=== PATIENT | female | born 1970 | race Caucasian/White ===

== ENCOUNTER 2024-01-22 11:07 | Outpatient (AMB) | payer OTHER, SELFPAY ==
--- OUTSIDE RECORDS SUMMARY | 2024-01-22 11:09 | XMS_ITS | Continuity of Care Document ---
Author Organization [facility] Address [address] [place] [address]- Care Team Providers Care Entry Writer Name Role Phone Ronny PAPPAS, Ofelia Acosta Primary Care Physician [phone] Encounter [facility] Date(s): 11/22/22 - 11/22/[address] [address]- Encounter Diagnosis Foot pain(Final) - 11/22/22 Discharge Disposition: A-D/C Home Attending Physician: Alexander STUART, Levar Lyles Admitting Physician: Levar Munoz MD Referring Physician: Not on Staff, Referring MD Allergies, Adverse Reactions, Alerts Substance Reaction Severity Status codeine HIVES Active amoxicillin Active penicillin N&V - Nausea and vomiting Unknown Ac tive Immunizations Given and Recorded Vaccine Date Status Refusal Reason SARS-CoV-2 (COVID-19) mRNA BNT-162b2 vac 01/05/21 Recorded SARS-CoV-2 (COVID-19) mRNA BNT-162b2 vac 12/15/20 Recorded influenza virus vaccine, inactivated 06/22/20 Give n influenza virus vaccine, inactivated 05/26/17 Sawyer rded influenza virus vaccine, inactivated 05/29/16 Sawyer rded influenza virus vaccine, inactivated 06/23/13 Give n influenza virus vaccine, inactivated 1 09/01/11 Gi jackson influenza virus vaccine, inactivated 2 09/20/06 Gi jackson tetanus/diphtheria/pertussis, acel(Tdap) 02/09/14 Given pneumococcal 23-valent vaccine 3 09/01/11 Given 1Admin Note: VIS GIVEN: 03/18/2011 2Result Comment: lot [id number] 09/21/2006 3Admin Note: VIS 05/29/09 GIVEN Medications Acetaminophen Extra Strength Gelcaps = 1,000 mg, By Mouth, Every 8 hours, 0 Refills, Maintenance, 12/19/20 7:59:00 EDT, Partial fill upon patient request if the prescription is for a schedule II opioid drug. Start Date: 12/19/20 Status: Ordered Adderall XR 30 mg oral capsule, extended release 1 capsule = 30 mg, By Mouth, Daily in AM, # 30 capsule, 0 Refills, Maintenance, 10/17/22 8:56:00 EST, ER Capsule, [facility], please only fill on/after exact due date, 1 capsule By Mouth Daily in AM,x30 days, 168, cm, 10/07/22 10:08:00 EST, H... Start Date: 10/17/22 Stop Date: 11/16/22 Status: Ordered amLODIPine 2.5 mg oral tablet 1 tablet = 2.5 mg, By Mouth, Daily, # 90 tablet, 1 Refills, Maintenance, 11/14/22 13:47:00 EDT, Tablet, [facility], Partial fill upon patient request if the prescription is for a schedule IIopioid drug., 168, cm, 10/22/22 10:35:00 EST, Heigh... Start Date: 11/14/22 Status: Ordered amphetamine-dextroamphetamine 10 mg oral tablet 1 tablet = 10 mg, By Mouth, 2 times a day, # 60 tablet, 0 Refills, Maintenance, 11/21/22 10:00:00 EDT, [facility], ., 1 tablet By Mouth 2 times a day,x30 days, 168, cm, 10/22/22 10:35:00 EST, Height, 112, kg, 04/22/22 14:00:00 EDT, Dry Weight Start Date: 11/21/22 Stop Date: 12/21/22 Status: Ordered cholecalciferol 5000 intl units oral tablet 1 tablet = 125 mcg, By Mouth, Daily, # 30 tablet, 3 Refills, Maintenance, 10/22/22 10:51:00 EST, Tablet, [facility], Partial fill upon patient request if the prescription is for a schedule II opioid drug., 168, cm, 10/22/22 10:35:00 EST, Heig... Start Date: 10/22/22 Stop Date: 02/19/23 Status: Ordered clonazePAM 0.5 mg oral tablet 1 tablet = 0.5 mg, By Mouth, 3 times a day, NEEDED FOR ANXIETY, # 90 tablet, 3 Refills, Maintenance, 10/17/22 8:57:00 EST, Tablet, [facility], 168, cm, 10/07/22 10:08:00 EST, Height, 112,kg, 04/22/22 14:00:00 EDT, Dry Weight Start Date: 10/17/22 Stop Date: 02/14/23 Status: Ordered docusate sodium 100 mg oral capsule See Instructions, TAKE 1 CAPSULE ONE TO TWO TIMES A DAY FOR CONSTIPATION, # 20 capsule, 0 Refills, [facility], 168, cm, 08/01/21 17:36:00 EST, Height, 115, kg, 08/01/21 17:36:00 EST, Dry Weight Start Date: 10/31/21 Status: Ordered doxycycline hyclate 100 mg oral capsule 1 capsule = 100 mg, By Mouth, 2 times a day, for 10 days, # 20 capsule, 0 Refills, Acute 12/02/22 12:24:00 EDT, 11/22/22 12:24:00 EDT, Capsule, [facility], Partial fill upon patient request if the prescription is for a schedule II opioid drug... Start Date: 11/22/22 Stop Date: 12/02/22 Status: Ordered folic acid 1 mg oral tablet See Instructions, TAKE 1 TABLET BY MOUTH DAILY, # 30 tablet, Refills 5, Tot. Refills 5, Maintenance, 10/12/22 20:53:00 EST, Instructions Replace Required Details, Route to Pharmacy Electronically, [facility], 168, cm, 10/07/22 10:08:00 EST, H... Start Date: 10/12/22 Status: Ordered Freestyle Lite Monitor See Instructions, # 1 each, Refills 0, Tot. Refills 0, Maintenance, DX E11.9.For patients use to check her blood glucose levels 2 x a day., 09/19/20 13:48:00 EST, Supply, 168, cm, 08/08/20 14:39:00 EST, Height, 127.1, kg, 09/16/19 9:51:00 EST, Dry Weight Start Date: 09/19/20 Status: Ordered gabapentin 600 mg oral tablet 1 tablet = 600 mg, By Mouth, 3 times a day, # 90 tablet, 1 Refills, Maintenance, 10/22/22 10:50:00 EST, Tablet, [facility], Partial fill upon patient request if the prescription is for a schedule II opioid drug., 168, cm, 10/22/22 10:35:00 ES... Start Date: 10/22/22 Status: Ordered LaMICtal 200 mg oral tablet 2 tablet = 400 mg, By Mouth, Daily at bedtime, # 60 tablet, 3 Refills, Maintenance, 10/17/22 8:58:00 EST, Tablet, [facility], Ok for fill early - patient has never lost or needed early refills before, 168, cm, 10/07/22 10:08:00 EST, Height, 1... Start Date: 10/17/22 Stop Date: 02/14/23 Status: Ordered lamotrigine 100 mg oral tablet 100 mg, 1, tablet, By Mouth, Daily in AM, # 30 tablet, Refills 3, Tot. Refills 3, Maintenance, 10/17/22 8:58:00 EST, Route to Pharmacy Electronically, [facility], Ok for fill early - patienthas never lost or needed early refills before, 168,... Start Date: 10/17/22 Stop Date: 02/14/23 Status: Ordered NuLYTELY with Flavor Packs oral powder for reconstitution 240 mL, By Mouth, Every 10 minutes, split prep method, take 1st half of prep evening before procedure, 2nd half 6 hrs prior to procedure., # 1 each, 0 Refills, Maintenance, 11/10/22 10:55:00 EDT, Vicente, [facility], test date 01/14 .... Start Date: 11/10/22 Status: Ordered omeprazole 40 mg oral enteric coated capsule 1 capsule, By Mouth, 2 times a day, # 60 capsule, 2 Refills, Maintenance, 11/11/22 12:20:00 EDT, [facility], 168, cm, 10/22/22 10:35:00 EST, Height, 112, kg, 04/22/22 14:00:00 EDT, Dry Weight Start Date: 11/11/22 Status: Ordered Wellbutrin XL 150 mg/24 hours oral tablet, extended release 1 tablet = 150 mg, By Mouth, Every 24 hours, With the Wellbutrin 300 mg TDD 450 mg, # 30 tablet, 3 Refills, Maintenance, 10/17/22 8:57:00 EST, ER Tablet, [facility], Ok for fill early - patient has never lost or needed early refills before, 1... Start Date: 10/17/22 Stop Date: 02/14/23 Status: Ordered Wellbutrin XL 300 mg/24 hours oral tablet, extended release 1 tablet = 300 mg, By Mouth, Daily, With the Wellbutrin 150 mg TDD 450 mg, # 30 tablet, 3 Refills, Maintenance, 10/17/22 8:57:00 EST, ER Tablet, [facility], Ok for fill early - patient has never lost or needed early refills before, 168, cm, 0... Start Date: 10/17/22 Status: Ordered ziprasidone 40 mg oral capsule See Instructions, Take one capsule in the morning and 1 capsules at bedtime with an 80mg tab TDD 160mg, # 60 capsule, 3 Refills, Maintenance, 10/17/22 8:58:00 EST, [facility], Partial fill upon patient request if the prescription is for a keith... Start Date: 10/17/22 Status: Ordered ziprasidone 80 mg oral capsule 1 capsule = 80 mg, By Mouth, Daily at bedtime, TDD = 160mg/day, # 30 capsule, 3 Refills, Maintenance, 10/17/22 8:59:00 EST, [facility], Partial fill upon patient request if the prescription is for a schedule II opioid drug., 168, cm, 10/07/22... Start Date: 10/17/22 Stop Date: 02/14/23 Status: Ordered Problem List Condition Confirmation Course Effective Dates Status H ealth Status Informant ADD (attention deficit disorder) Confirmed Active Background diabetic retinopathy Confirmed Active Bipolar disorder Confirmed Active Bipolar II disorder Confirmed Active Chronic low back pain Confirmed Active Constipation Confirmed Active Diabetes Confirmed Active Postprandial epigastric pain Confirmed Active Foot pain Confirmed Active Gastrointestinal stromal tumor (GIST) Confirmed Active Generalized anxiety disorder Confirmed Active GERD (gastroesophageal reflux disease) Confirmed Active Hepatic steatosis Confirmed Active Gastric bypass status for obesity Confirmed Active Hypertension Confirmed Active Incomplete defecation Confirmed Active Mixed incontinence Confirmed Active Urinary frequency Confirmed Active Intertrigo Confirmed Active Mastitis NOS Confirmed 11/17/11 Active Morbid Obesity 1 Confirmed Active Myoclonic jerking Confirmed Active Open wound of abdominal wall Confirmed Active PTSD (post-traumatic stress disorder) Confirmed Active Imaging abnormality Confirmed Active Severe obesity Confirmed Active Vitamin 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 Results Radiology Reports * Exam Date Time Procedure Performing Provider Status 11/22/22 11:30 AM Foot Min 3 Views Left Jennifer Field; Manjula (Verified) Notes: (Foot Min 3 Views Left) Reason For Exam: with Pain;Trauma RESULT: Foot Min 3 Views Left Foot Min 3 Views Left, 3 views Hx of Present Illness: Pt states she first noticed a quarter sized wound on her L foot 1 week ago, and was told to come to the ED by her PCP. Pt states she started having yellow green drainage yesterday and she had a fever of 100.2; COMPARISON: 06/05/2021. FINDINGS: No fractures or focal osseous lesions are seen. 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 No radiopaque foreign bodies. No subcutaneous emphysema. Circumferential soft tissue prominence. IMPRESSION: No acute osseous process. WSN: [id number] Ordering Physician: Alvino Mills Dictated By: Chung Cheng MD Dictated Date/Time: 11/22/22 11:56 a Reviewed By: Chung Cheng MD Signed By: Chung Cheng MD Signed Date/Time: 11/22/22 11:56 am Transcribed By: SANDY Transcribed Date/Time: 11/22/22 11:55 am Vital Signs Most recent to oldest [Reference Range]: 1 2 Height 165 cm (11/22/22 10:40 AM) Weight 118.3 kg (11/22/22 10:40 AM) Oxygen Saturation [94-100 %] 96 % (11/22/22 10:40 AM) 97 % (11/22/22 10:39 AM) Pulse Rate [55-90 bpm] 84 bpm (11/22/22 10:40 AM) 97 bpm *H* (11/22/22 10:39 AM) Blood Pressure [90-138/55-84 mm Hg] 147/ 90mm Hg *H* (11/22/22 10:40 AM) Respiratory Rate [16-30 br/min] 18 br/mi n (11/22/22 10:40 AM) 16 br/min (11/22/22 10:39 AM) Temperature [96.8-100.4 DegF] 98.9 DegF (11/22/22 10:40 AM) Mode of Delivery (Oxygen) Room air (11/22/22 10:40 AM) Room air (11/22/22 10:39 AM) Blood pressure sites Arm, left (11/22/22 10:40 AM) Temperature Route Temporal (11/22/22 10:40 AM) Dry Weight 118.3 kg (11/22/22 10:40 AM) Weight Obtained Via Standing scale (11/22/22 10:40 AM) Dry Weight Obtained Via Standing scale (11/22/22 10:40 AM) Social History Social History Type Response Smoking Status Never (less than 100 in lifetime); Tobacco user in household: No entered on: 07/26/18 Sex Female Note * Alexander STUART, Levar Lyles: PERFORM Event Display: Patient Education Leaflets Authored Date: [id number] Abscess Drainage ?? [id number] Abscess Drainage An abscess is a pocket of pus that forms around an infection. Pus is a fluid made up of germs??(bacteria), white blood cells, and other matter. Draining pus from an infected area or organ inside the body may be needed. This helps heal the infection. The procedure is??usually??done by a specially trained doctor called an interventional radiologist. How do I get ready for abscess drainage? Follow any instructions you are given on how to prepare, including: ??? Don't eat or drink anythingfor 6??hours before the procedure. ??? Tell the technologist if you are, or could be, or if you are . ??? Tell your healthcare provider and the technologist if you are allergic to??X-ray dye (contrast medium) or other medicines. ??? Be sure your healthcare provider knows about??any health conditions you have and??all medicines you take. You may be told to stop taking some orall of them before the test. This includes: o All prescription medicines o Qkxs-[id number] medicines that don???t need a prescription o Any illegal drugs you may use?? o Herbs, vitamins, kelp, seaweed, cough syrups, and??any??other supplements ?? What happens during abscess drainage? You will change into a hospital gown and lie on an X-ray table. You may lie on your back, front, or side, depending on the site of the abscess. ??? An??IV (intravenous)??line is put into your vein to give you fluids and medicines. You may be given medicine through the IV to help you relax. ??? The skin over the abscess is cleaned. A local anesthetic is applied to numb the skin. ??? Using??a CT scan or ultrasound images as a guide, the radiologist puts aneedle through the skin and guides it to the abscess. The needle is then replaced with a thin, flexible tube (catheter). ??? Pus drains from the abscess through the catheter. A bag or suction bulb will be attached to the catheter to hold the pus as it drains. ??? The drainage catheter will be temporarily sutured or taped to your skin to help secure it and prevent it from moving. ??? The entire procedure may take 30 minutes or longer, depending on the location of the abscess. ?? What happens after abscess drainage? A slight fever is normal for the first 24 hours after the procedure. ??? The catheter and drainage bag will likely remain in place for several days. Follow any instructions you are given for caring for the catheter and drainage site. ??? See your healthcare provider for a follow-up appointment to check the infection and to have the catheter removed. ?? When to call your healthcare provider Call your healthcare provider if you have: ??? Bleeding ??? Fever of 100.4??F (38??C) or higher, oras directed by your healthcare provider ??? Chills ??? New or worsening pain ??? Fluid stops draining from the tube,??the drainage changes color, or the tube moves or comes out ?? Last Reviewed Date: 2022 ?? 6910-1010 [employer], [employer]. All rights reserved. This information is not intended as a substitute for professional medical care. Always follow your healthcare professional's instructions. ?? XR Foot - left GE 3 Views * [facility] , CIS S: TRANSCRIBE Chung Cheng MD: VERIFY Event Display: Result: Authored Date: Foot Min 3 Views Left, 3 views Hx of Present Illness: Pt states she first noticed a quarter sized wound on her L foot 1 week ago, and was told to come to the ED by her PCP. Pt states she started having yellow green drainage yesterday and she had a fever of 100.2; COMPARISON: 06/05/2021. FINDINGS: No fractures or focal osseous lesions are seen. 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 No radiopaque foreign bodies. No subcutaneous emphysema. Circumferential soft tissue prominence. IMPRESSION: No acute osseous process. WSN: [id number] Ordering Physician: Alvino Mills Dictated By: Chung Cheng MD Dictated Date/Time: 11/22/22 11:56 a Reviewed By: Chung Cheng MD Signed By: Chung Cheng MD Signed Date/Time: 11/22/22 11:56 am Transcribed By: SANDY Transcribed Date/Time: 11/22/22 11:55 am Patient Care team information Care Team Personnel Name: Anabel Vyas Position: [facility] RN Member Role: Primary Care Nurse Name: Isa Ward Position: [facility] RN Member Role: Primary Care Nurse Name: Ofelia Jefferson NP Position: [facility] PCO Associate Professional Member Role: PCP Address: Address: [address] [place] [address] [place] [address]- [place] Name: Tommy Kohli MD Position: [facility] Psychiatry MD Member Role: Lifetime Consulting Physician Address: Address: [address] [place] [id number]- [place] Name: Jimmie Collado Position: [facility] ED TA JAGDISH Member Role: Patient Care Provider Name: Alexander STUART, Levar Lyles Position: [facility] Resident Member Role: Admitting Physician Address: Address: [address] [place] [id number]- Name: Candelaria Cuba RN Position: [facility] ED RN W/OE and Tasks Member Role: Patient Care Provider Care Team Related Persons Name: WILLEM SIMON III Address: [place] [address] Name: WILLEM SIMON JR Address: home [address] [place] [address]
--- OUTSIDE RECORDS SUMMARY | 2024-01-22 11:09 | XMS_ITS | Continuity of Care Document ---
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 Date(s): 08/01/21 - 08/01/[address] [address]- Discharge Disposition: A-D/C Home Attending Physician: King Weber MD Admitting Physician: King Weber MD Referring Physician: Not on Staff, Referring MD Allergies, Adverse Reactions, Alerts Substance Reaction Severity Status OxyCODONE Hydrochloride hives full body itch Active Immunizations Given and Recorded Vaccine Date Status Refusal Reason SARS-CoV-2 (COVID-19) mRNA BNT-162b2 vac 01/05/21 Recorded SARS-CoV-2 (COVID-19) mRNA BNT-162b2 vac 12/15/20 Recorded influenza virus vaccine, inactivated 06/22/20 Give n influenza virus vaccine, inactivated 06/23/13 Give n influenza virus vaccine, inactivated 1 09/01/11 Gi jackson influenza virus vaccine, inactivated 2 09/20/06 Gi jackson tetanus/diphtheria/pertussis, acel(Tdap) 02/09/14 Given pneumococcal 23-valent vaccine 3 09/01/11 Given 1Admin Note: VIS GIVEN: 03/18/2011 2Result Comment: lot [id number] 09/21/2006 3Admin Note: VIS 05/29/09 GIVEN Medications Acetaminophen Extra Strength Gelcaps = 1,000 mg, By Mouth, Every 8 hours, 0 Refills, Maintenance, 12/19/20 7:59:00 EDT, Partial fill upon patient request if the prescription is for a schedule II opioid drug. Start Date: 12/19/20 Status: Ordered albuterol 90 mcg/inh inhalation powder 2 puffs, Inhalation, Every 4 hours, PRN as needed, # 1 each, 0 Refills, Maintenance, 08/01/21 20:08:00 EST, Powder, [facility], Partial fill upon patient request if the prescription is for aschedule II opioid drug., 2 puffs Inhalation Every... Start Date: 08/01/21 Status: Ordered aspirin 325 mg oral tablet 325 mg, 1, tablet, By Mouth, Daily, Refills 0, Maintenance, 12/19/20 7:58:00 EDT, Partial fill uponpatient request if the prescription is for a schedule II opioid drug. Start Date: 12/19/20 Status: Ordered Lyrica 150 mg oral capsule 1 capsule = 150 mg, By Mouth, 3 times a day, 0 Refills, Maintenance, 08/08/20 14:40:00 EST, Capsule, Partial fill upon patient request if the prescription is for a schedule II opioid drug. Start Date: 08/08/20 Status: Ordered ondansetron 4 mg oral tablet, disintegrating 1 tablet = 4 mg, By Mouth, Every 8 hours, PRN Nausea & Vomiting, for 7 days, # 20 tablet, 0 Refills, Acute 08/08/21 20:08:00 EST, 08/01/21 20:08:00 EST, Tablet, [facility], Partial fill upon patient request if the prescription is for a schedu... Start Date: 08/01/21 Stop Date: 08/08/21 Status: Ordered Problem List Condition Effective Dates Status Health Status Inform ant ADD (attention deficit disorder)(Confirmed) Active Background diabetic retinopathy(Confirmed) Active Bipolar disorder(Confirmed) Active Bipolar II disorder(Confirmed) Active Chronic low back pain(Confirmed) Active Constipation(Confirmed) Active Diabetes(Confirmed) Active Postprandial epigastric pain(Confirmed) Active Foot pain(Confirmed) Active Gastrointestinal stromal mari or (GIST)(Confirmed) Active Generalized anxiety disorder(Confirmed) Active GERD (gastroesophageal reflu x disease)(Confirmed) Active Hepatic steatosis(Confirmed) Active Gastric bypass status for obesity(Confirmed) Active Hypertension(Confirmed) Active Incomplete defecation(Confirmed) Active Mixed incontinence(Confirmed) Active Urinary frequency(Confirmed) Active Intertrigo(Confirmed) Active Mastitis NOS(Confirmed) 11/17/11 Active Morbid Obesity(Confirmed) 1 Active Myoclonic jerking(Confirmed) Active Open wound of abdominal wall(Confirmed) Active PTSD (post-traumatic stress disorder)(Confirmed) Active Imaging abnormality(Confirmed) Active Vitamin D deficiency(Confirmed) Active 1s/p gastric sleeve Vital Signs Most recent to oldest [Reference Range]: 1 2 Height 168 cm (08/01/21 5:36 PM) Weight 115 kg (08/01/21 5:36 PM) Oxygen Saturation [94-100 %] 99 % (08/01/21 8:37 PM) 98 % (08/01/21 5:36 PM) Pulse Rate [55-90 bpm] 93 bpm *H* (08/01/21 8:37 PM) 96 bpm *H* (08/01/21 5:36 PM) Blood Pressure [90-138/55-84 mm Hg] 135/ 78mm Hg (08/01/21 8:37 PM) 137/81mm Hg (08/01/21 5:36 PM) Respiratory Rate [16-30 br/min] 16 br/mi n (08/01/21 8:37 PM) 16 br/min (08/01/21 5:36 PM) Temperature [96.8-100.4 DegF] 100.0 DegF (08/01/21 8:37 PM) 99.7 DegF (08/01/21 5:36 PM) Mode of Delivery (Oxygen) Room air (08/01/21 8:37 PM) Room air (08/01/21 5:36 PM) Blood pressure sites Arm, left (08/01/21 8:37 PM) Arm, right (08/01/21 5:36 PM) Temperature Route Oral (08/01/21 8:37 PM) Oral (08/01/21 5:36 PM) Dry Weight 115 kg (08/01/21 5:36 PM) Social History Social History Type Response Smoking Status Never (less than 100 in lifetime); Tobacco user in household: No entered on: 07/26/18 Sex
--- OUTSIDE RECORDS SUMMARY | 2024-01-22 11:09 | XMS_ITS | Continuity of Care Document ---
Author Organization [facility] [place] Address [address] [place] [address]- Care Team Providers Care Item Processing Clerk Name Role Phone Ronny SKEIN MERCERIZING MACHINE OPERATOR, Ofelia Acosta Primary Care Physician [phone] Encounter [facility] Date(s): 12/26/21 - 04/25/22 [facility] [place] [address] [place] [address]- Attending Physician: German Cortez MD Allergies, Adverse Reactions, Alerts Substance Reaction [...] Note: VIS GIVEN: 03/18/2011 2Result Comment: lot [id number] 09/21/2006 3Admin Note: VIS 05/29/09 GIVEN Medications Acetaminophen Extra Strength Gelcaps = 1,000 mg, By Mouth, Every 8 hours, 0 Refills, Maintenance, 12/19/20 7:59:00 EDT, Partial fill upon patient request if the prescription is for a schedule II opioid drug. Start Date: 12/19/20 Status: Ordered Adderall 20 mg oral tablet 1 tablet = 20 mg, By Mouth, Daily, # 30 tablet, 0 Refills, Maintenance, 04/16/22 12:37:00 EDT, [facility], 1 tablet By Mouth Daily,x30 days, 168, cm, 04/06/22 15:19:00 EDT, Height, 113.3, kg, 04/09/22 9:17:00 EDT, Dry Weight Start Date: 04/16/22 Stop Date: 05/16/22 Status: Ordered Adderall XR 30 mg oral capsule, extended release 1 capsule = 30 mg, By Mouth, Daily in AM, # 30 capsule, 0 Refills, Maintenance, 04/16/22 12:37:00 EDT, ER Capsule, [facility], 1 capsule By Mouth Daily in AM, 168, cm, 04/06/22 15:19:00 EDT,Height, 113.3, kg, 04/09/22 9:17:00 EDT, Dry Weight Start Date: 04/16/22 Status: Ordered albuterol 90 mcg/inh inhalation powder 2 puffs, Inhalation, Every 4 hours, PRN as needed, # 1 each, 0 Refills, Maintenance, 08/01/21 20:08:00 EST, Powder, [facility], Partial fill upon patient request if the prescription is for aschedule II opioid drug., 2 puffs Inhalation Every... Start Date: 08/01/21 Status: Ordered Ambien 10 mg oral tablet 1 tablet = 10 mg, By Mouth, Daily at bedtime, PRN as needed for insomnia, for 30 days, # 30 tablet,3 Refills, Acute 07/12/22 9:27:00 EST, 03/14/22 9:27:00 EDT, Tablet, [facility], 168, cm, 02/20/22 13:36:00 EDT, Height, 116, kg, 02/20/22 13:... Start Date: 03/14/22 Stop Date: 07/12/22 Status: Ordered amLODIPine 2.5 mg oral tablet 1 tablet = 2.5 mg, By Mouth, Daily, # 90 tablet, 3 Refills, Maintenance, 06/11/21 15:16:00 EDT, Tablet, [facility], Partial fill upon patient request if the prescription is for a schedule IIopioid drug., 168, cm, 06/11/21 14:35:00 EDT, Heigh... Start Date: 06/11/21 Status: Ordered cholecalciferol 5000 intl units oral tablet 1 tablet = 125 mcg, By Mouth, Daily, # 30 tablet, 3 Refills, Maintenance, 02/07/22 11:35:00 EDT, Tablet, [facility], Partial fill upon patient request if the prescription is for a schedule II opioid drug., 168, cm, 02/07/22 11:03:00 EDT, [place]... Start Date: 02/07/22 Stop Date: 06/07/22 Status: Ordered clonazePAM 0.5 mg oral tablet 1 tablet = 0.5 mg, By Mouth, 3 times a day, NEEDED FOR ANXIETY, # 90 tablet, 3 Refills, Maintenance, 03/14/22 9:26:00 EDT, Tablet, [facility], 168, cm, 02/20/22 13:36:00 EDT, Height, 116,kg, 02/20/22 13:36:00 EDT, Dry Weight Start Date: 03/14/22 Stop Date: 07/12/22 Status: Ordered docusate sodium 100 mg oral capsule See Instructions, TAKE 1 CAPSULE ONE TO TWO TIMES A DAY FOR CONSTIPATION, # 20 capsule, 0 Refills, [facility], 168, cm, 08/01/21 17:36:00 EST, Height, 115, kg, 08/01/21 17:36:00 EST, Dry Weight Start Date: 10/31/21 Status: Ordered folic acid 1 mg oral tablet 1 mg, 1, tablet, By Mouth, Daily, # 30 tablet, Refills 3, Tot. Refills 3, Maintenance, 02/07/22 11:35:00 EDT, Route to Pharmacy Electronically, [facility], Partial fill upon patient request if the prescription is for a schedule II opioid drug... Start Date: 02/07/22 Stop Date: 06/07/22 Status: Ordered Freestyle Lite Monitor See Instructions, # 1 each, Refills 0, Tot. Refills 0, Maintenance, DX E11.9.For patients use to check her blood glucose levels 2 x a day., 09/19/20 13:48:00 EST, Supply, 168, cm, 08/08/20 14:39:00 EST, Height, 127.1, kg, 09/16/19 9:51:00 EST, Dry Weight Start Date: 09/19/20 Status: Ordered Geodon 60 mg oral capsule 1 capsule = 60 mg, By Mouth, 2 times a day, for 30 days, dose reduction, # 60 capsule, 3 Refills, Hard Stop 05/17/22 10:46:00 EDT, 01/17/22 10:46:00 EDT, Capsule, [facility], Partial fill upon patient request if the prescription is for a sche... Start Date: 01/17/22 Stop Date: 05/17/22 Status: Ordered Geodon 60 mg oral capsule 1 capsule = 60 mg, By Mouth, Daily, D/C all other Ziprasidone scripts., # 30 capsule, 0 Refills, Maintenance, 04/18/22 13:47:00 EDT, Capsule, [facility], Partial fill upon patient request ifthe prescription is for a schedule II opioid drug.,... Start Date: 04/18/22 Status: Ordered Geodon 80 mg oral capsule 1 capsule = 80 mg, By Mouth, Daily at bedtime, Take with 60mg capsule., # 30 capsule, 0 Refills, Maintenance, 04/18/22 13:47:00 EDT, Capsule, [facility], 168, cm, 04/06/22 15:19:00 EDT, Height, 113.3, kg, 04/09/22 9:17:00 EDT, Dry Weight Start Date: 04/18/22 Status: Ordered LaMICtal 200 mg oral tablet 2 tablet = 400 mg, By Mouth, Daily at bedtime, # 60 tablet, 3 Refills, Maintenance, 03/14/22 9:27:00 EDT, Tablet, [facility], 168, cm, 02/20/22 13:36:00 EDT, Height, 116, kg, 02/20/22 13:36:00 EDT, Dry Weight Start Date: 03/14/22 Stop Date: 07/12/22 Status: Ordered lamotrigine 100 mg oral tablet 100 mg, 1, tablet, By Mouth, Daily in AM, # 30 tablet, Refills 3, Tot. Refills 3, Maintenance, 03/14/22 9:27:00 EDT, Route to Pharmacy Electronically, [facility], 168, cm, 02/20/22 13:36:00 EDT, Height, 116, kg, 02/20/22 13:36:00 EDT, Dry Weight Start Date: 03/14/22 Stop Date: 07/12/22 Status: Ordered Lyrica 150 mg oral capsule 1 capsule = 150 mg, By Mouth, 3 times a day, 0 Refills, Maintenance, 08/08/20 14:40:00 EST, Capsule, Partial fill upon patient request if the prescription is for a schedule II opioid drug. Start Date: 08/08/20 Status: Ordered omeprazole 40 mg oral enteric coated capsule 1 capsule, By Mouth, 2 times a day, # 60 capsule, 2 Refills, Maintenance, 04/22/22 12:20:00 EDT, [facility], 168, cm, 04/21/22 8:42:00 EDT, Height, 113.3, kg, 04/09/22 9:17:00 EDT, Dry Weight Start Date: 04/22/22 Status: Ordered Wellbutrin XL 150 mg/24 hours oral tablet, extended release 1 tablet = 150 mg, By Mouth, Every 24 hours, With the Wellbutrin 300 mg TDD 450 mg, # 30 tablet, 3 Refills, Maintenance, 03/14/22 9:26:00 EDT, ER Tablet, [facility], 168, cm, 02/20/22 13:36:00 EDT, Height, 116, kg, 02/20/22 13:36:00 EDT, Dry... Start Date: 03/14/22 Stop Date: 07/12/22 Status: Ordered Wellbutrin XL 300 mg/24 hours oral tablet, extended release 1 tablet = 300 mg, By Mouth, Daily, With the Wellbutrin 150 mg TDD 450 mg, # 30 tablet, 3 Refills, Maintenance, 03/14/22 9:26:00 EDT, ER Tablet, [facility], 168, cm, 02/20/22 13:36:00 EDT, Height, 116, kg, 02/20/22 13:36:00 EDT, Dry Weight Start Date: 03/14/22 Status: Ordered ziprasidone 20 mg oral capsule 1 capsule = 20 mg, By Mouth, 3 times a day, # 90 capsule, 2 Refills, Maintenance, 03/14/22 9:23:00 EDT, Capsule, [facility], pt is slowly tapering off his medication, 168, cm, 02/20/22 13:36:00 EDT, Height, 116, kg, 02/20/22 13:36:00 EDT, Dry... Start Date: 03/14/22 Stop Date: 06/12/22 Status: Ordered Problem List Condition Effective Dates [...] Morbid Obesity(Confirmed) 1 Active Myoclonic jerking(Confirmed) Active Obese class II(Confirmed) Active Open wound of abdominal wall(Confirmed) Active PTSD (post-traumatic stress disorder)(Confirmed) Active Imaging abnormality(Confirmed) Active Vitamin D deficiency(Confirmed) Active 1s/p gastric sleeve Social History Social History Type Response Smoking Status Never (less than 100 in lifetime); Tobacco user in household: No entered on: 07/26/18 Sex Female Care Team Personnel Name: Ofelia Jefferson NP Address: [address] [place] [id number]
--- OUTSIDE RECORDS SUMMARY | 2024-01-22 11:09 | XMS_ITS | Continuity of Care Document ---
Author Organization [facility] [place] Address [address] [place] [address]- Care Team Providers Care Cylinder Dyer Name Role Phone Ronny ENGINEERING PROJECT MANAGER, Ofelia Acosta Primary Care Physician Encounter [facility] Date(s): 08/08/23 - 09/07/23 [facility] [place] [address] [place] [address]- Allergies, Adverse Reactions, Alerts Substance Reaction Severity [...] Note: VIS GIVEN: 03/18/2011 2Result Comment: lot [id number] 09/21/2006 3Admin Note: VIS 05/29/09 GIVEN Medications [...] AM, # 30 capsule, 0 Refills, Maintenance, 08/27/23 9:57:00 EST, ER Capsule, [facility], please only fill on/after exact due date, 1 capsule By Mouth Daily in AM,x30 days, 165, cm, 05/25/23 14:40:00 EDT, H... Start Date: 08/27/23 Stop Date: 09/26/23 Status: Ordered amLODIPine 2.5 mg oral tablet 1 tablet, By Mouth, Daily, # 90 tablet, 1 Refills, Maintenance, 07/24/23 15:00:00 EST, [facility], 165, cm, 05/25/23 14:40:00 EDT, Height, 118.3, kg, 12/16/22 20:23:00 EDT, Dry Weight Start Date: 07/24/23 Status: Ordered amphetamine-dextroamphetamine 10 mg oral tablet 1 tablet = 10 mg, By Mouth, 2 times a day, # 60 tablet, 0 Refills, Maintenance, 08/27/23 9:57:00 EST, [facility], fill on date due, 1 tablet By Mouth 2 times a day,x30 days, 165, cm, 05/25/23 14:40:00 EDT, Height, 118.3, kg, 12/16/22 20:23:00... Start Date: 08/27/23 Stop Date: 09/26/23 Status: Ordered clonazePAM 0.5 mg oral tablet 1 tablet = 0.5 mg, By Mouth, 3 times a day, NEEDED FOR ANXIETY, # 90 tablet, 3 Refills, Maintenance, 05/29/23 13:42:00 EDT, Tablet, [facility], 165, cm, 05/25/23 14:40:00 EDT, Height, 118.3, kg, 12/16/22 20:23:00 EDT, Dry Weight Start Date: 05/29/23 Stop Date: 09/26/23 Status: Ordered docusate sodium 100 mg oral capsule See Instructions, TAKE 1 CAPSULE ONE TO TWO TIMES A DAY FOR CONSTIPATION, # 20 capsule, 0 Refills, [facility], 168, cm, 08/01/21 17:36:00 EST, Height, 115, kg, 08/01/21 17:36:00 EST, Dry Weight Start Date: 10/31/21 Status: Ordered folic acid 1 mg oral tablet 1, tablet, By Mouth, Daily, # 30 tablet, Refills 5, Maintenance, 04/29/23 20:24:00 EDT, Route to Pharmacy Electronically, [facility], 165, cm, 01/21/23 11:55:00 EDT, Height, 118.3, kg, 12/16/22 20:23:00 EDT, Dry Weight Start Date: 04/29/23 Status: Ordered Freestyle Lite Monitor See Instructions, # 1 each, Refills 0, Tot. Refills 0, Maintenance, DX E11.9.For patients use to check her blood glucose levels 2 x a day., 09/19/20 13:48:00 EST, Supply, 168, cm, 08/08/20 14:39:00 EST, Height, 127.1, kg, 09/16/19 9:51:00 EST, Dry Weight Start Date: 09/19/20 Status: Ordered Freestyle Lite Precision Test Strips Freestyle Lite Precision Test Strips, See Instructions, # 100 each, Refills 0, Tot. Refills 0, Maintenance, use to test once daily DX: E11.9, 04/12/23 7:33:00 EDT, per ins this is what they will cover, Supply, 165, cm, 01/21/23 11:55:00 EDT, Height,... Start Date: 04/12/23 Status: Ordered FREESTYLE LITE TEST STRP FREESTYLE LITE TEST STRP, See Instructions, # 100 Unknown, 0 Refills, Maintenance, USE TO TEST ONCEDAILY, 07/09/23 8:06:00 EST, 165, cm, 05/25/23 14:40:00 EDT, Height, 118.3, kg, 12/16/22 20:23:00 EDT, Dry Weight Start Date: 07/09/23 Status: Ordered gabapentin 600 mg oral tablet 1 tablet, By Mouth, 3 times a day, # 90 tablet, 3 Refills, Maintenance, 05/29/23 13:41:00 EDT, [facility], 165, cm, 05/25/23 14:40:00 EDT, Height, 118.3, kg, 12/16/22 20:23:00 EDT, Dry Weight Start Date: 05/29/23 Stop Date: 09/26/23 Status: Ordered ibuprofen 800 mg oral tablet 1, tablet, By Mouth, 3 times a day, # 90 tablet, Refills 1, Maintenance, 05/25/23 8:49:00 EDT, Route to Pharmacy Electronically, [facility], 165, cm, 01/21/23 11:55:00 EDT, Height, 118.3, kg, 12/16/22 20:23:00 EDT, Dry Weight Start Date: 05/25/23 Status: Ordered LaMICtal 200 mg oral tablet 2 tablet = 400 mg, By Mouth, Daily at bedtime, for 30 days, # 60 tablet, 3 Refills, Hard Stop 09/26/23 13:41:00 EST, 05/29/23 13:41:00 EDT, Tablet, [facility], 165, cm, 05/25/23 14:40:00 EDT, Height, 118.3, kg, 12/16/22 20:23:00 EDT, Dry Weight Start Date: 05/29/23 Stop Date: 09/26/23 Status: Ordered LaMICtal 200 mg oral tablet 2 tablet = 400 mg, By Mouth, Daily at bedtime, # 60 tablet, 3 Refills, Maintenance, 09/26/23 13:41:00 EST, Tablet, [facility], 165, cm, 05/25/23 14:40:00 EDT, Height, 118.3, kg, 12/16/22 20:23:00 EDT, Dry Weight Start Date: 09/26/23 Stop Date: 01/24/24 Status: Ordered lamotrigine 100 mg oral tablet 100 mg, 1, tablet, By Mouth, Daily in AM, # 30 tablet, Refills 3, Tot. Refills 3, Maintenance, 05/29/23 13:41:00 EDT, Route to Pharmacy Electronically, [facility], 165, cm, 05/25/23 14:40:00EDT, Height, 118.3, kg, 12/16/22 20:23:00 EDT, Dry... Start Date: 05/29/23 Stop Date: 09/26/23 Status: Ordered NuLYTELY with Flavor Packs oral powder for reconstitution 240 mL, By Mouth, Every 10 minutes, split prep method, take 1st half of prep evening before procedure, 2nd half 6 hrs prior to procedure., # 1 each, 0 Refills, Maintenance, 11/10/22 10:55:00 EDT, RECPowder, [facility], test date 01/14 .... Start Date: 11/10/22 Status: Ordered omeprazole 40 mg oral enteric coated capsule 1 capsule, By Mouth, 2 times a day, # 180 capsule, 1 Refills, Maintenance, 08/15/23 8:46:00 EST, [facility], 165, cm, 05/25/23 14:40:00 EDT, Height, 118.3, kg, 12/16/22 20:23:00 EDT, Dry Weight Start Date: 08/15/23 Status: Ordered ondansetron 4 mg oral tablet 1 tablet = 4 mg, By Mouth, Every 8 hours, # 21 tablet, 0 Refills, Maintenance, 07/29/23 17:24:00 EST, Tablet, [facility], Partial fill upon patient request if the prescription is for a schedule II opioid drug., 165, cm, 05/25/23 14:40:00 EDT,... Start Date: 07/29/23 Status: Ordered ONE TOUCH DELICA PLUS 33G ONE TOUCH DELICA PLUS 33G, See Instructions, # 100 Unknown, 0 Refills, Maintenance, USE DAILY TO CHECK MORNING FASTING BLOOD SUGAR., 05/11/23 10:11:00 EDT, 165, cm, 01/21/23 11:55:00 EDT, Height, 118.3, kg, 12/16/22 20:23:00 EDT, Dry Weight Start Date: 05/11/23 Status: Ordered ONE TOUCH DELICA PLUS 33G ONE TOUCH DELICA PLUS 33G, See Instructions, # 100 Unknown, 11 Refills, Maintenance, USE DAILY TO CHECK MORNING FASTING BLOOD SUGAR., 08/08/23 21:02:00 EST, 165, cm, 05/25/23 14:40:00 EDT, Height, 118.3, kg, 12/16/22 20:23:00 EDT, Dry Weight Start Date: 08/08/23 Status: Ordered ONETOUCH VERIO STRP ONETOUCH VERIO STRP, See Instructions, # 50 Unknown, 0 Refills, Maintenance, USE DAILY TO CHECK MORNING FASTING BLOOD SUGAR., 04/06/23 7:38:00 EDT, 165, cm, 01/21/23 11:55:00 EDT, Height, 118.3, kg, 12/16/22 20:23:00 EDT, Dry Weight Start Date: 04/06/23 Status: Ordered OneTouch Verio Glucose Meter See Instructions, # 1 each, Maintenance, Use daily to check morning fasting blood sugar ICD 10: E11.9, 02/19/23 11:43:00 EDT, Supply, 165, cm, 01/21/23 11:55:00 EDT, Height, 118.3, kg, 12/16/22 20:23:00 EDT, Dry Weight Start Date: 02/19/23 Status: Ordered OneTouch Verio Lancets See Instructions, # 1 each, Maintenance, Use daily to check morning fasting blood sugar ICD 10: E11.9, 02/19/23 11:43:00 EDT, Supply, 165, cm, 01/21/23 11:55:00 EDT, Height, 118.3, kg, 12/16/22 20:23:00 EDT, Dry Weight Start Date: 02/19/23 Status: Ordered OneTouch Verio Test Strips See Instructions, # 1 each, Maintenance, Use daily to check morning fasting blood sugar ICD 10: E11.9, 02/19/23 11:43:00 EDT, Supply, 165, cm, 01/21/23 11:55:00 EDT, Height, 118.3, kg, 12/16/22 20:23:00 EDT, Dry Weight Start Date: 02/19/23 Status: Ordered Readi-Cat 2 Smoothie Creamy Vanilla 2% oral suspension See Instructions, 1 bottle 90 minutes prior to study, # 420 mL, 0 Refills, Maintenance, 05/25/23 15:17:00 EDT, [facility], Partial fill upon patient request if the prescription is for a schedule II opioid drug., 1 bottle 90 minutes prior to s... Start Date: 05/25/23 Status: Ordered Suprep Bowel Prep Kit oral liquid 177 mL, By Mouth, Once, split prep, # 354 mL, 0 Refills, Soft Stop, 12/01/22 14:37:00 EDT, [facility], Partial fill upon patient request if the prescription is for a schedule II opioid drug., 177 mL By Mouth Once,Instr:split prep, 165, cm, 04... Start Date: 12/01/22 Status: Ordered Trulicity Pen 1.5 mg/0.5 mL subcutaneous solution See Instructions, INJECT 0.5ML SUBCUTANEOUSLY ONCE WEEKLY ROTATE INJECTION SITES, # 2 mL, 5 Refills, Maintenance, 06/07/23 18:02:00 EDT, [facility], 165, cm, 05/25/23 14:40:00 EDT, Height, 118.3, kg, 12/16/22 20:23:00 EDT, Dry Weight Start Date: 06/07/23 Status: Ordered Vitamin D3 5000 intl units oral tablet 1 tablet, By Mouth, Daily, # 30 tablet, 5 Refills, Maintenance, 03/08/23 21:40:00 EDT, [facility], 165, cm, 01/21/23 11:55:00 EDT, Height, 118.3, kg, 12/16/22 20:23:00 EDT, Dry Weight Start Date: 03/08/23 Status: Ordered Wellbutrin XL 300 mg/24 hours oral tablet, extended release 1 tablet = 300 mg, By Mouth, Daily, # 30 tablet, 2 Refills, Maintenance, 08/11/23 7:22:00 EST, ER Tablet, [facility], dose reduction - 300mg/day, 165, cm, 05/25/23 14:40:00 EDT, Height, 118.3, kg, 12/16/22 20:23:00 EDT, Dry Weight Start Date: 08/11/23 Stop Date: 11/09/23 Status: Ordered ziprasidone 60 mg oral capsule 2 capsule = 120 mg, By Mouth, Daily at bedtime, # 60 capsule, 2 Refills, Maintenance, 07/28/23 14:51:00 EST, [facility], Partial fill upon patient request if the prescription is for a schedule II opioid drug., 165, cm, 05/25/23 14:40:00 EDT,... Start Date: 07/28/23 Stop Date: 10/26/23 Status: Ordered Problem List Condition Confirmation Course [...] 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 Social History Social History Type Response Smoking Status Never (less than 100 in lifetime); Tobacco user in household: No entered on: 07/26/18 Sex Female Patient Care team information Care Team Personnel Name: Anabel Roblero MA Position: [facility] RN Member Role: Primary Care Nurse Name: Isa Ward Position: [facility] RN Member Role: Primary Care Nurse Name: Ofelia Jefferson NP Position: [facility] PCO Associate Professional Member Role: PCP Address: Address: [address] [place] [address] [place] [address]- Name: Tommy Kohli MD Position: [facility] Physician - Behavioral Health Member Role: Lifetime Consulting Physician Address: Address: [address] [place] [address]- Care Team Related Persons Name: WILLEM SIMON III Address: [place] [address] Name: WILLEM SIMON JR Address: home [address] [place] [address]
--- OUTSIDE RECORDS SUMMARY | 2024-01-22 11:09 | XMS_ITS | Continuity of Care Document ---
Author Organization [facility] [place] [employer] [facility] Address [address], [address] [place] [address]- Care Team Providers Care Community Outreach Advocate Name Role Phone Stacie Rendon NP Primary Care Physician [facility] [id number] Date(s): 12/04/20 - 03/09/21 [facility] [employer] [address], [address] [place], [place] [address] Attending Physician: Not on Staff, Attending MD Referring Physician: Stacie Rendon NP Allergies, Adverse Reactions, Alerts Substance Reaction Severity Status OxyCODONE Hydrochloride hives full body itch Active Immunizations Given and Recorded Vaccine Date Status Refusal Reason influenza virus vaccine, inactivated 06/22/20 Give n influenza virus vaccine, inactivated 06/23/13 Give n influenza virus vaccine, inactivated 1 09/01/11 Gi jackson influenza virus vaccine, inactivated 2 09/20/06 Gi jackson tetanus/diphtheria/pertussis, acel(Tdap) 02/09/14 Given pneumococcal 23-valent vaccine 3 09/01/11 Given 1Admin Note: VIS GIVEN: 03/18/2011 2Result Comment: lot [id number] 09/21/2006 3Admin Note: VIS 05/29/09 GIVEN Medications Acetaminophen Extra Strength Gelcaps = 1,000 mg, By Mouth, Every 8 hours, 0 Refills, Maintenance, 12/19/20 7:59:00 EDT, Partial fill upon patient request if the prescription is for a schedule II opioid drug. Start Date: 12/19/20 Status: Ordered aspirin 325 mg oral tablet 325 mg, 1, tablet, By Mouth, Daily, Refills 0, Maintenance, 12/19/20 7:58:00 EDT, Partial fill uponpatient request if the prescription is for a schedule II opioid drug. Start Date: 12/19/20 Status: Ordered Dilaudid 2 mg oral tablet 1 tablet = 2 mg, By Mouth, Every 4 hours, PRN as needed for pain, 0 Refills, Maintenance, 12/19/20 10:44:00 EDT, Tablet, Partial fill upon patient request if the prescription is for a schedule II opioid drug. Start Date: 12/19/20 Status: Ordered Lyrica 150 mg oral capsule 1 capsule = 150 mg, By Mouth, 3 times a day, 0 Refills, Maintenance, 08/08/20 14:40:00 EST, Capsule, Partial fill upon patient request if the prescription is for a schedule II opioid drug. Start Date: 08/08/20 Status: Ordered Suboxone 2 mg-0.5 mg sublingual film 1 film, Sublingual, 2 times a day, dissolve under the tongue, 0 Refills, Maintenance, 12/19/20 11:25:00 EDT, Film, Partial fill upon patient request if the prescription is for a schedule II opioid drug. Start Date: 12/19/20 Status: Ordered Vitamin D3 5000 intl units oral tablet 1 tablet = 5,000 International_Units, By Mouth, Daily, # 100 tablet, 0 Refills, Maintenance, 12/19/20 8:01:00 EDT, Tablet, Partial fill upon patient request if the prescription is for a schedule II opioid drug. Start Date: 12/19/20 Status: Ordered Problem List Condition Effective Dates Status Health Status Inform ant Background diabetic retinopathy(Confirmed) Active Bipolar disorder(Confirmed) Active Chronic low back pain(Confirmed) Active Constipation(Confirmed) Active Diabetes(Confirmed) Active Postprandial epigastric pain(Confirmed) Active Foot pain(Confirmed) Active GERD (gastroesophageal reflu x disease)(Confirmed) Active Hepatic steatosis(Confirmed) Active Gastric bypass status for obesity(Confirmed) Active Incomplete defecation(Confirmed) Active Mixed incontinence(Confirmed) Active Urinary frequency(Confirmed) Active Intertrigo(Confirmed) Active Mastitis NOS(Confirmed) 11/17/11 Active Morbid Obesity(Confirmed) 1 Active Myoclonic jerking(Confirmed) Active Open wound of abdominal wall(Confirmed) Active Vitamin D deficiency(Confirmed) Active 1s/p gastric sleeve Social History Social History Type Response Smoking Status Never (less than 100 in lifetime); Tobacco user in household: No entered on: 07/26/18 Sex
--- OUTSIDE RECORDS SUMMARY | 2024-01-22 11:09 | XMS_ITS | Continuity of Care Document ---
Author Organization [facility] [place] Address [address] [place] [address]- Care Team Providers Care Sample Patternmaker Name Role Phone Ronny PAPPAS, Ofelia Acosta Primary Care Physician Encounter [facility] Date(s): 02/07/22 - 04/12/22 [facility] [place] [address] [place] [address]- Attending Physician: Chris Toribio MD Referring Physician: Yosvany PAPPAS, Julienne Platt Allergies, Adverse Reactions, Alerts Substance Reaction Severity [...] Note: VIS GIVEN: 03/18/2011 2Result Comment: lot [id number] 09/21/2006 3Admin Note: VIS 05/29/09 GIVEN Medications [...] opioid drug. Start Date: 08/08/20 Status: Ordered Problem List Condition Effective Dates [...] (post-traumatic stress disorder)(Confirmed) Active Imaging abnormality(Confirmed) Active Severe obesity(Confirmed) Active Vitamin D deficiency(Confirmed) Active 1s/p gastric sleeve Social History Social History Type Response Smoking Status Never (less than 100 in lifetime); Tobacco user in household: No entered on: 07/26/18 Sex Female
--- OUTSIDE RECORDS SUMMARY | 2024-01-22 11:09 | XMS_ITS | Continuity of Care Document ---
Author Organization [facility] [place] Address [address] [place] [address]- Care Team Providers Care Armature Connector Name Role Phone Danis PAPPAS, Elda Marie Primary Care Physician [phone] Encounter [facility] NBR [id number] Date(s): 09/18/20 - 10/18/20 [facility] [place] [address] [place] [address]- Allergies, Adverse Reactions, Alerts Substance Reaction Severity Status morphine Persistent Mild Active OxyCODONE Hydrochloride Acti ve Immunizations Given and Recorded Vaccine Date Status Refusal Reason influenza virus vaccine, inactivated 06/22/20 Give n influenza virus vaccine, inactivated 06/23/13 Give n influenza virus vaccine, inactivated 1 09/01/11 Gi jackson influenza virus vaccine, inactivated 2 09/20/06 Gi jackson tetanus/diphtheria/pertussis, acel(Tdap) 02/09/14 Given pneumococcal 23-valent vaccine 3 09/01/11 Given 1Admin Note: VIS GIVEN: 03/18/2011 2Result Comment: lot [id number] 09/21/2006 3Admin Note: VIS 05/29/09 GIVEN Medications Lyrica 150 mg oral capsule 1 capsule [...] Active Gastric bypass status for obesity(Confirmed) Active Intertrigo(Confirmed) Active Mastitis NOS(Confirmed) 11/17/11 Active Morbid Obesity(Confirmed) 1 Active Myoclonic jerking(Confirmed) Active Open wound of abdominal wall(Confirmed) Active Wound, open, abdominal wall, anterior(Confirmed) Active Vitamin D deficiency(Confirmed) Active 1s/p gastric sleeve Social History Social History Type Response Smoking Status Never (less than 100 in lifetime) entered on: 12/31/18 Sex
--- OUTSIDE RECORDS SUMMARY | 2024-01-22 11:09 | XMS_ITS | Continuity of Care Document ---
Author Organization [facility] [place] Address [address] [place] [address]- Care Team Providers Care Route Specialist Name Role Phone Adama STUART, Aly Salazar Primary Care Physician Encounter [facility] NBR [id number] Date(s): 05/08/21 - 06/07/21 [facility] [place] [address] [place] [address]- Allergies, Adverse Reactions, Alerts Substance Reaction Severity [...] Note: VIS GIVEN: 03/18/2011 2Result Comment: lot [id number] 09/21/2006 3Admin Note: VIS 05/29/09 GIVEN Medications [...] opioid drug. Start Date: 08/08/20 Status: Ordered Vitamin D3 5000 intl units [...] Postprandial epigastric pain(Confirmed) Active Foot pain(Confirmed) Active Generalized anxiety disorder(Confirmed) Active GERD (gastroesophageal [...]
--- OUTSIDE RECORDS SUMMARY | 2024-01-22 11:09 | XMS_ITS | Continuity of Care Document ---
Author Organization [facility] [place] Address [address] [place] [address]- Care Team Providers Care Vp Legal Affairs Name Role Phone Ronyn VISUAL MERCHANDISING MANAGER, Ofelia Acosta Primary Care Physician [phone] Encounter [facility] Date(s): 12/15/23 - 01/14/24 [facility] [place] [address] [place] [address]- Allergies, Adverse Reactions, Alerts Substance Reaction Severity [...] Note: VIS GIVEN: 03/18/2011 2Result Comment: lot [id number] 09/21/2006 3Admin Note: VIS 05/29/09 GIVEN Medications [...] AM, # 30 capsule, 0 Refills, Maintenance, 01/12/24 7:19:00 EDT, ER Capsule, [facility], fill when due, 1 capsule By Mouth Daily in AM,x30 days, 165, cm,12/17/23 12:31:00 EDT, Height, 110.1, kg, 10/28/23... Start Date: 01/12/24 Stop Date: 02/11/24 Status: Ordered amLODIPine 2.5 mg oral tablet 1 tablet, By Mouth, Daily, # 90 tablet, 1 Refills, Maintenance, 01/10/24 10:27:00 EDT, [facility], 165, cm, 12/17/23 12:31:00 EDT, Height, 110.1, kg, 10/28/23 1:29:00 EST, Dry Weight Start Date: 01/10/24 Status: Ordered amphetamine-dextroamphetamine 10 mg oral tablet 1 tablet = 10 mg, By Mouth, 2 times a day, # 60 tablet, 0 Refills, Maintenance, 01/12/24 7:19:00 EDT, [facility], fill on date due, 1 tablet By Mouth 2 times a day,x30 days, 165, cm, 12/17/23 12:31:00 EDT, Height, 110.1, kg, 10/28/23 1:29:00... Start Date: 01/12/24 Stop Date: 02/11/24 Status: Ordered CeleBREX 100 mg oral capsule 1 capsule = 100 mg, By Mouth, 2 times a day, PRN for pain, # 60 capsule, 3 Refills, Maintenance, 11/06/23 9:04:00 EDT, Capsule, [facility], Partial fill upon patient request if the prescription is for a schedule II opioid drug., 165, cm, 10/22... Start Date: 11/06/23 Stop Date: 03/05/24 Status: Ordered clonazePAM 0.5 mg oral tablet 1 tablet = 0.5 mg, By Mouth, 3 times a day, NEEDED FOR ANXIETY, # 90 tablet, 3 Refills, Maintenance, 12/01/23 15:45:00 EDT, Tablet, [facility], 165, cm, 11/06/23 8:10:00 EDT, Height, 110.1, kg, 10/28/23 1:29:00 EST, Dry Weight Start Date: 12/01/23 Stop Date: 03/30/24 Status: Ordered docusate sodium 100 mg oral capsule See Instructions, TAKE 1 CAPSULE ONE TO TWO TIMES A DAY FOR CONSTIPATION, # 20 capsule, 0 Refills, [facility], 168, cm, 08/01/21 17:36:00 EST, Height, 115, kg, 08/01/21 17:36:00 EST, Dry Weight Start Date: 10/31/21 Status: Ordered folic acid 1 mg oral tablet 1, tablet, By Mouth, Daily, # 30 tablet, Refills 5, Maintenance, 04/29/23 20:24:00 EDT, Route to Pharmacy Electronically, [facility], 165, cm, 01/21/23 11:55:00 EDT, Height, 118.3, kg, 12/16/22 20:23:00 EDT, Dry Weight Start Date: 04/29/23 Status: Ordered folic acid 1 mg oral tablet See Instructions, TAKE ONE TABLET BY MOUTH EVERY DAY, # 30 tablet, Refills 5, Maintenance, :13:00 EST, Instructions Replace Required Details, Route to Pharmacy Electronically, [facility], 165, cm, 05/25/23 14:40:00 EDT, Height, 118.... Start Date: 10/12/23 Status: Ordered Freestyle Lite Monitor See Instructions, [...] Dry Weight Start Date: 07/09/23 Status: Ordered FREESTYLE LITE TEST STRP FREESTYLE LITE TEST STRP, See Instructions, # 100 Unknown, 0 Refills, Maintenance, USE TO TEST ONCEDAILY., 10/09/23 8:06:00 EST, 165, cm, 05/25/23 14:40:00 EDT, Height, 118.3, kg, 12/16/22 20:23:00 EDT, Dry Weight Start Date: 10/09/23 Status: Ordered gabapentin 600 mg oral tablet 1 tablet, By Mouth, 3 times a day, # 90 tablet, 3 Refills, Maintenance, 12/01/23 15:46:00 EDT, [facility], 165, cm, 11/06/23 8:10:00 EDT, Height, 110.1, kg, 10/28/23 1:29:00 EST, Dry Weight Start Date: 12/01/23 Stop Date: 03/30/24 Status: Ordered LaMICtal 200 mg oral tablet 2 tablet = 400 mg, By Mouth, Daily at bedtime, # 60 tablet, 3 Refills, Maintenance, 12/01/23 15:46:00 EDT, Tablet, [facility], 165, cm, 11/06/23 8:10:00 EDT, Height, 110.1, kg, 10/28/23 1:29:00 EST, Dry Weight Start Date: 12/01/23 Stop Date: 03/30/24 Status: Ordered lamotrigine 100 mg oral tablet 100 mg, 1, tablet, By Mouth, Daily in AM, # 30 tablet, Refills 3, Tot. Refills 3, Maintenance, 12/01/23 15:46:00 EDT, Route to Pharmacy Electronically, [facility], 165, cm, 11/06/23 8:10:00 EDT, Height, 110.1, kg, 10/28/23 1:29:00 EST, Dry We... Start Date: 12/01/23 Stop Date: 03/30/24 Status: Ordered NuLYTELY with Flavor Packs oral powder for reconstitution 240 mL, By Mouth, Every 10 minutes, split prep method, take 1st half of prep evening before procedure, 2nd half 6 hrs prior to procedure., # 1 each, 0 Refills, Maintenance, 11/10/22 10:55:00 EDT, [facility], [facility], test date 01/14 .... Start Date: 11/10/22 Status: Ordered omeprazole 40 mg oral enteric coated capsule 1 capsule, By Mouth, 2 times a day, # 180 capsule, 1 Refills, Maintenance, 08/15/23 8:46:00 EST, [facility], 165, cm, 05/25/23 14:40:00 EDT, Height, 118.3, kg, 12/16/22 20:23:00 EDT, Dry Weight Start Date: 08/15/23 Status: Ordered ondansetron 4 mg oral tablet 1 tablet = 4 mg, By Mouth, Every 8 hours, # 21 tablet, 0 Refills, Maintenance, 07/29/23 17:24:00 EST, Tablet, [facility], Partial fill upon [...] mL, 0 Refills, Maintenance, 05/25/23 15:17:00 EDT, [facility], Partial fill upon patient request if the prescription is for a schedule II opioid drug., 1 bottle 90 minutes prior to s... Start Date: 05/25/23 Status: Ordered Trulicity Pen 1.5 mg/0.5 mL subcutaneous solution See Instructions, INJECT 0.5ML SUBCUTANEOUSLY ONCE WEEKLY ROTATE INJECTION SITES, # 2 mL, 5 Refills, Maintenance, 06/07/23 18:02:00 EDT, [facility], 165, cm, 05/25/23 14:40:00 EDT, Height, 118.3, kg, 12/16/22 20:23:00 EDT, Dry Weight Start Date: 06/07/23 Status: Ordered Vitamin D3 5000 intl units oral tablet 1 tablet, By Mouth, Daily, # 30 tablet, 0 Refills, Maintenance, 10/15/23 11:12:00 EST, [facility], 165, cm, 05/25/23 14:40:00 EDT, Height, 118.3, kg, 12/16/22 20:23:00 EDT, Dry Weight Start Date: 10/15/23 Status: Ordered Wellbutrin XL 300 mg/24 hours oral tablet, extended release 1 tablet = 300 mg, By Mouth, Daily, # 30 tablet, 3 Refills, Maintenance, 12/01/23 15:45:00 EDT, ER Tablet, [facility], 165, cm, 11/06/23 8:10:00 EDT, Height, 110.1, kg, 10/28/23 1:29:00 EST,Dry Weight Start Date: 12/01/23 Stop Date: 03/30/24 Status: Ordered ziprasidone 20 mg oral capsule 1 capsule = 20 mg, By Mouth, Daily at bedtime, # 30 capsule, 3 Refills, Maintenance, 12/01/23 15:56:00 EDT, [facility], dose reduction, 165, cm, 11/06/23 8:10:00 EDT, Height, 110.1, kg, 10/28/23 1:29:00 EST, Dry Weight Start Date: 12/01/23 Stop Date: 03/30/24 Status: Ordered Problem List Condition Confirmation Course [...] Team Personnel Name: Anabel Roblero [place] Position: [facility] Office Staff Member Role: Primary Care Nurse Name: Isa Paulson [place] Position: [facility] Staff Member Role: Primary Care Nurse Name: Ofelia Jefferson NP Position: [facility] Associate Professional Member Role: PCP Address: Address: [address] [place] [address]- Name: Tommy Kohli MD Position: [facility] Physician - Behavioral Health Member Role: Lifetime Consulting Physician Address: Address: [address] [place] [address]- Care Team Related Persons Name: WILLEM SIMON III Address: [place] [address] Name: WILLEM SIMON JR Address: home [address] [place] [id number]
--- OUTSIDE RECORDS SUMMARY | 2024-01-22 11:10 | XMS_ITS | Continuity of Care Document ---
Author Organization [facility] [place] Address [address] [place] [address]- Care Team Providers Care Continuous Drier Operator Name Role Phone Stacie Rendon NP Primary Care Physician Encounter [facility] NBR [id number] Date(s): 11/14/20 - 01/24/21 [facility] [place] [address] [place] [address]- Attending Physician: Stacie Rendon NP Allergies, Adverse Reactions, [...] Note: VIS GIVEN: 03/18/2011 2Result Comment: lot [id number] 09/21/2006 3Admin Note: VIS 05/29/09 GIVEN Medications [...]
--- OUTSIDE RECORDS SUMMARY | 2024-01-22 11:10 | XMS_ITS | Continuity of Care Document ---
Author Organization [facility] [place] Address [address] [place] [address]- Care Team Providers Care Metal Fabricating Shop Helper Name Role Phone Rnony FILM READER, Ofelia Acosta Primary Care Physician [phone] Encounter [facility] Date(s): 11/12/23 - 12/12/23 [facility] [place] [address] [place] [address]- Allergies, Adverse Reactions, Alerts Substance Reaction Severity [...] Note: VIS GIVEN: 03/18/2011 2Result Comment: lot [id number] 09/21/2006 3Admin Note: VIS 05/29/09 GIVEN Medications [...] AM, # 30 capsule, 0 Refills, Maintenance, 12/01/23 15:45:00 EDT, ER Capsule, [facility], fill when due, 1 capsule By Mouth Daily in AM,x30 days, 165, cm, 11/06/23 8:10:00 EDT, Height, 110.1, kg, 10/28/23... Start Date: 12/01/23 Stop Date: 12/31/23 Status: Ordered amLODIPine 2.5 mg oral tablet 1 tablet, By Mouth, Daily, # 90 tablet, 1 Refills, Maintenance, 07/24/23 15:00:00 EST, [facility], 165, cm, 05/25/23 14:40:00 EDT, Height, 118.3, kg, 12/16/22 20:23:00 EDT, Dry Weight Start Date: 07/24/23 Status: Ordered amphetamine-dextroamphetamine 10 mg oral tablet 1 tablet = 10 mg, By Mouth, 2 times a day, # 60 tablet, 0 Refills, Maintenance, 12/01/23 15:45:00 EDT, [facility], fill on date due, 1 tablet By Mouth 2 times a day,x30 days, 165, cm, 11/06/23 8:10:00 EDT, Height, 110.1, kg, 10/28/23 1:29:00... Start Date: 12/01/23 Stop Date: 12/31/23 Status: Ordered CeleBREX 100 mg oral capsule 1 capsule = 100 mg, By Mouth, 2 times a day, PRN for pain, # 60 capsule, 3 Refills, Maintenance, 11/06/23 9:04:00 EDT, Capsule, [facility], Partial fill upon patient request if the prescription is for a schedule II opioid drug., 165, cm, 10/22... Start Date: 11/06/23 Stop Date: 03/05/24 Status: Ordered clonazePAM 0.5 mg oral tablet 1 tablet = 0.5 mg, By Mouth, 3 times a day, NEEDED FOR ANXIETY, # 90 tablet, 3 Refills, Maintenance, 12/01/23 15:45:00 EDT, Tablet, [facility], 165, cm, 11/06/23 8:10:00 EDT, Height, 110.1, kg, 10/28/23 1:29:00 EST, Dry Weight Start Date: 12/01/23 Stop Date: 03/30/24 Status: Ordered docusate sodium 100 mg oral capsule See Instructions, TAKE 1 CAPSULE ONE TO TWO TIMES A DAY FOR CONSTIPATION, # 20 capsule, 0 Refills, [facility], 168, cm, 08/01/21 17:36:00 EST, Height, 115, kg, 08/01/21 17:36:00 EST, Dry Weight Start Date: 10/31/21 Status: Ordered folic acid 1 mg oral tablet 1, tablet, By Mouth, Daily, # 30 tablet, Refills 5, Maintenance, 04/29/23 20:24:00 EDT, Route to Pharmacy Electronically, [facility], 165, cm, 01/21/23 11:55:00 EDT, Height, 118.3, kg, 12/16/22 20:23:00 EDT, Dry Weight Start Date: 04/29/23 Status: Ordered folic acid 1 mg oral tablet See Instructions, TAKE ONE TABLET BY MOUTH EVERY DAY, # 30 tablet, Refills 5, Maintenance, :13:00 EST, Instructions Replace Required Details, Route to Pharmacy Electronically, [facility], 165, cm, 05/25/23 [...] tablet, 3 Refills, Maintenance, 12/01/23 15:46:00 EDT, [facility], 165, cm, 11/06/23 8:10:00 EDT, Height, 110.1, kg, 10/28/23 1:29:00 EST, Dry Weight Start Date: 12/01/23 Stop Date: 03/30/24 Status: Ordered LaMICtal 200 mg oral tablet 2 tablet = 400 mg, By Mouth, Daily at bedtime, # 60 tablet, 3 Refills, Maintenance, 12/01/23 15:46:00 EDT, Tablet, [facility], 165, cm, 11/06/23 8:10:00 EDT, Height, 110.1, kg, 10/28/23 1:29:00 EST, Dry Weight Start Date: 12/01/23 Stop Date: 03/30/24 Status: Ordered lamotrigine 100 mg oral tablet 100 mg, 1, tablet, By Mouth, Daily in AM, # 30 tablet, Refills 3, Tot. Refills 3, Maintenance, 12/01/23 15:46:00 EDT, Route to Pharmacy Electronically, [facility], 165, cm, 11/06/23 [...] 0 Refills, Maintenance, 11/10/22 10:55:00 EDT, [facility], [facility], test date 01/14 .... Start Date: 11/10/22 Status: Ordered omeprazole 40 mg oral enteric coated capsule 1 capsule, By Mouth, 2 times a day, # 180 capsule, 1 Refills, Maintenance, 08/15/23 8:46:00 EST, [facility], 165, cm, 05/25/23 14:40:00 EDT, Height, 118.3, kg, 12/16/22 20:23:00 EDT, Dry Weight Start Date: 08/15/23 Status: Ordered ondansetron 4 mg oral tablet 1 tablet = 4 mg, By Mouth, Every 8 hours, # 21 tablet, 0 Refills, Maintenance, 07/29/23 17:24:00 EST, Tablet, [facility], Partial fill upon [...] mL, 0 Refills, Maintenance, 05/25/23 15:17:00 EDT, [facility], Partial fill upon patient request if the prescription is for a schedule II opioid drug., 1 bottle 90 minutes prior to s... Start Date: 05/25/23 Status: Ordered Trulicity Pen 1.5 mg/0.5 mL subcutaneous solution See Instructions, INJECT 0.5ML SUBCUTANEOUSLY ONCE WEEKLY ROTATE INJECTION SITES, # 2 mL, 5 Refills, Maintenance, 06/07/23 18:02:00 EDT, [facility], 165, cm, 05/25/23 14:40:00 EDT, Height, 118.3, kg, 12/16/22 20:23:00 EDT, Dry Weight Start Date: 06/07/23 Status: Ordered Vitamin D3 5000 intl units oral tablet 1 tablet, By Mouth, Daily, # 30 tablet, 0 Refills, Maintenance, 10/15/23 11:12:00 EST, [facility], 165, cm, 05/25/23 14:40:00 EDT, Height, 118.3, kg, 12/16/22 20:23:00 EDT, Dry Weight Start Date: 10/15/23 Status: Ordered Wellbutrin XL 300 mg/24 hours oral tablet, extended release 1 tablet = 300 mg, By Mouth, Daily, # 30 tablet, 3 Refills, Maintenance, 12/01/23 15:45:00 EDT, ER Tablet, [facility], 165, cm, 11/06/23 8:10:00 EDT, Height, 110.1, kg, 10/28/23 1:29:00 EST,Dry Weight Start Date: 12/01/23 Stop Date: 03/30/24 Status: Ordered ziprasidone 20 mg oral capsule 1 capsule = 20 mg, By Mouth, Daily at bedtime, # 30 capsule, 3 Refills, Maintenance, 12/01/23 15:56:00 EDT, [facility], dose reduction, 165, [...] Team Personnel Name: Anabel Roblero [place] Position: [facility] RN Member Role: Primary Care Nurse Name: Isa Ward Position: [facility] RN Member Role: Primary Care Nurse Name: Ofelia Jefferson NP Position: [facility] Associate Professional Member Role: PCP Address: Address: [address] [place] [address] [place] [address]- Name: Tommy Kohli MD Position: [facility] Physician - Behavioral Health Member Role: Lifetime Consulting Physician Address: Address: [address] [place] [address]- Care Team Related Persons Name: WILLEM SIMON III Address: [place] [address] Name: WILLEM SIMON JR Address: home [address] [place] [id number]
--- OUTSIDE RECORDS SUMMARY | 2024-01-22 11:10 | XMS_ITS | Continuity of Care Document ---
Author Organization [facility] ry Address Unknown Care Team Providers Care Radio Repairman Name Role Phone Ronny PAPPAS, Ofelia Acosta Primary Care Physician [phone] Encounter [facility] Date(s): 01/06/22 - 02/05/22 [facility] Allergies, Adverse Reactions, Alerts Substance Reaction Severity Status penicillin N&V - Nausea and vomiting Unknown Ac tive OxyCODONE Hydrochloride hives full body itch Active [...] Note: VIS GIVEN: 03/18/2011 2Result Comment: lot [id number] 09/21/2006 3Admin Note: VIS 05/29/09 GIVEN Medications [...]
--- OUTSIDE RECORDS SUMMARY | 2024-01-22 11:10 | XMS_ITS | Continuity of Care Document ---
Author Organization [facility] [facility] Address [address], [address] [place] [address]- Care Team Providers Care Leaf Stripper Name Role Phone Yosvany PAPPAS, Julienne Platt Primary Care Physician [id number] Date[facility] - [facility] [address] [place], [place] [address] Attending Physician: Lupe Vidal MD Admitting Physician: Lupe Vidal MD Referring Physician: Lupe Vidal MD Allergies, Adverse Reactions, Alerts Substance Reaction [...] Note: VIS GIVEN: 03/18/2011 2Result Comment: lot [id number] 09/21/2006 3Admin Note: VIS 05/29/09 GIVEN Medications [...]
--- OUTSIDE RECORDS SUMMARY | 2024-01-22 11:10 | XMS_ITS | Continuity of Care Document ---
Author Organization [facility] [place] Address [address] [place] [address]- Care Team Providers Care Sales Training Manager Name Role Phone Danis PAPPAS, Elda Salazar Primary Care Physician Encounter [facility] NBR [id number] Date(s): 09/19/20 - 10/19/20 [facility] [place] [address] [place] [address]- Allergies, Adverse Reactions, Alerts Substance Reaction Severity [...] Note: VIS GIVEN: 03/18/2011 2Result Comment: lot [id number] 09/21/2006 3Admin Note: VIS 05/29/09 GIVEN Medications [...]
--- OUTSIDE RECORDS SUMMARY | 2024-01-22 11:10 | XMS_ITS | Continuity of Care Document ---
Author Organization [facility] Lynds[facility] terr[facility] Address [address] [place] [address] [address] [place] [address]- Care Team Providers Care Asphalt Heater Operator Name Role Phone Ronny PAPPAS, Ofelia Acosta Primary Care Physician [facility] Date(s): 02/20/22 - 02/27/22 [facility] [address] [place] [address]- Attending Physician: Magalis Chua MD Referring Physician: Ofelia Jefferson NP Allergies, Adverse Reactions, Alerts Substance Reaction [...] Note: VIS GIVEN: 03/18/2011 2Result Comment: lot [id number] 09/21/2006 3Admin Note: VIS 05/29/09 GIVEN Medications [...] opioid drug. Start Date: 12/19/20 Status: Ordered clindamycin 300 mg oral capsule 1 capsule = 300 mg, By Mouth, Every 8 hours, for 14 days, # 42 capsule, 0 Refills, Acute 03/06/22 13:57:00 EDT, 02/20/22 13:57:00 EDT, Capsule, [facility], Partial fill upon patient request if the prescription is for a schedule II opioid drug... Start Date: 02/20/22 Stop Date: 03/06/22 Status: Ordered Lyrica 150 mg oral capsule [...] Most recent to oldest [Reference Range]: 1 Height 168 cm (02/20/22 1:36 PM) Weight 116 kg (02/20/22 1:36 PM) Body Mass Index [18.5-24.99] 41.1 *>HHI* (02/20/22 1:36 PM) Dry Weight 116 kg (02/20/22 1:36 PM) Dry Weight Obtained Via Standing scale (02/20/22 1:36 PM) Social History Social History Type Response Smoking Status Never (less than 100 in lifetime); Tobacco user in household: No entered on: 07/26/18 Sex Female
--- OUTSIDE RECORDS SUMMARY | 2024-01-22 11:10 | XMS_ITS | Continuity of Care Document ---
Author Organization [facility] Primary [facility] [place] Address [address] [place] [address]- Care Team Providers Care Doper Operator Name Role Phone Elda Moscoso NP Primary Care Physician Encounter [facility] NBR [id number] Date(s): 12/01/19 - 12/08/19 [facility] [place] [address] [place] [address]- [facility] Encounter Diagnosis Viral URI(Discharge Diagnosis) - 12/01/19 Wound, open, abdominal wall, anterior(Discharge Diagnosis) - 12/01/19 Attending Physician: Elda Moscoso NP Allergies, Adverse Reactions, Alerts Substance Reaction Severity Status morphine Persistent Mild Active OxyCODONE Hydrochloride Acti ve Immunizations Given and Recorded Vaccine Date Status Refusal Reason tetanus/diphtheria/pertussis, acel(Tdap) 02/09/14 Given influenza virus vaccine, inactivated 06/23/13 Give n influenza virus vaccine, inactivated 1 09/01/11 Gi jackson influenza virus vaccine, inactivated 2 09/20/06 Gi jackson pneumococcal 23-valent vaccine 3 09/01/11 Given 1Admin Note: VIS GIVEN: 03/18/2011 2Result Comment: lot [id number] 09/21/2006 3Admin Note: VIS 05/29/09 GIVEN Problem List Condition Effective Dates Status Health Status Inform ant Background diabetic retinopathy(Confirmed) Active Bipolar disorder(Confirmed) Active Chronic low back pain(Confirmed) Active Postprandial epigastric pain(Confirmed) Active Foot pain(Confirmed) Active GERD (gastroesophageal reflu x disease)(Confirmed) Active Hepatic steatosis(Confirmed) Active Gastric bypass status for obesity(Confirmed) Active Mastitis NOS(Confirmed) 11/17/11 Active Morbid Obesity(Confirmed) 1 Active Open wound of abdominal wall(Confirmed) Active Wound, open, abdominal wall, anterior(Confirmed) Active Vitamin D deficiency(Confirmed) Active 1s/p gastric sleeve Diagnosis Diagnosis Type Effective Dates Health Status Cl inical Service Informant Viral URI Discharge Diagnosis 12/01/19 Wound, open, abdominal wall, anterior Discharge Diagnosis 12/01/19 Social History Social History Type Response Smoking Status Never (less than 100 in lifetime) entered on: 12/31/18 Sex
--- OUTSIDE RECORDS SUMMARY | 2024-01-22 11:10 | XMS_ITS | Continuity of Care Document ---
Author Organization [facility] Primary [facility] [place] Address [address] [place] [address]- Care Team Providers Care Deputy Sheriff Civil Division Name Role Phone Ronny PINKED EDGE SEWING MACHINE OPERATOR, Ofelia Acosta Primary Care Physician Encounter [facility] Date(s): 06/06/22 - 07/30/22 [facility] [place] [address] [place] [address]- Attending Physician: Petr Ambriz MD, [place] Allergies, Adverse Reactions, Alerts Substance Reaction Severity [...] Note: VIS GIVEN: 03/18/2011 2Result Comment: lot [id number] 09/21/2006 3Admin Note: VIS 05/29/09 GIVEN Medications [...] Daily, # 30 tablet, 0 Refills, Maintenance, 07/29/22 16:06:00 EST, [facility], 1 tablet By Mouth Daily,x30 days, 168, cm, 07/22/22 10:12:00 EST, Height, 112, kg, 04/22/22 14:00:00 EDT, Dry Weight Start Date: 07/29/22 Stop Date: 08/28/22 Status: Ordered Adderall XR 30 mg oral capsule, extended release 1 capsule = 30 mg, By Mouth, Daily in AM, # 30 capsule, 0 Refills, Maintenance, 07/29/22 16:07:00 EST, ER Capsule, [facility], last filled 07/04 -= please only fill on/after exact due date, 1 capsule By Mouth Daily in AM,x30 days, 168, cm, 11... Start Date: 07/29/22 Stop Date: 08/28/22 Status: Ordered albuterol 90 mcg/inh inhalation powder 2 puffs, Inhalation, Every 4 hours, PRN as needed, # 1 each, 0 Refills, Maintenance, 08/01/21 20:08:00 EST, Powder, [facility], Partial fill upon patient request if the prescription is for aschedule II opioid drug., 2 puffs Inhalation Every... Start Date: 08/01/21 Status: Ordered Ambien 10 mg oral tablet 1 tablet = 10 mg, By Mouth, Daily at bedtime, PRN as needed for insomnia, for 30 days, # 30 tablet,3 Refills, Acute 11/01/22 8:19:00 EST, 07/04/22 8:19:00 EST, Tablet, [facility], 168, cm, 05/15/22 14:37:00 EDT, Height, 112, kg, 04/22/22 14:... Start Date: 07/04/22 Stop Date: 11/01/22 Status: Ordered amLODIPine 2.5 mg oral tablet 1 tablet = 2.5 mg, By Mouth, Daily, # 90 tablet, 1 Refills, Maintenance, 05/26/22 17:40:00 EDT, Tablet, [facility], Partial fill upon patient request if the prescription is for a schedule IIopioid drug., 168, cm, 05/15/22 14:37:00 EDT, [facility]... Start Date: 05/26/22 Status: Ordered cholecalciferol 5000 intl units oral tablet 1 tablet = 125 mcg, By Mouth, Daily, # 30 tablet, 3 Refills, Maintenance, 02/07/22 11:35:00 EDT, Tablet, [facility], Partial fill upon patient request if the prescription is for a schedule II opioid drug., 168, cm, 02/07/22 11:03:00 EDT, [place]... Start Date: 02/07/22 Stop Date: 06/07/22 Status: Ordered clonazePAM 0.5 mg oral tablet 1 tablet = 0.5 mg, By Mouth, 3 times a day, NEEDED FOR ANXIETY, # 90 tablet, 3 Refills, Maintenance, 07/04/22 8:22:00 EST, Tablet, [facility], Ok for fill early - patient has never lost or needed early refills before, 168, cm, 05/15/22 14:... Start Date: 07/04/22 Stop Date: 11/01/22 Status: Ordered docusate sodium 100 mg oral capsule See Instructions, TAKE 1 CAPSULE ONE TO TWO TIMES A DAY FOR CONSTIPATION, # 20 capsule, 0 Refills, [facility], 168, cm, 08/01/21 17:36:00 EST, Height, 115, kg, 08/01/21 17:36:00 EST, Dry Weight Start Date: 10/31/21 Status: Ordered folic acid 1 mg oral tablet See Instructions, TAKE 1 TABLET BY MOUTH DAILY, # 30 tablet, Refills 3, Maintenance, 06/05/22 5:46:00 EDT, Instructions Replace Required Details, Route to Pharmacy Electronically, [facility], 168, cm, 05/15/22 14:37:00 EDT, Height, 112, kg, 0... Start Date: 06/05/22 Status: Ordered Freestyle Lite Monitor See Instructions, # 1 each, Refills 0, Tot. Refills 0, Maintenance, DX E11.9.For patients use to check her blood glucose levels 2 x a day., 09/19/20 13:48:00 EST, Supply, 168, cm, 08/08/20 14:39:00 EST, Height, 127.1, kg, 09/16/19 9:51:00 EST, Dry Weight Start Date: 09/19/20 Status: Ordered LaMICtal 200 mg oral tablet 2 tablet = 400 mg, By Mouth, Daily at bedtime, # 60 tablet, 3 Refills, Maintenance, 07/04/22 8:17:00 EST, Tablet, [facility], Ok for fill early - patient has never lost or needed early refills before, 168, cm, 05/15/22 14:37:00 EDT, Height, 1... Start Date: 07/04/22 Stop Date: 11/01/22 Status: Ordered lamotrigine 100 mg oral tablet 100 mg, 1, tablet, By Mouth, Daily in AM, # 30 tablet, Refills 3, Tot. Refills 3, Maintenance, 07/04/22 8:17:00 EST, Route to Pharmacy Electronically, [facility], Ok for fill early - patienthas never lost or needed early refills before, 168,... Start Date: 07/04/22 Stop Date: 11/01/22 Status: Ordered Lyrica 75 mg oral capsule 1 capsule = 75 mg, By Mouth, 2 times a day, # 60 capsule, 0 Refills, Maintenance, 07/22/22 10:44:00EST, Capsule, [facility], Partial fill upon patient request if the prescription is for a schedule II opioid drug., 168, cm, 07/22/22 10:12:00... Start Date: 07/22/22 Status: Ordered omeprazole 40 mg oral enteric coated capsule 1 capsule, By Mouth, 2 times a day, # 60 capsule, 2 Refills, Maintenance, 04/22/22 12:20:00 EDT, [facility], 168, cm, 04/21/22 8:42:00 EDT, Height, 113.3, kg, 04/09/22 9:17:00 EDT, Dry Weight Start Date: 04/22/22 Status: Ordered predniSONE 10 mg oral tablet See Instructions, Take with food by mouth daily: Day 1-2: 6 tabs Day 3-4: 5 tabs Day 5-6: 4 tabs Day 7-8: 3 tabs Day 9-10: 2 tabs Day 11-12: 1 tab, # 42 tablet, 0 Refills, Maintenance, 07/22/22 10:47:00 EST, [facility], Partial fill upo... Start Date: 07/22/22 Status: Ordered Wellbutrin XL 150 mg/24 hours oral tablet, extended release 1 tablet = 150 mg, By Mouth, Every 24 hours, With the Wellbutrin 300 mg TDD 450 mg, # 30 tablet, 3 Refills, Maintenance, 07/04/22 8:16:00 EST, ER Tablet, [facility], Ok for fill early - patient has never lost or needed early refills before, 1... Start Date: 07/04/22 Stop Date: 11/01/22 Status: Ordered Wellbutrin XL 300 mg/24 hours oral tablet, extended release 1 tablet = 300 mg, By Mouth, Daily, With the Wellbutrin 150 mg TDD 450 mg, # 30 tablet, 3 Refills, Maintenance, 07/04/22 8:17:00 EST, ER Tablet, [facility], Ok for fill early - patient has never lost or needed early refills before, 168, cm, 0... Start Date: 07/04/22 Status: Ordered ziprasidone 40 mg oral capsule See Instructions, Take one capsule in the morning and 2 capsules at bedtime dose reduction - TDD 120mg, # 90 capsule, 3 Refills, Maintenance, 07/04/22 8:19:00 EST, [facility], Partial fill upon patient request if the prescription is for a sc... Start Date: 07/04/22 Status: Ordered Problem List Condition Confirmation Course [...] 1 Confirmed Active Myoclonic jerking Confirmed Active Obese class II Confirmed Active Open wound of abdominal wall Confirmed Active PTSD (post-traumatic stress disorder) Confirmed Active Imaging abnormality Confirmed Active Vitamin 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 Social History Social History Type Response Smoking Status Never (less than 100 in lifetime); Tobacco user in household: No entered on: 07/26/18 Sex Female Patient Care team information Care Team Personnel Name: Anabel Vyas Position: [facility] RN Member Role: Primary Care Nurse Name: Isa Ward Position: [facility] RN Member Role: Primary Care Nurse Name: Ofelia Jefferson NP Position: [facility] PCO Associate Professional Member Role: PCP Address: Address: [address] [place] [address] [place] [address]- Name: Tommy Kohli MD Position: [facility] Psychiatry MD Member Role: Lifetime Consulting Physician Address: Address: [address] [place] [address]- Care Team Related Persons Name: WILLEM SIMON III Address: [place] [address] Name: WILLEM SIMON SR Address: home [address] [place] [address]
--- OUTSIDE RECORDS SUMMARY | 2024-01-22 11:10 | XMS_ITS | Continuity of Care Document ---
Author Organization [facility] Primary [facility] [place] Address [address] [place] [address]- Care Team Providers Care Broadcast Maintenance Technician Name Role Phone Ronny PAPPAS, Ofelia Acosta Primary Care Physician [phone] Encounter [facility] Date(s): 05/29/23 - 06/28/23 [facility] [place] [address] [place] [address]- Allergies, Adverse Reactions, Alerts Substance Reaction Severity [...] Note: VIS GIVEN: 03/18/2011 2Result Comment: lot [id number] 09/21/2006 3Admin Note: VIS 05/29/09 GIVEN Medications [...] AM, # 30 capsule, 0 Refills, Maintenance, 06/19/23 7:21:00 EDT, ER Capsule, [facility], please only fill on/after exact due date, 1 capsule By Mouth Daily in AM,x30 days, 165, cm, 05/25/23 14:40:00 EDT, H... Start Date: 06/19/23 Stop Date: 07/19/23 Status: Ordered amLODIPine 2.5 mg oral tablet 1 tablet, By Mouth, Daily, # 90 tablet, 0 Refills, Maintenance, 05/30/23 13:07:00 EDT, [facility], 165, cm, 05/25/23 14:40:00 EDT, Height, 118.3, kg, 12/16/22 20:23:00 EDT, Dry Weight Start Date: 05/30/23 Status: Ordered amphetamine-dextroamphetamine 10 mg oral tablet 1 tablet = 10 mg, By Mouth, 2 times a day, # 60 tablet, 0 Refills, Maintenance, 06/19/23 7:21:00 EDT, [facility], fill on date due, 1 tablet By Mouth 2 times a day,x30 days, 165, cm, 05/25/23 14:40:00 EDT, Height, 118.3, kg, 12/16/22 20:23:00... Start Date: 06/19/23 Stop Date: 07/19/23 Status: Ordered clonazePAM 0.5 mg oral tablet 1 tablet = 0.5 mg, By Mouth, 3 times a day, NEEDED FOR ANXIETY, # 90 tablet, 3 Refills, Maintenance, 05/29/23 13:42:00 EDT, Tablet, [facility], 165, cm, 05/25/23 14:40:00 EDT, Height, 118.3, kg, 12/16/22 20:23:00 EDT, Dry Weight Start Date: 05/29/23 Stop Date: 09/26/23 Status: Ordered docusate sodium 100 mg oral capsule See Instructions, TAKE 1 CAPSULE ONE TO TWO TIMES A DAY FOR CONSTIPATION, # 20 capsule, 0 Refills, [facility], 168, cm, 08/01/21 17:36:00 EST, Height, 115, kg, 08/01/21 17:36:00 EST, Dry Weight Start Date: 10/31/21 Status: Ordered folic acid 1 mg oral tablet 1, tablet, By Mouth, Daily, # 30 tablet, Refills 5, Maintenance, 04/29/23 20:24:00 EDT, Route to Pharmacy Electronically, [facility], 165, cm, 01/21/23 11:55:00 [...] EDT, Height,... Start Date: 04/12/23 Status: Ordered gabapentin 600 mg oral tablet 1 tablet, By Mouth, 3 times a day, # 90 tablet, 3 Refills, Maintenance, 05/29/23 13:41:00 EDT, [facility], 165, cm, 05/25/23 14:40:00 EDT, Height, 118.3, kg, 12/16/22 20:23:00 EDT, Dry Weight Start Date: 05/29/23 Stop Date: 09/26/23 Status: Ordered ibuprofen 800 mg oral tablet 1, tablet, By Mouth, 3 times a day, # 90 tablet, Refills 1, Maintenance, 05/25/23 8:49:00 EDT, Route to Pharmacy Electronically, [facility], 165, cm, 01/21/23 11:55:00 EDT, Height, 118.3, kg, 12/16/22 20:23:00 EDT, Dry Weight Start Date: 05/25/23 Status: Ordered LaMICtal 200 mg oral tablet 2 tablet = 400 mg, By Mouth, Daily at bedtime, # 60 tablet, 3 Refills, Maintenance, 05/29/23 13:41:00 EDT, Tablet, [facility], 165, cm, 05/25/23 14:40:00 EDT, Height, 118.3, kg, 12/16/22 20:23:00 EDT, Dry Weight Start Date: 05/29/23 Stop Date: 09/26/23 Status: Ordered lamotrigine 100 mg oral tablet 100 mg, 1, tablet, By Mouth, Daily in AM, # 30 tablet, Refills 3, Tot. Refills 3, Maintenance, 05/29/23 13:41:00 EDT, Route to Pharmacy Electronically, [facility], 165, cm, 05/25/23 [...] Maintenance, 11/10/22 10:55:00 EDT, RECPowder, [facility], test date 01/14 .... Start Date: 11/10/22 Status: Ordered omeprazole 40 mg oral enteric coated capsule 1 capsule, By Mouth, 2 times a day, # 60 capsule, 5 Refills, Maintenance, 02/04/23 7:33:00 EDT, [facility], 165, cm, 01/21/23 11:55:00 EDT, Height, 118.3, kg, 12/16/22 20:23:00 EDT, Dry Weight Start Date: 02/04/23 Status: Ordered ONE TOUCH DELICA PLUS 33G ONE TOUCH DELICA PLUS 33G, See Instructions, # 100 Unknown, 0 Refills, Maintenance, USE DAILY TO CHECK MORNING FASTING BLOOD SUGAR., 05/11/23 10:11:00 EDT, 165, cm, 01/21/23 11:55:00 EDT, Height, 118.3, kg, 12/16/22 20:23:00 EDT, Dry Weight Start Date: 05/11/23 Status: Ordered ONETOUCH VERIO STRP ONETOUCH VERIO [...] mL, 0 Refills, Maintenance, 05/25/23 15:17:00 EDT, [facility], Partial fill upon patient request if the prescription is for a schedule II opioid drug., 1 bottle 90 minutes prior to s... Start Date: 05/25/23 Status: Ordered Suprep Bowel Prep Kit oral liquid 177 mL, By Mouth, Once, split prep, # 354 mL, 0 Refills, Soft Stop, 12/01/22 14:37:00 EDT, [facility], Partial fill upon patient request if the prescription is for a schedule II opioid drug., 177 mL By Mouth Once,Instr:split prep, 165, cm, 04... Start Date: 12/01/22 Status: Ordered Trulicity Pen 1.5 mg/0.5 mL subcutaneous solution See Instructions, INJECT 0.5ML SUBCUTANEOUSLY ONCE WEEKLY ROTATE INJECTION SITES, # 2 mL, 5 Refills, Maintenance, 06/07/23 18:02:00 EDT, [facility], 165, cm, 05/25/23 14:40:00 EDT, Height, 118.3, kg, 12/16/22 20:23:00 EDT, Dry Weight Start Date: 06/07/23 Status: Ordered Vitamin D3 5000 intl units oral tablet 1 tablet, By Mouth, Daily, # 30 tablet, 5 Refills, Maintenance, 03/08/23 21:40:00 EDT, [facility], 165, cm, 01/21/23 11:55:00 EDT, Height, 118.3, kg, 12/16/22 20:23:00 EDT, Dry Weight Start Date: 03/08/23 Status: Ordered Wellbutrin XL 150 mg/24 hours oral tablet, extended release 1 tablet = 150 mg, By Mouth, Every 24 hours, With the Wellbutrin 300 mg TDD 450 mg, # 30 tablet, 3 Refills, Maintenance, 02/27/23 14:37:00 EDT, ER Tablet, [facility], 165, cm, 01/21/23 11:55:00 EDT, Height, 118.3, kg, 12/16/22 20:23:00 EDT, D... Start Date: 02/27/23 Stop Date: 06/27/23 Status: Ordered Wellbutrin XL 300 mg/24 hours oral tablet, extended release 1 tablet = 300 mg, By Mouth, Daily, # 30 tablet, 3 Refills, Maintenance, 05/29/23 13:42:00 EDT, ER Tablet, [facility], dose reduction - 300mg/day, 165, cm, 05/25/23 14:40:00 EDT, Height, 118.3, kg, 12/16/22 20:23:00 EDT, Dry Weight Start Date: 05/29/23 Stop Date: 09/26/23 Status: Ordered ziprasidone 60 mg oral capsule 1 capsule = 60 mg, By Mouth, Daily at bedtime, # 30 capsule, 3 Refills, Maintenance, 05/29/23 13:41:00 EDT, [facility], Partial fill upon patient request if the prescription is for a schedule II opioid drug., 165, cm, 05/25/23 14:40:00 EDT, H... Start Date: 05/29/23 Stop Date: 09/26/23 Status: Ordered ziprasidone 80 mg oral capsule 1 capsule = 80 mg, By Mouth, Daily at bedtime, TDD = 140mg/day, # 30 capsule, 3 Refills, Maintenance, 05/29/23 13:40:00 EDT, [facility], dose reduction, 165, cm, 05/25/23 14:40:00 EDT, Height, 118.3, kg, 12/16/22 20:23:00 EDT, Dry Weight Start Date: 05/29/23 Stop Date: 09/26/23 Status: Ordered Problem List Condition Confirmation Course [...] Team Personnel Name: Anabel Roblero [place] Position: [facility] RN Member Role: Primary Care Nurse Name: Isa Ward Position: [facility] RN Member Role: Primary Care Nurse Name: Ofelia Jefferson NP Position: [facility] PCO Associate Professional Member Role: PCP Address: Address: [address] [place] [address] [place] [address]- [place] Name: Tommy Kohli MD Position: [facility] Physician - Behavioral Health Member Role: Lifetime Consulting Physician Address: Address: [address] [place] [address]- Care Team Related Persons Name: WILLEM SIMON III Address: [place] [address] Name: WILLEM SIMON JR Address: home [address] [place] [address]
--- OUTSIDE RECORDS SUMMARY | 2024-01-22 11:10 | XMS_ITS | Continuity of Care Document ---
Author Organization [facility] Primary [place] Address [address] [place] [address]- Care Team Providers Care Microarray Specialist Name Role Phone Danis PAPPAS, Elda Salazar Primary Care Physician [phone] Encounter [facility] NBR [id number] Date(s): 03/26/20 - 04/25/20 [facility] [place] [address] [place] [address]- [facility] Allergies, Adverse Reactions, Alerts Substance Reaction Severity [...] Note: VIS GIVEN: 03/18/2011 2Result Comment: lot [id number] 09/21/2006 3Admin Note: VIS 05/29/09 GIVEN Problem [...]
--- OUTSIDE RECORDS SUMMARY | 2024-01-22 11:10 | XMS_ITS | Continuity of Care Document ---
Author Organization [facility] Primary [facility] [place] Address [address] [place] [address]- Care Team Providers Care Assistant Director Of Public Works Name Role Phone Yosvany PAPPAS, Julienne Platt Primary Care Physician Encounter [facility] NBR [id number] Date(s): 10/07/21 - 11/09/21 [facility] [place] [address] [place] [address]- Attending Physician: Amadou STUART ([facility]), William Quesada Allergies, Adverse Reactions, Alerts Substance Reaction Severity [...] Note: VIS GIVEN: 03/18/2011 2Result Comment: lot [id number] 09/21/2006 3Admin Note: VIS 05/29/09 GIVEN Medications [...] pain(Confirmed) Active Foot pain(Confirmed) Active Gastrointestinal stromal mrai or (GIST)(Confirmed) Active Generalized anxiety disorder(Confirmed) Active [...]
--- OUTSIDE RECORDS SUMMARY | 2024-01-22 11:10 | XMS_ITS | Continuity of Care Document ---
Author Organization [facility] Primary [facility] [place] Address [address] [place] [address]- Care Team Providers Care Hotel Security Officer Name Role Phone Stacie Rendon NP Primary Care Physician Encounter [facility] Date(s): 03/14/21 - 04/13/21 [facility] [place] [address] [place] [address]- Allergies, Adverse Reactions, Alerts Substance Reaction Severity [...] Note: VIS GIVEN: 03/18/2011 2Result Comment: lot [id number] 09/21/2006 3Admin Note: VIS 05/29/09 GIVEN Medications [...] wall(Confirmed) Active PTSD (post-traumatic stress disorder)(Confirmed) Active Vitamin D deficiency(Confirmed) Active 1s/p gastric sleeve Social History Social History Type Response Smoking Status Never (less than 100 in lifetime); Tobacco user in household: No entered on: 07/26/18 Sex
--- OUTSIDE RECORDS SUMMARY | 2024-01-22 11:10 | XMS_ITS | Continuity of Care Document ---
Author Organization [facility] Address [address], [address] [place] [address]- Care Team Providers Care Tassel Snipper Name Role Phone Amadou STUART ([facility] [place]), William Quesada Primary Care Ph ysician [place] [facility] Date(s[facility] 06/16/22 - 07/16/22 [facility] [address] [place], [place] [address] Attending Physician: Admtr, Ar8 Admitting Physician: Admtr, Ar8 Referring Physician: Admtr, Ar8 Allergies, Adverse Reactions, Alerts Substance Reaction Severity Status amoxicillin Active codeine HIVES Active penicillin N&V - Nausea and vomiting [...] Note: VIS GIVEN: 03/18/2011 2Result Comment: lot [id number] 09/21/2006 3Admin Note: VIS 05/29/09 GIVEN Medications [...] Daily, # 30 tablet, 0 Refills, Maintenance, 07/04/22 8:15:00 EST, [facility], Ok for fill early - patient has never lost or needed early refills before, 1 tablet By Mouth Daily,x30 days, 168, cm, 05/15/22 14:37:00... Start Date: 07/04/22 Stop Date: 08/03/22 Status: Ordered Adderall XR 30 mg oral capsule, extended release 1 capsule = 30 mg, By Mouth, Daily in AM, # 30 capsule, 0 Refills, Maintenance, 07/04/22 8:16:00 EST, ER Capsule, [facility], Ok for fill early - patient has never lost or needed early refills before, 1 capsule By Mouth Daily in AM,x30 days,... Start Date: 07/04/22 Stop Date: 08/03/22 Status: Ordered albuterol 90 mcg/inh inhalation powder 2 puffs, Inhalation, Every 4 hours, PRN as needed, # 1 each, 0 Refills, Maintenance, 08/01/21 20:08:00 EST, Powder, [facility] # [facility], Partial fill upon patient request if the prescription is for aschedule II opioid drug., 2 puffs Inhalation Every... Start Date: 08/01/21 Status: Ordered Ambien 10 mg oral tablet 1 tablet = 10 mg, By Mouth, Daily at bedtime, PRN as needed for insomnia, for 30 days, # 30 tablet,3 Refills, Acute 11/01/22 8:19:00 EST, 07/04/22 8:19:00 EST, Tablet, [facility], 168, cm, 05/15/22 14:37:00 EDT, Height, 112, kg, 04/22/22 14:... Start Date: 07/04/22 Stop Date: 11/01/22 Status: Ordered amLODIPine 2.5 mg oral tablet 1 tablet = 2.5 mg, By Mouth, Daily, # 90 tablet, 1 Refills, Maintenance, 05/26/22 17:40:00 EDT, Tablet, [facility], Partial fill upon patient request if the prescription is for a schedule IIopioid drug., 168, cm, 05/15/22 14:37:00 EDT, Heigh... Start Date: 05/26/22 Status: Ordered cholecalciferol 5000 intl units oral tablet 1 tablet = 125 mcg, By Mouth, Daily, # 30 tablet, 3 Refills, Maintenance, 02/07/22 11:35:00 EDT, Tablet, [facility], Partial fill upon patient request if the prescription is for a schedule II opioid drug., 168, cm, 02/07/22 11:03:00 EDT, Heig... Start Date: 02/07/22 Stop Date: 06/07/22 Status: Ordered clonazePAM 0.5 mg oral tablet 1 tablet = 0.5 mg, By Mouth, 3 times a day, NEEDED FOR ANXIETY, # 90 tablet, 3 Refills, Maintenance, 07/04/22 8:22:00 EST, Tablet, [facility], Ok for fill early - patient has never lost or needed early refills before, 168, cm, 05/15/22 14:... Start Date: 07/04/22 Stop Date: 11/01/22 Status: Ordered docusate sodium 100 mg oral capsule See Instructions, TAKE 1 CAPSULE ONE TO TWO TIMES A DAY FOR CONSTIPATION, # 20 capsule, 0 Refills, [facility], 168, cm, 08/01/21 17:36:00 EST, Height, 115, kg, 08/01/21 17:36:00 EST, Dry Weight Start Date: 10/31/21 Status: Ordered folic acid 1 mg oral tablet See Instructions, TAKE 1 TABLET BY MOUTH DAILY, # 30 tablet, Refills 3, Maintenance, 06/05/22 5:46:00 EDT, Instructions Replace Required Details, Route to Pharmacy Electronically, [facility], 168, cm, 05/15/22 [...] 3 Refills, Maintenance, 07/04/22 8:17:00 EST, Tablet, [facility], Ok for fill early - patient has never lost or needed early refills before, 168, cm, 05/15/22 14:37:00 EDT, Height, 1... Start Date: 07/04/22 Stop Date: 11/01/22 Status: Ordered lamotrigine 100 mg oral tablet 100 mg, 1, tablet, By Mouth, Daily in AM, # 30 tablet, Refills 3, Tot. Refills 3, Maintenance, 07/04/22 8:17:00 EST, Route to Pharmacy Electronically, [facility], Ok for fill early - patienthas never lost or needed early refills before, 168,... Start Date: 07/04/22 Stop Date: 11/01/22 Status: Ordered Lyrica 150 mg oral capsule [...] capsule, 2 Refills, Maintenance, 04/22/22 12:20:00 EDT, [facility], 168, cm, 04/21/22 8:42:00 EDT, Height, 113.3, kg, 04/09/22 9:17:00 EDT, Dry Weight Start Date: 04/22/22 Status: Ordered Wellbutrin XL 150 mg/24 hours oral tablet, extended release 1 tablet = 150 mg, By Mouth, Every 24 hours, With the Wellbutrin 300 mg TDD 450 mg, # 30 tablet, 3 Refills, Maintenance, 07/04/22 8:16:00 EST, ER Tablet, [facility] [...] Refills, Maintenance, 07/04/22 8:17:00 EST, ER Tablet, [facility], Ok for fill early - patient has never lost or needed early refills before, 168, cm, 0... Start Date: 07/04/22 Status: Ordered ziprasidone 40 mg oral capsule See Instructions, Take one capsule in the morning and 2 capsules at bedtime dose reduction - TDD 120mg, # 90 capsule, 3 Refills, Maintenance, 07/04/22 8:19:00 EST, [facility] # [facility], Partial fill upon patient [...] Care team information Care Team Personnel Name: Amadou STUART (William Kilpatrick Position: [facility] Primary Care Physician Member Role: PCP Address: Address: [address] [facility], [place] [address]- Name: Anabel Vyas Position: [facility] RN Member Role: Primary Care Nurse Name: Isa Ward Position: [facility] RN Member Role: Primary Care Nurse Name: Tommy Kohli MD Position: [facility] Psychiatry MD Member Role: Lifetime Consulting Physician Address: Address: [address] [place] [address]- Care Team Related Persons Name: WILLEM SIMON III Address: [place] [address] Name: WILLEM SIMON SR Address: home [address] [place] [address]
--- OUTSIDE RECORDS SUMMARY | 2024-01-22 11:10 | XMS_ITS | Continuity of Care Document ---
Author Organization [facility] Address [address] [place] [address]- Care Team Providers Care Occupational Medicine Officer Name Role Phone Ronny POULTRY HATCHERY SUPERVISOR, Ofelia Acosta Primary Care Physician [phone] Encounter [facility] Date(s): 02/05/22 - 03/07/22 [facility] [address] [place] [address]- Allergies, Adverse Reactions, Alerts Substance Reaction Severity [...] Note: VIS GIVEN: 03/18/2011 2Result Comment: lot [id number] 09/21/2006 3Admin Note: VIS 05/29/09 GIVEN Medications [...]
--- OUTSIDE RECORDS SUMMARY | 2024-01-22 11:10 | XMS_ITS | Continuity of Care Document ---
Author Organization [facility] Address [address] [place] [address]- Care Team Providers Care Processor Inspector Name Role Phone Elda Moscoso NP Primary Care Physician Encounter [facility] [id number] Date(s): 11/25/19 - 12/25/19 [facility] [place] [address] [place] [address]- [facility] Attending Physician: Elda Moscoso NP Allergies, Adverse [...] Note: VIS GIVEN: 03/18/2011 2Result Comment: lot [id number] 09/21/2006 3Admin Note: VIS 05/29/09 GIVEN Problem [...]
--- OUTSIDE RECORDS SUMMARY | 2024-01-22 11:10 | XMS_ITS | Continuity of Care Document ---
Author Organization [facility] Address [address] [place] [address] [address], [address] [place] [address]- Care Team Providers Care Risk Control Consultant Name Role Phone Ronny DULITE MACHINE BLUER, Ofelia Acosta Primary Care Physician Encounter [facility] Date(s): 02/17/23 - 03/19/23 [facility] [address] [place] [address] Drive, [address] [place] [address]- Allergies, Adverse Reactions, Alerts Substance Reaction Severity [...] Note: VIS GIVEN: 03/18/2011 2Result Comment: lot [id number] 09/21/2006 3Admin Note: VIS 05/29/09 GIVEN Medications [...] AM, # 30 capsule, 0 Refills, Maintenance, 02/23/23 14:44:00 EDT, ER Capsule, [facility], please only fill on/after exact due date, 1 capsule By Mouth Daily in AM,x30 days, 165, cm, 01/21/23 11:55:00 EDT,... Start Date: 02/23/23 Stop Date: 03/25/23 Status: Ordered amLODIPine 2.5 mg oral tablet 1 tablet = 2.5 mg, By Mouth, Daily, # 90 tablet, 1 Refills, Maintenance, 11/14/22 13:47:00 EDT, Tablet, [facility], Partial fill upon patient request if the prescription is for a schedule IIopioid drug., 168, cm, 10/22/22 10:35:00 ESTHair... Start Date: 11/14/22 Status: Ordered amphetamine-dextroamphetamine 10 mg oral tablet 1 tablet = 10 mg, By Mouth, 2 times a day, NO EARLY REFILLS, # 60 tablet, 0 Refills, Maintenance, 02/23/23 14:44:00 EDT, [facility], fill on date due, 1 tablet By Mouth 2 times a day,x30 days,Instr:NO EARLY REFILLS, 165, cm, 01/21/23 11:55:00... Start Date: 02/23/23 Stop Date: 03/25/23 Status: Ordered clonazePAM 0.5 mg oral tablet 1 tablet = 0.5 mg, By Mouth, 3 times a day, NEEDED FOR ANXIETY, # 90 tablet, 3 Refills, Maintenance, 02/27/23 14:38:00 EDT, Tablet, [facility], 165, cm, 01/21/23 11:55:00 EDT, Height, 118.3, kg, 12/16/22 20:23:00 EDT, Dry Weight Start Date: 02/27/23 Stop Date: 06/27/23 Status: Ordered docusate sodium 100 mg oral [...] Replace Required Details, Route to Pharmacy Electronically, [facility] # [facility], 168, cm, 10/07/22 [...] day, # 90 tablet, 3 Refills, Maintenance, 02/27/23 14:38:00 EDT, [facility] # 86, 165, cm, 01/21/23 11:55:00 EDT, Height, 118.3, kg, 12/16/22 20:23:00 EDT, Dry Weight Start Date: 02/27/23 Stop Date: 06/27/23 Status: Ordered LaMICtal 200 mg oral tablet 2 tablet = 400 mg, By Mouth, Daily at bedtime, # 60 tablet, 3 Refills, Maintenance, 02/27/23 14:38:00 EDT, Tablet, [facility] # 86, 165, cm, 01/21/23 11:55:00 EDT, Height, 118.3, kg, 12/16/22 20:23:00 EDT, Dry Weight Start Date: 02/27/23 Stop Date: 06/27/23 Status: Ordered lamotrigine 100 mg oral tablet 100 mg, 1, tablet, By Mouth, Daily in AM, # 30 tablet, Refills 3, Tot. Refills 3, Maintenance, 02/27/23 14:39:00 EDT, Route to Pharmacy Electronically, [facility] # [facility], 165, cm, 01/21/23 11:55:00EDT, Height, 118.3, kg, 12/16/22 20:23:00 EDT, Dry... Start Date: 02/27/23 Stop Date: 06/27/23 Status: Ordered NuLYTELY with Flavor Packs oral powder for reconstitution 240 mL, By Mouth, Every 10 minutes, split prep method, take 1st half of prep evening before procedure, 2nd half 6 hrs prior to procedure., # 1 each, 0 Refills, Maintenance, 11/10/22 10:55:00 EDT, RECPowder, [facility] # [facility], test date 01/14 .... Start Date: 11/10/22 Status: Ordered omeprazole 40 mg oral enteric coated capsule 1 capsule, By Mouth, 2 times a day, # 60 capsule, 5 Refills, Maintenance, 02/04/23 7:33:00 EDT, [facility] # 86, 165, cm, 01/21/23 11:55:00 EDT, Height, 118.3, kg, 12/16/22 20:23:00 EDT, Dry Weight Start Date: 02/04/23 Status: Ordered OneTouch Verio Glucose Meter See [...] Dry Weight Start Date: 02/19/23 Status: Ordered predniSONE 10 mg oral tablet See Instructions, Take with food by mouth daily: Day 1-2: 6 tabs Day 3-4: 5 tabs Day 5-6: 4 tabs Day 7-8: 3 tabs Day 9-10: 2 tabs Day 11-12: 1 tab, # 42 tablet, 0 Refills, Maintenance, 01/21/23 16:49:00 EDT, [facility], Partial fill upo... Start Date: 01/21/23 Status: Ordered Suprep Bowel Prep Kit oral liquid 177 mL, By Mouth, Once, split prep, # 354 mL, 0 Refills, Soft Stop, 12/01/22 14:37:00 EDT, [facility], Partial fill upon patient request if the prescription is for a schedule II opioid drug., 177 mL By Mouth Once,Instr:split prep, 165, cm, 04... Start Date: 12/01/22 Status: Ordered Trulicity Pen 0.75 mg/0.5 mL subcutaneous solution 0.5 mL = 0.75 mg, Subcutaneous Injection, Every week, rotate injection sites, # 2 mL, 0 Refills, Maintenance, 02/19/23 19:04:00 EDT, Solution, [facility], Partial fill upon patient request if the prescription is for a schedule II opioid drug.... Start Date: 02/19/23 Status: Ordered Vitamin D3 5000 intl units oral tablet 1 tablet, By Mouth, Daily, # 30 tablet, 5 Refills, Maintenance, 03/08/23 21:40:00 EDT, [facility], 165, cm, 01/21/23 11:55:00 EDT, Height, 118.3, kg, 12/16/22 20:23:00 EDT, Dry Weight Start Date: 03/08/23 Status: Ordered Wellbutrin XL 150 mg/24 hours oral tablet, extended release 1 tablet = 150 mg, By Mouth, Every 24 hours, With the Wellbutrin 300 mg TDD 450 mg, # 30 tablet, 3 Refills, Maintenance, 02/27/23 14:37:00 EDT, ER Tablet, [facility], 165, cm, 01/21/23 11:55:00 EDT, Height, 118.3, kg, 12/16/22 20:23:00 EDT, D... Start Date: 02/27/23 Stop Date: 06/27/23 Status: Ordered Wellbutrin XL 300 mg/24 hours oral tablet, extended release 1 tablet = 300 mg, By Mouth, Daily, With the Wellbutrin 150 mg TDD 450 mg, # 30 tablet, 3 Refills, Maintenance, 02/27/23 14:37:00 EDT, ER Tablet, [facility], Ok for fill early - patient has never lost or needed early refills before, 165, cm,... Start Date: 02/27/23 Status: Ordered ziprasidone 60 mg oral capsule 1 capsule = 60 mg, By Mouth, Daily at bedtime, # 7 capsule, 0 Refills, Maintenance, 01/28/23 14:16:00 EDT, [facility] # [facility], please fill this script early as pt in going on vacation and will not have enough pills to get through when she returns- ... Start Date: 01/28/23 Stop Date: 02/04/23 Status: Ordered ziprasidone 60 mg oral capsule 1 capsule = 60 mg, By Mouth, Daily at bedtime, # 30 capsule, 3 Refills, Maintenance, 02/27/23 14:39:00 EDT, [facility], Partial fill upon patient request if the prescription is for a schedule II opioid drug., 165, cm, 01/21/23 11:55:00 EDT, H... Start Date: 02/27/23 Stop Date: 06/27/23 Status: Ordered ziprasidone 80 mg oral capsule 1 capsule = 80 mg, By Mouth, Daily at bedtime, for 30 days, TDD = 140mg/day, # 30 capsule, 3 Refills, Hard Stop 04/11/23 8:55:00 EDT, 12/12/22 8:55:00 EDT, [facility], dose reduction, 165, cm, 12/01/22 14:13:00 EDT, Height, 118.3, kg, 2... Start Date: 12/12/22 Stop Date: 04/11/23 Status: Ordered ziprasidone 80 mg oral capsule 1 capsule = 80 mg, By Mouth, Daily at bedtime, TDD = 140mg/day Okay to fill early due to vacation.,# 7 capsule, 0 Refills, Maintenance, 02/27/23 14:39:00 EDT, [facility], dose reduction, 165, cm, 01/21/23 11:55:00 EDT, Height, 118.3, kg, 04... Start Date: 02/27/23 Status: Ordered Problem List Condition Confirmation Course [...] Team Personnel Name: Anabel Roblero [place] Position: [facility] RN Member Role: Primary Care Nurse Name: Isa Ward Position: [facility] RN Member Role: Primary Care Nurse Name: Ofelia Jefferson NP Position: [facility] PCO Associate Professional Member Role: PCP Address: Address: [address] [place] [id number]- Name: Tommy Kohli MD Position: [facility] Physician - Behavioral Health Member Role: Lifetime Consulting Physician Address: Address: [address] [place] [address]- Care Team Related Persons Name: WILLEM SIMON III Address: [place] [address] Name: WILLEM SIMON JR Address: home [address] [place] [address]
--- OUTSIDE RECORDS SUMMARY | 2024-01-22 11:10 | XMS_ITS | Continuity of Care Document ---
Author Organization [facility] Address [address] [place], [place] [address]maximo slater, [address] [place] [address]- Care Team Providers Care Coordinator Of Evaluation Name Role Phone Ronny TRANSIT BUS DRIVER, Ofelia Acosta Primary Care Physician [phone] Encounter [facility] Date(s): 01/06/23 - 02/05/23 [facility] [address] [place] [address] Drive, [address] [place], [place] [address] Attending Physician: Admtr, Ar8 Allergies, Adverse Reactions, Alerts [...] Note: VIS GIVEN: 03/18/2011 2Result Comment: lot [id number] 09/21/2006 3Admin Note: VIS 05/29/09 GIVEN Medications [...] AM, # 30 capsule, 0 Refills, Maintenance, 01/20/23 16:02:00 EDT, ER Capsule, [facility], please only fill on/after exact due date, 1 capsule By Mouth Daily in AM,x30 days, 165, brittney, 01/06/23 8:47:00 EDT, H... Start Date: 01/20/23 Stop Date: 02/19/23 Status: Ordered amLODIPine 2.5 mg oral tablet 1 tablet = 2.5 mg, By Mouth, Daily, # 90 tablet, 1 Refills, Maintenance, 11/14/22 13:47:00 EDT, Tablet, [facility] # 86, Partial fill upon patient request if the prescription is for a schedule IIopioid drug., 168, brittney, 10/22/22 10:35:00 EST, Heigh... Start Date: 11/14/22 Status: Ordered amphetamine-dextroamphetamine 10 mg oral tablet 1 tablet = 10 mg, By Mouth, 2 times a day, NO EARLY REFILLS, # 60 tablet, 0 Refills, Maintenance, 01/20/23 16:02:00 EDT, [facility], fill on date due, 1 tablet By Mouth 2 times a day,x30 days,Instr:NO EARLY REFILLS, 165, brittney, 01/06/23 8:47:00... Start Date: 01/20/23 Stop Date: 02/19/23 Status: Ordered cholecalciferol 5000 intl units oral tablet 1 tablet = 125 mcg, By Mouth, Daily, # 30 tablet, 3 Refills, Maintenance, 10/22/22 10:51:00 EST, Tablet, [facility], Partial fill upon patient request if the prescription is for a schedule II opioid drug., 168, brittney, 10/22/22 10:35:00 EST, Heig... Start Date: 10/22/22 Stop Date: 02/19/23 Status: Ordered clonazePAM 0.5 mg oral tablet 1 tablet = 0.5 mg, By Mouth, 3 times a day, NEEDED FOR ANXIETY, # 90 tablet, 3 Refills, Maintenance, 12/12/22 8:54:00 EDT, Tablet, [facility] # 86, 165, cm, 12/01/22 14:13:00 EDT, Height, 118.3, kg, 11/22/22 10:55:00 EDT, Dry Weight Start Date: 12/12/22 Stop Date: 04/11/23 Status: Ordered docusate sodium 100 mg oral capsule See Instructions, TAKE 1 CAPSULE ONE TO TWO TIMES A DAY FOR CONSTIPATION, # 20 capsule, 0 Refills, [facility] # 86, 168, cm, 08/01/21 [...] 3 times a day, # 90 tablet, 0 Refills, Maintenance, 01/21/23 16:48:00 EDT, [facility] # 86, massPAT checked on 01/21/23 for the gabapentin last fill was on 12/24/02 for a 30 day supply (#90), 01/23/23, 165, cm, 01/21/23 11:55:00... Start Date: 01/21/23 Status: Ordered LaMICtal 200 mg oral tablet 2 tablet = 400 mg, By Mouth, Daily at bedtime, # 60 tablet, 3 Refills, Maintenance, 12/12/22 8:54:00 EDT, Tablet, [facility] # 86, 165, cm, 12/01/22 14:13:00 EDT, Height, 118.3, kg, 11/22/22 10:55:00 EDT, Dry Weight Start Date: 12/12/22 Stop Date: 04/11/23 Status: Ordered lamotrigine 100 mg oral tablet 100 mg, 1, tablet, By Mouth, Daily in AM, # 30 tablet, Refills 3, Tot. Refills 3, Maintenance, 12/12/22 8:54:00 EDT, Route to Pharmacy Electronically, [facility], 165, cm, 12/01/22 14:13:00 EDT, Height, 118.3, kg, 11/22/22 10:55:00 EDT, Dry W... Start Date: 12/12/22 Stop Date: 04/11/23 Status: Ordered NuLYTELY with Flavor Packs oral powder for reconstitution 240 mL, By Mouth, Every 10 minutes, split prep method, take 1st half of prep evening before procedure, 2nd half 6 hrs prior to procedure., # 1 each, 0 Refills, Maintenance, 11/10/22 10:55:00 EDT, RECPowdraymond, [facility], test date 01/14 .... Start Date: 11/10/22 Status: Ordered omeprazole 40 mg oral enteric coated capsule 1 capsule, By Mouth, 2 times a day, # 60 capsule, 5 Refills, Maintenance, 02/04/23 7:33:00 EDT, [facility] # [facility], 165, cm, 01/21/23 11:55:00 EDT, Height, 118.3, kg, 12/16/22 20:23:00 EDT, Dry Weight Start Date: 02/04/23 Status: Ordered predniSONE 10 mg oral tablet See Instructions, Take with food by mouth daily: Day 1-2: 6 tabs Day 3-4: 5 tabs Day 5-6: 4 tabs Day 7-8: 3 tabs Day 9-10: 2 tabs Day 11-12: 1 tab, # 42 tablet, 0 Refills, Maintenance, 01/21/23 16:49:00 EDT, [facility], Partial fill upo... Start Date: 01/21/23 Status: Ordered Suprep Bowel Prep Kit oral liquid 177 mL, By Mouth, Once, split prep, # 354 mL, 0 Refills, Soft Stop, 12/01/22 14:37:00 EDT, [facility], Partial fill upon patient request if the prescription is for a schedule II opioid drug., 177 mL By Mouth Once,Instr:split prep, 165, cm, 04... Start Date: 12/01/22 Status: Ordered Wellbutrin XL 150 mg/24 hours oral tablet, extended release 1 tablet = 150 mg, By Mouth, Every 24 hours, With the Wellbutrin 300 mg TDD 450 mg, # 30 tablet, 3 Refills, Maintenance, 12/12/22 8:53:00 EDT, ER Tablet, [facility] # [facility], 165, cm, 12/01/22 14:13:00 EDT, Height, 118.3, kg, 11/22/22 10:55:00 EDT, .. Start Date: 12/12/22 Stop Date: 04/11/23 Status: Ordered Wellbutrin XL 300 mg/24 hours oral tablet, extended release 1 tablet = 300 mg, By Mouth, Daily, With the Wellbutrin 150 mg TDD 450 mg, # 30 tablet, 3 Refills, Maintenance, 12/12/22 8:53:00 EDT, ER Tablet, [facility] # 86, Ok for fill early - patient has never lost or needed early refills before, 165, cm, 0... Start Date: 12/12/22 Status: Ordered ziprasidone 60 mg oral capsule 1 capsule = 60 mg, By Mouth, Daily at bedtime, # 7 capsule, 0 Refills, Maintenance, 01/28/23 14:16:00 EDT, [facility], please fill this script early as pt in going on vacation and will not have enough pills to get through when she returns- ... Start Date: 01/28/23 Stop Date: 02/04/23 Status: Ordered ziprasidone 60 mg oral capsule 1 capsule = 60 mg, By Mouth, Daily at bedtime, # 30 capsule, 3 Refills, Maintenance, 12/12/22 8:55:00 EDT, [facility] # [facility], Partial fill upon patient request if the prescription is for a scheduleII opioid drug., 165, cm, 12/01/22 14:13:00 EDT, He... Start Date: 12/12/22 Stop Date: 04/11/23 Status: Ordered ziprasidone 80 mg oral capsule 1 capsule = 80 mg, By Mouth, Daily at bedtime, TDD = 140mg/day Okay to fill early due to vacation.,# 7 capsule, 0 Refills, Maintenance, 01/28/23 14:32:00 EDT, [facility] # [facility], dose reduction, 165, cm, 01/21/23 11:55:00 EDT, Height, 118.3, kg, 04... Start Date: 01/28/23 Status: Ordered ziprasidone 80 mg oral capsule 1 capsule = 80 mg, By Mouth, Daily at bedtime, for 30 days, TDD = 140mg/day, # 30 capsule, 3 Refills, Hard Stop 04/11/23 8:55:00 EDT, 12/12/22 8:55:00 EDT, [facility] # 86, dose reduction, 165, cm, 12/01/22 14:13:00 EDT, Height, 118.3, kg, ... Start Date: 12/12/22 Stop Date: 04/11/23 Status: Ordered Problem List Condition Confirmation Course [...] Team Personnel Name: Anabel Roblero [place] Position: [facility] RN Member Role: Primary Care Nurse Name: Isa Ward Position: [facility] RN Member Role: Primary Care Nurse Name: Ofelia Jefferson NP Position: [facility] PCO Associate Professional Member Role: PCP Address: Address: [address] [place] [address] [place] [address]- Name: Tommy Kohli MD Position: [facility] Physician - Behavioral Health Member Role: Lifetime Consulting Physician Address: Address: [address] [place] [address]- Care Team Related Persons Name: WILLEM SIMON III Address: [place] [address] Name: WILLEM SIMON JR Address: home [address] [place] [address]
--- OUTSIDE RECORDS SUMMARY | 2024-01-22 11:10 | XMS_ITS | Continuity of Care Document ---
Author Organization [facility] Address [address] [place] [address]- Care Team Providers Care Apparel Sales Associate Name Role Phone Ronny SURGICAL DEVICE SALES REPRESENTATIVE, Ofelia Acosta Primary Care Physician [phone] [place] [facility] 02/10/22 - 03/29/[address] [address]- Attending Physician: Magalis Chua MD Admitting Physician: Magalis Chua MD Referring Physician: Magalis Chua MD Allergies, Adverse Reactions, Alerts Substance Reaction [...] Note: VIS GIVEN: 03/18/2011 2Result Comment: lot [id number] 09/21/2006 3Admin Note: VIS 05/29/09 GIVEN Medications [...]
--- OUTSIDE RECORDS SUMMARY | 2024-01-22 11:10 | XMS_ITS | Continuity of Care Document ---
Author Organization [facility] [place] Address [address] [place] [address]- Care Team Providers Care Knitting Machine Operator Automatic Name Role Phone Ronny NECKTIE MAKER, Ofelia Acosta Primary Care Physician Encounter [facility] Date(s): 10/29/23 - 11/28/23 [facility] [address] [place] [address]- Allergies, Adverse Reactions, Alerts Substance Reaction Severity [...] Note: VIS GIVEN: 03/18/2011 2Result Comment: lot [id number] 09/21/2006 3Admin Note: VIS 05/29/09 GIVEN Medications [...] AM, # 30 capsule, 0 Refills, Maintenance, 11/13/23 7:20:00 EDT, ER Capsule, [facility], fill when due, 1 capsule By Mouth Daily in AM,x30 days, 165, cm,11/06/23 8:10:00 EDT, Height, 110.1, kg, 10/28/23 1... Start Date: 11/13/23 Stop Date: 12/13/23 Status: Ordered amLODIPine 2.5 mg oral tablet 1 tablet, By Mouth, Daily, # 90 tablet, 1 Refills, Maintenance, 07/24/23 15:00:00 EST, [facility], 165, cm, 05/25/23 14:40:00 EDT, Height, 118.3, kg, 12/16/22 20:23:00 EDT, Dry Weight Start Date: 07/24/23 Status: Ordered amphetamine-dextroamphetamine 10 mg oral tablet 1 tablet = 10 mg, By Mouth, 2 times a day, # 60 tablet, 0 Refills, Maintenance, 11/13/23 7:20:00 EDT, [facility], fill on date due, 1 tablet By Mouth 2 times a day,x30 days, 165, cm, 11/06/23 8:10:00 EDT, Height, 110.1, kg, 10/28/23 1:29:00 E... Start Date: 11/13/23 Stop Date: 12/13/23 Status: Ordered CeleBREX 100 mg oral capsule 1 capsule = 100 mg, By Mouth, 2 times a day, PRN for pain, # 60 capsule, 3 Refills, Maintenance, 11/06/23 9:04:00 EDT, Capsule, [facility], Partial fill upon patient request if the prescription is for a schedule II opioid drug., 165, cm, 10/22... Start Date: 11/06/23 Stop Date: 03/05/24 Status: Ordered clonazePAM 0.5 mg oral tablet 1 tablet = 0.5 mg, By Mouth, 3 times a day, NEEDED FOR ANXIETY, # 90 tablet, 3 Refills, Maintenance, 10/20/23 14:17:00 EST, Tablet, [facility], 165, cm, 05/25/23 14:40:00 EDT, Height, 118.3, kg, 12/16/22 20:23:00 EDT, Dry Weight Start Date: 10/20/23 Stop Date: 02/17/24 Status: Ordered docusate sodium 100 mg oral capsule See Instructions, TAKE 1 CAPSULE ONE TO TWO TIMES A DAY FOR CONSTIPATION, # 20 capsule, 0 Refills, [facility], 168, cm, 08/01/21 17:36:00 EST, Height, 115, kg, 08/01/21 17:36:00 EST, Dry Weight Start Date: 10/31/21 Status: Ordered folic acid 1 mg oral tablet 1, tablet, By Mouth, Daily, # 30 tablet, Refills 5, Maintenance, 04/29/23 20:24:00 EDT, Route to Pharmacy Electronically, [facility], 165, cm, 01/21/23 11:55:00 EDT, Height, 118.3, kg, 12/16/22 20:23:00 EDT, Dry Weight Start Date: 04/29/23 Status: Ordered folic acid 1 mg oral tablet See Instructions, TAKE ONE TABLET BY MOUTH EVERY DAY, # 30 tablet, Refills 5, Maintenance, :13:00 EST, Instructions Replace Required Details, Route to Pharmacy Electronically, [facility], 165, cm, 05/25/23 [...] day, # 90 tablet, 3 Refills, Maintenance, 10/20/23 14:21:00 EST, [facility], 165, cm, 05/25/23 14:40:00 EDT, Height, 118.3, kg, 12/16/22 20:23:00 EDT, Dry Weight Start Date: 10/20/23 Stop Date: 02/17/24 Status: Ordered LaMICtal 200 mg oral tablet 2 tablet = 400 mg, By Mouth, Daily at bedtime, # 60 tablet, 3 Refills, Maintenance, 10/20/23 14:22:00 EST, Tablet, [facility], 165, cm, 05/25/23 14:40:00 EDT, Height, 118.3, kg, 12/16/22 20:23:00 EDT, Dry Weight Start Date: 10/20/23 Stop Date: 02/17/24 Status: Ordered lamotrigine 100 mg oral tablet 100 mg, 1, tablet, By Mouth, Daily in AM, # 30 tablet, Refills 3, Tot. Refills 3, Maintenance, 10/20/23 14:22:00 EST, Route to Pharmacy Electronically, [facility], 165, cm, 05/25/23 14:40:00EDT, Height, 118.3, kg, 12/16/22 20:23:00 EDT, Dry... Start Date: 10/20/23 Stop Date: 02/17/24 Status: Ordered NuLYTELY with Flavor Packs oral powder for reconstitution 240 mL, By Mouth, Every 10 minutes, split prep method, take 1st half of prep evening before procedure, 2nd half 6 hrs prior to procedure., # 1 each, 0 Refills, Maintenance, 11/10/22 10:55:00 EDT, RECPowder, [facility], test date 01/14 .... Start Date: 11/10/22 Status: Ordered omeprazole 40 mg oral enteric coated capsule 1 capsule, By Mouth, 2 times a day, # 180 capsule, 1 Refills, Maintenance, 08/15/23 8:46:00 EST, [facility], 165, cm, 05/25/23 14:40:00 EDT, Height, 118.3, kg, 12/16/22 20:23:00 EDT, Dry Weight Start Date: 08/15/23 Status: Ordered ondansetron 4 mg oral tablet 1 tablet = 4 mg, By Mouth, Every 8 hours, # 21 tablet, 0 Refills, Maintenance, 07/29/23 17:24:00 EST, Tablet, [facility], Partial fill upon [...] Refills, Maintenance, 05/25/23 15:17:00 EDT, [facility], Partial fill upon patient request if the prescription is for a schedule II opioid drug., 1 bottle 90 minutes prior to s... Start Date: 05/25/23 Status: Ordered Suprep Bowel Prep Kit oral liquid 177 mL, By Mouth, Once, split prep, # 354 mL, 0 Refills, Soft Stop, 12/01/22 14:37:00 EDT, [facility], Partial fill upon patient request if the prescription is for a schedule II opioid drug., 177 mL By Mouth Once,Instr:split prep, 165, cm, 04... Start Date: 12/01/22 Status: Ordered Trulicity Pen 1.5 mg/0.5 mL subcutaneous solution See Instructions, INJECT 0.5ML SUBCUTANEOUSLY ONCE WEEKLY ROTATE INJECTION SITES, # 2 mL, 5 Refills, Maintenance, 06/07/23 18:02:00 EDT, [facility], 165, cm, 05/25/23 14:40:00 EDT, Height, 118.3, kg, 12/16/22 20:23:00 EDT, Dry Weight Start Date: 06/07/23 Status: Ordered Vitamin D3 5000 intl units oral tablet 1 tablet, By Mouth, Daily, # 30 tablet, 0 Refills, Maintenance, 10/15/23 11:12:00 EST, [facility], 165, cm, 05/25/23 14:40:00 EDT, Height, 118.3, kg, 12/16/22 20:23:00 EDT, Dry Weight Start Date: 10/15/23 Status: Ordered Wellbutrin XL 300 mg/24 hours oral tablet, extended release 1 tablet = 300 mg, By Mouth, Daily, # 30 tablet, 3 Refills, Maintenance, 10/20/23 14:17:00 EST, ER Tablet, [facility], 165, cm, 05/25/23 14:40:00 EDT, Height, 118.3, kg, 12/16/22 20:23:00 EDT, Dry Weight Start Date: 10/20/23 Stop Date: 02/17/24 Status: Ordered ziprasidone 60 mg oral capsule 2 capsule = 120 mg, By Mouth, Daily at bedtime, # 60 capsule, 3 Refills, Maintenance, 10/20/23 14:22:00 [facility], Partial fill upon patient request if the prescription is for a schedule II opioid drug., 165, cm, 05/25/23 14:40:00 EDT,... Start Date: 10/20/23 Stop Date: 02/17/24 Status: Ordered Problem List Condition Confirmation Course [...] Team Personnel Name: Anabel Roblero [place] Position: [facility] RN Member Role: Primary Care Nurse Name: Isa Ward Position: [facility] RN Member Role: Primary Care Nurse Name: Ofelia Jefferson NP Position: [facility] PCO Associate Professional Member Role: PCP Address: Address: [address] [place] [address] [place] [address]- [place] Name: Tommy Kohli MD Position: [facility] Physician - Behavioral Health Member Role: Lifetime Consulting Physician Address: Address: [address] [place] [address]- Care Team Related Persons Name: WILLEM SIMON III Address: [place] [address] Name: WILLEM SIMON JR Address: home [address] [place] [id number]
--- OUTSIDE RECORDS SUMMARY | 2024-01-22 11:10 | XMS_ITS | Continuity of Care Document ---
Author Organization [facility] [place] Address [address] [place] [address]- Care Team Providers Care Senior It Recruiter Name Role Phone Elda Moscoso NP Primary Care Physician Encounter [facility] N[facility] [id number] Date(s): 08/08/20 - 09/28/20 [facility] [address] [place] [address]- Attending Physician: Elda Moscoso NP Allergies, Adverse [...] Note: VIS GIVEN: 03/18/2011 2Result Comment: lot [id number] 09/21/2006 3Admin Note: VIS 05/29/09 GIVEN Medications [...] disorder(Confirmed) Active Chronic low back pain(Confirmed) Active Diabetes(Confirmed) Active Postprandial epigastric pain(Confirmed) Active [...]
--- OUTSIDE RECORDS SUMMARY | 2024-01-22 11:10 | XMS_ITS | Continuity of Care Document ---
Author Organization [facility] [place] Address [address] [place] [address]- Care Team Providers Care Livestock Trucker Name Role Phone Elda Moscoso NP Primary Care Physician Encounter [facility] NBR [id number] Date(s): 11/17/19 - 11/24/19 [facility] [address] [place] [address]- [facility] Attending Physician: Elda Moscoso NP Allergies, Adverse [...] Note: VIS GIVEN: 03/18/2011 2Result Comment: lot [id number] 09/21/2006 3Admin Note: VIS 05/29/09 GIVEN Problem List Condition Effective Dates Status Health Status Inform ant Background diabetic retinopathy(Confirmed) Active Bipolar disorder(Confirmed) Active Chronic low back pain(Confirmed) Active Postprandial epigastric pain(Confirmed) Active Foot pain(Confirmed) Active GERD (gastroesophageal reflu x disease)(Confirmed) Active Hepatic steatosis(Confirmed) Active Gastric bypass status for obesity(Confirmed) Active Mastitis NOS(Confirmed) 11/17/11 Active Morbid Obesity(Confirmed) 1 Active Vitamin D deficiency(Confirmed) Active 1s/p gastric sleeve Social History Social History Type Response Smoking Status Never (less than 100 in lifetime) entered on: 12/31/18 Sex
--- OUTSIDE RECORDS SUMMARY | 2024-01-22 11:10 | XMS_ITS | Continuity of Care Document ---
Author Organization [facility] [place] Address [address] [place] [address]- Care Team Providers Care Medical Claims Representative Name Role Phone Danis PAPPAS, Elda Salazar Primary Care Physician [phone] [facility] Date(s): 10/04/20 - 11/03/20 [facility] [place] [address] [place] [address]- Encounter Diagnosis Viral URI(Discharge Diagnosis) - 12/01/19 Open wound of abdominal wall(Discharge Diagnosis) - 12/01/19 Attending Physician: Adriano Becker Admitting Physician: Adriano Becker Referring Physician: Admtr, [id number] Allergies, Adverse Reactions, [...] Note: VIS GIVEN: 03/18/2011 2Result Comment: lot [id number] 09/21/2006 3Admin Note: VIS 05/29/09 GIVEN Medications folic acid 1 mg oral tablet 1 mg, 1, tablet, By Mouth, Daily, # 30 tablet, Refills 2, Tot. Refills 2, Maintenance, 10/26/20 15:22:00 EST, Route to Pharmacy Electronically, [facility], Partial fill upon patient request if the prescription is for a schedule II opioid drug... Start Date: 3/5/21 Status: Ordered Lyrica 150 mg oral capsule [...] Service Informant Viral URI Discharge Diagnosis 12/01/19 Open wound of abdominal wall Discharge Diagnosis 12/01/19 Social History Social History Type Response Smoking Status Never (less than 100 in lifetime) entered on: 12/31/18 Sex
--- OUTSIDE RECORDS SUMMARY | 2024-01-22 11:10 | XMS_ITS | Continuity of Care Document ---
Author Organization [facility] Address [address] [place] [address]- Care Team Providers Care Fondant Cooker Name Role Phone Danis PAPPAS, Elda Salazar Primary Care Physician [phone] Encounter [facility] Date(s): 01/17/20 - 02/22/20 [facility] [address] [place] [address]- [facility] Attending Physician: Jacky Johnson MD Admitting Physician: Jacky Johnson MD Referring Physician: Elda Moscoso NP Allergies, Adverse Reactions, [...] Note: VIS GIVEN: 03/18/2011 2Result Comment: lot [id number] 09/21/2006 3Admin Note: VIS 05/29/09 GIVEN Problem [...]
--- OUTSIDE RECORDS SUMMARY | 2024-01-22 11:10 | XMS_ITS | Continuity of Care Document ---
Author Organization [facility] [place] Address [address] [place] [address]- Care Team Providers Care Deep Fryer Assembler Name Role Phone Ronny PAPPAS, Ofelia Acosta Primary Care Physician Encounter [facility] Date(s): 07/29/23 - 08/28/23 [facility] [place] [address] [place] [address]- Allergies, Adverse Reactions, Alerts Substance Reaction Severity [...] Note: VIS GIVEN: 03/18/2011 2Result Comment: lot [id number] 09/21/2006 3Admin Note: VIS 05/29/09 GIVEN Medications [...] Refills, Maintenance, 08/27/23 9:57:00 EST, ER Capsule, [facility], please only fill on/after exact due date, 1 capsule By Mouth Daily in AM,x30 days, 165, cm, 05/25/23 14:40:00 EDT, H... Start Date: 08/27/23 Stop Date: 09/26/23 Status: Ordered amLODIPine 2.5 mg oral tablet 1 tablet, By Mouth, Daily, # 90 tablet, 1 Refills, Maintenance, 07/24/23 15:00:00 EST, [facility], 165, cm, 05/25/23 14:40:00 EDT, Height, 118.3, kg, 12/16/22 20:23:00 EDT, Dry Weight Start Date: 07/24/23 Status: Ordered amphetamine-dextroamphetamine 10 mg oral tablet 1 tablet = 10 mg, By Mouth, 2 times a day, # 60 tablet, 0 Refills, Maintenance, 08/27/23 9:57:00 EST, [facility], fill on date due, 1 tablet By Mouth 2 times a day,x30 days, 165, cm, 05/25/23 14:40:00 EDT, Height, 118.3, kg, 12/16/22 20:23:00... Start Date: 08/27/23 Stop Date: 09/26/23 Status: Ordered clonazePAM 0.5 mg oral tablet 1 tablet = 0.5 mg, By Mouth, 3 times a day, NEEDED FOR ANXIETY, # 90 tablet, 3 Refills, Maintenance, 05/29/23 13:42:00 EDT, Tablet, [facility], 165, cm, 05/25/23 14:40:00 EDT, Height, 118.3, kg, 12/16/22 20:23:00 EDT, Dry Weight Start Date: 05/29/23 Stop Date: 09/26/23 Status: Ordered docusate sodium 100 mg oral capsule See Instructions, TAKE 1 CAPSULE ONE TO TWO TIMES A DAY FOR CONSTIPATION, # 20 capsule, 0 Refills, [facility], 168, cm, 08/01/21 17:36:00 EST, Height, 115, kg, 08/01/21 17:36:00 EST, Dry Weight Start Date: 10/31/21 Status: Ordered folic acid 1 mg oral tablet 1, tablet, By Mouth, Daily, # 30 tablet, Refills 5, Maintenance, 04/29/23 20:24:00 EDT, Route to Pharmacy Electronically, [facility], 165, cm, 01/21/23 11:55:00 [...] Refills, Maintenance, 05/29/23 13:41:00 EDT, [facility] [...] 09/26/23 13:41:00 EST, 05/29/23 13:41:00 EDT, Tablet, [facility], 165, cm, 05/25/23 14:40:00 EDT, Height, 118.3, kg, 12/16/22 20:23:00 EDT, Dry Weight Start Date: 05/29/23 Stop Date: 09/26/23 Status: Ordered LaMICtal 200 mg oral tablet 2 tablet = 400 mg, By Mouth, Daily at bedtime, # 60 tablet, 3 Refills, Maintenance, 09/26/23 13:41:00 EST, Tablet, [facility] [...] 0 Refills, Maintenance, 11/10/22 10:55:00 EDT, RECPowder, [facility], test date 01/14 .... Start Date: 11/10/22 Status: Ordered omeprazole 40 mg oral enteric coated capsule 1 capsule, By Mouth, 2 times a day, # 180 capsule, 1 Refills, Maintenance, 08/15/23 8:46:00 EST, [facility], 165, cm, 05/25/23 14:40:00 EDT, Height, 118.3, kg, 12/16/22 20:23:00 EDT, Dry Weight Start Date: 08/15/23 Status: Ordered ondansetron 4 mg oral tablet 1 tablet = 4 mg, By Mouth, Every 8 hours, # 21 tablet, 0 Refills, Maintenance, 07/29/23 17:24:00 EST, Tablet, [facility], Partial fill upon patient [...] 14:37:00 EDT, [facility] [...] Refills, Maintenance, 03/08/23 21:40:00 EDT, [facility], 165, cm, 01/21/23 11:55:00 EDT, Height, 118.3, kg, 12/16/22 20:23:00 EDT, Dry Weight Start Date: 03/08/23 Status: Ordered Wellbutrin XL 300 mg/24 hours oral tablet, extended release 1 tablet = 300 mg, By Mouth, Daily, # 30 tablet, 2 Refills, Maintenance, 08/11/23 7:22:00 EST, ER Tablet, [facility], dose reduction - 300mg/day, 165, cm, 05/25/23 14:40:00 EDT, Height, 118.3, kg, 12/16/22 20:23:00 EDT, Dry Weight Start Date: 08/11/23 Stop Date: 11/09/23 Status: Ordered ziprasidone 60 mg oral capsule 2 capsule = 120 mg, By Mouth, Daily at bedtime, # 60 capsule, 2 Refills, Maintenance, 07/28/23 14:51:00 EST, [facility] [...] Team Personnel Name: Anabel Roblero [place] Position: [facility] RN Member Role: Primary Care Nurse Name: Isa Ward Position: [facility] RN Member Role: Primary Care Nurse Name: Ofelia Jefferson NP Position: [facility] PCO Associate Professional Member Role: PCP Address: Address: [address] [place] [address] [place] [address]- Name: Tommy Kohli MD Position: [facility] Physician - Behavioral Health Member Role: Lifetime Consulting Physician Address: Address: [address] [place] [address]- Care Team Related Persons Name: WILLEM SIMON III Address: [place] [address] Name: WILLEM SIMON JR Address: home [address] [place] [address]
--- OUTSIDE RECORDS SUMMARY | 2024-01-22 11:11 | XMS_ITS | Continuity of Care Document ---
Author Organization [facility] [place] Address [address] [place] [address]- Care Team Providers Care Sketcher Name Role Phone Danis PAPPAS, Elda Salazar Primary Care Physician Encounter [facility] Date(s): 12/01/19 - 12/11/19 [facility] [address] [place] [address]- [facility] Encounter Diagnosis Viral URI(Discharge Diagnosis) - 12/01/19 Open wound of abdominal wall(Discharge Diagnosis) - 12/01/19 Attending Physician: Adriano Becker Admitting Physician: Adriano Becker Referring Physician: Adriano Becker Allergies, Adverse Reactions, Alerts Substance Reaction Severity [...] Note: VIS GIVEN: 03/18/2011 2Result Comment: lot [id number] 09/21/2006 3Admin Note: VIS 05/29/09 GIVEN Problem [...]
--- OUTSIDE RECORDS SUMMARY | 2024-01-22 11:11 | XMS_ITS | Continuity of Care Document ---
Author Organization [facility] Address [address] [place] [id number]- Care Team Providers Care Cath Lab Name Role Phone Ronny PAPPAS, Ofelia Acosta Primary Care Physician [phone] Encounter [facility] Date(s): 01/15/22 - 02/28/[address] [address]- Attending Physician: Julienne Bar NP Admitting Physician: Julienne Bar NP Referring Physician: Julienne Bar NP Allergies, Adverse Reactions, Alerts Substance Reaction [...] Note: VIS GIVEN: 03/18/2011 2Result Comment: lot [id number] 09/21/2006 3Admin Note: VIS 05/29/09 GIVEN Medications [...]
--- OUTSIDE RECORDS SUMMARY | 2024-01-22 11:11 | XMS_ITS | Continuity of Care Document ---
Author Organization [facility] [place] [facility] [place] Address [address] [place] [address]- Care Team Providers Care Stitch Bonding Machine Tender Helper Name Role Phone Ronny PAPPAS, Ofelia Acosta Primary Care Physician [phone] Encounter [facility] Date(s): 06/07/23 - 07/07/23 [facility] [place] [address] [place] [address]- Allergies, Adverse Reactions, Alerts Substance Reaction Severity [...] Note: VIS GIVEN: 03/18/2011 2Result Comment: lot [id number] 09/21/2006 3Admin Note: VIS 05/29/09 GIVEN Medications [...] Refills, Maintenance, 06/19/23 7:21:00 EDT, ER Capsule, [facility], please only fill on/after exact due date, 1 capsule By Mouth Daily in AM,x30 days, 165, cm, 05/25/23 14:40:00 EDT, H... Start Date: 06/19/23 Stop Date: 07/19/23 Status: Ordered amLODIPine 2.5 mg oral tablet 1 tablet, By Mouth, Daily, # 90 tablet, 0 Refills, Maintenance, 05/30/23 13:07:00 EDT, [facility], 165, cm, 05/25/23 14:40:00 EDT, Height, 118.3, kg, 12/16/22 20:23:00 EDT, Dry Weight Start Date: 05/30/23 Status: Ordered amphetamine-dextroamphetamine 10 mg oral tablet 1 tablet = 10 mg, By Mouth, 2 times a day, # 60 tablet, 0 Refills, Maintenance, 06/19/23 7:21:00 EDT, [facility], fill on date [...] 3 Refills, Maintenance, 05/29/23 13:42:00 EDT, Tablet, [facility], 165, cm, 05/25/23 14:40:00 EDT, Height, 118.3, kg, 12/16/22 20:23:00 EDT, Dry Weight Start Date: 05/29/23 Stop Date: 09/26/23 Status: Ordered docusate sodium 100 mg oral capsule See Instructions, TAKE 1 CAPSULE ONE TO TWO TIMES A DAY FOR CONSTIPATION, # 20 capsule, 0 Refills, [facility], 168, cm, 08/01/21 17:36:00 EST, Height, 115, kg, 08/01/21 17:36:00 EST, Dry Weight Start Date: 10/31/21 Status: Ordered folic acid 1 mg oral tablet 1, tablet, By Mouth, Daily, # 30 tablet, Refills 5, Maintenance, 04/29/23 20:24:00 EDT, Route to Pharmacy Electronically, [facility], 165, cm, 01/21/23 11:55:00 [...] tablet, 3 Refills, Maintenance, 05/29/23 13:41:00 EDT, [facility], 165, cm, 05/25/23 14:40:00 EDT, Height, 118.3, kg, 12/16/22 20:23:00 EDT, Dry Weight Start Date: 05/29/23 Stop Date: 09/26/23 Status: Ordered ibuprofen 800 mg oral tablet 1, tablet, By Mouth, 3 times a day, # 90 tablet, Refills 1, Maintenance, 05/25/23 8:49:00 EDT, Route to Pharmacy Electronically, [facility], 165, cm, 01/21/23 11:55:00 EDT, Height, 118.3, kg, 12/16/22 20:23:00 EDT, Dry Weight Start Date: 05/25/23 Status: Ordered LaMICtal 200 mg oral tablet 2 tablet = 400 mg, By Mouth, Daily at bedtime, # 60 tablet, 3 Refills, Maintenance, 05/29/23 13:41:00 EDT, Tablet, [facility], 165, cm, 05/25/23 14:40:00 EDT, Height, 118.3, kg, 12/16/22 20:23:00 EDT, Dry Weight Start Date: 05/29/23 Stop Date: 09/26/23 Status: Ordered lamotrigine 100 mg oral tablet 100 mg, 1, tablet, By Mouth, Daily in AM, # 30 tablet, Refills 3, Tot. Refills 3, Maintenance, 05/29/23 13:41:00 EDT, Route to Pharmacy Electronically, [facility], 165, cm, 05/25/23 14:40:00EDT, [...] 0 Refills, Maintenance, 11/10/22 10:55:00 EDT, [facility]Powder, [facility], test date 01/14 .... Start Date: 11/10/22 Status: Ordered omeprazole 40 mg oral enteric coated capsule 1 capsule, By Mouth, 2 times a day, # 60 capsule, 5 Refills, Maintenance, 02/04/23 7:33:00 EDT, [facility], 165, cm, 01/21/23 [...] mL, 0 Refills, Maintenance, 05/25/23 15:17:00 EDT, [facility], Partial fill upon patient request if the prescription is for a schedule II opioid drug., 1 bottle 90 minutes prior to s... Start Date: 05/25/23 Status: Ordered Suprep Bowel Prep Kit oral liquid 177 mL, By Mouth, Once, split prep, # 354 mL, 0 Refills, Soft Stop, 12/01/22 14:37:00 EDT, [facility], Partial fill upon patient request if the prescription is for a schedule II opioid drug., 177 mL By Mouth Once,Instr:split prep, 165, cm, 04... Start Date: 12/01/22 Status: Ordered Trulicity Pen 1.5 mg/0.5 mL subcutaneous solution See Instructions, INJECT 0.5ML SUBCUTANEOUSLY ONCE WEEKLY ROTATE INJECTION SITES, # 2 mL, 5 Refills, Maintenance, 06/07/23 18:02:00 EDT, [facility], 165, cm, 05/25/23 14:40:00 EDT, Height, 118.3, kg, 12/16/22 20:23:00 EDT, Dry Weight Start Date: 06/07/23 Status: Ordered Vitamin D3 5000 intl units oral tablet 1 tablet, By Mouth, Daily, # 30 tablet, 5 Refills, Maintenance, 03/08/23 21:40:00 EDT, [facility], 165, cm, 01/21/23 11:55:00 EDT, Height, 118.3, kg, 12/16/22 20:23:00 EDT, Dry Weight Start Date: 03/08/23 Status: Ordered Wellbutrin XL 150 mg/24 hours oral tablet, extended release 1 tablet = 150 mg, By Mouth, Every 24 hours, With the Wellbutrin 300 mg TDD 450 mg, # 30 tablet, 3 Refills, Maintenance, 02/27/23 14:37:00 EDT, ER Tablet, [facility], 165, cm, 01/21/23 11:55:00 EDT, Height, 118.3, kg, 12/16/22 20:23:00 EDT, D... Start Date: 02/27/23 Stop Date: 06/27/23 Status: Ordered Wellbutrin XL 300 mg/24 hours oral tablet, extended release 1 tablet = 300 mg, By Mouth, Daily, # 30 tablet, 3 Refills, Maintenance, 05/29/23 13:42:00 EDT, ER Tablet, [facility], dose reduction - 300mg/day, 165, cm, 05/25/23 14:40:00 EDT, Height, 118.3, kg, 12/16/22 20:23:00 EDT, Dry Weight Start Date: 05/29/23 Stop Date: 09/26/23 Status: Ordered ziprasidone 60 mg oral capsule 1 capsule = 60 mg, By Mouth, Daily at bedtime, # 30 capsule, 3 Refills, Maintenance, 05/29/23 13:41:00 EDT, [facility], Partial fill upon patient request if the prescription is for a schedule II opioid drug., 165, cm, 05/25/23 14:40:00 EDT, H... Start Date: 05/29/23 Stop Date: 09/26/23 Status: Ordered ziprasidone 80 mg oral capsule 1 capsule = 80 mg, By Mouth, Daily at bedtime, TDD = 140mg/day, # 30 capsule, 3 Refills, Maintenance, 05/29/23 13:40:00 EDT, [facility], dose reduction, 165, cm, [...] Team Personnel Name: Anabel Roblero [place] Position: [facility] RN Member Role: Primary Care Nurse Name: Isa Ward Position: [facility] RN Member Role: Primary Care Nurse Name: Ofelia Jefferson NP Position: [facility] PCO Associate Professional Member Role: PCP Address: Address: [address] [place] [address] [place] [address]- [place] Name: Tommy Kohli MD Position: [facility] Physician - Behavioral Health Member Role: Lifetime Consulting Physician Address: Address: [address] [place] [address]- Care Team Related Persons Name: WILLEM SIMON III Address: [place] [address] Name: WILLEM SIMON JR Address: home [address] [place] [address]
--- OUTSIDE RECORDS SUMMARY | 2024-01-22 11:11 | XMS_ITS | Continuity of Care Document ---
Author Organization [facility] Address [address] [place] [address]- Care Team Providers Care Nurse General Duty Name Role Phone Ronny KEELER POLYGRAPH OPERATOR, Ofelia L Primary Care Physician Encounter [facility] Date(s): 10/10/22 - 02/13/[address] [address]- Attending Physician: Dane Brothers MD Admitting Physician: Dane Brothers MD Allergies, Adverse Reactions, Alerts Substance Reaction [...] Note: VIS GIVEN: 03/18/2011 2Result Comment: lot [id number] 09/21/2006 3Admin Note: VIS 05/29/09 GIVEN Medications [...] Refills, Maintenance, 01/20/23 16:02:00 EDT, ER Capsule, [facility], please only fill on/after exact due date, 1 capsule By Mouth Daily in AM,x30 days, 165, cm, 01/06/23 8:47:00 EDT, H... Start Date: 01/20/23 Stop Date: 02/19/23 Status: Ordered amLODIPine 2.5 mg oral tablet 1 tablet = 2.5 mg, By Mouth, Daily, # 90 tablet, 1 Refills, Maintenance, 11/14/22 13:47:00 EDT, Tablet, [facility] # [facility], Partial fill upon patient request if the prescription is for a schedule IIopioid drug., 168, brittney, 10/22/22 10:35:00 EST, Heigh... Start Date: 11/14/22 Status: Ordered amphetamine-dextroamphetamine 10 mg oral tablet 1 tablet = 10 mg, By Mouth, 2 times a day, NO EARLY REFILLS, # 60 tablet, 0 Refills, Maintenance, 01/20/23 16:02:00 EDT, [facility] # [facility], fill on date due, 1 tablet By Mouth 2 times a day,x30 days,Instr:NO EARLY REFILLS, 165, cm, 01/06/23 8:47:00... Start Date: 01/20/23 Stop Date: 02/19/23 Status: Ordered cholecalciferol 5000 intl units oral tablet 1 tablet = 125 mcg, By Mouth, Daily, # 30 tablet, 3 Refills, Maintenance, 10/22/22 10:51:00 EST, Tablet, [facility], Partial fill upon patient request if the prescription is for a schedule II opioid drug., 168, brittney, 10/22/22 10:35:00 EST, Heig... Start Date: 10/22/22 Stop Date: 02/19/23 Status: Ordered clonazePAM 0.5 mg oral tablet 1 tablet = 0.5 mg, By Mouth, 3 times a day, NEEDED FOR ANXIETY, # 90 tablet, 3 Refills, Maintenance, 12/12/22 8:54:00 EDT, Tablet, [facility], 165, cm, 12/01/22 14:13:00 EDT, Height, 118.3, kg, 11/22/22 10:55:00 EDT, Dry Weight Start Date: 12/12/22 Stop Date: 04/11/23 Status: Ordered docusate sodium 100 mg oral capsule See Instructions, TAKE 1 CAPSULE ONE TO TWO TIMES A DAY FOR CONSTIPATION, # 20 capsule, 0 Refills, [facility], 168, cm, 08/01/21 17:36:00 EST, Height, 115, kg, 08/01/21 17:36:00 EST, Dry Weight Start Date: 10/31/21 Status: Ordered folic acid 1 mg oral tablet See Instructions, TAKE 1 TABLET BY MOUTH DAILY, # 30 tablet, Refills 5, Tot. Refills 5, Maintenance, 10/12/22 20:53:00 EST, Instructions Replace Required Details, Route to Pharmacy Electronically, [facility], 168, cm, 10/07/22 [...] tablet, 0 Refills, Maintenance, 01/21/23 16:48:00 EDT, [facility], massPAT checked on 01/21/23 for the gabapentin last fill was on 12/24/02 for a 30 day supply (#90), 01/23/23, 165, cm, 01/21/23 11:55:00... Start Date: 01/21/23 Status: Ordered LaMICtal 200 mg oral tablet 2 tablet = 400 mg, By Mouth, Daily at bedtime, # 60 tablet, 3 Refills, Maintenance, 12/12/22 8:54:00 EDT, Tablet, [facility], 165, cm, 12/01/22 14:13:00 EDT, Height, 118.3, kg, 11/22/22 10:55:00 EDT, Dry Weight Start Date: 12/12/22 Stop Date: 04/11/23 Status: Ordered lamotrigine 100 mg oral tablet 100 mg, 1, tablet, By Mouth, Daily in AM, # 30 tablet, Refills 3, Tot. Refills 3, Maintenance, 12/12/22 8:54:00 EDT, Route to Pharmacy Electronically, [facility], 165, cm, 12/01/22 [...] 0 Refills, Maintenance, 11/10/22 10:55:00 EDT, Vicente, [facility], test date 01/14 .... Start Date: 11/10/22 Status: Ordered omeprazole 40 mg oral enteric coated capsule 1 capsule, By Mouth, 2 times a day, # 60 capsule, 5 Refills, Maintenance, 02/04/23 7:33:00 EDT, [facility] # [facility], 165, cm, [...] tablet, 0 Refills, Maintenance, 01/21/23 16:49:00 EDT, [facility], Partial fill upo... Start Date: 01/21/23 Status: Ordered Suprep Bowel Prep Kit oral liquid 177 mL, By Mouth, Once, split prep, # 354 mL, 0 Refills, Soft Stop, 12/01/22 14:37:00 EDT, [facility], Partial fill [...] Refills, Maintenance, 12/12/22 8:53:00 EDT, ER Tablet, [facility], 165, cm, 12/01/22 14:13:00 EDT, Height, 118.3, kg, 11/22/22 10:55:00 EDT, .. Start Date: 12/12/22 Stop Date: 04/11/23 Status: Ordered Wellbutrin XL 300 mg/24 hours oral tablet, extended release 1 tablet = 300 mg, By Mouth, Daily, With the Wellbutrin 150 mg TDD 450 mg, # 30 tablet, 3 Refills, Maintenance, 12/12/22 8:53:00 EDT, ER Tablet, [facility], Ok for fill early - patient has never lost or needed early refills before, 165, cm, 0... Start Date: 12/12/22 Status: Ordered ziprasidone 60 mg oral capsule 1 capsule = 60 mg, By Mouth, Daily at bedtime, # 7 capsule, 0 Refills, Maintenance, 01/28/23 14:16:00 EDT, [facility], please fill this script early as pt in going on vacation and will not have enough pills to get through when she returns- ... Start Date: 01/28/23 Stop Date: 02/04/23 Status: Ordered ziprasidone 60 mg oral capsule 1 capsule = 60 mg, By Mouth, Daily at bedtime, # 30 capsule, 3 Refills, Maintenance, 12/12/22 8:55:00 EDT, [facility] # [facility], Partial fill upon patient [...] capsule, 0 Refills, Maintenance, 01/28/23 14:32:00 EDT, [facility], dose reduction, 165, cm, 01/21/23 11:55:00 EDT, Height, 118.3, kg, 04... Start Date: 01/28/23 Status: Ordered ziprasidone 80 mg oral capsule 1 capsule = 80 mg, By Mouth, Daily at bedtime, for 30 days, TDD = 140mg/day, # 30 capsule, 3 Refills, Hard Stop 04/11/23 8:55:00 EDT, 12/12/22 8:55:00 EDT, [facility], dose reduction, 165, cm, [...] Team Personnel Name: Anabel Roblero [place] Position: [facility] RN Member Role: Primary Care Nurse Name: Isa Ward Position: [facility] RN Member Role: Primary Care Nurse Name: Ofelia Jefferson NP Position: [facility] PCO Associate Professional Member Role: PCP Address: Address: [address] [place] [address] [place] [address]- Name: Tommy Kohli MD Position: [facility] Physician - Behavioral Health Member Role: Lifetime Consulting Physician Address: Address: [address] [place] [address]- Care Team Related Persons Name: WILLEM SIMON III Address: [place] [address] Name: WILLEM SIMON JR Address: home [address] [place] [address]
--- OUTSIDE RECORDS SUMMARY | 2024-01-22 11:11 | XMS_ITS | Continuity of Care Document ---
Author Organization [facility] [place] [facility] [place] Address [address] [place] [address]- Care Team Providers Care Automatic Screwmaker Name Role Phone Yosvany PAPPAS, Julienne Platt Primary Care Physician Encounter [facility] Date(s): 06/11/21 - 07/11/21 [facility] [place] [address] [place] [address]- Encounter Diagnosis Viral URI(Discharge Diagnosis) - 12/01/19 Open wound of abdominal wall(Discharge Diagnosis) - 12/01/19 Attending Physician: AdmAdriano feliz Admitting Physician: AdmtrAdriano Referring Physician: Admtr, Ar8 Allergies, Adverse Reactions, [...] Note: VIS GIVEN: 03/18/2011 2Result Comment: lot [id number] 09/21/2006 3Admin Note: VIS 05/29/09 GIVEN Medications [...]
--- OUTSIDE RECORDS SUMMARY | 2024-01-22 11:11 | XMS_ITS | Continuity of Care Document ---
Author Organization [facility] [place] [facility] [place] Address [address] [place] [address]- Care Team Providers Care Periodontal Assistant Name Role Phone Ronny MEMBER SERVICES COORDINATOR, Ofelia Acosta Primary Care Physician Encounter [facility] Date(s): 01/23/22 - 02/22/22 [facility] [place] [address] [place] [address]- Allergies, Adverse Reactions, Alerts Substance Reaction Severity [...] Note: VIS GIVEN: 03/18/2011 2Result Comment: lot [id number] 09/21/2006 3Admin Note: VIS 05/29/09 GIVEN Medications [...]
--- OUTSIDE RECORDS SUMMARY | 2024-01-22 11:11 | XMS_ITS | Continuity of Care Document ---
Author Organization [facility] [employer] [facility] Address [address], [address] [place] [address]- Care Team Providers Care Reliability Specialist Name Role Phone Justice PAPPAS, Stacie Ulloa Primary Care Physician Encounter [facility] Date(s): 11/29/20 - 12/29/20 [facility] [employer] [facility] [address], [address] [place] [address]- Allergies, Adverse Reactions, Alerts Substance Reaction Severity [...] Note: VIS GIVEN: 03/18/2011 2Result Comment: lot [id number] 09/21/2006 3Admin Note: VIS 05/29/09 GIVEN Medications [...]
--- OUTSIDE RECORDS SUMMARY | 2024-01-22 11:11 | XMS_ITS | Continuity of Care Document ---
Author Organization [facility] [place] Address [address] [place] [address]- Care Team Providers Care Supervisor Cell Maintenance Name Role Phone Danis PAPPAS, Elda Marie Primary Care Physician [phone] Encounter [facility] [id number] Date(s): 09/18/20 - 10/18/20 [facility] [place] [address] [place] [address]- Allergies, Adverse Reactions, Alerts Substance Reaction Severity [...] Note: VIS GIVEN: 03/18/2011 2Result Comment: lot [id number] 09/21/2006 3Admin Note: VIS 05/29/09 GIVEN Medications [...]
--- OUTSIDE RECORDS SUMMARY | 2024-01-22 11:11 | XMS_ITS | Continuity of Care Document ---
Author Organization [facility] Address [address] [place] [address] [address], [address] [place] [address]- Care Team Providers Care Teaching Specialists Name Role Phone Danis PAPPAS, Elda Salazar Primary Care Physician [phone] [place] [facility] Date(s): 10/26/19 - 12/17/19 [facility] [address] [place] [address] Drive, [address] [place] [address]- [facility] Attending Physician: Jonathan STUART, Jack Kuhn Referring Physician: Pritesh Simeon MD Allergies, Adverse Reactions, Alerts Substance Reaction [...] Note: VIS GIVEN: 03/18/2011 2Result Comment: lot [id number] 09/21/2006 3Admin Note: VIS 05/29/09 GIVEN Problem [...]
--- OUTSIDE RECORDS SUMMARY | 2024-01-22 11:11 | XMS_ITS | Continuity of Care Document ---
Author Organization [facility] [employer] Address [address] [facility], [address] [place] [address]- Care Team Providers Care Tenter Name Role Phone Yosvany REINFORCING STEEL MACHINE OPERATOR, Julienne Platt Primary Care Physician [facility] [id number] Date(s): 03/12/21 - 07/10/21 [facility] [employer] [address], [address]th [place] [address]- Attending Physician: Lupe Vidal MD Admitting Physician: Lupe Vidal MD Referring Physician: Stacie Rendon NP Allergies, [...] Note: VIS GIVEN: 03/18/2011 2Result Comment: lot [id number] 09/21/2006 3Admin Note: VIS 05/29/09 GIVEN Medications [...]
--- OUTSIDE RECORDS SUMMARY | 2024-01-22 11:11 | XMS_ITS | Continuity of Care Document ---
Author Organization [facility] [place] [facility] [place] Address [address] [place] [address]- Care Team Providers Care Fire Safety Director Name Role Phone Ronny PAPPAS, Ofelia Acosta Primary Care Physician [phone] Encounter [facility] Date(s): 10/12/23 - 11/11/23 [facility] [place] [address] [place] [address]- Allergies, Adverse Reactions, Alerts Substance Reaction Severity [...] Note: VIS GIVEN: 03/18/2011 2Result Comment: lot [id number] 09/21/2006 3Admin Note: VIS 05/29/09 GIVEN Medications [...] AM, # 30 capsule, 0 Refills, Maintenance, 10/16/23 7:18:00 EST, ER Capsule, [facility], 1 capsule By Mouth Daily in AM,x30 days, 165, cm, 05/25/23 14:40:00 EDT, Height, 118.3, kg, 12/16/22 20:23:00 EDT, D... Start Date: 10/16/23 Stop Date: 11/15/23 Status: Ordered amLODIPine 2.5 mg oral tablet 1 tablet, By Mouth, Daily, # 90 tablet, 1 Refills, Maintenance, 07/24/23 15:00:00 EST, [facility] # [facility], 165, cm, 05/25/23 14:40:00 EDT, Height, 118.3, kg, 12/16/22 20:23:00 EDT, Dry Weight Start Date: 07/24/23 Status: Ordered amphetamine-dextroamphetamine 10 mg oral tablet 1 tablet = 10 mg, By Mouth, 2 times a day, # 60 tablet, 0 Refills, Maintenance, 10/07/23 15:45:00 EST, [facility] # [facility], fill on date due, 1 tablet By Mouth 2 times a day,x30 days, 165, cm, 05/25/23 14:40:00 EDT, Height, 118.3, kg, 12/16/22 20:23:0... Start Date: 10/07/23 Stop Date: 11/06/23 Status: Ordered CeleBREX 100 mg oral capsule 1 capsule = 100 mg, By Mouth, 2 times a day, PRN for pain, # 60 capsule, 3 Refills, Maintenance, 11/06/23 9:04:00 EDT, Capsule, [facility] # [facility], Partial fill upon patient [...] tablet, 3 Refills, Maintenance, 10/20/23 14:21:00 EST, [facility] # [facility], 165, cm, 05/25/23 14:40:00 EDT, Height, 118.3, kg, 12/16/22 20:23:00 EDT, Dry Weight Start Date: 10/20/23 Stop Date: 02/17/24 Status: Ordered LaMICtal 200 mg oral tablet 2 tablet = 400 mg, By Mouth, Daily at bedtime, # 60 tablet, 3 Refills, Maintenance, 10/20/23 14:22:00 EST, Tablet, [facility] # [facility], 165, cm, 05/25/23 14:40:00 EDT, Height, 118.3, kg, 12/16/22 20:23:00 EDT, Dry Weight Start Date: 10/20/23 Stop Date: 02/17/24 Status: Ordered lamotrigine 100 mg oral tablet 100 mg, 1, tablet, By Mouth, Daily in AM, # 30 tablet, Refills 3, Tot. Refills 3, Maintenance, 10/20/23 14:22:00 EST, Route to Pharmacy Electronically, [facility], 165, cm, 05/25/23 14:40:00EDT, [...] Team Personnel Name: Anabel Roblero [place] Position: [facility] RN Member Role: Primary Care Nurse Name: Isa Ward Position: [facility] RN Member Role: Primary Care Nurse Name: Ofelia Jefferson NP Position: [facility] PCO Associate Professional Member Role: PCP Address: Address: [address] [place] [address] [place] [address]- [place] Name: Tommy Kohli MD Position: [facility] Physician - Behavioral Health Member Role: Lifetime Consulting Physician Address: Address: [address] [place] [address]- Care Team Related Persons Name: WILLEM SIMON III Address: [place] [address] Name: WILLEM SIMON JR Address: home [address] [place] [id number]
--- OUTSIDE RECORDS SUMMARY | 2024-01-22 11:11 | XMS_ITS | Continuity of Care Document ---
Author Organization [facility] [place] Address [address] [place] [address]- Care Team Providers Care Calciminer Name Role Phone Stacie Rendon NP Primary Care Physician [id number] Date(s): 12/04/20 - 01/05/21 [facility] [place] [address] [place] [address]- Attending Physician: Kem PAPPAS, Cherri Humphrey Referring Physician: Stacie Rendon NP Allergies, Adverse [...] Note: VIS GIVEN: 03/18/2011 2Result Comment: lot [id number] 09/21/2006 3Admin Note: VIS 05/29/09 GIVEN Medications [...]
--- OUTSIDE RECORDS SUMMARY | 2024-01-22 11:11 | XMS_ITS | Continuity of Care Document ---
Author Organization [facility] Primary [facility] [place] Address [address] [place] [address]- Care Team Providers Care Annealer Name Role Phone Danis PAPPAS, Elda Salazar Primary Care Physician Encounter [facility] Date(s): 03/30/20 - 04/29/20 [facility] [place] [address] [place] [address]- [facility] Encounter Diagnosis Viral URI(Discharge Diagnosis) - 12/01/19 Open wound of abdominal wall(Discharge Diagnosis) - 12/01/19 Attending Physician: Adriano Becker Admitting Physician: Adriano Becker Referring Physician: Admtr, ArMohan Allergies, Adverse Reactions, Alerts Substance Reaction Severity [...] Note: VIS GIVEN: 03/18/2011 2Result Comment: lot [id number] 09/21/2006 3Admin Note: VIS 05/29/09 GIVEN Problem [...]
--- OUTSIDE RECORDS SUMMARY | 2024-01-22 11:11 | XMS_ITS | Continuity of Care Document ---
Author Organization [facility] Address [address] [place] [address] [address], [address] [place] [address]- Care Team Providers Care Automobile Spring Repairer Name Role Phone Elda Moscoso NP Primary Care Physician [place] [facility] [place]): [place] 12[place]17/19 [facility] [address] [place] [address] Drive, [address] [place] [address]- [facility] Attending Physician: Jack Castillo MD Referring Physician: Elda Moscoso NP Allergies, [...] Note: VIS GIVEN: 03/18/2011 2Result Comment: lot [id number] 09/21/2006 3Admin Note: VIS 05/29/09 GIVEN Problem [...]
--- OUTSIDE RECORDS SUMMARY | 2024-01-22 11:11 | XMS_ITS | Continuity of Care Document ---
Author Organization [facility] Address [address] [place] [address] [address] slater, [address] [place] [address]- Care Team Providers Care Cna Per Diem Name Role Phone Amadou STUART ([facility] - [facility]), William Quesada Primary Care Ph ysician Encounter [facility] [place] Date(s): 05/15/22 - 06/14/22 [facility] [address] [place] [address], [address] [place], [place] [address] Attending Physician: Admtr, Ar8 Allergies, Adverse Reactions, [...] Note: VIS GIVEN: 03/18/2011 2Result Comment: lot [id number] 09/21/2006 3Admin Note: VIS 05/29/09 GIVEN Medications Acetaminophen Extra Strength Gelcaps = 1,000 mg, By Mouth, Every 8 hours, 0 Refills, Maintenance, 12/19/20 7:59:00 EDT, Partial fill upon patient request if the prescription is for a schedule II opioid drug. Start Date: 12/19/20 Status: Ordered Adderall 20 mg oral tablet 1 tablet = 20 mg, By Mouth, Daily, last filled 05/16/22, # 30 tablet, 0 Refills, Maintenance, 06/03/22 7:20:00 EDT, [email or web address], 1 tablet By Mouth Daily,x30 days,Instr:last filled 05/16/22, 168, cm, 05/15/22 14:37:00 EDT, Height, 112, kg, ... Start Date: 06/03/22 Stop Date: 07/03/22 Status: Ordered Adderall XR 30 mg oral capsule, extended release 1 capsule = 30 mg, By Mouth, Daily in AM, last filled 05/16/22, # 30 capsule, 0 Refills, Maintenance, 06/03/22 7:20:00 EDT, ER Capsule, [email or web address], 1 capsule By Mouth Daily in AM,Instr:last filled 05/16/22, 168, cm, 05/15/22 14:37:00 EDT, Heigh... Start Date: 06/03/22 Status: Ordered albuterol 90 mcg/inh inhalation powder 2 puffs, Inhalation, Every 4 hours, PRN as needed, # 1 each, 0 Refills, Maintenance, 08/01/21 20:08:00 EST, Powder, [email or web address], Partial fill upon [...] 1 Refills, Maintenance, 05/26/22 17:40:00 EDT, Tablet, [facility], Partial fill upon patient request if the prescription is for a schedule IIopioid drug., 168, cm, 05/15/22 14:37:00 EDT, Heigh... Start Date: 05/26/22 Status: Ordered cholecalciferol 5000 intl units oral tablet 1 tablet = 125 mcg, By Mouth, Daily, # 30 tablet, 3 Refills, Maintenance, 02/07/22 11:35:00 EDT, Tablet, [facility] # [facility], Partial fill upon patient request if the prescription is for a schedule II opioid drug., 168, cm, 02/07/22 11:03:00 EDT, Heig... Start Date: 02/07/22 Stop Date: 06/07/22 Status: Ordered clonazePAM 0.5 mg oral tablet 1 tablet = 0.5 mg, By Mouth, 3 times a day, NEEDED FOR ANXIETY, # 90 tablet, 3 Refills, Maintenance, 03/14/22 9:26:00 EDT, Tablet, [facility], 168, cm, 02/20/22 13:36:00 EDT, Height, 116,kg, 02/20/22 13:36:00 EDT, Dry Weight Start Date: 03/14/22 Stop Date: 07/12/22 Status: Ordered docusate sodium 100 mg oral capsule See Instructions, TAKE 1 CAPSULE ONE TO TWO TIMES A DAY FOR CONSTIPATION, # 20 capsule, 0 Refills, [facility], 168, cm, 08/01/21 17:36:00 EST, Height, 115, kg, 08/01/21 17:36:00 EST, Dry Weight Start Date: 10/31/21 Status: Ordered folic acid 1 mg oral tablet See Instructions, TAKE 1 TABLET BY MOUTH DAILY, # 30 tablet, Refills 3, Maintenance, 06/05/22 5:46:00 EDT, Instructions Replace Required Details, Route to Pharmacy Electronically, [facility], 168, cm, 05/15/22 14:37:00 [...] capsule = 60 mg, By Mouth, Daily, # 30 capsule, 0 Refills, Maintenance, 06/03/22 7:20:00 EDT, Capsule, [facility] # [facility], Partial fill upon patient request if the prescription is for a schedule II opioid drug., 168, cm, 05/15/22 14:37:00 EDT, Heig... Start Date: 06/03/22 Status: Ordered Geodon 80 mg oral capsule 1 capsule = 80 mg, By Mouth, Daily at bedtime, Take with 60mg capsule., # 30 capsule, 0 Refills, Maintenance, 06/03/22 7:20:00 EDT, Capsule, [facility], 168, cm, 05/15/22 14:37:00 EDT, Height, 112, kg, 04/22/22 14:00:00 EDT, Dry Weight Start Date: 06/03/22 Status: Ordered LaMICtal 200 mg oral tablet 2 tablet = 400 mg, By Mouth, Daily at bedtime, # 60 tablet, 3 Refills, Maintenance, 03/14/22 9:27:00 EDT, Tablet, [facility], 168, cm, 02/20/22 13:36:00 EDT, Height, 116, kg, 02/20/22 13:36:00 EDT, Dry Weight Start Date: 03/14/22 Stop Date: 07/12/22 Status: Ordered lamotrigine 100 mg oral tablet 100 mg, 1, tablet, By Mouth, Daily in AM, # 30 tablet, Refills 3, Tot. Refills 3, Maintenance, 03/14/22 9:27:00 EDT, Route to Pharmacy Electronically, [facility], 168, cm, 02/20/22 13:36:00 [...] capsule, 2 Refills, Maintenance, 04/22/22 12:20:00 EDT, [email or web address], 168, cm, 04/21/22 8:42:00 EDT, Height, 113.3, kg, 04/09/22 9:17:00 EDT, Dry Weight Start Date: 04/22/22 Status: Ordered Wellbutrin XL 150 mg/24 hours oral tablet, extended release 1 tablet = 150 mg, By Mouth, Every 24 hours, With the Wellbutrin 300 mg TDD 450 mg, # 30 tablet, 3 Refills, Maintenance, 03/14/22 9:26:00 EDT, ER Tablet, [email or web address], 168, cm, 02/20/22 13:36:00 EDT, Height, 116, kg, 02/20/22 13:36:00 EDT, Dry... Start Date: 03/14/22 Stop Date: 07/12/22 Status: Ordered Wellbutrin XL 300 mg/24 hours oral tablet, extended release 1 tablet = 300 mg, By Mouth, Daily, With the Wellbutrin 150 mg TDD 450 mg, # 30 tablet, 3 Refills, Maintenance, 03/14/22 9:26:00 EDT, ER Tablet, [email or web address], 168, cm, 02/20/22 13:36:00 [...] Date: 06/12/22 Status: Ordered Problem List Condition Confirmation Course [...] 07/26/18 Sex Female Patient Care team information Personnel Name: Amadou STUART ([facility]), William Quesada Address: Address: [address] [place] [address]
--- OUTSIDE RECORDS SUMMARY | 2024-01-22 11:11 | XMS_ITS | Continuity of Care Document ---
Author Organization [facility] [place] Address [address] [place] [address]- Care Team Providers Care Portable Feed Mill Operator Name Role Phone Ronny EGG SETTER, Ofelia Acosta Primary Care Physician [phone] Encounter [facility] Date(s): 12/08/23 - 01/07/24 [facility] [place] [address] [place] [address]- Encounter Diagnosis Viral URI(Discharge Diagnosis) - 12/01/19 Open wound of abdominal wall(Discharge Diagnosis) - 12/01/19 Attending Physician: Admtrini, Adriano Admitting Physician: Admtr, Adriano Referring Physician: Admtr, Ar8 Allergies, Adverse Reactions, [...] Note: VIS GIVEN: 03/18/2011 2Result Comment: lot [id number] 09/21/2006 3Admin Note: VIS 05/29/09 GIVEN Medications [...] Refills, Maintenance, 12/01/23 15:45:00 EDT, ER Capsule, [facility], fill when due, 1 capsule By Mouth Daily in AM,x30 days, 165, cm, 11/06/23 8:10:00 EDT, Height, 110.1, kg, 10/28/23... Start Date: 12/01/23 Stop Date: 12/31/23 Status: Ordered amLODIPine 2.5 mg oral tablet 1 tablet, By Mouth, Daily, # 90 tablet, 1 Refills, Maintenance, 07/24/23 15:00:00 EST, [facility], 165, cm, 05/25/23 14:40:00 EDT, Height, 118.3, kg, 12/16/22 20:23:00 EDT, Dry Weight Start Date: 07/24/23 Status: Ordered amphetamine-dextroamphetamine 10 mg oral tablet 1 tablet = 10 mg, By Mouth, 2 times a day, # 60 tablet, 0 Refills, Maintenance, 12/01/23 15:45:00 EDT, [facility], fill on date due, 1 tablet By Mouth 2 times a day,x30 days, 165, cm, 11/06/23 8:10:00 EDT, Height, 110.1, kg, 10/28/23 1:29:00... Start Date: 12/01/23 Stop Date: 12/31/23 Status: Ordered CeleBREX 100 mg oral capsule 1 capsule = 100 mg, By Mouth, 2 times a day, PRN for pain, # 60 capsule, 3 Refills, Maintenance, 11/06/23 9:04:00 EDT, Capsule, [facility], Partial fill upon patient request if the prescription is for a schedule II opioid drug., 165, cm, 10/22... Start Date: 11/06/23 Stop Date: 03/05/24 Status: Ordered clonazePAM 0.5 mg oral tablet 1 tablet = 0.5 mg, By Mouth, 3 times a day, NEEDED FOR ANXIETY, # 90 tablet, 3 Refills, Maintenance, 12/01/23 15:45:00 EDT, Tablet, [facility], 165, cm, 11/06/23 8:10:00 EDT, Height, 110.1, kg, 10/28/23 1:29:00 EST, Dry Weight Start Date: 12/01/23 Stop Date: 03/30/24 Status: Ordered docusate sodium 100 mg oral capsule See Instructions, TAKE 1 CAPSULE ONE TO TWO TIMES A DAY FOR CONSTIPATION, # 20 capsule, 0 Refills, [facility], 168, cm, 08/01/21 17:36:00 EST, Height, 115, kg, 08/01/21 17:36:00 EST, Dry Weight Start Date: 10/31/21 Status: Ordered folic acid 1 mg oral tablet 1, tablet, By Mouth, Daily, # 30 tablet, Refills 5, Maintenance, 04/29/23 20:24:00 EDT, Route to Pharmacy Electronically, [facility], 165, cm, 01/21/23 11:55:00 EDT, Height, 118.3, kg, 12/16/22 20:23:00 EDT, Dry Weight Start Date: 04/29/23 Status: Ordered folic acid 1 mg oral tablet See Instructions, TAKE ONE TABLET BY MOUTH EVERY DAY, # 30 tablet, Refills 5, Maintenance, :13:00 EST, Instructions Replace Required Details, Route to Pharmacy Electronically, [facility], 165, cm, 05/25/23 [...] tablet, 3 Refills, Maintenance, 12/01/23 15:46:00 EDT, [facility], 165, cm, 11/06/23 8:10:00 EDT, Height, 110.1, kg, 10/28/23 1:29:00 EST, Dry Weight Start Date: 12/01/23 Stop Date: 03/30/24 Status: Ordered LaMICtal 200 mg oral tablet 2 tablet = 400 mg, By Mouth, Daily at bedtime, # 60 tablet, 3 Refills, Maintenance, 12/01/23 15:46:00 EDT, Tablet, [facility], 165, cm, 11/06/23 8:10:00 EDT, Height, 110.1, kg, 10/28/23 1:29:00 EST, Dry Weight Start Date: 12/01/23 Stop Date: 03/30/24 Status: Ordered lamotrigine 100 mg oral tablet 100 mg, 1, tablet, By Mouth, Daily in AM, # 30 tablet, Refills 3, Tot. Refills 3, Maintenance, 12/01/23 15:46:00 EDT, Route to Pharmacy Electronically, [facility], 165, cm, 11/06/23 8:10:00 [...] 0 Refills, Maintenance, 11/10/22 10:55:00 EDT, RECPowdraymond, [facility], test date 01/14 .... Start Date: 11/10/22 Status: Ordered omeprazole 40 mg oral enteric coated capsule 1 capsule, By Mouth, 2 times a day, # 180 capsule, 1 Refills, Maintenance, 08/15/23 8:46:00 EST, [facility], 165, cm, 05/25/23 14:40:00 EDT, Height, 118.3, kg, 12/16/22 20:23:00 EDT, Dry Weight Start Date: 08/15/23 Status: Ordered ondansetron 4 mg oral tablet 1 tablet = 4 mg, By Mouth, Every 8 hours, # 21 tablet, 0 Refills, Maintenance, 07/29/23 17:24:00 EST, Tablet, [facility] # [facility], Partial fill upon patient [...] mL, 0 Refills, Maintenance, 05/25/23 15:17:00 EDT, [facility], Partial fill upon patient request if the prescription is for a schedule II opioid drug., 1 bottle 90 minutes prior to s... Start Date: 05/25/23 Status: Ordered Trulicity Pen 1.5 mg/0.5 mL subcutaneous solution See Instructions, INJECT 0.5ML SUBCUTANEOUSLY ONCE WEEKLY ROTATE INJECTION SITES, # 2 mL, 5 Refills, Maintenance, 06/07/23 18:02:00 EDT, [facility], 165, cm, 05/25/23 14:40:00 EDT, Height, 118.3, kg, 12/16/22 20:23:00 EDT, Dry Weight Start Date: 06/07/23 Status: Ordered Vitamin D3 5000 intl units oral tablet 1 tablet, By Mouth, Daily, # 30 tablet, 0 Refills, Maintenance, 10/15/23 11:12:00 EST, [facility], 165, cm, 05/25/23 14:40:00 EDT, Height, 118.3, kg, 12/16/22 20:23:00 EDT, Dry Weight Start Date: 10/15/23 Status: Ordered Wellbutrin XL 300 mg/24 hours oral tablet, extended release 1 tablet = 300 mg, By Mouth, Daily, # 30 tablet, 3 Refills, Maintenance, 12/01/23 15:45:00 EDT, ER Tablet, [facility], 165, cm, 11/06/23 8:10:00 EDT, Height, 110.1, kg, 10/28/23 1:29:00 EST,Dry Weight Start Date: 12/01/23 Stop Date: 03/30/24 Status: Ordered ziprasidone 20 mg oral capsule 1 capsule = 20 mg, By Mouth, Daily at bedtime, # 30 capsule, 3 Refills, Maintenance, 12/01/23 15:56:00 EDT, [facility], dose [...] 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 Diagnosis Diagnosis Type [...] Team Personnel Name: Anabel Roblero MA Position: [facility] MA Member Role: Primary Care Nurse Name: Isa Paulson MA Position: [facility] Office Staff Member Role: Primary Care Nurse Name: Ofelia Jefferson NP Position: [facility] PCO Associate Professional Member Role: PCP Address: Address: [address] [place] [address] [place] [address]- [place] Name: Tommy Kohli MD Position: [facility] Physician - Behavioral Health Member Role: Lifetime Consulting Physician Address: Address: [address] [place] [address]- Care Team Related Persons Name: WILLEM SIMON III Address: [place] [address] Name: WILLEM SIMON JR Address: home [address] [place] [address]
--- OUTSIDE RECORDS SUMMARY | 2024-01-22 11:11 | XMS_ITS | Continuity of Care Document ---
Author Organization [facility] [place] Address [address] [place] [address]- Care Team Providers Care Product Marketer Name Role Phone Ronny PAPPAS, Ofelia Acosta Primary Care Physician [phone] [facility] Date(s): 11/24/22 - 12/28/22 [facility] [place] [address] [place] [address]- Attending Physician: Yanci Carrizales NP Allergies, Adverse Reactions, Alerts Substance Reaction [...] Note: VIS GIVEN: 03/18/2011 2Result Comment: lot [id number] 09/21/2006 3Admin Note: VIS 05/29/09 GIVEN Medications [...] AM, # 30 capsule, 0 Refills, Maintenance, 12/12/22 8:53:00 EDT, ER Capsule, [facility], please only fill on/after exact due date, 1 capsule By Mouth Daily in AM,x30 days, 165, cm, 12/01/22 14:13:00 EDT, H... Start Date: 12/12/22 Stop Date: 01/11/23 Status: Ordered amLODIPine 2.5 mg oral tablet 1 tablet = 2.5 mg, By Mouth, Daily, # 90 tablet, 1 Refills, Maintenance, 11/14/22 13:47:00 EDT, Tablet, [facility], Partial fill upon patient request if the prescription is for a schedule IIopioid drug., 168, cm, 10/22/22 10:35:00 EST, Heigh... Start Date: 11/14/22 Status: Ordered amphetamine-dextroamphetamine 10 mg oral tablet 1 tablet = 10 mg, By Mouth, 2 times a day, # 60 tablet, 0 Refills, Maintenance, 12/12/22 8:53:00 EDT, [facility], fill on date due, 1 tablet By Mouth 2 times a day,x30 days, 165, cm, 12/01/22 14:13:00 EDT, Height, 118.3, kg, 11/22/22 10:55:00... Start Date: 12/12/22 Stop Date: 01/11/23 Status: Ordered cholecalciferol 5000 intl units oral tablet 1 tablet = 125 mcg, By Mouth, Daily, # 30 tablet, 3 Refills, Maintenance, 10/22/22 10:51:00 EST, Tablet, [facility], Partial fill upon patient request if the prescription is for a schedule II opioid drug., 168, cm, 10/22/22 10:35:00 EST, Heig... Start Date: 10/22/22 Stop Date: 02/19/23 Status: Ordered clonazePAM 0.5 mg oral tablet 1 tablet = 0.5 mg, By Mouth, 3 times a day, NEEDED FOR ANXIETY, # 90 tablet, 3 Refills, Maintenance, 12/12/22 8:54:00 EDT, Tablet, [facility], 165, cm, 12/01/22 14:13:00 EDT, Height, 118.3, kg, 11/22/22 10:55:00 EDT, Dry Weight Start Date: 12/12/22 Stop Date: 04/11/23 Status: Ordered docusate sodium 100 mg oral capsule See Instructions, TAKE 1 CAPSULE ONE TO TWO TIMES A DAY FOR CONSTIPATION, # 20 capsule, 0 Refills, [facility], 168, cm, 08/01/21 17:36:00 EST, Height, 115, kg, 08/01/21 17:36:00 EST, Dry Weight Start Date: 10/31/21 Status: Ordered folic acid 1 mg oral tablet See Instructions, TAKE 1 TABLET BY MOUTH DAILY, # 30 tablet, Refills 5, Tot. Refills 5, Maintenance, 10/12/22 20:53:00 EST, Instructions Replace Required Details, Route to Pharmacy Electronically, [facility], 168, cm, 10/07/22 10:08:00 [...] day, # 90 tablet, 0 Refills, Maintenance, 12/16/22 11:32:00 EDT, [facility], massPAT checked 12-16-22-not appropriate-not due until 12-23-22; last fill was on 11-23-22 for a 30 day supply (#90), 12/22/22, 165, cm, 04/... Start Date: 12/16/22 Status: Ordered LaMICtal 200 mg oral tablet 2 tablet = 400 mg, By Mouth, Daily at bedtime, # 60 tablet, 3 Refills, Maintenance, 12/12/22 8:54:00 EDT, Tablet, [facility], 165, cm, 12/01/22 14:13:00 EDT, Height, 118.3, kg, 11/22/22 10:55:00 EDT, Dry Weight Start Date: 12/12/22 Stop Date: 04/11/23 Status: Ordered lamotrigine 100 mg oral tablet 100 mg, 1, tablet, By Mouth, Daily in AM, # 30 tablet, Refills 3, Tot. Refills 3, Maintenance, 12/12/22 8:54:00 EDT, Route to Pharmacy Electronically, [facility], 165, cm, 12/01/22 14:13:00 [...] each, 0 Refills, Maintenance, 11/10/22 10:55:00 EDT, Anhwder, [facility], test date 01/14 .... Start Date: 11/10/22 Status: Ordered omeprazole 40 mg oral enteric coated capsule 1 capsule, By Mouth, 2 times a day, # 60 capsule, 2 Refills, Maintenance, 11/11/22 12:20:00 EDT, [facility], 168, cm, 10/22/22 10:35:00 EST, Height, 112, kg, 04/22/22 14:00:00 EDT, Dry Weight Start Date: 11/11/22 Status: Ordered Suprep Bowel Prep Kit oral liquid 177 mL, By Mouth, Once, split prep, # 354 mL, 0 Refills, Soft Stop, 12/01/22 14:37:00 EDT, [facility], Partial fill upon patient [...] Refills, Maintenance, 12/12/22 8:53:00 EDT, ER Tablet, [facility], 165, cm, 12/01/22 14:13:00 EDT, Height, 118.3, kg, 11/22/22 10:55:00 EDT, DrNaima.. Start Date: 12/12/22 Stop Date: 04/11/23 Status: Ordered Wellbutrin XL 300 mg/24 hours oral tablet, extended release 1 tablet = 300 mg, By Mouth, Daily, With the Wellbutrin 150 mg TDD 450 mg, # 30 tablet, 3 Refills, Maintenance, 12/12/22 8:53:00 EDT, ER Tablet, [facility], Ok for fill early - patient has never lost or needed early refills before, 165, cm, 0... Start Date: 12/12/22 Status: Ordered ziprasidone 60 mg oral capsule 1 capsule = 60 mg, By Mouth, Daily at bedtime, # 30 capsule, 3 Refills, Maintenance, 12/12/22 8:55:00 EDT, [facility], Partial fill upon patient request if the prescription is for a scheduleII opioid drug., 165, cm, 12/01/22 14:13:00 EDT, .. Start Date: 12/12/22 Stop Date: 04/11/23 Status: Ordered ziprasidone 80 mg oral capsule 1 capsule = 80 mg, By Mouth, Daily at bedtime, TDD = 140mg/day, # 30 capsule, 3 Refills, Maintenance, 12/12/22 8:55:00 EDT, [facility], dose reduction, 165, [...] Care Team Personnel Name: Anabel Vyas Position: [facility] RN Member Role: Primary Care Nurse Name: Isa Ward Position: [facility] RN Member Role: Primary Care Nurse Name: Ofelia Jefferson NP Position: [facility] PCO Associate Professional Member Role: PCP Address: Address: [address] [place] [address] [place] [address]- Name: Tommy Kohli MD Position: [facility] Psychiatry MD Member Role: Lifetime Consulting Physician Address: Address: [address] [place] [address]- Care Team Related Persons Name: WILLEM SIMON III Address: [place] [address] Name: WILLEM SIMON JR Address: home [address] [place] [id number]
--- OUTSIDE RECORDS SUMMARY | 2024-01-22 11:11 | XMS_ITS | Continuity of Care Document ---
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 Name Role Phone Ronny PAPPAS, Ofelia Acosta Primary Care Physician [phone] Encounter [facility] Date(s): 11/10/22 - 12/10/22 [facility] [address] [place] [id number]- [place] Allergies, Adverse Reactions, Alerts Substance Reaction Severity [...] Note: VIS GIVEN: 03/18/2011 2Result Comment: lot [id number] 09/21/2006 3Admin Note: VIS 05/29/09 GIVEN Medications [...] AM, # 30 capsule, 0 Refills, Maintenance, 11/26/22 13:26:00 EDT, ER Capsule, [facility], please only fill on/after exact due date, 1 capsule By Mouth Daily in AM,x30 days, 165, cm, 11/22/22 10:40:00 EDT,... Start Date: 11/26/22 Stop Date: 12/26/22 Status: Ordered amLODIPine 2.5 mg oral tablet 1 tablet = 2.5 mg, By Mouth, Daily, # 90 tablet, 1 Refills, Maintenance, 11/14/22 13:47:00 EDT, Tablet, [facility], Partial fill upon patient request if the prescription is for a schedule IIopioid drug., 168, cm, 10/22/22 10:35:00 EST, Heigh... Start Date: 11/14/22 Status: Ordered amphetamine-dextroamphetamine 10 mg oral tablet 1 tablet = 10 mg, By Mouth, 2 times a day, # 60 tablet, 0 Refills, Maintenance, 11/21/22 10:00:00 EDT, [facility], ., 1 tablet By Mouth 2 times a day,x30 days, 168, cm, 10/22/22 10:35:00 EST, Height, 112, kg, 04/22/22 14:00:00 EDT, Dry Weight Start Date: 11/21/22 Stop Date: 12/21/22 Status: Ordered cholecalciferol 5000 intl units oral tablet 1 tablet = 125 mcg, By Mouth, Daily, # 30 tablet, 3 Refills, Maintenance, 10/22/22 10:51:00 EST, Tablet, [facility], Partial fill upon patient request if the prescription is for a schedule II opioid drug., 168, cm, 10/22/22 10:35:00 EST, Heig... Start Date: 10/22/22 Stop Date: 02/19/23 Status: Ordered clonazePAM 0.5 mg oral tablet 1 tablet = 0.5 mg, By Mouth, 3 times a day, NEEDED FOR ANXIETY, # 90 tablet, 3 Refills, Maintenance, 10/17/22 8:57:00 EST, Tablet, [facility], 168, cm, 10/07/22 10:08:00 EST, Height, 112,kg, 04/22/22 14:00:00 EDT, Dry Weight Start Date: 10/17/22 Stop Date: 02/14/23 Status: Ordered docusate sodium 100 mg oral capsule See Instructions, TAKE 1 CAPSULE ONE TO TWO TIMES A DAY FOR CONSTIPATION, # 20 capsule, 0 Refills, [facility], 168, cm, 08/01/21 17:36:00 EST, Height, 115, kg, 08/01/21 17:36:00 EST, Dry Weight Start Date: 10/31/21 Status: Ordered folic acid 1 mg oral tablet See Instructions, TAKE 1 TABLET BY MOUTH DAILY, # 30 tablet, Refills 5, Tot. Refills 5, Maintenance, 10/12/22 20:53:00 EST, Instructions Replace Required Details, Route to Pharmacy Electronically, [facility], 168, cm, [...] 1 Refills, Maintenance, 10/22/22 10:50:00 EST, Tablet, [facility], Partial fill upon patient request if the prescription is for a schedule II opioid drug., 168, cm, 10/22/22 10:35:00 ES... Start Date: 10/22/22 Status: Ordered LaMICtal 200 mg oral tablet 2 tablet = 400 mg, By Mouth, Daily at bedtime, # 60 tablet, 3 Refills, Maintenance, 10/17/22 8:58:00 EST, Tablet, [facility] [...] 10/17/22 8:58:00 EST, Route to Pharmacy Electronically, [facility] 0 Refills, Maintenance, 11/10/22 10:55:00 EDT, [facility], [facility], test date 01/14 .... Start Date: 11/10/22 Status: Ordered omeprazole 40 mg oral enteric coated capsule 1 capsule, By Mouth, 2 times a day, # 60 capsule, 2 Refills, Maintenance, 11/11/22 12:20:00 EDT, [facility], 168, cm, 10/22/22 10:35:00 EST, Height, 112, kg, 04/22/22 14:00:00 EDT, Dry Weight Start Date: 11/11/22 Status: Ordered Suprep Bowel Prep Kit oral liquid 177 mL, By Mouth, Once, split prep, # 354 mL, 0 Refills, Soft Stop, 12/01/22 14:37:00 EDT, [facility], Partial fill upon [...] Refills, Maintenance, 10/17/22 8:57:00 EST, ER Tablet, [facility] [...] Refills, Maintenance, 10/17/22 8:57:00 EST, ER Tablet, [facility], Ok for fill early - patient has never lost or needed early refills before, 168, cm, 0... Start Date: 10/17/22 Status: Ordered ziprasidone 40 mg oral capsule See Instructions, Take one capsule in the morning and 1 capsules at bedtime with an 80mg tab TDD 160mg, # 60 capsule, 3 Refills, Maintenance, 10/17/22 8:58:00 EST, [facility], Partial fill upon patient request if the prescription is for a keith... Start Date: 10/17/22 Status: Ordered ziprasidone 80 mg oral capsule 1 capsule = 80 mg, By Mouth, Daily at bedtime, TDD = 160mg/day, # 30 capsule, 3 Refills, Maintenance, 10/17/22 8:59:00 EST, [facility] # [...] Team Personnel Name: Anabel Vyas Position: [facility] RN Member Role: Primary Care Nurse Name: Isa Ward Position: [facility] RN Member Role: Primary Care Nurse Name: Ofelia Jefferson NP Position: [facility] PCO Associate Professional Member Role: PCP Address: Address: [address] [place] [address] [place] [address]- Name: Tommy Kohli MD Position: [facility] Psychiatry MD Member Role: Lifetime Consulting Physician Address: Address: [address] [place] [address]- Care Team Related Persons Name: WILLEM SIMON III Address: [place] [address] Name: WILLEM SIMON JR Address: home [address] [place] [address]
--- OUTSIDE RECORDS SUMMARY | 2024-01-22 11:11 | XMS_ITS | Continuity of Care Document ---
Author Organization [facility] [place] Address [address] [place] [address]- Care Team Providers Care Phlebotomy Lab Assistant Name Role Phone Danis PAPPAS, Elda Salazar Primary Care Physician [phone] Encounter [facility] NBR [id number] Date(s): 08/31/19 - 09/10/19 [facility] [place] [address] [place] [address]- [facility] Attending Physician: Adriano Becker Admitting Physician: Adriano [...] Note: VIS GIVEN: 03/18/2011 2Result Comment: lot [id number] 09/21/2006 3Admin Note: VIS 05/29/09 GIVEN Medications oxybutynin 10 mg/24 hr oral tablet, extended release 1 tablet = 10 mg, By Mouth, Daily, 0 Refills, Maintenance, 07/26/18 8:42:42 EST Start Date: 07/26/18 Status: Ordered Vitamin D3 1000 intl units oral capsule 1 capsule = 1,000 International_Units, By Mouth, Daily, start after done with megadose Vit D., # 75capsule, 0 Refills, Maintenance, 09/15/18 16:43:37 EST, Capsule Start Date: 09/15/18 Status: Ordered Problem List Condition Effective Dates Status Health Status Inform ant Background diabetic retinopathy(Confirmed) Active Bipolar disorder(Confirmed) Active Chronic low back pain(Confirmed) Active Postprandial epigastric pain(Confirmed) Active Foot pain(Confirmed) Active GERD (gastroesophageal reflu x disease)(Confirmed) Active Hepatic steatosis(Confirmed) Active Mastitis NOS(Confirmed) 11/17/11 Active Morbid Obesity(Confirmed) 1 Active 1s/p gastric sleeve Social History Social History Type Response Smoking Status Never (less than 100 in lifetime) entered on: 12/31/18 Sex
--- OUTSIDE RECORDS SUMMARY | 2024-01-22 11:11 | XMS_ITS | Continuity of Care Document ---
Author Organization [facility] [place] Address [address] [place] [address]- Care Team Providers Care Grades 1 Through 5 Teacher Name Role Phone Ronny MACHINE FEEDER FLOORPERSON, Ofelia Acosta Primary Care Physician [phone] Encounter [facility] Date(s): 02/07/22 - 04/09/22 [facility] [place] [address] [place] [address]- Attending Physician: German Cortez MD Allergies, Adverse [...] Note: VIS GIVEN: 03/18/2011 2Result Comment: lot [id number] 09/21/2006 3Admin Note: VIS 05/29/09 GIVEN Medications [...]
--- OUTSIDE RECORDS SUMMARY | 2024-01-22 11:11 | XMS_ITS | Continuity of Care Document ---
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 Applicator Name Role Phone Ronny PAPPAS, Ofelia Acosta Primary Care Physician [place] [facility] [place] Date(s): 06/30/23 - 07/30/23 [facility] [address] [place] [address]- [place] Allergies, Adverse Reactions, Alerts Substance Reaction [...] Note: VIS GIVEN: 03/18/2011 2Result Comment: lot [id number] 09/21/2006 3Admin Note: VIS 05/29/09 GIVEN Medications [...] AM, # 30 capsule, 0 Refills, Maintenance, 07/27/23 16:59:00 EST, ER Capsule, [facility], please only fill on/after exact due date, 1 capsule By Mouth Daily in AM,x30 days, 165, cm, 05/25/23 14:40:00 EDT,... Start Date: 07/27/23 Stop Date: 08/26/23 Status: Ordered amLODIPine 2.5 mg oral tablet 1 tablet, By Mouth, Daily, # 90 tablet, 1 Refills, Maintenance, 07/24/23 15:00:00 EST, [facility], 165, cm, 05/25/23 14:40:00 EDT, Height, 118.3, kg, 12/16/22 20:23:00 EDT, Dry Weight Start Date: 07/24/23 Status: Ordered amphetamine-dextroamphetamine 10 mg oral tablet 1 tablet = 10 mg, By Mouth, 2 times a day, # 60 tablet, 0 Refills, Maintenance, 07/27/23 16:59:00 EST, [facility], fill on date due, 1 tablet By Mouth 2 times a day,x30 days, 165, cm, 05/25/23 14:40:00 EDT, Height, 118.3, kg, 12/16/22 20:23:0... Start Date: 07/27/23 Stop Date: 08/26/23 Status: Ordered clonazePAM 0.5 mg oral tablet 1 tablet = 0.5 mg, By Mouth, 3 times a day, NEEDED FOR ANXIETY, # 90 tablet, 3 Refills, Maintenance, 05/29/23 13:42:00 EDT, Tablet, [facility], 165, cm, 05/25/23 14:40:00 EDT, Height, 118.3, kg, 12/16/22 20:23:00 EDT, Dry Weight Start Date: 05/29/23 Stop Date: 09/26/23 Status: Ordered docusate sodium 100 mg oral capsule See Instructions, TAKE 1 CAPSULE ONE TO TWO TIMES A DAY FOR CONSTIPATION, # 20 capsule, 0 Refills, [facility], 168, cm, 08/01/21 [...] 0 Refills, Maintenance, 11/10/22 10:55:00 EDT, [facility], [facility], test date 01/14 .... Start Date: 11/10/22 Status: Ordered omeprazole 40 mg oral enteric coated capsule 1 capsule, By Mouth, 2 times a day, # 60 capsule, 5 Refills, Maintenance, 02/04/23 7:33:00 EDT, [facility], 165, cm, 01/21/23 11:55:00 EDT, Height, 118.3, kg, 12/16/22 20:23:00 EDT, Dry Weight Start Date: 02/04/23 Status: Ordered ondansetron 4 mg oral tablet 1 tablet = 4 mg, By Mouth, Every 8 hours, # 21 tablet, 0 Refills, Maintenance, 07/29/23 17:24:00 EST, Tablet, [facility], Partial fill upon patient [...] mL, 0 Refills, Maintenance, 05/25/23 15:17:00 EDT, [facility], Partial fill upon patient request if the prescription is for a schedule II opioid drug., 1 bottle 90 minutes prior to s... Start Date: 05/25/23 Status: Ordered Suprep Bowel Prep Kit oral liquid 177 mL, By Mouth, Once, split prep, # 354 mL, 0 Refills, Soft Stop, 12/01/22 14:37:00 EDT, [facility], Partial fill upon patient request if the prescription is for a schedule II opioid drug., 177 mL By Mouth Once,Instr:split prep, 165, cm, 04... Start Date: 12/01/22 Status: Ordered Trulicity Pen 1.5 mg/0.5 mL subcutaneous solution See Instructions, INJECT 0.5ML SUBCUTANEOUSLY ONCE WEEKLY ROTATE INJECTION SITES, # 2 mL, 5 Refills, Maintenance, 06/07/23 18:02:00 EDT, [facility], 165, [...] Refills, Maintenance, 05/29/23 13:42:00 EDT, ER Tablet, [facility], dose reduction - [...] Team Personnel Name: Anabel Roblero [place] Position: [facility] RN Member Role: Primary Care Nurse Name: Isa Ward Position: [facility] RN Member Role: Primary Care Nurse Name: Ofelia Jefferson NP Position: [facility] PCO Associate Professional Member Role: PCP Address: Address: [address] [place] [address] [place] [address]- Name: Tommy Kohli MD Position: [facility] Physician - Behavioral Health Member Role: Lifetime Consulting Physician Address: Address: [address] [place] [address]- Care Team Related Persons Name: WILLEM SIMON III Address: [place] [address] Name: WILLEM SIMON JR Address: home [address] [place] [address]
--- OUTSIDE RECORDS SUMMARY | 2024-01-22 11:11 | XMS_ITS | Continuity of Care Document ---
Author Organization [facility] [place] Address [address] [place] [address]- Care Team Providers Care Engraver Flatware Name Role Phone Ronny CHARTER COACH DRIVER, Ofelia Acosta Primary Care Physician Encounter [facility] Date(s): 10/15/23 - 11/14/23 [facility] [place] [address] [place] [address]- Allergies, Adverse Reactions, Alerts Substance Reaction Severity [...] Note: VIS GIVEN: 03/18/2011 2Result Comment: lot [id number] 09/21/2006 3Admin Note: VIS 05/29/09 GIVEN Medications [...] Refills, Maintenance, 11/13/23 7:20:00 EDT, ER Capsule, [facility], fill when due, 1 capsule By Mouth Daily in AM,x30 days, 165, cm,11/06/23 8:10:00 EDT, Height, 110.1, kg, 10/28/23 1... Start Date: 11/13/23 Stop Date: 12/13/23 Status: Ordered amLODIPine 2.5 mg oral tablet 1 tablet, By Mouth, Daily, # 90 tablet, 1 Refills, Maintenance, 07/24/23 15:00:00 EST, [facility], 165, cm, 05/25/23 14:40:00 EDT, Height, 118.3, kg, 12/16/22 20:23:00 EDT, Dry Weight Start Date: 07/24/23 Status: Ordered amphetamine-dextroamphetamine 10 mg oral tablet 1 tablet = 10 mg, By Mouth, 2 times a day, # 60 tablet, 0 Refills, Maintenance, 11/13/23 7:20:00 EDT, [facility], fill on date [...] 3 Refills, Maintenance, 11/06/23 9:04:00 EDT, Capsule, [facility], Partial fill upon patient request if the prescription is for a schedule II opioid drug., 165, cm, 10/22... Start Date: 11/06/23 Stop Date: 03/05/24 Status: Ordered clonazePAM 0.5 mg oral tablet 1 tablet = 0.5 mg, By Mouth, 3 times a day, NEEDED FOR ANXIETY, # 90 tablet, 3 Refills, Maintenance, 10/20/23 14:17:00 EST, Tablet, [facility], 165, cm, 05/25/23 14:40:00 EDT, Height, 118.3, kg, 12/16/22 20:23:00 EDT, Dry Weight Start Date: 10/20/23 Stop Date: 02/17/24 Status: Ordered docusate sodium 100 mg oral capsule See Instructions, TAKE 1 CAPSULE ONE TO TWO TIMES A DAY FOR CONSTIPATION, # 20 capsule, 0 Refills, [facility], 168, cm, 08/01/21 17:36:00 EST, Height, 115, kg, 08/01/21 17:36:00 EST, Dry Weight Start Date: 10/31/21 Status: Ordered folic acid 1 mg oral tablet 1, tablet, By Mouth, Daily, # 30 tablet, Refills 5, Maintenance, 04/29/23 20:24:00 EDT, Route to Pharmacy Electronically, [facility], 165, cm, 01/21/23 11:55:00 EDT, Height, 118.3, kg, 12/16/22 20:23:00 EDT, Dry Weight Start Date: 04/29/23 Status: Ordered folic acid 1 mg oral tablet See Instructions, TAKE ONE TABLET BY MOUTH EVERY DAY, # 30 tablet, Refills 5, Maintenance, :13:00 EST, Instructions Replace Required Details, Route to Pharmacy Electronically, [facility], 165, cm, 05/25/23 [...] tablet, 3 Refills, Maintenance, 10/20/23 14:21:00 EST, [facility], 165, cm, 05/25/23 14:40:00 EDT, Height, 118.3, kg, 12/16/22 20:23:00 EDT, Dry Weight Start Date: 10/20/23 Stop Date: 02/17/24 Status: Ordered LaMICtal 200 mg oral tablet 2 tablet = 400 mg, By Mouth, Daily at bedtime, # 60 tablet, 3 Refills, Maintenance, 10/20/23 14:22:00 EST, Tablet, [facility], 165, cm, 05/25/23 14:40:00 EDT, Height, 118.3, kg, 12/16/22 20:23:00 EDT, Dry Weight Start Date: 10/20/23 Stop Date: 02/17/24 Status: Ordered lamotrigine 100 mg oral tablet 100 mg, 1, tablet, By Mouth, Daily in AM, # 30 tablet, Refills 3, Tot. Refills 3, Maintenance, 10/20/23 14:22:00 EST, Route to Pharmacy Electronically, [facility], 165, cm, 05/25/23 [...] 0 Refills, Maintenance, 11/10/22 10:55:00 EDT, [facility], [facility], test date 01/14 .... Start Date: 11/10/22 Status: Ordered omeprazole 40 mg oral enteric coated capsule 1 capsule, By Mouth, 2 times a day, # 180 capsule, 1 Refills, Maintenance, 08/15/23 8:46:00 EST, [facility], 165, cm, 05/25/23 14:40:00 EDT, Height, 118.3, kg, 12/16/22 20:23:00 EDT, Dry Weight Start Date: 08/15/23 Status: Ordered ondansetron 4 mg oral tablet 1 tablet = 4 mg, By Mouth, Every 8 hours, # 21 tablet, 0 Refills, Maintenance, 07/29/23 17:24:00 EST, Tablet, [facility], Partial fill upon [...] mL, 0 Refills, Maintenance, 05/25/23 15:17:00 EDT, [facility], Partial fill upon patient request if the prescription is for a schedule II opioid drug., 1 bottle 90 minutes prior to s... Start Date: 05/25/23 Status: Ordered Suprep Bowel Prep Kit oral liquid 177 mL, By Mouth, Once, split prep, # 354 mL, 0 Refills, Soft Stop, 12/01/22 14:37:00 EDT, [facility], Partial fill upon patient request if the prescription is for a schedule II opioid drug., 177 mL By Mouth Once,Instr:split prep, 165, cm, 04... Start Date: 12/01/22 Status: Ordered Trulicity Pen 1.5 mg/0.5 mL subcutaneous solution See Instructions, INJECT 0.5ML SUBCUTANEOUSLY ONCE WEEKLY ROTATE INJECTION SITES, # 2 mL, 5 Refills, Maintenance, 06/07/23 18:02:00 EDT, [facility], 165, cm, 05/25/23 14:40:00 EDT, Height, 118.3, kg, 12/16/22 20:23:00 EDT, Dry Weight Start Date: 06/07/23 Status: Ordered Vitamin D3 5000 intl units oral tablet 1 tablet, By Mouth, Daily, # 30 tablet, 0 Refills, Maintenance, 10/15/23 11:12:00 EST, [facility], 165, cm, 05/25/23 14:40:00 EDT, Height, 118.3, kg, 12/16/22 20:23:00 EDT, Dry Weight Start Date: 10/15/23 Status: Ordered Wellbutrin XL 300 mg/24 hours oral tablet, extended release 1 tablet = 300 mg, By Mouth, Daily, # 30 tablet, 3 Refills, Maintenance, 10/20/23 14:17:00 EST, ER Tablet, [facility], 165, cm, 05/25/23 [...] Care team information Care Team Personnel Name: Anable Roblero [place] Position: [facility] RN Member Role: Primary Care Nurse Name: Isa Ward Position: [facility] RN Member Role: Primary Care Nurse Name: Ofelia Jefferson NP Position: [facility] PCO Associate Professional Member Role: PCP Address: Address: [address] [place] [address] [place] [address]- [place] Name: Tommy Kohli MD Position: [facility] Physician - Behavioral Health Member Role: Lifetime Consulting Physician Address: Address: [address] [place] [id number]- Care Team Related Persons Name: WILLEM SIMON III Address: [place] [address] Name: WILLEM SIMON JR Address: home [address] [place] [address]
--- OUTSIDE RECORDS SUMMARY | 2024-01-22 11:11 | XMS_ITS | Continuity of Care Document ---
Author Organization [facility] Address [address] [address]- Care Team Providers Care Shake Cutter Name Role Phone Danis PAPPAS, Elda Salazar Primary Care Physician Encounter [facility] NBR [id number] Date(s): 01/05/20 - 05/04/20 [facility] [address] [address]- [facility] Attending Physician: Erica Alexandra CNM Admitting Physician: Erica Alexandra CNM Referring Physician: Not on Staff, Referring MD [...] Note: VIS GIVEN: 03/18/2011 2Result Comment: lot [id number] 09/21/2006 3Admin Note: VIS 05/29/09 GIVEN Problem [...]
--- OUTSIDE RECORDS SUMMARY | 2024-01-22 11:11 | XMS_ITS | Continuity of Care Document ---
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 Start Date: 12/12/22 Stop Date: 01/11/23 Status: Ordered amLODIPine 2.5 mg oral tablet 1 tablet = 2.5 mg, By Mouth, Daily, # 90 tablet, 1 Refills, Maintenance, 11/14/22 13:47:00 EDT, Tablet, [facility] # [facility], Partial fill upon patient request if the prescription is for a schedule IIopioid drug., 168, cm, 10/22/22 10:35:00 EST, Heigh... Start Date: 11/14/22 Status: Ordered amphetamine-dextroamphetamine 10 mg oral tablet 1 tablet = 10 mg, By Mouth, 2 times a day, # 60 tablet, 0 Refills, Maintenance, 12/12/22 8:53:00 EDT, [facility], fill on date due, 1 tablet By Mouth 2 times a day,x30 days, 165, cm, 12/01/22 14:13:00 EDT, Height, 118.3, kg, 11/22/22 10:55:00... Start Date: 12/12/22 Stop Date: 01/11/23 Status: Ordered cholecalciferol 5000 intl units oral tablet 1 tablet = 125 mcg, By Mouth, Daily, # 30 tablet, 3 Refills, Maintenance, 10/22/22 10:51:00 EST, Tablet, [facility], Partial fill upon patient request if the prescription is for a schedule II opioid drug., 168, cm, 10/22/22 10:35:00 EST, Heig... Start Date: 10/22/22 Stop Date: 02/19/23 Status: Ordered clonazePAM 0.5 mg oral tablet 1 tablet = 0.5 mg, By Mouth, 3 times a day, NEEDED FOR ANXIETY, # 90 tablet, 3 Refills, Maintenance, 12/12/22 8:54:00 EDT, Tablet, [facility] # [facility], 165, cm, 12/01/22 14:13:00 [...] Electronically, [facility], 168, cm, 10/07/22 10:08:00 [...] day, # 90 tablet, 0 Refills, Maintenance, 01/02/23 8:01:00 EDT, [facility], massPAT checked for the gabapentin-appropriate; last fill was on 11-23-22 for a 30 daysupply (#90), 165, cm, 12/18/22 13:42:00 EDT, Heigh... Start Date: 01/02/23 Status: Ordered LaMICtal 200 mg oral tablet 2 tablet = 400 mg, By Mouth, Daily at bedtime, # 60 tablet, 3 Refills, Maintenance, 12/12/22 8:54:00 EDT, Tablet, [facility] # [facility], 165, cm, 12/01/22 14:13:00 EDT, Height, 118.3, kg, 11/22/22 10:55:00 EDT, Dry Weight Start Date: 12/12/22 Stop Date: 04/11/23 Status: Ordered lamotrigine 100 mg oral tablet 100 mg, 1, tablet, By Mouth, Daily in AM, # 30 tablet, Refills 3, Tot. Refills 3, Maintenance, 12/12/22 8:54:00 EDT, Route to Pharmacy Electronically, [facility], 165, cm, 12/01/22 14:13:00 [...] 0 Refills, Maintenance, 11/10/22 10:55:00 EDT, [facility]Powder, [facility] # [facility], test date 01/14 .... Start Date: 11/10/22 Status: Ordered omeprazole 40 mg oral enteric coated capsule 1 capsule, By Mouth, 2 times a day, # 60 capsule, 2 Refills, Maintenance, 11/11/22 12:20:00 EDT, [facility] # [facility], 168, cm, 10/22/22 10:35:00 EST, Height, 112, kg, 04/22/22 14:00:00 EDT, Dry Weight Start Date: 11/11/22 Status: Ordered Suprep Bowel Prep Kit oral liquid 177 mL, By Mouth, Once, split prep, # 354 mL, 0 Refills, Soft Stop, 12/01/22 14:37:00 EDT, [facility] # [facility], Partial fill upon [...] Refills, Maintenance, 12/12/22 8:53:00 EDT, ER Tablet, [facility] # [facility], 165, cm, 12/01/22 14:13:00 EDT, Height, 118.3, kg, 11/22/22 10:55:00 EDT, . Start Date: 12/12/22 Stop Date: 04/11/23 Status: Ordered Wellbutrin XL 300 mg/24 hours oral tablet, extended release 1 tablet = 300 mg, By Mouth, Daily, With the Wellbutrin 150 mg TDD 450 mg, # 30 tablet, 3 Refills, Maintenance, 12/12/22 8:53:00 EDT, ER Tablet, [facility] # [facility], Ok for fill early - patient has never lost or needed early refills before, 165, cm, 0... Start Date: 12/12/22 Status: Ordered ziprasidone 60 mg oral capsule 1 capsule = 60 mg, By Mouth, Daily at bedtime, # 30 capsule, 3 Refills, Maintenance, 12/12/22 8:55:00 EDT, [facility] # [facility], Partial fill upon patient request if the prescription is for a scheduleII opioid drug., 165, cm, 12/01/22 14:13:00 EDT, John. Start Date: 12/12/22 Stop Date: 04/11/23 Status: Ordered ziprasidone 80 mg oral capsule 1 capsule = 80 mg, By Mouth, Daily at bedtime, TDD = 140mg/day, # 30 capsule, 3 Refills, Maintenance, 12/12/22 8:55:00 EDT, [facility] # [facility], dose reduction, 165, cm, [...] Care Team Personnel Name: Anabel Vyas Position: [facility] RN Member Role: Primary Care Nurse Name: Isa Ward Position: [facility] RN Member Role: Primary Care Nurse Name: Ofelia Jefferson NP Position: [facility] PCO Associate Professional Member Role: PCP Address: Address: [address] [place] [address] [place] [address]- [place] Name: Tommy Kohli MD Position: [facility] Psychiatry MD Member Role: Lifetime Consulting Physician Address: Address: [address] [place] [address]- Care Team Related Persons Name: WILLEM SIMON III Address: [place] [address] Name: WILLEM SIMON JR Address: home [address] [place] [address]
--- OUTSIDE RECORDS SUMMARY | 2024-01-22 11:11 | XMS_ITS | Continuity of Care Document ---
Author Organization [facility] Lyndsay terrance Address [address] [place] [address] [address] [place] [address]- Care Team Providers Care Mid Level Provider Name Role Phone Ronny MEDICAL RESEARCH ASSISTANT, Ofelia Acosta Primary Care Physician [place] [facility] [place]s): 01/15/22 - 02/14/22 [facility] [address] [place] [address]- Allergies, Adverse Reactions, Alerts Substance Reaction Severity [...] Note: VIS GIVEN: 03/18/2011 2Result Comment: lot [id number] 09/21/2006 3Admin Note: VIS 05/29/09 GIVEN Medications [...]
--- OUTSIDE RECORDS SUMMARY | 2024-01-22 11:11 | XMS_ITS | Continuity of Care Document ---
Author Organization [facility] Address [address] [place], [place] [address]maximo slater, [address] [place] [address]- Care Team Providers Care Central Office Equipment Installer Name Role Phone Amadou STUART ([facility]), William Quesada Primary Care Ph ysician Encounter [facility] Date(s): 05/08/22 - 06/07/[address], [address] [place], [place] [address] Allergies, Adverse Reactions, Alerts Substance Reaction Severity [...] Note: VIS GIVEN: 03/18/2011 2Result Comment: lot [id number] 09/21/2006 3Admin Note: VIS 05/29/09 GIVEN Medications [...] tablet, 0 Refills, Maintenance, 06/03/22 7:20:00 EDT, [facility], 1 tablet By Mouth Daily,x30 days,Instr:last filled 05/16/22, 168, cm, 05/15/22 14:37:00 EDT, Height, 112, kg, ... Start Date: 06/03/22 Stop Date: 07/03/22 Status: Ordered Adderall 20 mg oral tablet 1 tablet = 20 mg, By Mouth, Daily, for 30 days, last filled 04/18/22, # 30 tablet, 0 Refills, Hard Stop 06/12/22 8:50:00 EDT, 05/13/22 8:50:00 EDT, [facility], 168, cm, 04/22/22 14:00:00 EDT,Height, 112, kg, 04/22/22 14:00:00 EDT, Dry Weight Start Date: 05/13/22 Stop Date: 06/12/22 Status: Ordered Adderall XR 30 mg oral capsule, extended release 1 capsule = 30 mg, By Mouth, Daily in AM, last filled 05/16/22, # 30 capsule, 0 Refills, Maintenance, 06/03/22 7:20:00 EDT, ER Capsule, [facility] # [facility], 1 capsule By Mouth Daily in AM,Instr:last filled 05/16/22, 168, cm, 05/15/22 14:37:00 EDT, Heigh... Start Date: 06/03/22 Status: Ordered albuterol 90 mcg/inh inhalation powder 2 puffs, Inhalation, Every 4 hours, PRN as needed, # 1 each, 0 Refills, Maintenance, 08/01/21 20:08:00 EST, Powder, [facility] # 86, Partial fill [...] 1 Refills, Maintenance, 05/26/22 17:40:00 EDT, Tablet, [facility], Partial fill upon patient request if the prescription is for a schedule IIopioid drug., 168, cm, 05/15/22 14:37:00 EDT, Heigh... Start Date: 05/26/22 Status: Ordered cholecalciferol 5000 intl units oral tablet 1 tablet = 125 mcg, By Mouth, Daily, # 30 tablet, 3 Refills, Maintenance, 02/07/22 11:35:00 EDT, Tablet, [facility], Partial fill upon patient request if the prescription is for a schedule II opioid drug., 168, cm, 02/07/22 11:03:00 EDT, Heig... Start Date: 02/07/22 Stop Date: 06/07/22 Status: Ordered clonazePAM 0.5 mg oral tablet 1 tablet = 0.5 mg, By Mouth, 3 times a day, NEEDED FOR ANXIETY, # 90 tablet, 3 Refills, Maintenance, 03/14/22 9:26:00 EDT, Tablet, [facility], 168, cm, 02/20/22 13:36:00 EDT, Height, 116,kg, 02/20/22 13:36:00 EDT, Dry Weight Start Date: 03/14/22 Stop Date: 07/12/22 Status: Ordered docusate sodium 100 mg oral capsule See Instructions, TAKE 1 CAPSULE ONE TO TWO TIMES A DAY FOR CONSTIPATION, # 20 capsule, 0 Refills, [facility], 168, cm, 08/01/21 17:36:00 EST, Height, 115, kg, 08/01/21 17:36:00 EST, Dry Weight Start Date: 10/31/21 Status: Ordered folic acid 1 mg oral tablet See Instructions, TAKE 1 TABLET BY MOUTH DAILY, # 30 tablet, Refills 3, Maintenance, 06/05/22 5:46:00 EDT, Instructions Replace Required Details, Route to Pharmacy Electronically, [facility], 168, cm, 05/15/22 14:37:00 [...] 0 Refills, Maintenance, 06/03/22 7:20:00 EDT, Capsule, [facility] # 86, Partial fill upon patient request if the prescription is for a schedule II opioid drug., 168, cm, 05/15/22 14:37:00 EDT, Heig... Start Date: 06/03/22 Status: Ordered Geodon 80 mg oral capsule 1 capsule = 80 mg, By Mouth, Daily at bedtime, Take with 60mg capsule., # 30 capsule, 0 Refills, Maintenance, 06/03/22 7:20:00 EDT, Capsule, [facility], 168, cm, 05/15/22 14:37:00 EDT, Height, 112, kg, 04/22/22 14:00:00 EDT, Dry Weight Start Date: 06/03/22 Status: Ordered LaMICtal 200 mg oral tablet 2 tablet = 400 mg, By Mouth, Daily at bedtime, # 60 tablet, 3 Refills, Maintenance, 03/14/22 9:27:00 EDT, Tablet, [facility], 168, cm, 02/20/22 13:36:00 EDT, Height, 116, kg, 02/20/22 13:36:00 EDT, Dry Weight Start Date: 03/14/22 Stop Date: 07/12/22 Status: Ordered lamotrigine 100 mg oral tablet 100 mg, 1, tablet, By Mouth, Daily in AM, # 30 tablet, Refills 3, Tot. Refills 3, Maintenance, 03/14/22 9:27:00 EDT, Route to Pharmacy Electronically, [facility], 168, cm, [...] capsule, 2 Refills, Maintenance, 04/22/22 12:20:00 EDT, [facility], 168, cm, 04/21/22 8:42:00 EDT, Height, 113.3, kg, 04/09/22 9:17:00 EDT, Dry Weight Start Date: 04/22/22 Status: Ordered Wellbutrin XL 150 mg/24 hours oral tablet, extended release 1 tablet = 150 mg, By Mouth, Every 24 hours, With the Wellbutrin 300 mg TDD 450 mg, # 30 tablet, 3 Refills, Maintenance, 03/14/22 9:26:00 EDT, ER Tablet, [facility], 168, cm, 02/20/22 13:36:00 EDT, Height, 116, kg, 02/20/22 13:36:00 EDT, Dry... Start Date: 03/14/22 Stop Date: 07/12/22 Status: Ordered Wellbutrin XL 300 mg/24 hours oral tablet, extended release 1 tablet = 300 mg, By Mouth, Daily, With the Wellbutrin 150 mg TDD 450 mg, # 30 tablet, 3 Refills, Maintenance, 03/14/22 9:26:00 EDT, ER Tablet, [facility], 168, [...] Care team information Personnel Name: Amadou STUART ([facility]), William Quesada Address: Address: [address] [place] [address], [place], [place] [address]
--- OUTSIDE RECORDS SUMMARY | 2024-01-22 11:12 | XMS_ITS | Continuity of Care Document ---
Author Organization [facility] ry Address Unknown Care Team Providers Care Director Of Services Name Role Phone Ronny PAPPAS, Ofelia Acosta Primary Care Physician Encounter [facility] Date(s): 03/03/22 - 04/02/22 [facility] Allergies, Adverse Reactions, Alerts Substance Reaction [...] Note: VIS GIVEN: 03/18/2011 2Result Comment: lot [id number] 09/21/2006 3Admin Note: VIS 05/29/09 GIVEN Medications [...]
--- OUTSIDE RECORDS SUMMARY | 2024-01-22 11:12 | XMS_ITS | Continuity of Care Document ---
Author Organization [facility] [place] Address [address] [place] [address]- Care Team Providers Care Cable Ferry Operator Name Role Phone Stacie Rendon NP Primary Care Physician Encounter [facility] Date(s): 04/03/21 - 05/03/21 [facility] [place] [address] [place] [address]- Encounter Diagnosis Viral URI(Discharge Diagnosis) - 12/01/19 Open wound of abdominal wall(Discharge Diagnosis) - 12/01/19 Attending Physician: Adriano Becker Admitting Physician: AdmAdriano feliz Referring Physician: Admtr, Ar8 Allergies, Adverse Reactions, [...] Note: VIS GIVEN: 03/18/2011 2Result Comment: lot [id number] 09/21/2006 3Admin Note: VIS 05/29/09 GIVEN Medications [...]
--- OUTSIDE RECORDS SUMMARY | 2024-01-22 11:12 | XMS_ITS | Continuity of Care Document ---
Author Organization [facility] [place] Address [address] [place] [address]- Care Team Providers Care Sales Systems Engineer Name Role Phone Ronny PAPPAS, Ofelia Acosta Primary Care Physician Encounter [facility] Date(s): 05/25/23 - 06/24/23 [facility] [place] [address] [place] [address]- Allergies, Adverse Reactions, Alerts Substance Reaction Severity [...] Note: VIS GIVEN: 03/18/2011 2Result Comment: lot [id number] 09/21/2006 3Admin Note: VIS 05/29/09 GIVEN Medications [...] Refills, Maintenance, 06/19/23 7:21:00 EDT, ER Capsule, [facility], please only fill on/after exact due date, 1 capsule By Mouth Daily in AM,x30 days, 165, cm, 05/25/23 14:40:00 EDT, H... Start Date: 06/19/23 Stop Date: 07/19/23 Status: Ordered amLODIPine 2.5 mg oral tablet 1 tablet, By Mouth, Daily, # 90 tablet, 0 Refills, Maintenance, 05/30/23 13:07:00 EDT, [facility], 165, cm, 05/25/23 14:40:00 EDT, Height, 118.3, kg, 12/16/22 20:23:00 EDT, Dry Weight Start Date: 05/30/23 Status: Ordered amphetamine-dextroamphetamine 10 mg oral tablet 1 tablet = 10 mg, By Mouth, 2 times a day, # 60 tablet, 0 Refills, Maintenance, 06/19/23 7:21:00 EDT, [facility], fill on date [...] 3 Refills, Maintenance, 05/29/23 13:42:00 EDT, Tablet, [facility], 165, cm, 05/25/23 14:40:00 EDT, Height, 118.3, kg, 12/16/22 20:23:00 EDT, Dry Weight Start Date: 05/29/23 Stop Date: 09/26/23 Status: Ordered docusate sodium 100 mg oral capsule See Instructions, TAKE 1 CAPSULE ONE TO TWO TIMES A DAY FOR CONSTIPATION, # 20 capsule, 0 Refills, [facility], 168, cm, 08/01/21 17:36:00 EST, Height, 115, kg, 08/01/21 17:36:00 EST, Dry Weight Start Date: 10/31/21 Status: Ordered folic acid 1 mg oral tablet 1, tablet, By Mouth, Daily, # 30 tablet, Refills 5, Maintenance, 04/29/23 20:24:00 EDT, Route to Pharmacy Electronically, [facility], 165, cm, 01/21/23 [...] tablet, 3 Refills, Maintenance, 05/29/23 13:41:00 EDT, [facility], 165, cm, 05/25/23 14:40:00 EDT, Height, 118.3, kg, 12/16/22 20:23:00 EDT, Dry Weight Start Date: 05/29/23 Stop Date: 09/26/23 Status: Ordered ibuprofen 800 mg oral tablet 1, tablet, By Mouth, 3 times a day, # 90 tablet, Refills 1, Maintenance, 05/25/23 8:49:00 EDT, Route to Pharmacy Electronically, [facility], 165, cm, 01/21/23 11:55:00 EDT, Height, 118.3, kg, 12/16/22 20:23:00 EDT, Dry Weight Start Date: 05/25/23 Status: Ordered LaMICtal 200 mg oral tablet 2 tablet = 400 mg, By Mouth, Daily at bedtime, # 60 tablet, 3 Refills, Maintenance, 05/29/23 13:41:00 EDT, Tablet, [facility], 165, cm, 05/25/23 14:40:00 EDT, Height, 118.3, kg, 12/16/22 20:23:00 EDT, Dry Weight Start Date: 05/29/23 Stop Date: 09/26/23 Status: Ordered lamotrigine 100 mg oral tablet 100 mg, 1, tablet, By Mouth, Daily in AM, # 30 tablet, Refills 3, Tot. Refills 3, Maintenance, 05/29/23 13:41:00 EDT, Route to Pharmacy Electronically, [facility], 165, cm, 05/25/23 [...] 0 Refills, Maintenance, 11/10/22 10:55:00 EDT, [facility]Powder, [facility], test date 01/14 .... Start Date: 11/10/22 Status: Ordered omeprazole 40 mg oral enteric coated capsule 1 capsule, By Mouth, 2 times a day, # 60 capsule, 5 Refills, Maintenance, 02/04/23 7:33:00 EDT, [facility], 165, [...] mL, 0 Refills, Maintenance, 05/25/23 15:17:00 EDT, [facility], Partial fill upon patient request if the prescription is for a schedule II opioid drug., 1 bottle 90 minutes prior to s... Start Date: 05/25/23 Status: Ordered Suprep Bowel Prep Kit oral liquid 177 mL, By Mouth, Once, split prep, # 354 mL, 0 Refills, Soft Stop, 12/01/22 14:37:00 EDT, [facility], Partial fill upon patient request if the prescription is for a schedule II opioid drug., 177 mL By Mouth Once,Instr:split prep, 165, cm, 04... Start Date: 12/01/22 Status: Ordered Trulicity Pen 1.5 mg/0.5 mL subcutaneous solution See Instructions, INJECT 0.5ML SUBCUTANEOUSLY ONCE WEEKLY ROTATE INJECTION SITES, # 2 mL, 5 Refills, Maintenance, 06/07/23 18:02:00 EDT, [facility], 165, cm, 05/25/23 14:40:00 EDT, Height, 118.3, kg, 12/16/22 20:23:00 EDT, Dry Weight Start Date: 06/07/23 Status: Ordered Vitamin D3 5000 intl units oral tablet 1 tablet, By Mouth, Daily, # 30 tablet, 5 Refills, Maintenance, 03/08/23 21:40:00 EDT, [facility], 165, cm, 01/21/23 11:55:00 EDT, Height, 118.3, kg, 12/16/22 20:23:00 EDT, Dry Weight Start Date: 03/08/23 Status: Ordered Wellbutrin XL 150 mg/24 hours oral tablet, extended release 1 tablet = 150 mg, By Mouth, Every 24 hours, With the Wellbutrin 300 mg TDD 450 mg, # 30 tablet, 3 Refills, Maintenance, 02/27/23 14:37:00 EDT, ER Tablet, [facility], 165, cm, 01/21/23 11:55:00 EDT, Height, 118.3, kg, 12/16/22 20:23:00 EDT, D... Start Date: 02/27/23 Stop Date: 06/27/23 Status: Ordered Wellbutrin XL 300 mg/24 hours oral tablet, extended release 1 tablet = 300 mg, By Mouth, Daily, # 30 tablet, 3 Refills, Maintenance, 05/29/23 13:42:00 EDT, ER Tablet, [facility], dose reduction - 300mg/day, 165, cm, 05/25/23 14:40:00 EDT, Height, 118.3, kg, 12/16/22 20:23:00 EDT, Dry Weight Start Date: 05/29/23 Stop Date: 09/26/23 Status: Ordered ziprasidone 60 mg oral capsule 1 capsule = 60 mg, By Mouth, Daily at bedtime, # 30 capsule, 3 Refills, Maintenance, 05/29/23 13:41:00 EDT, [facility], Partial fill upon patient request if the prescription is for a schedule II opioid drug., 165, cm, 05/25/23 14:40:00 EDT, H... Start Date: 05/29/23 Stop Date: 09/26/23 Status: Ordered ziprasidone 80 mg oral capsule 1 capsule = 80 mg, By Mouth, Daily at bedtime, TDD = 140mg/day, # 30 capsule, 3 Refills, Maintenance, 05/29/23 13:40:00 EDT, [facility], dose reduction, 165, [...] Team Personnel Name: Anabel Roblero [place] Position: [facility] RN Member Role: Primary Care Nurse Name: Isa Ward Position: [facility] RN Member Role: Primary Care Nurse Name: Ofelia Jefferson NP Position: [facility] PCO Associate Professional Member Role: PCP Address: Address: [address] [place] [address] [place] [address]- [place] Name: Tommy Kohli MD Position: [facility] Physician - Behavioral Health Member Role: Lifetime Consulting Physician Address: Address: [address] [place] [address]- Care Team Related Persons Name: WILLEM SIMON III Address: [place] [address] Name: WILLEM SIMON JR Address: [address] [place] [address]
--- OUTSIDE RECORDS SUMMARY | 2024-01-22 11:12 | XMS_ITS | Continuity of Care Document ---
Author Organization [facility] Address [address] [place] [address]- Care Team Providers Care Mining Manager Name Role Phone Ronny PAPPAS, Ofelia Acosta Primary Care Physician Encounter [facility] AC[facility] R [id number] Date(s): 12/01/22 - 12/31/22 [facility] [address] [place] [address]- Attending Physician: Adriano Becker Admitting Physician: AdmtrAdriano Referring Physician: Admtr, Ar8 [...] Note: VIS GIVEN: 03/18/2011 2Result Comment: lot [id number] 09/21/2006 3Admin Note: VIS 05/29/09 GIVEN Medications [...] Refills, Maintenance, 12/12/22 8:53:00 EDT, ER Capsule, [facility], please only fill on/after exact due date, 1 capsule By Mouth Daily in AM,x30 days, 165, cm, 12/01/22 14:13:00 EDT, H... Start Date: 12/12/22 Stop Date: 01/11/23 Status: Ordered amLODIPine 2.5 mg oral tablet 1 tablet = 2.5 mg, By Mouth, Daily, # 90 tablet, 1 Refills, Maintenance, 11/14/22 13:47:00 EDT, Tablet, [facility] # [facility], Partial fill upon patient request if the prescription is for a schedule IIopioid drug., 168, cm, 10/22/22 10:35:00 EST, Heigh... Start Date: 11/14/22 Status: Ordered amphetamine-dextroamphetamine 10 mg oral tablet 1 tablet = 10 mg, By Mouth, 2 times a day, # 60 tablet, 0 Refills, Maintenance, 12/12/22 8:53:00 EDT, [facility], fill on date due, 1 tablet By Mouth 2 times a day,x30 days, 165, cm, 12/01/22 14:13:00 EDT, Height, 118.3, kg, 11/22/22 10:55:00... Start Date: 12/12/22 Stop Date: 01/11/23 Status: Ordered cholecalciferol 5000 intl units oral tablet 1 tablet = 125 mcg, By Mouth, Daily, # 30 tablet, 3 Refills, Maintenance, 10/22/22 10:51:00 EST, Tablet, [facility], Partial fill upon patient request if the prescription is for a schedule II opioid drug., 168, cm, 10/22/22 10:35:00 EST, Heig... Start Date: 10/22/22 Stop Date: 02/19/23 Status: Ordered clonazePAM 0.5 mg oral tablet 1 tablet = 0.5 mg, By Mouth, 3 times a day, NEEDED FOR ANXIETY, # 90 tablet, 3 Refills, Maintenance, 12/12/22 8:54:00 EDT, Tablet, [facility], 165, cm, 12/01/22 14:13:00 EDT, Height, 118.3, kg, 11/22/22 10:55:00 EDT, Dry Weight Start Date: 12/12/22 Stop Date: 04/11/23 Status: Ordered docusate sodium 100 mg oral capsule See Instructions, TAKE 1 CAPSULE ONE TO TWO TIMES A DAY FOR CONSTIPATION, # 20 capsule, 0 Refills, [facility], 168, cm, 08/01/21 17:36:00 EST, Height, 115, kg, 08/01/21 17:36:00 EST, Dry Weight Start Date: 10/31/21 Status: Ordered folic acid 1 mg oral tablet See Instructions, TAKE 1 TABLET BY MOUTH DAILY, # 30 tablet, Refills 5, Tot. Refills 5, Maintenance, 10/12/22 20:53:00 EST, Instructions Replace Required Details, Route to Pharmacy Electronically, [facility], 168, cm, 10/07/22 10:08:00 [...] tablet, 0 Refills, Maintenance, 12/16/22 11:32:00 EDT, [facility], massPAT checked 12-16-22-not appropriate-not due until 12-23-22; last fill was on 11-23-22 for a 30 day supply (#90), 12/22/22, 165, cm, 04/... Start Date: 12/16/22 Status: Ordered LaMICtal 200 mg oral tablet 2 tablet = 400 mg, By Mouth, Daily at bedtime, # 60 tablet, 3 Refills, Maintenance, 12/12/22 8:54:00 EDT, Tablet, [facility], 165, cm, 12/01/22 14:13:00 EDT, Height, 118.3, kg, 11/22/22 10:55:00 EDT, Dry Weight Start Date: 12/12/22 Stop Date: 04/11/23 Status: Ordered lamotrigine 100 mg oral tablet 100 mg, 1, tablet, By Mouth, Daily in AM, # 30 tablet, Refills 3, Tot. Refills 3, Maintenance, 12/12/22 8:54:00 EDT, Route to Pharmacy Electronically, [facility], 165, cm, 12/01/22 14:13:00 [...] each, 0 Refills, Maintenance, 11/10/22 10:55:00 EDT, Anhwdraymond, [facility], test date 01/14 .... Start Date: 11/10/22 Status: Ordered omeprazole 40 mg oral enteric coated capsule 1 capsule, By Mouth, 2 times a day, # 60 capsule, 2 Refills, Maintenance, 11/11/22 12:20:00 EDT, [facility], 168, cm, 10/22/22 10:35:00 EST, Height, 112, kg, 04/22/22 14:00:00 EDT, Dry Weight Start Date: 11/11/22 Status: Ordered Suprep Bowel Prep Kit oral liquid 177 mL, By Mouth, Once, split prep, # 354 mL, 0 Refills, Soft Stop, 12/01/22 14:37:00 EDT, [facility], Partial fill [...] Refills, Maintenance, 12/12/22 8:53:00 EDT, ER Tablet, [facility], 165, cm, 12/01/22 14:13:00 EDT, Height, 118.3, kg, 11/22/22 10:55:00 EDT, DrNaima.. Start Date: 12/12/22 Stop Date: 04/11/23 Status: Ordered Wellbutrin XL 300 mg/24 hours oral tablet, extended release 1 tablet = 300 mg, By Mouth, Daily, With the Wellbutrin 150 mg TDD 450 mg, # 30 tablet, 3 Refills, Maintenance, 12/12/22 8:53:00 EDT, ER Tablet, [facility] # [facility], Ok for fill early - patient has never lost or needed early refills before, 165, cm, 0... Start Date: 12/12/22 Status: Ordered ziprasidone 60 mg oral capsule 1 capsule = 60 mg, By Mouth, Daily at bedtime, # 30 capsule, 3 Refills, Maintenance, 12/12/22 8:55:00 EDT, [facility] # [facility], Partial fill upon patient request if the prescription is for a scheduleII opioid drug., 165, cm, 12/01/22 14:13:00 EDT, .. Start Date: 12/12/22 Stop Date: 04/11/23 Status: Ordered ziprasidone 80 mg oral capsule 1 capsule = 80 mg, By Mouth, Daily at bedtime, TDD = 140mg/day, # 30 capsule, 3 Refills, Maintenance, 12/12/22 8:55:00 EDT, [facility], dose reduction, 165, cm, [...] Care Team Personnel Name: Anabel Vyas Position: [facility] RN Member Role: Primary Care Nurse Name: Isa Ward Position: [facility] RN Member Role: Primary Care Nurse Name: Ofelia Jefferson NP Position: [facility] PCO Associate Professional Member Role: PCP Address: Address: [address] [place] [address] [place] [address]- Name: Tommy Kohli MD Position: [facility] Psychiatry MD Member Role: Lifetime Consulting Physician Address: Address: [address] [place] [address]- Care Team Related Persons Name: WILLEM SIMON III Address: [place] [address] Name: WILLEM SIMON JR Address: home [address] [place] [id number]
--- OUTSIDE RECORDS SUMMARY | 2024-01-22 11:12 | XMS_ITS | Continuity of Care Document ---
Author Organization [facility] Address [address] [place] [address]- Care Team Providers Care Motor Boss Name Role Phone Danis CISCO NETWORK ARCHITECT, Elda Salazar Primary Care Physician Encounter [facility] [id number] Date(s): 10/24/20 - 11/23/20 [facility] [address] [place] [address]- Allergies, Adverse Reactions, Alerts Substance Reaction Severity Status OxyCODONE Hydrochloride Acti ve Immunizations Given and Recorded Vaccine Date Status Refusal Reason influenza virus vaccine, inactivated 06/22/20 Give n influenza virus vaccine, inactivated 06/23/13 Give n influenza virus vaccine, inactivated 1 09/01/11 Gi jackson influenza virus vaccine, inactivated 2 09/20/06 Gi jackson tetanus/diphtheria/pertussis, acel(Tdap) 02/09/14 Given pneumococcal 23-valent vaccine 3 09/01/11 Given 1Admin Note: VIS GIVEN: 03/18/2011 2Result Comment: lot [id number] 09/21/2006 3Admin Note: VIS 05/29/09 GIVEN Medications folic acid 1 mg oral tablet 1 mg, 1, tablet, By Mouth, Daily, # 30 tablet, Refills 2, Tot. Refills 2, Maintenance, 10/26/20 15:22:00 EST, Route to Pharmacy Electronically, [facility] # [facility], Partial fill upon patient request if the prescription is for a schedule II opioid drug... Start Date: 10/26/20 Status: Ordered Lyrica 150 mg oral capsule [...]
--- OUTSIDE RECORDS SUMMARY | 2024-01-22 11:12 | XMS_ITS | Continuity of Care Document ---
Author Organization [facility] Address [address] [place] [address]- Care Team Providers Care Construction Trades Contractor Name Role Phone Danis PAPPAS, Elda Salazar Primary Care Physician [id number] Date(s): 11/08/20 - 11/08/[address] [address]- Discharge Disposition: Transferred [facility]term [facility] hospit Attending Physician: Porter Murphy MD Admitting Physician: Porter Murphy MD Referring Physician: Not on Staff, Referring [...] Note: VIS GIVEN: 03/18/2011 2Result Comment: lot [id number] 09/21/2006 3Admin Note: VIS 05/29/09 GIVEN Medications folic acid 1 mg oral tablet 1 mg, 1, tablet, By Mouth, Daily, # 30 tablet, Refills 2, Tot. Refills 2, Maintenance, 10/26/20 15:22:00 EST, Route to Pharmacy Electronically, [facility] # 86, Partial fill upon patient [...] oldest [Reference Range]: 1 Height 168 cm (11/08/20 12:55 PM) Weight 116.3 kg (11/08/20 12:55 PM) Oxygen Saturation [94-100 %] 98 % (11/08/20 12:55 PM) Pulse Rate [55-90 bpm] 76 bpm (11/08/20 12:55 PM) Blood Pressure [90-138/55-84 mm Hg] 153/ 91mm Hg *H* (11/08/20 12:55 PM) Respiratory Rate [16-30 br/min] 18 br/mi n (11/08/20 12:55 PM) Temperature [96.8-100.4 DegF] 98 DegF (11/08/20 12:55 PM) Mode of Delivery (Oxygen) Room air (11/08/20 12:55 PM) Dry Weight 116.3 kg (11/08/20 12:55 PM) Social History Social History Type Response Smoking Status Never (less than 100 in lifetime); Tobacco user in household: No entered on: 07/26/18 Sex
--- OUTSIDE RECORDS SUMMARY | 2024-01-22 11:12 | XMS_ITS | Continuity of Care Document ---
Author Organization [facility] Address [address] [place] [address]- Care Team Providers Care Package Crimper Name Role Phone Ronny DYE BOARDING MACHINE OPERATOR, Ofelia Acosta Primary Care Physician [phone] Encounter [facility] Date(s): 03/02/23 - 04/01/23 [facility] [address] [place] [address]- Encounter Diagnosis Viral URI(Discharge Diagnosis) - 12/01/19 Open wound of abdominal wall(Discharge Diagnosis) - 12/01/19 Attending Physician: Admtrini, Adriano Admitting Physician: Admtr, ArMohan Referring Physician: Admtr, Ar8 Allergies, Adverse Reactions, [...] Note: VIS GIVEN: 03/18/2011 2Result Comment: lot [id number] 09/21/2006 3Admin Note: VIS 05/29/09 GIVEN Medications [...] AM, # 30 capsule, 0 Refills, Maintenance, 03/25/23 16:27:00 EDT, ER Capsule, [facility], please only fill on/after exact due date, 1 capsule By Mouth Daily in AM,x30 days, 165, cm, 01/21/23 11:55:00 EDT,... Start Date: 03/25/23 Stop Date: 04/24/23 Status: Ordered amLODIPine 2.5 mg oral tablet 1 tablet = 2.5 mg, By Mouth, Daily, # 90 tablet, 1 Refills, Maintenance, 11/14/22 13:47:00 EDT, Tablet, [facility], Partial fill upon patient request if the prescription is for a schedule IIopioid drug., 168, cm, 10/22/22 10:35:00 ESTHair... Start Date: 11/14/22 Status: Ordered amphetamine-dextroamphetamine 10 mg oral tablet 1 tablet = 10 mg, By Mouth, 2 times a day, # 60 tablet, 0 Refills, Maintenance, 03/25/23 16:26:00 EDT, [facility], fill on date due, 1 tablet By Mouth 2 times a day,x30 days, 165, cm, 01/21/23 11:55:00 EDT, Height, 118.3, kg, 12/16/22 20:23:0... Start Date: 03/25/23 Stop Date: 04/24/23 Status: Ordered clonazePAM 0.5 mg oral tablet 1 tablet = 0.5 mg, By Mouth, 3 times a day, NEEDED FOR ANXIETY, # 90 tablet, 3 Refills, Maintenance, 02/27/23 14:38:00 EDT, Tablet, [facility], 165, cm, 01/21/23 [...] Pharmacy Electronically, [facility], 168, cm, 10/07/22 [...] tablet, 3 Refills, Maintenance, 02/27/23 14:38:00 EDT, [facility], 165, cm, 01/21/23 11:55:00 EDT, Height, 118.3, kg, 12/16/22 20:23:00 EDT, Dry Weight Start Date: 02/27/23 Stop Date: 06/27/23 Status: Ordered ibuprofen 800 mg oral tablet 800 mg, 1, tablet, By Mouth, 3 times a day, for 30 days, # 90 tablet, Refills 1, Tot. Refills 1, Acute 05/26/23 13:40:00 EDT, 03/27/23 13:40:00 EDT, Route to Pharmacy Electronically, [facility], Partial fill upon patient request if the prescr... Start Date: 03/27/23 Stop Date: 05/26/23 Status: Ordered LaMICtal 200 mg oral tablet 2 tablet = 400 mg, By Mouth, Daily at bedtime, # 60 tablet, 3 Refills, Maintenance, 02/27/23 14:38:00 EDT, Tablet, [facility], 165, cm, 01/21/23 11:55:00 EDT, Height, 118.3, kg, 12/16/22 20:23:00 EDT, Dry Weight Start Date: 02/27/23 Stop Date: 06/27/23 Status: Ordered lamotrigine 100 mg oral tablet 100 mg, 1, tablet, By Mouth, Daily in AM, # 30 tablet, Refills 3, Tot. Refills 3, Maintenance, 02/27/23 14:39:00 EDT, Route to Pharmacy Electronically, [facility], 165, cm, 01/21/23 11:55:00EDT, [...] 0 Refills, Maintenance, 11/10/22 10:55:00 EDT, RECPowder, [facility], test date 01/14 .... Start Date: 11/10/22 Status: Ordered omeprazole 40 mg oral enteric coated capsule 1 capsule, By Mouth, 2 times a day, # 60 capsule, 5 Refills, Maintenance, 02/04/23 7:33:00 EDT, [facility], 165, cm, 01/21/23 11:55:00 [...] tablet, 0 Refills, Maintenance, 01/21/23 16:49:00 EDT, [facility] # [facility], Partial fill upo... Start Date: 01/21/23 Status: Ordered Suprep Bowel Prep Kit oral liquid 177 mL, By Mouth, Once, split prep, # 354 mL, 0 Refills, Soft Stop, 12/01/22 14:37:00 EDT, [facility], Partial fill upon patient request if the prescription is for a schedule II opioid drug., 177 mL By Mouth Once,Instr:split prep, 165, cm, 04... Start Date: 12/01/22 Status: Ordered Trulicity Pen 1.5 mg/0.5 mL subcutaneous solution 0.5 mL = 1.5 mg, Subcutaneous Injection, Every week, rotate injection sites, # 2 mL, 0 Refills, Maintenance, 03/25/23 18:32:00 EDT, Solution, [facility], Partial fill upon patient request ifthe prescription is for a schedule II opioid drug.,... Start Date: 03/25/23 Status: Ordered Vitamin D3 5000 intl units oral tablet 1 tablet, By Mouth, Daily, # 30 tablet, 5 Refills, Maintenance, 03/08/23 21:40:00 EDT, [facility], 165, cm, 01/21/23 11:55:00 EDT, Height, 118.3, kg, 12/16/22 20:23:00 EDT, Dry Weight Start Date: 03/08/23 Status: Ordered Wellbutrin XL 150 mg/24 hours oral tablet, extended release 1 tablet = 150 mg, By Mouth, Every 24 hours, With the Wellbutrin 300 mg TDD 450 mg, # 30 tablet, 3 Refills, Maintenance, 02/27/23 14:37:00 EDT, ER Tablet, [facility] # [...] Refills, Maintenance, 02/27/23 14:37:00 EDT, ER Tablet, [facility], Ok for fill early - patient has never lost or needed early refills before, 165, cm,... Start Date: 02/27/23 Status: Ordered ziprasidone 60 mg oral capsule 1 capsule = 60 mg, By Mouth, Daily at bedtime, # 7 capsule, 0 Refills, Maintenance, 01/28/23 14:16:00 EDT, [facility], please fill this script early as pt in going on vacation and will not have enough pills to get through when she returns- th... Start Date: 01/28/23 Stop Date: 02/04/23 Status: Ordered ziprasidone 60 mg oral capsule 1 capsule = 60 mg, By Mouth, Daily at bedtime, # 30 capsule, 3 Refills, Maintenance, 02/27/23 14:39:00 EDT, [facility] # [facility], Partial fill upon patient [...] Stop 04/11/23 8:55:00 EDT, 12/12/22 8:55:00 EDT, [facility], dose reduction, 165, cm, 12/01/22 14:13:00 EDT, Height, 118.3, kg, ... Start Date: 12/12/22 Stop Date: 04/11/23 Status: Ordered ziprasidone 80 mg oral capsule 1 capsule = 80 mg, By Mouth, Daily at bedtime, TDD = 140mg/day Okay to fill early due to vacation.,# 7 capsule, 0 Refills, Maintenance, 02/27/23 14:39:00 EDT, [facility], dose reduction, 165, cm, [...] Team Personnel Name: Anabel Roblero [place] Position: [facility] RN Member Role: Primary Care Nurse Name: Isa Ward Position: [facility] RN Member Role: Primary Care Nurse Name: Ofelia Jefferson NP Position: [facility] Associate Professional Member Role: PCP Address: Address: [address] [place] [address] [place] [address]- Name: Tommy Kohli MD Position: [facility] Physician - Behavioral Health Member Role: Lifetime Consulting Physician Address: Address: [address] [place] [address]- Care Team Related Persons Name: WILLEM SIMON III Address: [place] [address] Name: WILLEM SIMON JR Address: home [address] [place] [address]
--- OUTSIDE RECORDS SUMMARY | 2024-01-22 11:12 | XMS_ITS | Continuity of Care Document ---
Author Organization [facility] Address [address] [place] [address]- Care Team Providers Care Manager Track Name Role Phone Stacie Rendon NP Primary Care Physician Encounter [facility] Date(s): 01/04/21 - 02/03/21 [facility] [address] [place] [address]- Attending Physician: Adriano Becker Admitting Physician: Adriano Becker Referring Physician: AdmtrAdriano Allergies, Adverse Reactions, Alerts Substance Reaction Severity [...] Note: VIS GIVEN: 03/18/2011 2Result Comment: lot [id number] 09/21/2006 3Admin Note: VIS 05/29/09 GIVEN Medications [...]
--- OUTSIDE RECORDS SUMMARY | 2024-01-22 11:12 | XMS_ITS | Continuity of Care Document ---
Author Organization [facility] Address [address] [place] [address]- Care Team Providers Care Head Cd Reactor Operator Name Role Phone Ronny VARNISH SUPERVISOR, Ofelia Acosta Primary Care Physician Encounter [facility] Date(s): 10/29/22 - 11/28/22 [facility] [address] [place] [address]- Allergies, Adverse Reactions, Alerts Substance Reaction Severity [...] Note: VIS GIVEN: 03/18/2011 2Result Comment: lot [id number] 09/21/2006 3Admin Note: VIS 05/29/09 GIVEN Medications [...] Refills, Maintenance, 11/26/22 13:26:00 EDT, ER Capsule, [facility], please only fill on/after exact due date, 1 capsule By Mouth Daily in AM,x30 days, 165, cm, 11/22/22 10:40:00 EDT,... Start Date: 11/26/22 Stop Date: 12/26/22 Status: Ordered amLODIPine 2.5 mg oral tablet 1 tablet = 2.5 mg, By Mouth, Daily, # 90 tablet, 1 Refills, Maintenance, 11/14/22 13:47:00 EDT, Tablet, [facility], Partial fill upon patient request if the prescription is for a schedule IIopioid drug., 168, cm, 10/22/22 10:35:00 EST, Heigh... Start Date: 11/14/22 Status: Ordered amphetamine-dextroamphetamine 10 mg oral tablet 1 tablet = 10 mg, By Mouth, 2 times a day, # 60 tablet, 0 Refills, Maintenance, 11/21/22 10:00:00 EDT, [facility], ., 1 tablet By Mouth 2 times a day,x30 days, 168, cm, 10/22/22 10:35:00 EST, Height, 112, kg, 04/22/22 14:00:00 EDT, Dry Weight Start Date: 11/21/22 Stop Date: 12/21/22 Status: Ordered cholecalciferol 5000 intl units oral tablet 1 tablet = 125 mcg, By Mouth, Daily, # 30 tablet, 3 Refills, Maintenance, 10/22/22 10:51:00 EST, Tablet, [facility], Partial fill upon patient request if the prescription is for a schedule II opioid drug., 168, cm, 10/22/22 10:35:00 EST, Heig... Start Date: 10/22/22 Stop Date: 02/19/23 Status: Ordered clonazePAM 0.5 mg oral tablet 1 tablet = 0.5 mg, By Mouth, 3 times a day, NEEDED FOR ANXIETY, # 90 tablet, 3 Refills, Maintenance, 10/17/22 8:57:00 EST, Tablet, [facility], 168, cm, 10/07/22 10:08:00 EST, Height, 112,kg, 04/22/22 14:00:00 EDT, Dry Weight Start Date: 10/17/22 Stop Date: 02/14/23 Status: Ordered docusate sodium 100 mg oral capsule See Instructions, TAKE 1 CAPSULE ONE TO TWO TIMES A DAY FOR CONSTIPATION, # 20 capsule, 0 Refills, [facility], 168, cm, 08/01/21 17:36:00 EST, Height, 115, kg, 08/01/21 17:36:00 EST, Dry Weight Start Date: 10/31/21 Status: Ordered doxycycline hyclate 100 mg oral capsule 1 capsule = 100 mg, By Mouth, 2 times a day, for 10 days, # 20 capsule, 0 Refills, Acute 12/02/22 12:24:00 EDT, 11/22/22 12:24:00 EDT, Capsule, [facility], Partial fill upon patient request if the prescription is for a schedule II opioid drug... Start Date: 11/22/22 Stop Date: 12/02/22 Status: Ordered folic acid 1 mg oral tablet See Instructions, TAKE 1 TABLET BY MOUTH DAILY, # 30 tablet, Refills 5, Tot. Refills 5, Maintenance, 10/12/22 20:53:00 EST, Instructions Replace Required Details, Route to Pharmacy Electronically, [facility], 168, cm, 10/07/22 [...] 1 Refills, Maintenance, 10/22/22 10:50:00 EST, Tablet, [facility], Partial fill upon patient request if the prescription is for a schedule II opioid drug., 168, cm, 10/22/22 10:35:00 ES... Start Date: 10/22/22 Status: Ordered LaMICtal 200 mg oral tablet 2 tablet = 400 mg, By Mouth, Daily at bedtime, # 60 tablet, 3 Refills, Maintenance, 10/17/22 8:58:00 EST, Tablet, [facility], Ok for fill early - patient has never lost or needed early refills before, 168, cm, 10/07/22 10:08:00 EST, Height, 1... Start Date: 10/17/22 Stop Date: 02/14/23 Status: Ordered lamotrigine 100 mg oral tablet 100 mg, 1, tablet, By Mouth, Daily in AM, # 30 tablet, Refills 3, Tot. Refills 3, Maintenance, 10/17/22 8:58:00 EST, Route to Pharmacy Electronically, [facility], Ok for fill [...] 0 Refills, Maintenance, 11/10/22 10:55:00 EDT, Vicente, [facility], test date 01/14 .... Start Date: 11/10/22 Status: Ordered omeprazole 40 mg oral enteric coated capsule 1 capsule, By Mouth, 2 times a day, # 60 capsule, 2 Refills, Maintenance, 11/11/22 12:20:00 EDT, [facility], 168, cm, 10/22/22 [...] capsule, 3 Refills, Maintenance, 10/17/22 8:58:00 EST, [facility], Partial fill upon patient request if the prescription is for a keith... Start Date: 10/17/22 Status: Ordered ziprasidone 80 mg oral capsule 1 capsule = 80 mg, By Mouth, Daily at bedtime, TDD = 160mg/day, # 30 capsule, 3 Refills, Maintenance, 10/17/22 8:59:00 EST, [facility], Partial fill upon [...] Care Team Personnel Name: Anabel Vyas Position: [facility] RN Member Role: Primary Care Nurse Name: Isa Ward Position: [facility] RN Member Role: Primary Care Nurse Name: Ofelia Jefferson NP Position: [facility] Associate Professional Member Role: PCP Address: Address: [address] [place] [address] [place] [address]- Name: Tommy Kohli MD Position: [facility] Psychiatry MD Member Role: Lifetime Consulting Physician Address: Address: [address] [place] [address]- Care Team Related Persons Name: WILLEM SIMON III Address: [place] [address] Name: WILLEM SIMON JR Address: home [address] [place] [address]
--- OUTSIDE RECORDS SUMMARY | 2024-01-22 11:12 | XMS_ITS | Continuity of Care Document ---
Author Organization [facility] [place] Address [address] [place] [address]- Care Team Providers Care Endoscopy Registered Nurse Name Role Phone Ronny PAPPAS, Ofelia Acosta Primary Care Physician Encounter [facility] Date(s): 02/18/23 - 03/20/23 [facility] [address] [place] [address]- Allergies, Adverse Reactions, Alerts Substance Reaction Severity [...] Note: VIS GIVEN: 03/18/2011 2Result Comment: lot [id number] 09/21/2006 3Admin Note: VIS 05/29/09 GIVEN Medications [...] Refills, Maintenance, 02/23/23 14:44:00 EDT, ER Capsule, [facility], please only fill [...] IIopioid drug., 168, cm, 10/22/22 10:35:00 EST, Hair... Start Date: 11/14/22 Status: Ordered amphetamine-dextroamphetamine 10 mg oral tablet 1 tablet = 10 mg, By Mouth, 2 times a day, NO EARLY REFILLS, # 60 tablet, 0 Refills, Maintenance, 02/23/23 14:44:00 EDT, [facility], fill on date [...] Replace Required Details, Route to Pharmacy Electronically, [facility], 168, cm, 10/07/22 [...] tablet, 3 Refills, Maintenance, 02/27/23 14:38:00 EDT, [facility], 165, cm, 01/21/23 11:55:00 EDT, Height, 118.3, kg, 12/16/22 20:23:00 EDT, Dry Weight Start Date: 02/27/23 Stop Date: 06/27/23 Status: Ordered LaMICtal 200 mg oral tablet 2 tablet = 400 mg, By Mouth, Daily at bedtime, # 60 tablet, 3 Refills, Maintenance, 02/27/23 14:38:00 EDT, Tablet, [facility], 165, cm, 01/21/23 11:55:00 EDT, Height, 118.3, kg, 12/16/22 20:23:00 EDT, Dry Weight Start Date: 02/27/23 Stop Date: 06/27/23 Status: Ordered lamotrigine 100 mg oral tablet 100 mg, 1, tablet, By Mouth, Daily in AM, # 30 tablet, Refills 3, Tot. Refills 3, Maintenance, 02/27/23 14:39:00 EDT, Route to Pharmacy Electronically, [facility], 165, cm, 01/21/23 11:55:00EDT, [...] 0 Refills, Maintenance, 11/10/22 10:55:00 EDT, [facility], [facility], test date 01/14 .... Start Date: 11/10/22 Status: Ordered omeprazole 40 mg oral enteric coated capsule 1 capsule, By Mouth, 2 times a day, # 60 capsule, 5 Refills, Maintenance, 02/04/23 7:33:00 EDT, [facility], 165, cm, [...] tablet, 0 Refills, Maintenance, 01/21/23 16:49:00 EDT, [facility], Partial fill upo... Start Date: 01/21/23 Status: Ordered Suprep Bowel Prep Kit oral liquid 177 mL, By Mouth, Once, split prep, # 354 mL, 0 Refills, Soft Stop, 12/01/22 14:37:00 EDT, [facility], Partial fill upon patient request if the prescription is for a schedule II opioid drug., 177 mL By Mouth Once,Instr:split prep, 165, cm, 04... Start Date: 12/01/22 Status: Ordered Trulicity Pen 0.75 mg/0.5 mL subcutaneous solution 0.5 mL = 0.75 mg, Subcutaneous Injection, Every week, rotate injection sites, # 2 mL, 0 Refills, Maintenance, 02/19/23 19:04:00 EDT, Solution, [facility], Partial fill upon patient request if the prescription is for a schedule II opioid drug.... Start Date: 02/19/23 Status: Ordered Vitamin D3 5000 intl units oral tablet 1 tablet, By Mouth, Daily, # 30 tablet, 5 Refills, Maintenance, 03/08/23 21:40:00 EDT, [facility], 165, cm, 01/21/23 11:55:00 EDT, Height, 118.3, kg, 12/16/22 20:23:00 EDT, Dry Weight Start Date: 03/08/23 Status: Ordered Wellbutrin XL 150 mg/24 hours oral tablet, extended release 1 tablet = 150 mg, By Mouth, Every 24 hours, With the Wellbutrin 300 mg TDD 450 mg, # 30 tablet, 3 Refills, Maintenance, 02/27/23 14:37:00 EDT, ER Tablet, [facility], 165, cm, 01/21/23 11:55:00 EDT, Height, 118.3, kg, 12/16/22 20:23:00 EDT, D... Start Date: 02/27/23 Stop Date: 06/27/23 Status: Ordered Wellbutrin XL 300 mg/24 hours oral tablet, extended release 1 tablet = 300 mg, By Mouth, Daily, With the Wellbutrin 150 mg TDD 450 mg, # 30 tablet, 3 Refills, Maintenance, 02/27/23 14:37:00 EDT, ER Tablet, [facility], Ok for fill early - patient has never lost or needed early refills before, 165, cm,... Start Date: 02/27/23 Status: Ordered ziprasidone 60 mg oral capsule 1 capsule = 60 mg, By Mouth, Daily at bedtime, # 7 capsule, 0 Refills, Maintenance, 01/28/23 14:16:00 EDT, [facility], please fill this script early as pt in going on vacation and will not have enough pills to get through when she returns- th... Start Date: 01/28/23 Stop Date: 02/04/23 Status: Ordered ziprasidone 60 mg oral capsule 1 capsule = 60 mg, By Mouth, Daily at bedtime, # 30 capsule, 3 Refills, Maintenance, 02/27/23 14:39:00 EDT, [facility], Partial fill [...] Stop 04/11/23 8:55:00 EDT, 12/12/22 8:55:00 EDT, [facility], dose reduction, 165, cm, 12/01/22 14:13:00 EDT, Height, 118.3, kg, 11/22/2... Start Date: 12/12/22 Stop Date: 04/11/23 Status: [...] Team Personnel Name: Anabel Roblero [place] Position: [facility] RN Member Role: Primary Care Nurse Name: Isa Ward Position: [facility] RN Member Role: Primary Care Nurse Name: Ofelia Jefferson NP Position: [facility] PCO Associate Professional Member Role: PCP Address: Address: [address] [place] [address]- Name: Tommy Kohli MD Position: [facility] Physician - Behavioral Health Member Role: Lifetime Consulting Physician Address: Address: [address] [place] [address]- Care Team Related Persons Name: WILLEM SIMON III Address: [place] [address] Name: WILLEM SIMON JR Address: home [address] [place] [address]
--- OUTSIDE RECORDS SUMMARY | 2024-01-22 11:12 | XMS_ITS | Continuity of Care Document ---
Author Organization [facility] [place] Address [address] [place] [address]- Care Team Providers Care Dairy Feed Worker Name Role Phone Ronny PAPPAS, Ofelia Acosta Primary Care Physician [phone] Encounter [facility] Date(s): 03/25/23 - 04/24/23 [facility] [address] [place] [address]- Allergies, Adverse Reactions, Alerts Substance Reaction Severity [...] Note: VIS GIVEN: 03/18/2011 2Result Comment: lot [id number] 09/21/2006 3Admin Note: VIS 05/29/09 GIVEN Medications [...] AM, # 30 capsule, 0 Refills, Maintenance, 04/23/23 16:13:00 EDT, ER Capsule, [facility], please only fill on/after exact due date, 1 capsule By Mouth Daily in AM,x30 days, 165, cm, 01/21/23 11:55:00 EDT,... Start Date: 04/23/23 Stop Date: 05/23/23 Status: Ordered amLODIPine 2.5 mg oral tablet 1 tablet = 2.5 mg, By Mouth, Daily, # 90 tablet, 1 Refills, Maintenance, 11/14/22 13:47:00 EDT, Tablet, [facility], Partial fill upon patient request if the prescription is for a schedule IIopioid drug., 168, cm, 10/22/22 10:35:00 EST, Hair... Start Date: 11/14/22 Status: Ordered amphetamine-dextroamphetamine 10 mg oral tablet 1 tablet = 10 mg, By Mouth, 2 times a day, # 60 tablet, 0 Refills, Maintenance, 04/23/23 16:13:00 EDT, [facility], fill on date due, 1 tablet By Mouth 2 times a day,x30 days, 165, cm, 01/21/23 11:55:00 EDT, Height, 118.3, kg, 12/16/22 20:23:0... Start Date: 04/23/23 Stop Date: 05/23/23 Status: Ordered clonazePAM 0.5 mg oral tablet 1 tablet = 0.5 mg, By Mouth, 3 times a day, NEEDED FOR ANXIETY, # 90 tablet, 3 Refills, Maintenance, 02/27/23 14:38:00 EDT, Tablet, [facility], 165, cm, 01/21/23 [...] Replace Required Details, Route to Pharmacy Electronically, [facility], 168, cm, 10/07/22 [...] tablet, 3 Refills, Maintenance, 02/27/23 14:38:00 EDT, [facility], 165, cm, 01/21/23 11:55:00 EDT, Height, 118.3, kg, 12/16/22 20:23:00 EDT, Dry Weight Start Date: 02/27/23 Stop Date: 06/27/23 Status: Ordered ibuprofen 800 mg oral tablet 800 mg, 1, tablet, By Mouth, 3 times a day, for 30 days, # 90 tablet, Refills 1, Tot. Refills 1, Acute 05/26/23 13:40:00 EDT, 03/27/23 13:40:00 EDT, Route to Pharmacy Electronically, [facility], Partial fill upon patient request if the prescr... Start Date: 03/27/23 Stop Date: 05/26/23 Status: Ordered LaMICtal 200 mg oral tablet 2 tablet = 400 mg, By Mouth, Daily at bedtime, # 60 tablet, 3 Refills, Maintenance, 02/27/23 14:38:00 EDT, Tablet, [facility], 165, cm, 01/21/23 11:55:00 EDT, Height, 118.3, kg, 12/16/22 20:23:00 EDT, Dry Weight Start Date: 02/27/23 Stop Date: 06/27/23 Status: Ordered lamotrigine 100 mg oral tablet 100 mg, 1, tablet, By Mouth, Daily in AM, # 30 tablet, Refills 3, Tot. Refills 3, Maintenance, 02/27/23 14:39:00 EDT, Route to Pharmacy Electronically, [facility], 165, cm, 01/21/23 11:55:00EDT, [...] 0 Refills, Maintenance, 11/10/22 10:55:00 EDT, [facility], [facility] # [facility], test date 01/14 .... Start Date: 11/10/22 Status: Ordered omeprazole 40 mg oral enteric coated capsule 1 capsule, By Mouth, 2 times a day, # 60 capsule, 5 Refills, Maintenance, 02/04/23 7:33:00 EDT, [facility], 165, cm, 01/21/23 11:55:00 EDT, Height, 118.3, kg, 12/16/22 20:23:00 EDT, Dry Weight Start Date: 02/04/23 Status: Ordered ONETOUCH VERIO STRP ONETOUCH VERIO [...] tablet, 0 Refills, Maintenance, 01/21/23 16:49:00 EDT, [facility], Partial fill upo... Start Date: 01/21/23 Status: Ordered Suprep Bowel Prep Kit oral liquid 177 mL, By Mouth, Once, split prep, # 354 mL, 0 Refills, Soft Stop, 12/01/22 14:37:00 EDT, [facility], Partial fill upon patient request if the prescription is for a schedule II opioid drug., 177 mL By Mouth Once,Instr:split prep, 165, cm, 04... Start Date: 12/01/22 Status: Ordered Trulicity Pen 1.5 mg/0.5 mL subcutaneous solution See Instructions, INJECT 0.5ML SUBCUTANEOUSLY ONCE WEEKLY ROTATE INJECTION SITES, # 2 mL, 1 Refills, Maintenance, 04/15/23 7:57:00 EDT, [facility], 165, cm, 01/21/23 11:55:00 EDT, Height, 118.3, kg, 12/16/22 20:23:00 EDT, Dry Weight Start Date: 04/15/23 Status: Ordered Vitamin D3 5000 intl units oral tablet 1 tablet, By Mouth, Daily, # 30 tablet, 5 Refills, Maintenance, 03/08/23 21:40:00 EDT, [facility], 165, cm, 01/21/23 11:55:00 EDT, Height, 118.3, kg, 12/16/22 20:23:00 EDT, Dry Weight Start Date: 03/08/23 Status: Ordered Wellbutrin XL 150 mg/24 hours oral tablet, extended release 1 tablet = 150 mg, By Mouth, Every 24 hours, With the Wellbutrin 300 mg TDD 450 mg, # 30 tablet, 3 Refills, Maintenance, 02/27/23 14:37:00 EDT, ER Tablet, [facility], 165, cm, 01/21/23 11:55:00 EDT, Height, 118.3, kg, 12/16/22 20:23:00 EDT, D... Start Date: 02/27/23 Stop Date: 06/27/23 Status: Ordered Wellbutrin XL 300 mg/24 hours oral tablet, extended release 1 tablet = 300 mg, By Mouth, Daily, With the Wellbutrin 150 mg TDD 450 mg, # 30 tablet, 3 Refills, Maintenance, 02/27/23 14:37:00 EDT, ER Tablet, [facility], Ok for fill early - patient has never lost or needed early refills before, 165, cm,... Start Date: 02/27/23 Status: Ordered ziprasidone 60 mg oral capsule 1 capsule = 60 mg, By Mouth, Daily at bedtime, # 7 capsule, 0 Refills, Maintenance, 01/28/23 14:16:00 EDT, [facility], please fill this script early as pt in going on vacation and will not have enough pills to get through when she returns- ... Start Date: 01/28/23 Stop Date: 02/04/23 Status: Ordered ziprasidone 60 mg oral capsule 1 capsule = 60 mg, By Mouth, Daily at bedtime, # 30 capsule, 3 Refills, Maintenance, 02/27/23 14:39:00 EDT, [facility], Partial fill upon patient request if the prescription is for a schedule II opioid drug., 165, cm, 01/21/23 11:55:00 EDT, H... Start Date: 02/27/23 Stop Date: 06/27/23 Status: Ordered ziprasidone 80 mg oral capsule 1 capsule = 80 mg, By Mouth, Daily at bedtime, TDD = 140mg/day, # 30 capsule, 1 Refills, Maintenance, 04/21/23 11:52:00 EDT, [facility], dose reduction, 165, cm, 01/21/23 11:55:00 EDT, Height, 118.3, kg, 12/16/22 20:23:00 EDT, Dry Weight Start Date: 04/21/23 Status: Ordered Problem List Condition Confirmation Course [...] Team Personnel Name: Anabel Roblero [place] Position: [facility] RN Member Role: Primary Care Nurse Name: Isa Ward Position: [facility] RN Member Role: Primary Care Nurse Name: Ofelia Jefferson NP Position: [facility] PCO Associate Professional Member Role: PCP Address: Address: [address] [place] [address] [place] [address]- [place] Name: Tommy Kohli MD Position: [facility] Physician - Behavioral Health Member Role: Lifetime Consulting Physician Address: Address: [address] [place] [address]- Care Team Related Persons Name: WILLEM SIMON III Address: [place] [address] Name: WILLEM SIMON JR Address: home [address] [place] [address]
--- NOTE | 2024-01-22 11:13 | HO.SPINEOV ---
Intake Visit Reasons: neck pain Intake Note: Ms. Samuel is here today c/o neck pain and leg pain. Consulting Sales Manager Required: No Allergies oxycodone Allergy (Unknown, Verified 03/26/17 00:00) itching No Known Allergies [No Known Allergies*] Allergy (Unverified 05/10/20 16:21) Assessment & Plan Assessment & Plan (1) Cervical radiculopathy: Code(s): M54.12 - Radiculopathy, cervical region Category: Medical Plan Dear Dr Petr Ambriz Thank you for referring Mrs Samuel to our office today. This is a 53-year-old female presents to the office today for evaluation a right sided neck, subscapular and arm pain that has been going on for about a year. It started mostly in her subscapular area, but then steadily progressed to the right side of her neck and now down her arm into her hand with feelings of weakness as well as loss of sensation on her 4th and 5th digits. Over the course of the years she trialed physical therapy but that only made things more aggravated. She also tried Motrin and Tylenol without any relief. She has been smoking marijuana daily to try to help with the pain. She ultimately underwent an MRI just earlier this month and that showed a disc herniation in the right C8 foramen and she found Dr. Han name online and ask for a referral to come see us. 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 Also, the loss of hand strength has been giving her issues as well. PMH: She had a history of lumbar fusion surgery done about 20 years ago and the what sounds like a follow-up surgery done in 2012. She did okay from those surgeries. History of anxiety, depression, hypertension. She is a diabetic but after starting Trulicity, A1c is come down less than 5. She also has a history of hypertension. Denies any history of heart attacks, strokes, lung problems, liver disorder, kidney disorder, bleeding disorder, blood clots, previous neck surgery. She recently fractured her left foot after fall out of bed. She has been walking on crutches. Social hx: She does not smoke cigarettes or use any alcohol but she does use marijuana daily Medications: Lamictal, Zyprexa, amlodipine, Motrin, folic acid, vitamin-D, Prilosec and Trulicity Allergies: Codeine gives her rash, but she does okay with Percocet and Vicodin. Any of the antibiotics such as penicillin or amoxicillin family will give her severe nausea vomiting and whole-body rash. Physical exam: She is awake alert oriented no acute distress, she has hand weakness in the right hand which I would rate as 4-5. She has sensory loss to light touch of her left pinky finger. Reflexes in the triceps and biceps are normal. No Rojas's sign. Imaging review: Cervical MRI done at [facility] shows multilevel degenerative disc disease of the cervical spine, but the most relevant finding here is that she has a disc herniation in the right C8 foramen compressing the right C8 nerve root Impression: 53-year-old female presents with a C8 radiculopathy with MRI findings corresponding to C8 foraminal compression secondary to foraminal disc herniation. The symptoms have been going on over year and have failed conservative treatment. She is developing hand weakness and also has an objective loss of sensation on the C8 dermatome. Dr. Han and I reviewed her films, and offered her C7-T1 anterior cervical diskectomy and fusion. She understands she will need to stop her Motrin Trulicity 1 week before surgery. We have tentatively scheduled her for late March. Pt was given risk and benefits of surgery including but not limited to infection, hematoma , nerve injury,durotomy, weakness,bowel/bladder injury, persistent pain, vocal hoarseness as well as the option to continue with conservative treatment and patient wishes to proceed with surgery. Pt is aware they should stop their motrin, aspirin 7, and Trulicity days prior to surgery. All questions were answered to the best of our ability. If there is anything about this patients medical history that we have overlooked or concerns you have about us proceeding with surgery we would appreciate any input you can offer. Thank you for allowing us to care for your patient. The total time spent with this visit with this patient was 45 minutes reviewing history, physical exam, cervical spine imaging review, and implementation of treatment plan or further diagnostic testing Pritesh Han MD,PhD [facility] Coding Level of Care Code New Pt Level 4 (12442) Diagnoses Cervical radiculopathy M54.12
--- OUTSIDE RECORDS SUMMARY | 2024-01-22 11:13 | XMS_ITS | Continuity of Care Document ---
Author Organization [facility] Address [address] [place] [address]- Care Team Providers Care Pan Pusher Name Role Phone Danis PAPPAS, Elda Salazar Primary Care Physician [phone] Encounter [facility] Date(s): 01/23/20 - 02/22/20 [facility] [address] [place] [address]- [facility] Attending Physician: Adriano Becker Admitting Physician: Adriano [...] Note: VIS GIVEN: 03/18/2011 2Result Comment: lot [id number] 09/21/2006 3Admin Note: VIS 05/29/09 GIVEN Problem [...]
--- OUTSIDE RECORDS SUMMARY | 2024-01-22 11:13 | XMS_ITS | Continuity of Care Document ---
Author Organization [facility] Address [address] [place] [address]- Care Team Providers Care Still Operator Brandy Name Role Phone Danis PAPPAS, Elda Salazar Primary Care Physician [phone] Encounter [facility] Date(s): 11/08/20 - 11/09/[address] [address]- Discharge Disposition: A-D/C Home Attending Physician: Josiah Hughes MD Admitting Physician: Josiah Hughes MD Referring Physician: Not on Staff, Referring [...] Note: VIS GIVEN: 03/18/2011 2Result Comment: lot [id number] 09/21/2006 3Admin Note: VIS 05/29/09 GIVEN Medications folic acid 1 mg oral tablet 1 mg, 1, tablet, By Mouth, Daily, # 30 tablet, Refills 2, Tot. Refills 2, Maintenance, 10/26/20 15:22:00 EST, Route to Pharmacy Electronically, [facility], Partial fill upon patient [...] opioid drug. Start Date: 08/08/20 Status: Ordered MorPHINE Inj 4 mg, Injection, IV Push Slowly, Every 5 minutes for 3 doses/times, PRN for Pain , Moderate, and SBP greater than 100, Routine, 11/08/20 19:12:00 EDT, Stop date Limited # of times Start Date: 11/08/20 Stop Date: 11/09/20 Status: Discontinued Problem List Condition Effective Dates Status Health [...] Vitamin D deficiency(Confirmed) Active 1s/p gastric sleeve Results Radiology Reports * Exam Date Time Procedure Performing Provider Status 11/08/20 10:27 PM Lumbar Spine 2 or 3 Views Debbie Redd; Auth (Verified) Notes: (Lumbar Spine 2 or 3 Views) Reason For Exam: with Pain;Trauma RESULT: Lumbar Spine 2 or 3 Views Lumbar Spine 2 or 3 Views CLINICAL INDICATION: Reason: Trauma; with Pain; Clinical Question(s): Fracture Dislocation COMPARISONS: 04/05/2009 TECHNIQUE: AP, lateral, and coned down LS junction views were obtained. FINDINGS: There are 5 nonrib-bearing lumbar type vertebra. Status post posterior and interbody fusion from L4 to S1 similar in appearance to the prior exam from more than 10 years ago. Lumbar vertebral body heights are maintained. There is no shin-or retrolisthesis. There is mild loss of disc space height at L2-3 and L1-2. This has progressed compared to 2008. IMPRESSION: No lumbar spine fracture. Stable appearance of lumbosacral fusion. Mild disc space narrowing in the upper lumbar spine which has progressed. WSN: [id number] Ordering Physician: Lucy Simmons Dictated By: Sacha Goel MD Dictated Date/Time: 11/08/20 10:32 p Reviewed By: Sacha Goel MD Signed By: Sacha Goel MD Signed Date/Time: 11/08/20 10:32 pm Transcribed By: CSLaila Transcribed Date/Time: 11/08/20 10:28 pm Vital Signs Most recent to oldest [Reference Range]: 1 2 3 Oxygen Saturation [94-100 %] 99 % (11/08/20 9:46 PM) Pulse Rate [55-90 bpm] 62 bpm (11/08/20 9:46 PM) Blood Pressure [90-138/55-84 mm Hg] 134/80mm Hg (11/08/20 9:46 PM) Respiratory Rate [16-30 br/min] 18 br/min (11/08/20 9:46 PM) 18 br/min (11/08/20 9:45 PM) 18 br/min (11/08/20 9:15 PM) Temperature [96.8-100.4 DegF] 98.0 DegF (11/08/20 9:46 PM) Mode of Delivery (Oxygen) Room air (11/08/20 9:46 PM) Blood pressure sites Arm, right (11/08/20 9:46 PM) Temperature Route Oral (11/08/20 9:46 PM) Social History Social History Type Response Smoking Status Never (less than 100 in lifetime); Tobacco user in household: No entered on: 07/26/18 Sex
--- OUTSIDE RECORDS SUMMARY | 2024-01-22 11:13 | XMS_ITS | Continuity of Care Document ---
Author Organization [facility] [place] Address [address] [place] [address]- Care Team Providers Care Ibm Bpm Developer Name Role Phone Ronny METAL FURNITURE PANEL COVERER, Ofelia Acosta Primary Care Physician Encounter [facility] Date(s): 11/18/23 - 12/18/23 [facility] [address] [place] [address]- Allergies, Adverse Reactions, Alerts Substance Reaction Severity [...] Note: VIS GIVEN: 03/18/2011 2Result Comment: lot [id number] 09/21/2006 3Admin Note: VIS 05/29/09 GIVEN Medications [...] Refills, Maintenance, 12/01/23 15:45:00 EDT, ER Capsule, [facility], fill when due, 1 capsule By Mouth Daily in AM,x30 days, 165, cm, 11/06/23 8:10:00 EDT, Height, 110.1, kg, 10/28/23... Start Date: 12/01/23 Stop Date: 12/31/23 Status: Ordered amLODIPine 2.5 mg oral tablet 1 tablet, By Mouth, Daily, # 90 tablet, 1 Refills, Maintenance, 07/24/23 15:00:00 EST, [facility], 165, cm, 05/25/23 14:40:00 EDT, Height, 118.3, kg, 12/16/22 20:23:00 EDT, Dry Weight Start Date: 07/24/23 Status: Ordered amphetamine-dextroamphetamine 10 mg oral tablet 1 tablet = 10 mg, By Mouth, 2 times a day, # 60 tablet, 0 Refills, Maintenance, 12/01/23 15:45:00 EDT, [facility], fill on date [...] 3 Refills, Maintenance, 11/06/23 9:04:00 EDT, Capsule, [facility], Partial fill upon patient request if the prescription is for a schedule II opioid drug., 165, cm, 10/22... Start Date: 11/06/23 Stop Date: 03/05/24 Status: Ordered clonazePAM 0.5 mg oral tablet 1 tablet = 0.5 mg, By Mouth, 3 times a day, NEEDED FOR ANXIETY, # 90 tablet, 3 Refills, Maintenance, 12/01/23 15:45:00 EDT, Tablet, [facility], 165, cm, 11/06/23 [...] 04/29/23 20:24:00 EDT, [facility] to Pharm[facility] Electronically, [facility], 165, cm, 05/25/23 [...] tablet, 3 Refills, Maintenance, 12/01/23 15:46:00 EDT, [facility], 165, cm, 11/06/23 8:10:00 EDT, Height, 110.1, kg, 10/28/23 1:29:00 EST, Dry Weight Start Date: 12/01/23 Stop Date: 03/30/24 Status: Ordered LaMICtal 200 mg oral tablet 2 tablet = 400 mg, By Mouth, Daily at bedtime, # 60 tablet, 3 Refills, Maintenance, 12/01/23 15:46:00 EDT, Tablet, [facility], 165, cm, 11/06/23 8:10:00 EDT, Height, 110.1, kg, 10/28/23 1:29:00 EST, Dry Weight Start Date: 12/01/23 Stop Date: 03/30/24 Status: Ordered lamotrigine 100 mg oral tablet 100 mg, 1, tablet, By Mouth, Daily in AM, # 30 tablet, Refills 3, Tot. Refills 3, Maintenance, 12/01/23 15:46:00 EDT, Route to Pharmacy Electronically, [facility], 165, cm, 11/06/23 [...] 0 Refills, Maintenance, 11/10/22 10:55:00 EDT, [facility], [facility], test date 01/14 .... Start Date: 11/10/22 Status: Ordered omeprazole 40 mg oral enteric coated capsule 1 capsule, By Mouth, 2 times a day, # 180 capsule, 1 Refills, Maintenance, 08/15/23 8:46:00 EST, [facility], 165, cm, 05/25/23 14:40:00 EDT, Height, 118.3, kg, 12/16/22 20:23:00 EDT, Dry Weight Start Date: 08/15/23 Status: Ordered ondansetron 4 mg oral tablet 1 tablet = 4 mg, By Mouth, Every 8 hours, # 21 tablet, 0 Refills, Maintenance, 07/29/23 17:24:00 EST, Tablet, [facility], [...] mL, 0 Refills, Maintenance, 05/25/23 15:17:00 EDT, [facility] # [facility], Partial fill upon patient request if the prescription is for a schedule II opioid drug., 1 bottle 90 minutes prior to s... Start Date: 05/25/23 Status: Ordered Trulicity Pen 1.5 mg/0.5 mL subcutaneous solution See Instructions, INJECT 0.5ML SUBCUTANEOUSLY ONCE WEEKLY ROTATE INJECTION SITES, # 2 mL, 5 Refills, Maintenance, 06/07/23 18:02:00 EDT, [facility], 165, cm, 05/25/23 14:40:00 EDT, Height, 118.3, kg, 12/16/22 20:23:00 EDT, Dry Weight Start Date: 06/07/23 Status: Ordered Vitamin D3 5000 intl units oral tablet 1 tablet, By Mouth, Daily, # 30 tablet, 0 Refills, Maintenance, 10/15/23 11:12:00 EST, [facility], 165, cm, 05/25/23 14:40:00 EDT, Height, 118.3, kg, 12/16/22 20:23:00 EDT, Dry Weight Start Date: 10/15/23 Status: Ordered Wellbutrin XL 300 mg/24 hours oral tablet, extended release 1 tablet = 300 mg, By Mouth, Daily, # 30 tablet, 3 Refills, Maintenance, 12/01/23 15:45:00 EDT, ER Tablet, [facility], 165, cm, 11/06/23 8:10:00 EDT, Height, 110.1, kg, 10/28/23 1:29:00 EST,Dry Weight Start Date: 12/01/23 Stop Date: 03/30/24 Status: Ordered ziprasidone 20 mg oral capsule 1 capsule = 20 mg, By Mouth, Daily at bedtime, # 30 capsule, 3 Refills, Maintenance, 12/01/23 15:56:00 EDT, [facility], dose reduction, 165, [...] Team Personnel Name: Anabel Roblero [place] Position: [facility] RN Member Role: Primary Care Nurse Name: Isa Ward Position: [facility] RN Member Role: Primary Care Nurse Name: Ofelia Jefferson NP Position: [facility] PCO Associate Professional Member Role: PCP Address: Address: [address] [place] [address] [place] [address]- Name: Tommy Kholi MD Position: [facility] Physician - Behavioral Health Member Role: Lifetime Consulting Physician Address: Address: [address] [place] [address]- Care Team Related Persons Name: WILLEM SIMON III Address: [place] [address] Name: WILLEM SIMON JR Address: home [address] [place] [id number]
--- OUTSIDE RECORDS SUMMARY | 2024-01-22 11:13 | XMS_ITS | Continuity of Care Document ---
Author Organization [facility] [place] Address [address] [place] [address]- Care Team Providers Care Typewriter Operator Automatic Name Role Phone Ronny PAPPAS, Ofelia Acosta Primary Care Physician Encounter [facility] Date(s): 02/05/23 - 03/07/23 [facility] [place] [address] [place] [address]- Allergies, Adverse Reactions, Alerts Substance Reaction Severity [...] Note: VIS GIVEN: 03/18/2011 2Result Comment: lot [id number] 09/21/2006 3Admin Note: VIS 05/29/09 GIVEN Medications [...] Refills, Maintenance, 02/23/23 14:44:00 EDT, ER Capsule, [facility], please only fill on/after exact due date, 1 capsule By Mouth Daily in AM,x30 days, 165, cm, 01/21/23 11:55:00 EDT,... Start Date: 02/23/23 Stop Date: 03/25/23 Status: Ordered amLODIPine 2.5 mg oral tablet 1 tablet = 2.5 mg, By Mouth, Daily, # 90 tablet, 1 Refills, Maintenance, 11/14/22 13:47:00 EDT, Tablet, [facility], Partial fill upon patient request if the prescription is for a schedule IIopioid drug., 168, brittney, 10/22/22 10:35:00 EST, Heigh... Start Date: 11/14/22 Status: Ordered amphetamine-dextroamphetamine 10 mg oral tablet 1 tablet = 10 mg, By Mouth, 2 times a day, NO EARLY REFILLS, # 60 tablet, 0 Refills, Maintenance, 02/23/23 14:44:00 EDT, [facility], fill on date due, 1 tablet By Mouth 2 times a day,x30 days,Instr:NO EARLY REFILLS, 165, brittney, 01/21/23 11:55:00... Start Date: 02/23/23 Stop Date: 03/25/23 Status: Ordered cholecalciferol 5000 intl units oral tablet 1 tablet = 125 mcg, By Mouth, Daily, # 30 tablet, 3 Refills, Maintenance, 10/22/22 10:51:00 EST, Tablet, [facility], Partial fill upon [...] Replace Required Details, Route to Pharmacy Electronically, [facility] [...] tablet, 3 Refills, Maintenance, 02/27/23 14:38:00 EDT, [facility], 165, cm, 01/21/23 11:55:00 EDT, Height, 118.3, kg, 12/16/22 20:23:00 EDT, Dry Weight Start Date: 02/27/23 Stop Date: 06/27/23 Status: Ordered LaMICtal 200 mg oral tablet 2 tablet = 400 mg, By Mouth, Daily at bedtime, # 60 tablet, 3 Refills, Maintenance, 02/27/23 14:38:00 EDT, Tablet, [facility], 165, cm, 01/21/23 11:55:00 EDT, Height, 118.3, kg, 12/16/22 20:23:00 EDT, Dry Weight Start Date: 02/27/23 Stop Date: 06/27/23 Status: Ordered lamotrigine 100 mg oral tablet 100 mg, 1, tablet, By Mouth, Daily in AM, # 30 tablet, Refills 3, Tot. Refills 3, Maintenance, 02/27/23 14:39:00 EDT, Route to Pharmacy Electronically, [facility], 165, cm, 01/21/23 11:55:00EDT, [...] 0 Refills, Maintenance, 11/10/22 10:55:00 EDT, RECPowder, [facility], test date [...] tablet, 0 Refills, Maintenance, 01/21/23 16:49:00 EDT, [facility], Partial fill upo... Start Date: 01/21/23 Status: Ordered Suprep Bowel Prep Kit oral liquid 177 mL, By Mouth, Once, split prep, # 354 mL, 0 Refills, Soft Stop, 12/01/22 14:37:00 EDT, [facility], Partial fill upon patient request if the prescription is for a schedule II opioid drug., 177 mL By Mouth Once,Instr:split prep, 165, cm, 04... Start Date: 12/01/22 Status: Ordered Trulicity Pen 0.75 mg/0.5 mL subcutaneous solution 0.5 mL = 0.75 mg, Subcutaneous Injection, Every week, rotate injection sites, # 2 mL, 0 Refills, Maintenance, 02/19/23 19:04:00 EDT, Solution, [facility], Partial fill upon patient request if the prescription is for a schedule II opioid drug.... Start Date: 02/19/23 Status: Ordered Wellbutrin XL 150 mg/24 hours oral tablet, extended release 1 tablet = 150 mg, By Mouth, Every 24 hours, With the Wellbutrin 300 mg TDD 450 mg, # 30 tablet, 3 Refills, Maintenance, 02/27/23 14:37:00 EDT, ER Tablet, [facility], 165, cm, 01/21/23 11:55:00 EDT, Height, 118.3, kg, 12/16/22 20:23:00 EDT, D... Start Date: 02/27/23 Stop Date: 06/27/23 Status: Ordered Wellbutrin XL 300 mg/24 hours oral tablet, extended release 1 tablet = 300 mg, By Mouth, Daily, With the Wellbutrin 150 mg TDD 450 mg, # 30 tablet, 3 Refills, Maintenance, 02/27/23 14:37:00 EDT, ER Tablet, [facility], Ok for fill early - patient has never lost or needed early refills before, 165, cm,... Start Date: 02/27/23 Status: Ordered ziprasidone 60 mg oral capsule 1 capsule = 60 mg, By Mouth, Daily at bedtime, # 7 capsule, 0 Refills, Maintenance, 01/28/23 14:16:00 EDT, [facility], please fill this script early as pt in going on vacation and will not have enough pills to get through when she returns- ... Start Date: 01/28/23 Stop Date: 02/04/23 Status: Ordered ziprasidone 60 mg oral capsule 1 capsule = 60 mg, By Mouth, Daily at bedtime, # 30 capsule, 3 Refills, Maintenance, 02/27/23 14:39:00 EDT, [facility], Partial fill upon [...] Stop 04/11/23 8:55:00 EDT, 12/12/22 8:55:00 EDT, [facility], dose reduction, 165, [...] Team Personnel Name: Anabel Roblero [place] Position: [facility] RN Member Role: Primary Care Nurse Name: Isa Ward Position: [facility] RN Member Role: Primary Care Nurse Name: Ofelia Jefferson NP Position: [facility] Associate Professional Member Role: PCP Address: Address: [address] [place] [address]- Name: Tommy Kohli MD Position: [facility] Physician - Behavioral Health Member Role: Lifetime Consulting Physician Address: Address: [address] [place] [address]- Care Team Related Persons Name: WILLEM SIMON III Address: [place] [address] Name: WILLEM SIMON JR Address: home [address] [place] [address]
--- OUTSIDE RECORDS SUMMARY | 2024-01-22 11:13 | XMS_ITS | Continuity of Care Document ---
Author Organization [facility] Address [address], [address] [place] [address]- Care Team Providers Care Card Table Attendant Name Role Phone Yosvany PAPPAS, Julienne Platt Primary Care Physician ( [phone] [facility] [id number] Date(s): 06/10/21 - 07/10/21 [facility] [address], [address] [place], [place] [address] Attending Physician: Adriano Becker Admitting Physician: Adriano [...] Note: VIS GIVEN: 03/18/2011 2Result Comment: lot [id number] 09/21/2006 3Admin Note: VIS 05/29/09 GIVEN Medications [...]
--- OUTSIDE RECORDS SUMMARY | 2024-01-22 11:13 | XMS_ITS | Continuity of Care Document ---
Author Organization [facility] Address [address] [place] [address]- Care Team Providers Care Relief Driller Name Role Phone Ronny DEALER DEVELOPMENT MANAGER, Ofelia L Primary Care Physician Encounter [facility] Date(s): 04/22/22 - 10/22/[address] [address]- Attending Physician: Chris Toribio MD Admitting Physician: Chris Toribio MD Allergies, Adverse Reactions, Alerts Substance Reaction [...] Note: VIS GIVEN: 03/18/2011 2Result Comment: lot [id number] 09/21/2006 3Admin Note: VIS 05/29/09 GIVEN Medications [...] Refills, Maintenance, 10/17/22 8:56:00 EST, ER Capsule, [facility], please only fill on/after exact due date, 1 capsule By Mouth Daily in AM,x30 days, 168, cm, 10/07/22 10:08:00 EST, H... Start Date: 10/17/22 Stop Date: 11/16/22 Status: Ordered amLODIPine 2.5 mg oral tablet 1 tablet = 2.5 mg, By Mouth, Daily, # 90 tablet, 1 Refills, Maintenance, 05/26/22 17:40:00 EDT, Tablet, [facility], Partial fill upon patient request if the prescription is for a schedule IIopioid drug., 168, cm, 05/15/22 14:37:00 EDT, Heigh... Start Date: 05/26/22 Status: Ordered amphetamine-dextroamphetamine 10 mg oral tablet 1 tablet = 10 mg, By Mouth, 2 times a day, # 60 tablet, 0 Refills, Maintenance, 10/17/22 8:57:00 EST, [facility], ., 1 tablet By Mouth 2 times a day,x30 days, 168, cm, 10/07/22 10:08:00 EST,Height, 112, kg, 04/22/22 14:00:00 EDT, Dry Weight Start Date: 10/17/22 Stop Date: 11/16/22 Status: Ordered cholecalciferol 5000 intl units oral tablet 1 tablet = 125 mcg, By Mouth, Daily, # 30 tablet, 3 Refills, Maintenance, 10/22/22 10:51:00 EST, Tablet, [facility], Partial fill upon patient request if the prescription is for a schedule II opioid drug., 168, cm, 10/22/22 10:35:00 EST, He[facility]... Start Date: 10/22/22 Stop Date: 02/19/23 Status: Ordered clonazePAM 0.5 mg oral tablet 1 tablet = 0.5 mg, By Mouth, 3 times a day, NEEDED FOR ANXIETY, # 90 tablet, 3 Refills, Maintenance, 10/17/22 8:57:00 EST, Tablet, [facility], 168, cm, 10/07/22 10:08:00 EST, Height, 112,kg, 04/22/22 14:00:00 EDT, Dry Weight Start Date: 10/17/22 Stop Date: 02/14/23 Status: Ordered docusate sodium 100 mg oral capsule See Instructions, TAKE 1 CAPSULE ONE TO TWO TIMES A DAY FOR CONSTIPATION, # 20 capsule, 0 Refills, [facility], 168, cm, 08/01/21 17:36:00 EST, Height, 115, kg, 08/01/21 17:36:00 EST, Dry Weight Start Date: 10/31/21 Status: Ordered folic acid 1 mg oral tablet See Instructions, TAKE 1 TABLET BY MOUTH DAILY, # 30 tablet, Refills 5, Tot. Refills 5, Maintenance, 10/12/22 20:53:00 EST, Instructions Replace Required Details, Route to Pharmacy Electronically, [facility], 168, cm, [...] 1 Refills, Maintenance, 10/22/22 10:50:00 EST, Tablet, [facility], Partial fill upon patient request if the prescription is for a schedule II opioid drug., 168, cm, 10/22/22 10:35:00 ES... Start Date: 10/22/22 Status: Ordered LaMICtal 200 mg oral tablet 2 tablet = 400 mg, By Mouth, Daily at bedtime, # 60 tablet, 3 Refills, Maintenance, 10/17/22 8:58:00 EST, Tablet, [facility], Ok for fill early - patient has never lost or needed early refills before, 168, cm, 10/07/22 10:08:00 EST, Height, 1... Start Date: 10/17/22 Stop Date: 02/14/23 Status: Ordered lamotrigine 100 mg oral tablet 100 mg, 1, tablet, By Mouth, Daily in AM, # 30 tablet, Refills 3, Tot. Refills 3, Maintenance, 10/17/22 8:58:00 EST, Route to Pharmacy Electronically, [facility], Ok for fill early - patienthas never lost or needed early refills before, 168,... Start Date: 10/17/22 Stop Date: 02/14/23 Status: Ordered omeprazole 40 mg oral enteric coated capsule See Instructions, TAKE 1 CAPSULE BY MOUTH TWO TIMES A DAY, # 60 capsule, 2 Refills, Maintenance, 08/11/22 12:55:00 EST, [facility], 168, cm, 07/22/22 10:12:00 EST, Height, 112, kg, 04/22/22 14:00:00 EDT, Dry Weight Start Date: 08/11/22 Status: Ordered Wellbutrin XL 150 mg/24 hours oral tablet, extended release 1 tablet = 150 mg, By Mouth, Every 24 hours, With the Wellbutrin 300 mg TDD 450 mg, # 30 tablet, 3 Refills, Maintenance, 10/17/22 8:57:00 EST, ER Tablet, [facility], Ok for fill early - patient has never lost or needed early refills before, 1... Start Date: 10/17/22 Stop Date: 02/14/23 Status: Ordered Wellbutrin XL 300 mg/24 hours oral tablet, extended release 1 tablet = 300 mg, By Mouth, Daily, With the Wellbutrin 150 mg TDD 450 mg, # 30 tablet, 3 Refills, Maintenance, 10/17/22 8:57:00 EST, ER Tablet, [facility], Ok for fill early - patient has never lost or needed early refills before, 168, cm, 0... Start Date: 10/17/22 Status: Ordered ziprasidone 40 mg oral capsule See Instructions, Take one capsule in the morning and 1 capsules at bedtime with an 80mg tab TDD 160mg, # 60 capsule, 3 Refills, Maintenance, 10/17/22 8:58:[facility], Partial fill upon patient request if the prescription is for a keith... Start Date: 10/17/22 Status: Ordered ziprasidone 80 mg oral capsule 1 capsule = 80 mg, By Mouth, Daily at bedtime, TDD = 160mg/day, # 30 capsule, 3 Refills, Maintenance, 10/17/22 8:59:00 EST, [facility], Partial fill upon patient [...] Care Team Personnel Name: Anabel Vyas Position: [facility] RN Member Role: Primary Care Nurse Name: Isa Ward Position: [facility] RN Member Role: Primary Care Nurse Name: Ofelia Jefferson NP Position: [facility] PCO Associate Professional Member Role: PCP Address: Address: [address] [place] [address] [id number] Name: Tommy Kohli MD Position: [facility] Psychiatry MD Member Role: Lifetime Consulting Physician Address: Address: [address] [place] [id number]- Care Team Related Persons Name: WILLEM SIMON III Address: [place] [address] Name: WILLEM SIMON JR Address: home [address] [place] [address]
--- OUTSIDE RECORDS SUMMARY | 2024-01-22 11:13 | XMS_ITS | Continuity of Care Document ---
Author Organization [facility] [place] Address [address] [place] [address]- Care Team Providers Care Transformer Assembly Supervisor Name Role Phone Ronny TITLE SEARCHER, Ofelia Acosta Primary Care Physician Encounter [facility] Date(s): 08/15/23 - 09/14/23 [facility] [place] [address] [place] [address]- Allergies, Adverse Reactions, Alerts Substance Reaction Severity [...] Note: VIS GIVEN: 03/18/2011 2Result Comment: lot [id number] 09/21/2006 3Admin Note: VIS 05/29/09 GIVEN Medications [...] Refills, Maintenance, 08/27/23 9:57:00 EST, ER Capsule, [facility], please only fill on/after exact due date, 1 capsule By Mouth Daily in AM,x30 days, 165, cm, 05/25/23 14:40:00 EDT, H... Start Date: 08/27/23 Stop Date: 09/26/23 Status: Ordered amLODIPine 2.5 mg oral tablet 1 tablet, By Mouth, Daily, # 90 tablet, 1 Refills, Maintenance, 07/24/23 15:00:00 EST, [facility], 165, cm, 05/25/23 14:40:00 EDT, Height, 118.3, kg, 12/16/22 20:23:00 EDT, Dry Weight Start Date: 07/24/23 Status: Ordered amphetamine-dextroamphetamine 10 mg oral tablet 1 tablet = 10 mg, By Mouth, 2 times a day, # 60 tablet, 0 Refills, Maintenance, 08/27/23 9:57:00 EST, [facility], fill on date due, 1 tablet By Mouth 2 times a day,x30 days, 165, cm, 05/25/23 14:40:00 EDT, Height, 118.3, kg, 12/16/22 20:23:00... Start Date: 08/27/23 Stop Date: 09/26/23 Status: Ordered clonazePAM 0.5 mg oral tablet 1 tablet = 0.5 mg, By Mouth, 3 times a day, NEEDED FOR ANXIETY, # 90 tablet, 3 Refills, Maintenance, 09/08/23 15:28:00 EST, Tablet, [facility], 165, cm, 05/25/23 14:40:00 EDT, Height, 118.3, kg, 12/16/22 20:23:00 EDT, Dry Weight Start Date: 09/08/23 Stop Date: 01/06/24 Status: Ordered docusate sodium 100 mg oral [...] 04/29/23 20:24:00 EDT, Route to Pharmacy Electronically, [facility], 165, cm, 01/21/23 [...] tablet, 3 Refills, Maintenance, 05/29/23 13:41:00 EDT, [facility], 165, cm, 05/25/23 14:40:00 EDT, Height, 118.3, kg, 12/16/22 20:23:00 EDT, Dry Weight Start Date: 05/29/23 Stop Date: 09/26/23 Status: Ordered ibuprofen 800 mg oral tablet 1, tablet, By Mouth, 3 times a day, # 90 tablet, Refills 1, Maintenance, 05/25/23 8:49:00 EDT, Route to Pharmacy Electronically, [facility], 165, cm, 01/21/23 11:55:00 EDT, Height, 118.3, kg, 12/16/22 20:23:00 EDT, Dry Weight Start Date: 05/25/23 Status: Ordered LaMICtal 200 mg oral tablet 2 tablet = 400 mg, By Mouth, Daily at bedtime, # 60 tablet, 3 Refills, Maintenance, 09/08/23 15:29:00 EST, Tablet, [facility], 165, cm, 05/25/23 14:40:00 EDT, Height, 118.3, kg, 12/16/22 20:23:00 EDT, Dry Weight Start Date: 09/08/23 Stop Date: 01/06/24 Status: Ordered lamotrigine 100 mg oral tablet 100 mg, 1, tablet, By Mouth, Daily in AM, # 30 tablet, Refills 3, Tot. Refills 3, Maintenance, 09/08/23 15:29:00 EST, Route to Pharmacy Electronically, [facility], 165, cm, 05/25/23 14:40:00EDT, Height, 118.3, kg, 12/16/22 20:23:00 EDT, Dry... Start Date: 09/08/23 Stop Date: 01/06/24 Status: Ordered NuLYTELY with Flavor Packs oral powder for reconstitution 240 mL, By Mouth, Every 10 minutes, split prep method, take 1st half of prep evening before procedure, 2nd half 6 hrs prior to procedure., # 1 each, 0 Refills, Maintenance, 11/10/22 10:55:00 EDT, RECPowder, [facility], test date 01/14 .... Start Date: 11/10/22 Status: Ordered omeprazole 40 mg oral enteric coated capsule 1 capsule, By Mouth, 2 times a day, # 180 capsule, 1 Refills, Maintenance, 08/15/23 8:46:00 EST, [facility], 165, cm, 05/25/23 14:40:00 EDT, Height, 118.3, kg, 12/16/22 20:23:00 EDT, Dry Weight Start Date: 08/15/23 Status: Ordered ondansetron 4 mg oral tablet 1 tablet = 4 mg, By Mouth, Every 8 hours, # 21 tablet, 0 Refills, Maintenance, 07/29/23 17:24:00 EST, Tablet, [facility], Partial fill upon patient [...] mL, 0 Refills, Maintenance, 05/25/23 15:17:00 EDT, [facility], Partial fill upon patient request if the prescription is for a schedule II opioid drug., 1 bottle 90 minutes prior to s... Start Date: 05/25/23 Status: Ordered Suprep Bowel Prep Kit oral liquid 177 mL, By Mouth, Once, split prep, # 354 mL, 0 Refills, Soft Stop, 12/01/22 14:37:00 EDT, [facility], Partial fill upon patient request if the prescription is for a schedule II opioid drug., 177 mL By Mouth Once,Instr:split prep, 165, cm, 04... Start Date: 12/01/22 Status: Ordered Trulicity Pen 1.5 mg/0.5 mL subcutaneous solution See Instructions, INJECT 0.5ML SUBCUTANEOUSLY ONCE WEEKLY ROTATE INJECTION SITES, # 2 mL, 5 Refills, Maintenance, 06/07/23 18:02:00 EDT, [facility], 165, cm, 05/25/23 14:40:00 EDT, Height, 118.3, kg, 12/16/22 20:23:00 EDT, Dry Weight Start Date: 06/07/23 Status: Ordered Vitamin D3 5000 intl units oral tablet 1 tablet, By Mouth, Daily, # 30 tablet, 0 Refills, Maintenance, 09/08/23 14:41:00 EST, [facility], 165, cm, 05/25/23 14:40:00 EDT, Height, 118.3, kg, 12/16/22 20:23:00 EDT, Dry Weight Start Date: 09/08/23 Status: Ordered Wellbutrin XL 300 mg/24 hours oral tablet, extended release 1 tablet = 300 mg, By Mouth, Daily, # 30 tablet, 2 Refills, Maintenance, 09/08/23 15:28:00 EST, ER Tablet, [facility], 165, cm, 05/25/23 14:40:00 EDT, Height, 118.3, kg, 12/16/22 20:23:00 EDT, Dry Weight Start Date: 09/08/23 Stop Date: 12/07/23 Status: Ordered ziprasidone 60 mg oral capsule 2 capsule = 120 mg, By Mouth, Daily at bedtime, # 60 capsule, 2 Refills, Maintenance, 09/08/23 15:30:00 EST, [facility], Partial fill upon patient request if the prescription is for a schedule II opioid drug., 165, cm, 05/25/23 14:40:00 EDT,... Start Date: 09/08/23 Stop Date: 12/07/23 Status: Ordered Problem List Condition Confirmation Course [...] Team Personnel Name: Anabel Roblero [place] Position: [facility] RN Member Role: Primary Care Nurse Name: Isa Ward Position: [facility] RN Member Role: Primary Care Nurse Name: Ofelia Jefferson NP Position: [facility] Associate Professional Member Role: PCP Address: Address: [address] [place] [address] [place] [address]- Name: Tommy Kohli MD Position: [facility] Physician - Behavioral Health Member Role: Lifetime Consulting Physician Address: Address: [address] [place] [address]- Care Team Related Persons Name: WILLEM SIMON III Address: [place] [address] Name: WILLEM SIMON JR Address: [address] [place] [address]
--- OUTSIDE RECORDS SUMMARY | 2024-01-22 11:13 | XMS_ITS | Continuity of Care Document ---
Author Organization [facility] [place] Address [address] [place] [address]- Care Team Providers Care Lift Slab Operator Name Role Phone Danis PAPPAS, Elda Salazar Primary Care Physician Encounter [facility] NBR [id number] Date(s): 02/22/20 - 03/23/20 [facility] [place] [address] [place] [address]- [facility] Allergies, Adverse Reactions, Alerts Substance Reaction Severity [...] Note: VIS GIVEN: 03/18/2011 2Result Comment: lot [id number] 09/21/2006 3Admin Note: VIS 05/29/09 GIVEN Problem [...]
--- OUTSIDE RECORDS SUMMARY | 2024-01-22 11:13 | XMS_ITS | Continuity of Care Document ---
Author Organization [facility] [place] [facility] [place] Address [address] [place] [address]- Care Team Providers Care Game Bird Farmer Name Role Phone Ronny PAPPAS, Ofelia Acosta Primary Care Physician Encounter [facility] Date(s): 01/01/23 - 01/31/23 [facility] [place] [address] [place] [address]- Allergies, Adverse Reactions, Alerts Substance Reaction Severity [...] Note: VIS GIVEN: 03/18/2011 2Result Comment: lot [id number] 09/21/2006 3Admin Note: VIS 05/29/09 GIVEN Medications [...] Refills, Maintenance, 01/20/23 16:02:00 EDT, ER Capsule, [facility], please only fill on/after exact due date, 1 capsule By Mouth Daily in AM,x30 days, 165, cm, 01/06/23 8:47:00 EDT, H... Start Date: 01/20/23 Stop Date: 02/19/23 Status: Ordered amLODIPine 2.5 mg oral tablet 1 tablet = 2.5 mg, By Mouth, Daily, # 90 tablet, 1 Refills, Maintenance, 11/14/22 13:47:00 EDT, Tablet, [facility], Partial fill upon patient request if the prescription is for a schedule IIopioid drug., 168, brittney, 10/22/22 10:35:00 EST, Heigh... Start Date: 11/14/22 Status: Ordered amphetamine-dextroamphetamine 10 mg oral tablet 1 tablet = 10 mg, By Mouth, 2 times a day, NO EARLY REFILLS, # 60 tablet, 0 Refills, Maintenance, 01/20/23 16:02:00 EDT, [facility], fill on date due, 1 tablet By Mouth 2 times a day,x30 days,Instr:NO EARLY REFILLS, 165, brittney, 01/06/23 8:47:00... Start Date: 01/20/23 Stop Date: 02/19/23 Status: Ordered cholecalciferol 5000 intl units oral tablet 1 tablet = 125 mcg, By Mouth, Daily, # 30 tablet, 3 Refills, Maintenance, 10/22/22 10:51:00 EST, Tablet, [facility], Partial fill upon patient request if the prescription is for a schedule II opioid drug., 168, brittney, 10/22/22 10:35:00 EST, Heig... Start Date: 10/22/22 Stop Date: 02/19/23 Status: Ordered clonazePAM 0.5 mg oral tablet 1 tablet = 0.5 mg, By Mouth, 3 times a day, NEEDED FOR ANXIETY, # 90 tablet, 3 Refills, Maintenance, 12/12/22 8:54:00 EDT, Tablet, [facility], 165, cm, 12/01/22 [...] tablet, 0 Refills, Maintenance, 01/21/23 16:48:00 EDT, [facility], massPAT checked on 01/21/23 [...] 10:55:00 EDT, RECPowder, [facility], [...] Dry Weight Start Date: 11/11/22 Status: Ordered predniSONE 10 mg oral tablet See Instructions, Take with food by mouth daily: Day 1-2: 6 tabs Day 3-4: 5 tabs Day 5-6: 4 tabs Day 7-8: 3 tabs Day 9-10: 2 tabs Day 11-12: 1 tab, # 42 tablet, 0 Refills, Maintenance, 01/21/23 16:49:00 EDT, [facility], Partial fill upo... Start Date: 01/21/23 Status: Ordered Suprep Bowel Prep Kit oral liquid 177 mL, By Mouth, Once, split prep, # 354 mL, 0 Refills, Soft Stop, 12/01/22 14:37:00 EDT, [facility], Partial fill upon patient [...] Refills, Maintenance, 12/12/22 8:53:00 EDT, ER Tablet, [facility], 165, cm, 12/01/22 14:13:00 EDT, Height, 118.3, kg, 11/22/22 10:55:00 EDT, . Start Date: 12/12/22 Stop Date: 04/11/23 Status: Ordered Wellbutrin XL 300 mg/24 hours oral tablet, extended release 1 tablet = 300 mg, By Mouth, Daily, With the Wellbutrin 150 mg TDD 450 mg, # 30 tablet, 3 Refills, Maintenance, 12/12/22 8:53:00 EDT, ER Tablet, [facility], Ok for fill early - patient has never lost or needed early refills before, 165, cm, 0... Start Date: 12/12/22 Status: Ordered ziprasidone 60 mg oral capsule 1 capsule = 60 mg, By Mouth, Daily at bedtime, # 7 capsule, 0 Refills, Maintenance, 01/28/23 14:16:00 EDT, [facility], please fill this script early as pt in going on vacation and will not have enough pills to get through when she returns- ... Start Date: 01/28/23 Stop Date: 02/04/23 Status: Ordered ziprasidone 60 mg oral capsule 1 capsule = 60 mg, By Mouth, Daily at bedtime, # 30 capsule, 3 Refills, Maintenance, 12/12/22 8:55:00 EDT, [facility], Partial fill upon [...] capsule, 0 Refills, Maintenance, 01/28/23 14:32:00 EDT, [facility], dose reduction, 165, cm, 01/21/23 11:55:00 EDT, Height, 118.3, kg, 04... Start Date: 01/28/23 Status: Ordered ziprasidone 80 mg oral capsule 1 capsule = 80 mg, By Mouth, Daily at bedtime, for 30 days, TDD = 140mg/day, # 30 capsule, 3 Refills, Hard Stop 04/11/23 8:55:00 EDT, 12/12/22 8:55:00 EDT, [facility], dose reduction, 165, [...] Team Personnel Name: Anabel Roblero [place] Position: [facility] RN Member Role: Primary Care Nurse Name: Isa Ward Position: [facility] RN Member Role: Primary Care Nurse Name: Ofelia Jefferson NP Position: [facility] PCO Associate Professional Member Role: PCP Address: Address: [address] [place] [address]- Name: Tommy Kohli MD Position: [facility] Physician - Behavioral Health Member Role: Lifetime Consulting Physician Address: Address: [address] [place] [address]- Care Team Related Persons Name: WILLEM SIMON III Address: [place] [address] Name: WILLEM SIMON JR Address: home [address] [place] [address]
--- OUTSIDE RECORDS SUMMARY | 2024-01-22 11:13 | XMS_ITS | Continuity of Care Document ---
Author Organization [facility] Address [address] [place] [address]- Care Team Providers Care Computer Science Intern Name Role Phone Ronny SOLAR INSTALLATION HELPER, Ofelia L Primary Care Physician [phone] Encounter [facility] Date(s): 12/01/22 - 02/05/[address] [address]- Attending Physician: Dane Brothers MD Admitting Physician: [...] Note: VIS GIVEN: 03/18/2011 2Result Comment: lot [id number] 09/21/2006 3Admin Note: VIS 05/29/09 GIVEN Medications [...] Refills, Maintenance, 01/20/23 16:02:00 EDT, ER Capsule, [facility], please only fill on/after exact due date, 1 capsule By Mouth Daily in AM,x30 days, 165, brittney, 01/06/23 8:47:00 EDT, H... Start Date: 01/20/23 Stop Date: 02/19/23 Status: Ordered amLODIPine 2.5 mg oral tablet 1 tablet = 2.5 mg, By Mouth, Daily, # 90 tablet, 1 Refills, Maintenance, 11/14/22 13:47:00 EDT, Tablet, [facility], Partial fill upon patient request if the prescription is for a schedule IIopioid drug., 168, brittney, 10/22/22 10:35:00 EST, Heigh... Start Date: 11/14/22 Status: Ordered amphetamine-dextroamphetamine 10 mg oral tablet 1 tablet = 10 mg, By Mouth, 2 times a day, NO EARLY REFILLS, # 60 tablet, 0 Refills, Maintenance, 01/20/23 16:02:00 EDT, [facility], fill on date due, 1 tablet By Mouth 2 times a day,x30 days,Instr:NO EARLY REFILLS, 165, brittney, 01/06/23 8:47:00... Start Date: 01/20/23 Stop Date: 02/19/23 Status: Ordered cholecalciferol 5000 intl units oral tablet 1 tablet = 125 mcg, By Mouth, Daily, # 30 tablet, 3 Refills, Maintenance, 10/22/22 10:51:00 EST, Tablet, [facility], Partial fill upon patient request if the prescription is for a schedule II opioid drug., 168, brittney, 10/22/22 10:35:00 EST, Heig... Start Date: 10/22/22 Stop Date: 02/19/23 Status: Ordered clonazePAM 0.5 mg oral tablet 1 tablet = 0.5 mg, By Mouth, 3 times a day, NEEDED FOR ANXIETY, # 90 tablet, 3 Refills, Maintenance, 12/12/22 8:54:00 EDT, Tablet, [facility], 165, cm, 12/01/22 14:13:00 EDT, Height, 118.3, kg, 11/22/22 10:55:00 EDT, Dry Weight Start Date: 12/12/22 Stop Date: 04/11/23 Status: Ordered docusate sodium 100 mg oral capsule See Instructions, TAKE 1 CAPSULE ONE TO TWO TIMES A DAY FOR CONSTIPATION, # 20 capsule, 0 Refills, [facility], 168, cm, 08/01/21 17:36:00 EST, Height, 115, kg, 08/01/21 17:36:00 EST, Dry Weight Start Date: 10/31/21 Status: Ordered folic acid 1 mg oral tablet See Instructions, TAKE 1 TABLET BY MOUTH DAILY, # 30 tablet, Refills 5, Tot. Refills 5, Maintenance, 10/12/22 20:53:00 EST, Instructions Replace Required Details, Route to Pharmacy Electronically, [facility], 168, cm, 10/07/22 [...] tablet, 0 Refills, Maintenance, 01/21/23 16:48:00 EDT, [facility], massPAT checked on 01/21/23 for the gabapentin last fill was on 12/24/02 for a 30 day supply (#90), 01/23/23, 165, cm, 01/21/23 11:55:00... Start Date: 01/21/23 Status: Ordered LaMICtal 200 mg oral tablet 2 tablet = 400 mg, By Mouth, Daily at bedtime, # 60 tablet, 3 Refills, Maintenance, 12/12/22 8:54:00 EDT, Tablet, [facility], 165, cm, 12/01/22 14:13:00 EDT, Height, 118.3, kg, 11/22/22 10:55:00 EDT, Dry Weight Start Date: 12/12/22 Stop Date: 04/11/23 Status: Ordered lamotrigine 100 mg oral tablet 100 mg, 1, tablet, By Mouth, Daily in AM, # 30 tablet, Refills 3, Tot. Refills 3, Maintenance, 12/12/22 8:54:00 EDT, Route to Pharmacy Electronically, [facility], 165, cm, 12/01/22 [...] 0 Refills, Maintenance, 11/10/22 10:55:00 EDT, RECPowdraymond, [facility], test date 01/14 .... Start Date: 11/10/22 Status: Ordered omeprazole 40 mg oral enteric coated capsule 1 capsule, By Mouth, 2 times a day, # 60 capsule, 5 Refills, Maintenance, 02/04/23 7:33:00 EDT, [facility], 165, cm, 01/21/23 11:55:00 [...] tablet, 0 Refills, Maintenance, 01/21/23 16:49:00 EDT, [facility], Partial fill upo... Start Date: 01/21/23 Status: Ordered Suprep Bowel Prep Kit oral liquid 177 mL, By Mouth, Once, split prep, # 354 mL, 0 Refills, Soft Stop, 12/01/22 14:37:00 EDT, [facility], Partial fill [...] Refills, Maintenance, 12/12/22 8:53:00 EDT, ER Tablet, [facility], 165, cm, 12/01/22 14:13:00 EDT, Height, 118.3, kg, 11/22/22 10:55:00 EDT, .. Start Date: 12/12/22 Stop Date: 04/11/23 Status: Ordered Wellbutrin XL 300 mg/24 hours oral tablet, extended release 1 tablet = 300 mg, By Mouth, Daily, With the Wellbutrin 150 mg TDD 450 mg, # 30 tablet, 3 Refills, Maintenance, 12/12/22 8:53:00 EDT, ER Tablet, [facility], Ok for fill early - patient has never lost or needed early refills before, 165, cm, 0... Start Date: 12/12/22 Status: Ordered ziprasidone 60 mg oral capsule 1 capsule = 60 mg, By Mouth, Daily at bedtime, # 7 capsule, 0 Refills, Maintenance, 01/28/23 14:16:00 EDT, [facility], please fill this script early as pt in going on vacation and will not have enough pills to get through when she returns- ... Start Date: 01/28/23 Stop Date: 02/04/23 Status: Ordered ziprasidone 60 mg oral capsule 1 capsule = 60 mg, By Mouth, Daily at bedtime, # 30 capsule, 3 Refills, Maintenance, 12/12/22 8:55:00 EDT, [facility], Partial fill upon patient [...] capsule, 0 Refills, Maintenance, 01/28/23 14:32:00 EDT, [facility], dose reduction, 165, cm, 01/21/23 11:55:00 EDT, Height, 118.3, kg, 04... Start Date: 01/28/23 Status: Ordered ziprasidone 80 mg oral capsule 1 capsule = 80 mg, By Mouth, Daily at bedtime, for 30 days, TDD = 140mg/day, # 30 capsule, 3 Refills, Hard Stop 04/11/23 8:55:00 EDT, 12/12/22 8:55:00 EDT, [facility], dose reduction, 165, cm, [...] Team Personnel Name: Anabel Roblero [place] Position: [facility] RN Member Role: Primary Care Nurse Name: Isa Ward Position: [facility] RN Member Role: Primary Care Nurse Name: Ofelia Jefferson NP Position: [facility] PCO Associate Professional Member Role: PCP Address: Address: [address] [place] [address] [place] [address]- Name: Tommy Kohli MD Position: [facility] Physician - Behavioral Health Member Role: Lifetime Consulting Physician Address: Address: [address] [place] [address]- Care Team Related Persons Name: WILLEM SIMON III Address: [place] [address] Name: WILLEM SIMON JR Address: [address] [place] [address]
--- OUTSIDE RECORDS SUMMARY | 2024-01-22 11:13 | XMS_ITS | Continuity of Care Document ---
Author Organization [facility] Primary [place] [facility] [place] Address [address] [place] [address]- Care Team Providers Care District Captain Name Role Phone Elda Moscoso NP Primary Care Physician Encounter [facility] NBR [id number] Date(s): 06/22/20 - 09/26/[address] [facility] Care [place] [address] [place] [address]- Attending Physician: Elda Moscoso NP Allergies, Adverse Reactions, Alerts Substance Reaction Severity Status OxyCODONE Hydrochloride Acti ve morphine Persistent Mild Active Immunizations Given and Recorded Vaccine Date Status Refusal Reason influenza virus vaccine, inactivated 06/22/20 Give n influenza virus vaccine, inactivated 06/23/13 Give n influenza virus vaccine, inactivated 1 09/01/11 Gi jackson influenza virus vaccine, inactivated 2 09/20/06 Gi jackson tetanus/diphtheria/pertussis, acel(Tdap) 02/09/14 Given pneumococcal 23-valent vaccine 3 09/01/11 Given 1Admin Note: VIS GIVEN: 03/18/2011 2Result Comment: lot [id number] 09/21/2006 3Admin Note: VIS 05/29/09 GIVEN Medications [...]
--- OUTSIDE RECORDS SUMMARY | 2024-01-22 11:13 | XMS_ITS | Continuity of Care Document ---
Author Organization [facility] Address [address] [place] [address] [address], [address] [place] [address]- Care Team Providers Care Dispatcher Tugboat Name Role Phone Danis PAPPAS, Elda Salazar Primary Care Physician [phone] [facility] Date(s): 11/16/19 - 11/26/[address], [address] [place] [address]- [facility] Attending Physician: Admtr, Adriano Allergies, Adverse Reactions, Alerts Substance Reaction Severity [...] Note: VIS GIVEN: 03/18/2011 2Result Comment: lot [id number] 09/21/2006 3Admin Note: VIS 05/29/09 GIVEN Problem [...]
--- OUTSIDE RECORDS SUMMARY | 2024-01-22 11:13 | XMS_ITS | Continuity of Care Document ---
Author Organization [facility] Primary [place] [facility] [place] Address [address] [place] [address]- Care Team Providers Care Superintendent Name Role Phone Amadou STUART ([facility] [place]), William Quesada Primary Care Ph ysician Encounter [facility] Date(s): 06/05/22 - 07/05/22 [facility] [place] [address] [place] [address]- Allergies, Adverse Reactions, Alerts Substance Reaction Severity [...] Note: VIS GIVEN: 03/18/2011 2Result Comment: lot [id number] 09/21/2006 3Admin Note: VIS 05/29/09 GIVEN Medications [...] tablet, 0 Refills, Maintenance, 07/04/22 8:15:00 EST, [facility], Ok for fill early - patient has never lost or needed early refills before, 1 tablet By Mouth Daily,x30 days, 168, cm, 05/15/22 14:37:00... Start Date: 07/04/22 Stop Date: 08/03/22 Status: Ordered Adderall XR 30 mg oral capsule, extended release 1 capsule = 30 mg, By Mouth, Daily in AM, # 30 capsule, 0 Refills, Maintenance, 07/04/22 8:16:00 EST, ER Capsule, [facility], Ok for fill early - patient has never lost or needed early refills before, 1 capsule By Mouth Daily in AM,x30 days,... Start Date: 07/04/22 Stop Date: 08/03/22 Status: Ordered albuterol 90 mcg/inh inhalation powder 2 puffs, Inhalation, Every 4 hours, PRN as needed, # 1 each, 0 Refills, Maintenance, 08/01/21 20:08:00 EST, Powder, [email or web address], Partial fill upon patient request if the prescription is for aschedule II opioid drug., 2 puffs Inhalation Every... Start Date: 08/01/21 Status: Ordered Ambien 10 mg oral tablet 1 tablet = 10 mg, By Mouth, Daily at bedtime, PRN as needed for insomnia, for 30 days, # 30 tablet,3 Refills, Acute 11/01/22 8:19:00 EST, 07/04/22 8:19:00 EST, Tablet, [facility], 168, cm, 05/15/22 14:37:00 EDT, Height, 112, kg, 04/22/22 14:... Start Date: 07/04/22 Stop Date: 11/01/22 Status: Ordered amLODIPine 2.5 mg oral tablet 1 tablet = 2.5 mg, By Mouth, Daily, # 90 tablet, 1 Refills, Maintenance, 05/26/22 17:40:00 EDT, Tablet, [email or web address], Partial fill upon patient request if the prescription is for a schedule IIopioid drug., 168, cm, 05/15/22 14:37:00 EDT, [facility]... Start Date: 05/26/22 Status: Ordered cholecalciferol 5000 intl units oral tablet 1 tablet = 125 mcg, By Mouth, Daily, # 30 tablet, 3 Refills, Maintenance, 02/07/22 11:35:00 EDT, Tablet, [facility] [...] Maintenance, 07/04/22 8:22:00 EST, Tablet, [facility], Ok for fill early - patient has never lost or needed early refills before, 168, cm, 05/15/22 14:... Start Date: 07/04/22 Stop Date: 11/01/22 Status: Ordered docusate sodium 100 mg oral capsule See Instructions, TAKE 1 CAPSULE ONE TO TWO TIMES A DAY FOR CONSTIPATION, # 20 capsule, 0 Refills, [facility], 168, cm, 08/01/21 17:36:00 EST, Height, 115, kg, 08/01/21 17:36:00 EST, Dry Weight Start Date: 10/31/21 Status: Ordered folic acid 1 mg oral tablet See Instructions, TAKE 1 TABLET BY MOUTH DAILY, # 30 tablet, Refills 3, Maintenance, 06/05/22 5:46:00 EDT, Instructions Replace Required Details, Route to Pharmacy Electronically, [facility], 168, cm, 05/15/22 [...] 3 Refills, Maintenance, 07/04/22 8:17:00 EST, Tablet, [facility], Ok [...] 07/04/22 8:17:00 EST, Route to Pharmacy Electronically, [facility], Ok for [...] capsule, 2 Refills, Maintenance, 04/22/22 12:20:00 EDT, [facility], 168, cm, 04/21/22 [...] capsule, 3 Refills, Maintenance, 07/04/22 8:19:00 EST, [facility], Partial fill [...] information Care Team Personnel Name: Amadou STUART ([facility] [place])William Position: [facility] Primary Care Physician Member Role: PCP Address: Address: [address] [place] [address] Care, [place], [place] [address] Name: Anabel Vyas Position: [facility] RN Member Role: Primary Care Nurse Name: Khurram RICHARDSON Isa Position: [facility] RN Member Role: Primary Care Nurse Name: Tommy Kohli MD Position: [facility] Psychiatry MD Member Role: Lifetime Consulting Physician Address: Address: [address] [place] [address]- Care Team Related Persons Name: WILLEM SIMON III Address: [place] [address] Name: WILLEM SIMON SR Address: [address] [place] [address]
--- OUTSIDE RECORDS SUMMARY | 2024-01-22 11:13 | XMS_ITS | Continuity of Care Document ---
Author Organization [facility] Jimjaneen Bruno [facility] Address [address], [address] [place] [address]- Care Team Providers Care Chemical Lab Technician Name Role Phone Yosvany PAPPAS, Julienne Pltat Primary Care Physician [id number] Date(s[facility] 07/02/21 - 08/01/21 [facility] [address], [address] [place] [address]- Allergies, Adverse Reactions, Alerts Substance Reaction Severity [...] Note: VIS GIVEN: 03/18/2011 2Result Comment: lot [id number] 09/21/2006 3Admin Note: VIS 05/29/09 GIVEN Medications [...]
--- OUTSIDE RECORDS SUMMARY | 2024-01-22 11:13 | XMS_ITS | Continuity of Care Document ---
Author Organization [facility] Address [address] [place] [address]- Care Team Providers Care Business Intelligence Developer Name Role Phone Ronny PAPPAS, Ofelia Acosta Primary Care Physician Encounter [facility] Date(s): 07/29/22 - 11/26/22 [facility] [address] [place] [address]- Attending Physician: Dano Linares MD Referring Physician: Ofelia Jefferson NP Allergies, [...] Note: VIS GIVEN: 03/18/2011 2Result Comment: lot [id number] 09/21/2006 3Admin Note: VIS 05/29/09 GIVEN Medications [...] Refills, Maintenance, 11/26/22 13:26:00 EDT, ER Capsule, [facility], please only fill on/after exact due date, 1 capsule By Mouth Daily in AM,x30 days, 165, cm, 11/22/22 10:40:00 EDT,... Start Date: 11/26/22 Stop Date: 12/26/22 Status: Ordered amLODIPine 2.5 mg oral tablet 1 tablet = 2.5 mg, By Mouth, Daily, # 90 tablet, 1 Refills, Maintenance, 11/14/22 13:47:00 EDT, Tablet, [facility], Partial fill upon patient request if the prescription is for a schedule IIopioid drug., 168, cm, 10/22/22 10:35:00 EST, Heigh... Start Date: 11/14/22 Status: Ordered amphetamine-dextroamphetamine 10 mg oral tablet 1 tablet = 10 mg, By Mouth, 2 times a day, # 60 tablet, 0 Refills, Maintenance, 11/21/22 10:00:00 EDT, [facility], ., 1 tablet By Mouth 2 times a day,x30 days, 168, cm, 10/22/22 10:35:00 EST, Height, 112, kg, 04/22/22 14:00:00 EDT, Dry Weight Start Date: 11/21/22 Stop Date: 12/21/22 Status: Ordered cholecalciferol 5000 intl units oral tablet 1 tablet = 125 mcg, By Mouth, Daily, # 30 tablet, 3 Refills, Maintenance, 10/22/22 10:51:00 EST, Tablet, [facility], Partial fill upon [...] Maintenance, 10/17/22 8:57:00 EST, Tablet, [facility], 168, cm, 10/07/22 [...] EDT, 11/22/22 12:24:00 EDT, Capsule, [facility], 168, cm, 10/07/22 [...] 1 Refills, Maintenance, 10/22/22 10:50:00 EST, Tablet, [facility], Partial fill upon patient request if the prescription is for a schedule II opioid drug., 168, cm, 10/22/22 10:35:00 ES... Start Date: 10/22/22 Status: Ordered LaMICtal 200 mg oral tablet 2 tablet = 400 mg, By Mouth, Daily at bedtime, # 60 tablet, 3 Refills, Maintenance, 10/17/22 8:58:00 EST, Tablet, [facility] [...] 10/17/22 8:58:00 EST, Route to Pharmacy Electronically, [facility], Ok for fill early [...] 0 Refills, Maintenance, 11/10/22 10:55:00 EDT, Vicente, [facility], test date 01/14 .... Start Date: 11/10/22 Status: Ordered omeprazole 40 mg oral enteric coated capsule 1 capsule, By Mouth, 2 times a day, # 60 capsule, 2 Refills, Maintenance, 11/11/22 12:20:00 EDT, [facility], 168, cm, 10/22/22 10:35:00 EST, Height, 112, kg, 04/22/22 14:00:00 EDT, Dry Weight Start Date: 11/11/22 Status: Ordered Wellbutrin XL 150 mg/24 hours oral tablet, extended release 1 tablet = 150 mg, By Mouth, Every 24 hours, With the Wellbutrin 300 mg TDD 450 mg, # 30 tablet, 3 Refills, Maintenance, 10/17/22 8:57:00 EST, ER Tablet, [facility], Ok for fill early - patient has never lost or needed early refills before, 1... Start Date: 10/17/22 Stop Date: 02/14/23 Status: Ordered Wellbutrin XL 300 mg/24 hours oral tablet, extended release 1 tablet = 300 mg, By Mouth, Daily, With the Wellbutrin 150 mg TDD 450 mg, # 30 tablet, 3 Refills, Maintenance, 10/17/22 8:57:00 EST, ER Tablet, [facility], Ok for fill early - patient has never lost or needed early refills before, 168, cm, 0... Start Date: 10/17/22 Status: Ordered ziprasidone 40 mg oral capsule See Instructions, Take one capsule in the morning and 1 capsules at bedtime with an 80mg tab TDD 160mg, # 60 capsule, 3 Refills, Maintenance, 10/17/22 8:58:00 EST, [facility], Partial fill upon patient request if the prescription is for a keith... Start Date: 10/17/22 Status: Ordered ziprasidone 80 mg oral capsule 1 capsule = 80 mg, By Mouth, Daily at bedtime, TDD = 160mg/day, # 30 capsule, 3 Refills, Maintenance, 10/17/22 8:59:00 EST, [facility], Partial fill upon patient [...] Care Team Personnel Name: Anabel Vyas Position: [facility] RN Member Role: Primary Care Nurse Name: Isa Ward Position: [facility] RN Member Role: Primary Care Nurse Name: Ofelia Jefferson NP Position: [facility] PCO Associate Professional Member Role: PCP Address: Address: [address] [place] [address] [place] [address]- Name: Tommy Kohli MD Position: [facility] Psychiatry MD Member Role: Lifetime Consulting Physician Address: Address: [address] [place] [address]- Care Team Related Persons Name: WILLEM SIMON III Address: [place] [address] Name: WILLEM SIMON JR Address: home [address] [place] [address]
--- OUTSIDE RECORDS SUMMARY | 2024-01-22 11:13 | XMS_ITS | Continuity of Care Document ---
Author Organization [facility] Address [address] [place] [address] [address] [place] [address]- Care Team Providers Care Mortarman Name Role Phone Yosvany PAPPAS, Julienne Platt Primary Care Physician ( [phone] Encounter [facility] Date(s): 12/19/21 - 12/26/21 [facility] [address] [place] [address]- Attending Physician: Magalis Chua MD Referring Physician: Yosvany (JADE) Kely Allergies, Adverse Reactions, Alerts Substance Reaction Severity Status OxyCODONE Hydrochloride hives full body itch Active penicillin N&V - Nausea and vomiting [...] Note: VIS GIVEN: 03/18/2011 2Result Comment: lot [id number] 09/21/2006 3Admin Note: VIS 05/29/09 GIVEN Medications [...] oldest [Reference Range]: 1 Height 168 cm (12/19/21 10:28 AM) Weight 115 kg (12/19/21 10:28 AM) Body Mass Index [18.5-24.99] 40.75 *>HHI* (12/19/21 10:28 AM) Dry Weight 115 kg (12/19/21 10:28 AM) Dry Weight Obtained Via Standing scale (12/19/21 10:28 AM) Social History Social History Type Response Smoking Status Never (less than 100 in lifetime); Tobacco user in household: No entered on: 07/26/18 Sex Female
--- OUTSIDE RECORDS SUMMARY | 2024-01-22 11:13 | XMS_ITS | Continuity of Care Document ---
Author Organization [facility] Address [address] [place] [address]- Care Team Providers Care Toy Mechanic Name Role Phone Ronny CLOTH STOCK SORTER, Ofelia Acosta Primary Care Physician [phone] Encounter [facility] Date(s): 07/28/22 - 08/27/22 [facility] [address] [place], [place] [address] Attending Physician: AdmAdriano feliz Admitting Physician: AdmtrAdriano [...] Note: VIS GIVEN: 03/18/2011 2Result Comment: lot [id number] 09/21/2006 3Admin Note: VIS 05/29/09 GIVEN Medications [...] tablet, 0 Refills, Maintenance, 07/29/22 16:06:00 EST, [facility], 1 tablet By Mouth Daily,x30 days, 168, cm, 07/22/22 10:12:00 EST, Height, 112, kg, 04/22/22 14:00:00 EDT, Dry Weight Start Date: 07/29/22 Stop Date: 08/28/22 Status: Ordered Adderall XR 30 mg oral capsule, extended release 1 capsule = 30 mg, By Mouth, Daily in AM, # 30 capsule, 0 Refills, Maintenance, 07/29/22 16:07:00 EST, ER Capsule, [facility], last filled 07/04 [...] 1 Refills, Maintenance, 05/26/22 17:40:00 EDT, Tablet, [facility], Partial fill upon patient request if the prescription is for a schedule IIopioid drug., 168, cm, 05/15/22 14:37:00 EDT, Heigh... Start Date: 05/26/22 Status: Ordered cholecalciferol 5000 intl units oral tablet 1 tablet = 125 mcg, By Mouth, Daily, # 30 tablet, 3 Refills, Maintenance, 02/07/22 11:35:00 EDT, Tablet, [facility], Partial fill upon patient request if the prescription is for a schedule II opioid drug., 168, cm, 02/07/22 11:03:00 EDT, [facility]... Start Date: 02/07/22 Stop Date: 06/07/22 Status: Ordered clonazePAM 0.5 mg oral tablet 1 tablet = 0.5 mg, By Mouth, 3 times a day, NEEDED FOR ANXIETY, # 90 tablet, 3 Refills, Maintenance, 07/04/22 8:22:00 EST, Tablet, [facility], Ok for fill early - patient has never lost or needed early refills before, 168, cm, 05/15/22 14:... Start Date: 07/04/22 Stop Date: 11/01/22 Status: Ordered Diflucan 150 mg oral tablet 1 tablet = 150 mg, By Mouth, Once, PRN vaginal yeast infection, May repeat dose in 48 hours if needed., # 2 tablet, 0 Refills, Soft Stop, 08/23/22 14:55:00 EST, [facility], Partial fill uponpatient request if the prescription is for a schedu... Start Date: 08/23/22 Status: Ordered docusate sodium 100 mg oral capsule See Instructions, TAKE 1 CAPSULE ONE TO TWO TIMES A DAY FOR CONSTIPATION, # 20 capsule, 0 Refills, [facility], 168, cm, 08/01/21 [...] 3 Refills, Maintenance, 07/04/22 8:17:00 EST, Tablet, [facility], Ok for [...] 07/04/22 8:17:00 EST, Route to Pharmacy Electronically, [facility], Ok for fill early - patienthas never lost or needed early refills before, 168,... Start Date: 07/04/22 Stop Date: 11/01/22 Status: Ordered Lyrica 75 mg oral capsule 1 capsule = 75 mg, By Mouth, 2 times a day, # 60 capsule, 0 Refills, Maintenance, 07/22/22 10:44:00EST, Capsule, [facility], Partial fill upon patient request if the prescription is for a schedule II opioid drug., 168, cm, 07/22/22 10:12:00... Start Date: 07/22/22 Status: Ordered nitrofurantoin macrocrystals-monohydrate 100 mg oral capsule 1 capsule = 100 mg, By Mouth, 2 times a day, PRN bladder spasms, for 7 days, # 14 capsule, 0 Refills, Acute 08/30/22 14:56:00 EST, 08/23/22 14:56:00 EST, Capsule, [facility], Partial fill upon patient request if the prescription is for a sche... Start Date: 08/23/22 Stop Date: 08/30/22 Status: Ordered omeprazole 40 mg oral enteric coated capsule See Instructions, TAKE 1 CAPSULE BY MOUTH TWO TIMES A DAY, # 60 capsule, 2 Refills, Maintenance, 08/11/22 12:55:00 EST, [facility], 168, cm, 07/22/22 10:12:00 EST, Height, 112, kg, 04/22/22 14:00:00 EDT, Dry Weight Start Date: 08/11/22 Status: Ordered predniSONE 10 mg oral tablet See Instructions, Take with food by mouth daily: Day 1-2: 6 tabs Day 3-4: 5 tabs Day 5-6: 4 tabs Day 7-8: 3 tabs Day 9-10: 2 tabs Day 11-12: 1 tab, # 42 tablet, 0 Refills, Maintenance, 07/22/22 10:47:00 EST, [facility], Partial fill upo... Start Date: 07/22/22 Status: Ordered Wellbutrin XL 150 mg/24 hours oral tablet, extended release 1 tablet = 150 mg, By Mouth, Every 24 hours, With the Wellbutrin 300 mg TDD 450 mg, # 30 tablet, 3 Refills, Maintenance, 07/04/22 8:16:00 EST, ER Tablet, [facility], Ok for fill early - patient has never lost or needed early refills before, 1... Start Date: 07/04/22 Stop Date: 11/01/22 Status: Ordered Wellbutrin XL 300 mg/24 hours oral tablet, extended release 1 tablet = 300 mg, By Mouth, Daily, With the Wellbutrin 150 mg TDD 450 mg, # 30 tablet, 3 Refills, Maintenance, 07/04/22 8:17:00 EST, ER Tablet, [facility], Ok for fill early - patient has never lost or needed early refills before, 168, cm, 0... Start Date: 07/04/22 Status: Ordered ziprasidone 40 mg oral capsule See Instructions, Take one capsule in the morning and 2 capsules at bedtime dose reduction - TDD 120mg, # 90 capsule, 3 Refills, Maintenance, 07/04/22 8:19:00 [facility], Partial fill upon [...] Active Imaging abnormality Confirmed Active Severe obesity (BMI 35.0-39.9) with comorbidity Confirmed Active Vitamin 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 Social History Social History Type Response Smoking Status Never (less than 100 in lifetime); Tobacco user in household: No entered on: 07/26/18 Sex Female Patient Care team information Care Team Personnel Name: Anabel Vyas Position: [facility] RN Member Role: Primary Care Nurse Name: Isa Ward Position: [facility] RN Member Role: Primary Care Nurse Name: Ofelia Jefferson NP Position: [facility] PCO Associate Professional Member Role: PCP Address: Address: [address] [facility] [place] [address]- Name: Tommy Kohli MD Position: [facility] Psychiatry MD Member Role: Lifetime Consulting Physician Address: Address: [address] [place] [address]- Care Team Related Persons Name: WILLEM SIMON III Address: [place] [address] Name: WILLEM SIMON SR Address: home [address] [place] [address]
--- OUTSIDE RECORDS SUMMARY | 2024-01-22 11:13 | XMS_ITS | Continuity of Care Document ---
Author Organization [facility] [place] Address [address] [place] [address]- Care Team Providers Care Milking Machine Operator Name Role Phone Ronny PAPPAS, Ofelia Acosta Primary Care Physician [phone] [facility] Date(s): 06/07/23 - 07/07/23 [facility] [place] [address] [place] [address]- Allergies, Adverse Reactions, Alerts Substance Reaction Severity [...] Note: VIS GIVEN: 03/18/2011 2Result Comment: lot [id number] 09/21/2006 3Admin Note: VIS 05/29/09 GIVEN Medications [...] Refills, Maintenance, 06/19/23 7:21:00 EDT, ER Capsule, [facility], please only fill on/after exact due date, 1 capsule By Mouth Daily in AM,x30 days, 165, cm, 05/25/23 14:40:00 EDT, H... Start Date: 06/19/23 Stop Date: 07/19/23 Status: Ordered amLODIPine 2.5 mg oral tablet 1 tablet, By Mouth, Daily, # 90 tablet, 0 Refills, Maintenance, 05/30/23 13:07:00 EDT, [facility], 165, cm, 05/25/23 14:40:00 EDT, Height, 118.3, kg, 12/16/22 20:23:00 EDT, Dry Weight Start Date: 05/30/23 Status: Ordered amphetamine-dextroamphetamine 10 mg oral tablet 1 tablet = 10 mg, By Mouth, 2 times a day, # 60 tablet, 0 Refills, Maintenance, 06/19/23 7:21:00 EDT, [facility], fill on date [...] 3 Refills, Maintenance, 05/29/23 13:42:00 EDT, Tablet, [facility], 165, cm, 05/25/23 14:40:00 EDT, Height, 118.3, kg, 12/16/22 20:23:00 EDT, Dry Weight Start Date: 05/29/23 Stop Date: 09/26/23 Status: Ordered docusate sodium 100 mg oral capsule See Instructions, TAKE 1 CAPSULE ONE TO TWO TIMES A DAY FOR CONSTIPATION, # 20 capsule, 0 Refills, [facility], 168, cm, 08/01/21 [...] tablet, 3 Refills, Maintenance, 05/29/23 13:41:00 EDT, [facility], 165, cm, 05/25/23 14:40:00 EDT, Height, 118.3, kg, 12/16/22 20:23:00 EDT, Dry Weight Start Date: 05/29/23 Stop Date: 09/26/23 Status: Ordered ibuprofen 800 mg oral tablet 1, tablet, By Mouth, 3 times a day, # 90 tablet, Refills 1, Maintenance, 05/25/23 8:49:00 EDT, Route to Pharmacy Electronically, [facility], 165, cm, 01/21/23 11:55:00 EDT, Height, 118.3, kg, 12/16/22 20:23:00 EDT, Dry Weight Start Date: 05/25/23 Status: Ordered LaMICtal 200 mg oral tablet 2 tablet = 400 mg, By Mouth, Daily at bedtime, # 60 tablet, 3 Refills, Maintenance, 05/29/23 13:41:00 EDT, Tablet, [facility], 165, cm, 05/25/23 14:40:00 EDT, Height, 118.3, kg, 12/16/22 20:23:00 EDT, Dry Weight Start Date: 05/29/23 Stop Date: 09/26/23 Status: Ordered lamotrigine 100 mg oral tablet 100 mg, 1, tablet, By Mouth, Daily in AM, # 30 tablet, Refills 3, Tot. Refills 3, Maintenance, 05/29/23 13:41:00 EDT, [facility] 0 Refills, Soft Stop, 12/01/22 14:37:00 EDT, [facility], [...] tablet, 5 Refills, Maintenance, 03/08/23 21:40:00 EDT, [facility], 165, cm, 01/21/23 11:55:00 EDT, Height, 118.3, kg, 12/16/22 20:23:00 EDT, Dry Weight Start Date: 03/08/23 Status: Ordered Wellbutrin XL 150 mg/24 hours oral tablet, extended release 1 tablet = 150 mg, By Mouth, Every 24 hours, With the Wellbutrin 300 mg TDD 450 mg, # 30 tablet, 3 Refills, Maintenance, 02/27/23 14:37:00 EDT, ER Tablet, [facility], 165, cm, 01/21/23 11:55:00 EDT, Height, 118.3, kg, 12/16/22 20:23:00 EDT, D... Start Date: 02/27/23 Stop Date: 06/27/23 Status: Ordered Wellbutrin XL 300 mg/24 hours oral tablet, extended release 1 tablet = 300 mg, By Mouth, Daily, # 30 tablet, 3 Refills, Maintenance, 05/29/23 13:42:00 EDT, ER Tablet, [facility], dose reduction - 300mg/day, 165, cm, 05/25/23 14:40:00 EDT, Height, 118.3, kg, 12/16/22 20:23:00 EDT, Dry Weight Start Date: 05/29/23 Stop Date: 09/26/23 Status: Ordered ziprasidone 60 mg oral capsule 1 capsule = 60 mg, By Mouth, Daily at bedtime, # 30 capsule, 3 Refills, Maintenance, 05/29/23 13:41:00 EDT, [facility], Partial fill upon patient request if the prescription is for a schedule II opioid drug., 165, cm, 05/25/23 14:40:00 EDT, H... Start Date: 05/29/23 Stop Date: 09/26/23 Status: Ordered ziprasidone 80 mg oral capsule 1 capsule = 80 mg, By Mouth, Daily at bedtime, TDD = 140mg/day, # 30 capsule, 3 Refills, Maintenance, 05/29/23 13:40:00 EDT, [facility], [...] team information Care Team Personnel Name: Anabel Roblreo MA Position: [facility] RN Member Role: Primary Care Nurse Name: Isa Ward Position: [facility] RN Member Role: Primary Care Nurse Name: Ofelia Jefferson NP Position: [facility] PCO Associate Professional Member Role: PCP Address: Address: [address] [place] [address] [place] [address]- [place] Name: Tommy Kohli MD Position: [facility] Physician - Behavioral Health Member Role: Lifetime Consulting Physician Address: Address: [address] [place] [address]- Care Team Related Persons Name: WILLEM SIMON III Address: [place] [address] Name: WILLEM SIMON JR Address: [address] [place] [address]
--- OUTSIDE RECORDS SUMMARY | 2024-01-22 11:13 | XMS_ITS | Continuity of Care Document ---
Author Organization [facility] [place] Address [address] [place] [address]- Care Team Providers Care Covered Buckle Assembler Name Role Phone Danis PAPPAS, Elda Salazar Primary Care Physician Encounter [facility] [id number] Date(s): 08/10/20 - 09/09/20 [facility] [place] [address] [place] [address]- Allergies, Adverse Reactions, Alerts Substance Reaction Severity [...] Note: VIS GIVEN: 03/18/2011 2Result Comment: lot [id number] 09/21/2006 3Admin Note: VIS 05/29/09 GIVEN Medications [...]
--- OUTSIDE RECORDS SUMMARY | 2024-01-22 11:13 | XMS_ITS | Continuity of Care Document ---
Author Organization [facility] [place] Address [address] [place] [address]- Care Team Providers Care Front End Java Developer Name Role Phone Ronny PAPPAS, Ofelia Acosta Primary Care Physician [phone] Encounter [facility] Date(s): 05/25/23 - 06/24/23 [facility] [address] [place] [address]- Encounter Diagnosis Viral URI(Discharge Diagnosis) - 12/01/19 [...] Note: VIS GIVEN: 03/18/2011 2Result Comment: lot [id number] 09/21/2006 3Admin Note: VIS 05/29/09 GIVEN Medications [...] Refills, Maintenance, 06/19/23 7:21:00 EDT, ER Capsule, [facility], please only fill on/after exact due date, 1 capsule By Mouth Daily in AM,x30 days, 165, cm, 05/25/23 14:40:00 EDT, H... Start Date: 06/19/23 Stop Date: 07/19/23 Status: Ordered amLODIPine 2.5 mg oral tablet 1 tablet, By Mouth, Daily, # 90 tablet, 0 Refills, Maintenance, 05/30/23 13:07:00 EDT, [facility], 165, cm, 05/25/23 14:40:00 EDT, Height, 118.3, kg, 12/16/22 20:23:00 EDT, Dry Weight Start Date: 05/30/23 Status: Ordered amphetamine-dextroamphetamine 10 mg oral tablet 1 tablet = 10 mg, By Mouth, 2 times a day, # 60 tablet, 0 Refills, Maintenance, 06/19/23 7:21:00 EDT, [facility], fill on date [...] 3 Refills, Maintenance, 05/29/23 13:42:00 EDT, Tablet, [facility], 165, cm, 05/25/23 [...] 04/29/23 20:24:00 EDT, Route to Pharmacy Electronically, [facility], 165, cm, 01/21/23 11:55:00 [...] tablet, 3 Refills, Maintenance, 05/29/23 13:41:00 EDT, [facility], 165, cm, 05/25/23 14:40:00 EDT, Height, 118.3, kg, 12/16/22 20:23:00 EDT, Dry Weight Start Date: 05/29/23 Stop Date: 09/26/23 Status: Ordered ibuprofen 800 mg oral tablet 1, tablet, By Mouth, 3 times a day, # 90 tablet, Refills 1, Maintenance, 05/25/23 8:49:00 EDT, Route to Pharmacy Electronically, [facility], 165, cm, 01/21/23 11:55:00 EDT, Height, 118.3, kg, 12/16/22 20:23:00 EDT, Dry Weight Start Date: 05/25/23 Status: Ordered LaMICtal 200 mg oral tablet 2 tablet = 400 mg, By Mouth, Daily at bedtime, # 60 tablet, 3 Refills, Maintenance, 05/29/23 13:41:00 EDT, Tablet, [facility], 165, cm, 05/25/23 14:40:00 EDT, Height, 118.3, kg, 12/16/22 20:23:00 EDT, Dry Weight Start Date: 05/29/23 Stop Date: 09/26/23 Status: Ordered lamotrigine 100 mg oral tablet 100 mg, 1, tablet, By Mouth, Daily in AM, # 30 tablet, Refills 3, Tot. Refills 3, Maintenance, 05/29/23 13:41:00 EDT, Route to Pharmacy Electronically, [facility], 165, cm, 05/25/23 14:40:00EDT, [...] capsule, 5 Refills, Maintenance, 02/04/23 7:33:00 EDT, [facility], 165, cm, 01/21/23 [...] 05/25/23 15:17:00 EDT, [facility] # [...] mL, 5 Refills, Maintenance, 06/07/23 18:02:00 EDT, [facility], 165, cm, 05/25/23 14:40:00 EDT, Height, 118.3, kg, 12/16/22 20:23:00 EDT, Dry Weight Start Date: 06/07/23 Status: Ordered Vitamin D3 5000 intl units oral tablet 1 tablet, By Mouth, Daily, # 30 tablet, 5 Refills, Maintenance, 03/08/23 21:40:00 EDT, [facility], 165, cm, 01/21/23 11:55:00 EDT, Height, 118.3, kg, 12/16/22 20:23:00 EDT, Dry Weight Start Date: 03/08/23 Status: Ordered Wellbutrin XL 150 mg/24 hours oral tablet, extended release 1 tablet = 150 mg, By Mouth, Every 24 hours, With the Wellbutrin 300 mg TDD 450 mg, # 30 tablet, 3 Refills, Maintenance, 02/27/23 14:37:00 EDT, ER Tablet, [facility], 165, cm, 01/21/23 11:55:00 EDT, Height, 118.3, kg, 12/16/22 20:23:00 EDT, D... Start Date: 02/27/23 Stop Date: 06/27/23 Status: Ordered Wellbutrin XL 300 mg/24 hours oral tablet, extended release 1 tablet = 300 mg, By Mouth, Daily, # 30 tablet, 3 Refills, Maintenance, 05/29/23 13:42:00 EDT, ER Tablet, [facility], dose reduction - 300mg/day, 165, cm, 05/25/23 14:40:00 EDT, Height, 118.3, kg, 12/16/22 20:23:00 EDT, Dry Weight Start Date: 05/29/23 Stop Date: 09/26/23 Status: Ordered ziprasidone 60 mg oral capsule 1 capsule = 60 mg, By Mouth, Daily at bedtime, # 30 capsule, 3 Refills, Maintenance, 05/29/23 13:41:00 EDT, [facility], Partial fill upon patient request if the prescription is for a schedule II opioid drug., 165, cm, 05/25/23 14:40:00 EDT, H... Start Date: 05/29/23 Stop Date: 09/26/23 Status: Ordered ziprasidone 80 mg oral capsule 1 capsule = 80 mg, By Mouth, Daily at bedtime, TDD = 140mg/day, # 30 capsule, 3 Refills, Maintenance, 05/29/23 13:40:00 EDT, [facility], dose reduction, 165, cm, [...] Name: Ofelia Jefferson NP Position: [facility] PCO Associate Professional Member Role: PCP Address: Address: [address] [place] [address] [place] [address]- Name: Tommy Kohli MD Position: [facility] Physician - Behavioral Health Member Role: Lifetime Consulting Physician Address: Address: [address] [place] [address]- Care Team Related Persons Name: WILLEM SIMON III Address: [place] [address] Name: WILLEM SIMON JR Address: home [address] [place] [id number]
--- OUTSIDE RECORDS SUMMARY | 2024-01-22 11:13 | XMS_ITS | Continuity of Care Document ---
Author Organization [facility] Address [address] [place] [address]- Care Team Providers Care Pig Machine Operator Name Role Phone Ronny PAPPAS, Ofelia Acosta Primary Care Physician Encounter [facility] Date(s): 07/25/22 - 08/27/22 [facility] [address] [place] [address]- Attending Physician: Yonatan Coreas MD Referring Physician: Ofelia Jefferson NP Allergies, [...] Note: VIS GIVEN: 03/18/2011 2Result Comment: lot [id number] 09/21/2006 3Admin Note: VIS 05/29/09 GIVEN Medications [...] tablet, 0 Refills, Maintenance, 07/29/22 16:06:00 EST, [facility], 1 tablet By Mouth Daily,x30 days, 168, cm, 07/22/22 10:12:00 EST, Height, 112, kg, 04/22/22 14:00:00 EDT, Dry Weight Start Date: 07/29/22 Stop Date: 08/28/22 Status: Ordered Adderall XR 30 mg oral capsule, extended release 1 capsule = 30 mg, By Mouth, Daily in AM, # 30 capsule, 0 Refills, Maintenance, 07/29/22 16:07:00 EST, ER Capsule, [facility], last filled 07/04 -= please only fill on/after exact due date, 1 capsule By Mouth Daily in AM,x30 days, 168, cm, 11... Start Date: 07/29/22 Stop Date: 08/28/22 Status: Ordered albuterol 90 mcg/inh inhalation powder 2 puffs, Inhalation, Every 4 hours, PRN as needed, # 1 each, 0 Refills, Maintenance, 08/01/21 20:08:00 EST, Powder, [facility], Partial fill upon [...] 1 Refills, Maintenance, 05/26/22 17:40:00 EDT, Tablet, [facility], Partial fill upon patient request if the prescription is for a schedule IIopioid drug., 168, cm, 05/15/22 14:37:00 EDT, Heigh... Start Date: 05/26/22 Status: Ordered cholecalciferol 5000 intl units oral tablet 1 tablet = 125 mcg, By Mouth, Daily, # 30 tablet, 3 Refills, Maintenance, 02/07/22 11:35:00 EDT, Tablet, [facility], Partial fill upon patient request if the prescription is for a schedule II opioid drug., 168, cm, 02/07/22 11:03:00 EDT, Heig... Start Date: 02/07/22 Stop Date: 06/07/22 Status: Ordered clonazePAM 0.5 mg oral tablet 1 tablet = 0.5 mg, By Mouth, 3 times a day, NEEDED FOR ANXIETY, # 90 tablet, 3 Refills, Maintenance, 07/04/22 8:22:00 EST, Tablet, [facility], Ok for fill [...] 0 Refills, Soft Stop, 08/23/22 14:55:00 EST, [facility], Partial fill uponpatient request if the prescription is for a schedu... Start Date: 08/23/22 Status: Ordered docusate sodium 100 mg oral capsule See Instructions, TAKE 1 CAPSULE ONE TO TWO TIMES A DAY FOR CONSTIPATION, # 20 capsule, 0 Refills, [facility], 168, cm, 08/01/21 17:36:00 EST, Height, 115, kg, 08/01/21 17:36:00 EST, Dry Weight Start Date: 10/31/21 Status: Ordered folic acid 1 mg oral tablet See Instructions, TAKE 1 TABLET BY MOUTH DAILY, # 30 tablet, Refills 3, Maintenance, 06/05/22 5:46:00 EDT, Instructions Replace Required Details, Route to Pharmacy Electronically, [facility], 168, cm, 05/15/22 14:37:00 [...] 3 Refills, Maintenance, 07/04/22 8:17:00 EST, Tablet, [facility], Ok for fill early - patient has never lost or needed early refills before, 168, cm, 05/15/22 14:37:00 EDT, Height, 1... Start Date: 07/04/22 Stop Date: 11/01/22 Status: Ordered lamotrigine 100 mg oral tablet 100 mg, 1, tablet, By Mouth, Daily in AM, # 30 tablet, Refills 3, Tot. Refills 3, Maintenance, 07/04/22 8:17:00 EST, Route to Pharmacy Electronically, [facility], Ok for fill early - patienthas never lost or needed early refills before, 168,... Start Date: 07/04/22 Stop Date: 11/01/22 Status: Ordered Lyrica 75 mg oral capsule 1 capsule = 75 mg, By Mouth, 2 times a day, # 60 capsule, 0 Refills, Maintenance, 07/22/22 10:44:00EST, Capsule, [facility], Partial fill upon patient request if the prescription is for a schedule II opioid drug., 168, cm, 07/22/22 10:12:00... Start Date: 07/22/22 Status: Ordered nitrofurantoin macrocrystals-monohydrate 100 mg oral capsule 1 capsule = 100 mg, By Mouth, 2 times a day, PRN bladder spasms, for 7 days, # 14 capsule, 0 Refills, Acute 08/30/22 14:56:00 EST, 08/23/22 14:56:00 EST, Capsule, [facility], Partial fill upon patient request if the prescription is for a sche... Start Date: 08/23/22 Stop Date: 08/30/22 Status: Ordered omeprazole 40 mg oral enteric coated capsule See Instructions, TAKE 1 CAPSULE BY MOUTH TWO TIMES A DAY, # 60 capsule, 2 Refills, Maintenance, 08/11/22 12:55:00 EST, [facility], 168, cm, 07/22/22 [...] tablet, 0 Refills, Maintenance, 07/22/22 10:47:00 EST, [facility], Partial fill upo... Start Date: 07/22/22 Status: Ordered Wellbutrin XL 150 mg/24 hours oral tablet, extended release 1 tablet = 150 mg, By Mouth, Every 24 hours, With the Wellbutrin 300 mg TDD 450 mg, # 30 tablet, 3 Refills, Maintenance, 07/04/22 8:16:00 EST, ER Tablet, [facility], Ok for fill early - patient has never lost or needed early refills before, 1... Start Date: 07/04/22 Stop Date: 11/01/22 Status: Ordered Wellbutrin XL 300 mg/24 hours oral tablet, extended release 1 tablet = 300 mg, By Mouth, Daily, With the Wellbutrin 150 mg TDD 450 mg, # 30 tablet, 3 Refills, Maintenance, 07/04/22 8:17:00 EST, ER Tablet, [facility], Ok for fill early - patient has never lost or needed early refills before, 168, cm, 0... Start Date: 07/04/22 Status: Ordered ziprasidone 40 mg oral capsule See Instructions, Take one capsule in the morning and 2 capsules at bedtime dose reduction - TDD 120mg, # 90 capsule, 3 Refills, Maintenance, 07/04/22 8:19:00 [facility], Partial fill [...] Care Team Personnel Name: Anabel Vyas Position: [facility] RN Member Role: Primary Care Nurse Name: Isa Ward Position: [facility] RN Member Role: Primary Care Nurse Name: Ofelia Jefferson NP Position: [facility] PCO Associate Professional Member Role: PCP Address: Address: [address] [place] [address] [place] [address]- [place] Name: Tommy Kohli MD Position: [facility] Psychiatry MD Member Role: Lifetime Consulting Physician Address: Address: [address] [place] [address]- Care Team Related Persons Name: WILLEM SIMON III Address: [place] [address] Name: WILLEM SIMON SR Address: home [address] [place] [id number]
--- OUTSIDE RECORDS SUMMARY | 2024-01-22 11:13 | XMS_ITS | Continuity of Care Document ---
Author Organization [facility] [place] Address [address] [place] [address]- Care Team Providers Care Zoology Professor Name Role Phone Ronny [facility] REP, Ofelia Acosta Primary Care Physician Encounter [facility] Date(s): 03/13/22 - 04/12/22 [facility] [place] [address] [place] [address]- Attending Physician: Adriano Becker Admitting Physician: Adriano [...] Note: VIS GIVEN: 03/18/2011 2Result Comment: lot [id number] 09/21/2006 3Admin Note: VIS 05/29/09 GIVEN Medications [...]
--- OUTSIDE RECORDS SUMMARY | 2024-01-22 11:13 | XMS_ITS | Continuity of Care Document ---
Author Organization [facility] Address [address] [place], [place] [address]maximo slater, [address] [place] [address]- Care Team Providers Care Smt Machine Operator Name Role Phone Amadou STUART ([facility]), William Quesada Primary Care Ph ysician Encounter [facility] Date(s): 05/08/22 - 06/07/[address], [address] [place], [place] [address] Allergies, Adverse Reactions, Alerts Substance Reaction [...] Note: VIS GIVEN: 03/18/2011 2Result Comment: lot [id number] 09/21/2006 3Admin Note: VIS 05/29/09 GIVEN Medications [...] tablet, 0 Refills, Maintenance, 06/03/22 7:20:00 EDT, [facility], 1 tablet By Mouth Daily,x30 days,Instr:last filled 05/16/22, 168, cm, 05/15/22 14:37:00 EDT, Height, 112, kg, ... Start Date: 06/03/22 Stop Date: 07/03/22 Status: Ordered Adderall 20 mg oral tablet 1 tablet = 20 mg, By Mouth, Daily, for 30 days, last filled 04/18/22, # 30 tablet, 0 Refills, Hard Stop 06/12/22 8:50:00 EDT, 05/13/22 8:50:00 EDT, [facility], 168, cm, 04/22/22 14:00:00 EDT,Height, 112, kg, 04/22/22 14:00:00 EDT, Dry Weight Start Date: 05/13/22 Stop Date: 06/12/22 Status: Ordered Adderall XR 30 mg oral capsule, extended release 1 capsule = 30 mg, By Mouth, Daily in AM, last filled 05/16/22, # 30 capsule, 0 Refills, Maintenance, 06/03/22 7:20:00 EDT, ER Capsule, [facility], 1 capsule By Mouth Daily in AM,Instr:last filled 05/16/22, 168, cm, 05/15/22 14:37:00 EDT, Heigh... Start Date: 06/03/22 Status: Ordered albuterol 90 mcg/inh inhalation powder 2 puffs, Inhalation, Every 4 hours, PRN as needed, # 1 each, 0 Refills, Maintenance, 08/01/21 20:08:00 EST, Powder, [facility], Partial [...] 1 Refills, Maintenance, 05/26/22 17:40:00 EDT, Tablet, [facility], Partial fill upon patient request if the prescription is for a schedule IIopioid drug., 168, cm, 05/15/22 14:37:00 EDT, Heigh... Start Date: 05/26/22 Status: Ordered cholecalciferol 5000 intl units oral tablet 1 tablet = 125 mcg, By Mouth, Daily, # 30 tablet, 3 Refills, Maintenance, 02/07/22 11:35:00 EDT, Tablet, [facility], Partial fill upon patient request if the prescription is for a schedule II opioid drug., 168, cm, 02/07/22 11:03:00 EDT, Heig... Start Date: 02/07/22 Stop Date: 06/07/22 Status: Ordered clonazePAM 0.5 mg oral tablet 1 tablet = 0.5 mg, By Mouth, 3 times a day, NEEDED FOR ANXIETY, # 90 tablet, 3 Refills, Maintenance, 03/14/22 9:26:00 EDT, Tablet, [facility], 168, cm, 02/20/22 13:36:00 EDT, Height, 116,kg, 02/20/22 13:36:00 EDT, Dry Weight Start Date: 03/14/22 Stop Date: 07/12/22 Status: Ordered docusate sodium 100 mg oral capsule See Instructions, TAKE 1 CAPSULE ONE TO TWO TIMES A DAY FOR CONSTIPATION, # 20 capsule, 0 Refills, [facility], 168, cm, 08/01/21 17:36:00 EST, Height, 115, kg, 08/01/21 17:36:00 EST, Dry Weight Start Date: 10/31/21 Status: Ordered folic acid 1 mg oral tablet See Instructions, TAKE 1 TABLET BY MOUTH DAILY, # 30 tablet, Refills 3, Maintenance, 06/05/22 5:46:00 EDT, Instructions Replace Required Details, Route to Pharmacy Electronically, [facility], 168, cm, 05/15/22 [...] 0 Refills, Maintenance, 06/03/22 7:20:00 EDT, Capsule, [facility], Partial fill upon patient request if the prescription is for a schedule II opioid drug., 168, cm, 05/15/22 14:37:00 EDT, Heig... Start Date: 06/03/22 Status: Ordered Geodon 80 mg oral capsule 1 capsule = 80 mg, By Mouth, Daily at bedtime, Take with 60mg capsule., # 30 capsule, 0 Refills, Maintenance, 06/03/22 7:20:00 EDT, Capsule, [facility], 168, cm, 05/15/22 14:37:00 EDT, Height, 112, kg, 04/22/22 14:00:00 EDT, Dry Weight Start Date: 06/03/22 Status: Ordered LaMICtal 200 mg oral tablet 2 tablet = 400 mg, By Mouth, Daily at bedtime, # 60 tablet, 3 Refills, Maintenance, 03/14/22 9:27:00 EDT, Tablet, [facility], 168, cm, 02/20/22 13:36:00 EDT, Height, 116, kg, 02/20/22 13:36:00 EDT, Dry Weight Start Date: 03/14/22 Stop Date: 07/12/22 Status: Ordered lamotrigine 100 mg oral tablet 100 mg, 1, tablet, By Mouth, Daily in AM, # 30 tablet, Refills 3, Tot. Refills 3, Maintenance, 03/14/22 9:27:00 EDT, Route to Pharmacy Electronically, [facility], 168, cm, 02/20/22 13:36:00 [...] capsule, 2 Refills, Maintenance, 04/22/22 12:20:00 EDT, [facility], 168, cm, 04/21/22 8:42:00 EDT, Height, 113.3, kg, 04/09/22 9:17:00 EDT, Dry Weight Start Date: 04/22/22 Status: Ordered Wellbutrin XL 150 mg/24 hours oral tablet, extended release 1 tablet = 150 mg, By Mouth, Every 24 hours, With the Wellbutrin 300 mg TDD 450 mg, # 30 tablet, 3 Refills, Maintenance, 03/14/22 9:26:00 EDT, ER Tablet, [facility], 168, cm, 02/20/22 13:36:00 [...] Care team information Personnel Name: Amadou STUART ([facility] [place]), William Quesada Address: Address: [address] [place] [address], [place], [place] [address]
--- OUTSIDE RECORDS SUMMARY | 2024-01-22 11:13 | XMS_ITS | Continuity of Care Document ---
Author Organization [facility] [place] Address [address] [place] [address]- Care Team Providers Care Vc++ Developer Name Role Phone Ronny PAPPAS, Oeflia Acosta Primary Care Physician [phone] Encounter [facility] Date(s): 02/19/22 - 03/21/22 [facility] [place] [address] [place] [address]- Allergies, Adverse Reactions, Alerts Substance Reaction Severity [...] Note: VIS GIVEN: 03/18/2011 2Result Comment: lot [id number] 09/21/2006 3Admin Note: VIS 05/29/09 GIVEN Medications [...]
--- OUTSIDE RECORDS SUMMARY | 2024-01-22 11:14 | XMS_ITS | Continuity of Care Document ---
Author Organization [facility] [place] Address [address] [place] [address]- Care Team Providers Care Flow Floor Attendant Name Role Phone Stacie Rendon NP Primary Care Physician Encounter [facility] Date(s): 12/25/20 - 01/24/21 [facility] [place] [address] [place] [address]- Encounter Diagnosis Viral URI(Discharge Diagnosis) - 12/01/19 Open wound of abdominal wall(Discharge Diagnosis) - 12/01/19 Attending Physician: Adriano Becker Admitting Physician: AdmtrAdriano [...] Note: VIS GIVEN: 03/18/2011 2Result Comment: lot [id number] 09/21/2006 3Admin Note: VIS 05/29/09 GIVEN Medications [...]
--- OUTSIDE RECORDS SUMMARY | 2024-01-22 11:14 | XMS_ITS | Continuity of Care Document ---
Author Organization [facility] [place] Address [address] [place] [address]- Care Team Providers Care Background Check Coordinator Name Role Phone Ronny PILE DRIVING TECHNICIAN, Ofelia Acosta Primary Care Physician Encounter [facility] Date(s): 09/06/23 - 10/06/23 [facility] [place] [address] [place] [address]- Allergies, Adverse Reactions, Alerts Substance Reaction Severity [...] Note: VIS GIVEN: 03/18/2011 2Result Comment: lot [id number] 09/21/2006 3Admin Note: VIS 05/29/09 GIVEN Medications [...] AM, # 30 capsule, 0 Refills, Maintenance, 09/18/23 14:18:00 EST, ER Capsule, [facility] # [facility], 1 capsule By Mouth Daily in AM,x30 days, 165, cm, 05/25/23 14:40:00 EDT, Height, 118.3, kg, 12/16/22 20:23:00 EDT,... Start Date: 09/18/23 Stop Date: 10/18/23 Status: Ordered amLODIPine 2.5 mg oral tablet 1 tablet, By Mouth, Daily, # 90 tablet, 1 Refills, Maintenance, 07/24/23 15:00:00 EST, [facility] # 86, 165, cm, 05/25/23 14:40:00 EDT, Height, 118.3, kg, 12/16/22 20:23:00 EDT, Dry Weight Start Date: 07/24/23 Status: Ordered amphetamine-dextroamphetamine 10 mg oral tablet 1 tablet = 10 mg, By Mouth, 2 times a day, # 60 tablet, 0 Refills, Maintenance, 08/27/23 9:57:00 EST, [facility] # 86, fill on date due, 1 tablet By Mouth 2 times a day,x30 days, 165, cm, 05/25/23 14:40:00 EDT, Height, 118.3, kg, 12/16/22 20:23:00... Start Date: 08/27/23 Stop Date: 09/26/23 Status: Ordered clonazePAM 0.5 mg oral tablet 1 tablet = 0.5 mg, By Mouth, 3 times a day, NEEDED FOR ANXIETY, # 90 tablet, 3 Refills, Maintenance, 09/08/23 15:28:00 EST, Tablet, [facility] # [facility], 165, cm, 05/25/23 14:40:00 EDT, Height, 118.3, kg, 12/16/22 20:23:00 EDT, Dry Weight Start Date: 09/08/23 Stop Date: 01/06/24 Status: Ordered docusate sodium 100 mg oral capsule See Instructions, TAKE 1 CAPSULE ONE TO TWO TIMES A DAY FOR CONSTIPATION, # 20 capsule, 0 Refills, [facility] # [facility], 168, cm, 08/01/21 17:36:00 EST, Height, 115, kg, 08/01/21 17:36:00 EST, Dry Weight Start Date: 10/31/21 Status: Ordered folic acid 1 mg oral tablet 1, tablet, By Mouth, Daily, # 30 tablet, Refills 5, Maintenance, 04/29/23 20:24:00 EDT, Route to Pharmacy Electronically, [facility], 165, cm, 01/21/23 [...] tablet, 3 Refills, Maintenance, 05/29/23 13:41:00 EDT, [facility] # [facility], 165, cm, 05/25/23 14:40:00 EDT, Height, 118.3, kg, 12/16/22 20:23:00 EDT, Dry Weight Start Date: 05/29/23 Stop Date: 09/26/23 Status: Ordered ibuprofen 800 mg oral tablet 1, tablet, By Mouth, 3 times a day, # 90 tablet, Refills 1, Maintenance, 05/25/23 8:49:00 EDT, Route to Pharmacy Electronically, [facility] # 86, 165, cm, 01/21/23 11:55:00 EDT, Height, 118.3, kg, 12/16/22 20:23:00 EDT, Dry Weight Start Date: 05/25/23 Status: Ordered LaMICtal 200 mg oral tablet 2 tablet = 400 mg, By Mouth, Daily at bedtime, # 60 tablet, 3 Refills, Maintenance, 09/08/23 15:29:00 EST, Tablet, [facility] # 86, 165, cm, 05/25/23 14:40:00 EDT, Height, 118.3, kg, 12/16/22 20:23:00 EDT, Dry Weight Start Date: 09/08/23 Stop Date: 01/06/24 Status: Ordered lamotrigine 100 mg oral tablet 100 mg, 1, tablet, By Mouth, Daily in AM, # 30 tablet, Refills 3, Tot. Refills 3, Maintenance, 09/08/23 15:29:00 EST, Route to Pharmacy Electronically, [facility], 165, cm, 05/25/23 [...] 0 Refills, Maintenance, 11/10/22 10:55:00 EDT, RECPowder, [facility], test date 01/14 .... Start Date: 11/10/22 Status: Ordered omeprazole 40 mg oral enteric coated capsule 1 capsule, By Mouth, 2 times a day, # 180 capsule, 1 Refills, Maintenance, 08/15/23 8:46:00 EST, [facility], 165, cm, 05/25/23 14:40:00 EDT, Height, 118.3, kg, 12/16/22 20:23:00 EDT, Dry Weight Start Date: 08/15/23 Status: Ordered ondansetron 4 mg oral tablet 1 tablet = 4 mg, By Mouth, Every 8 hours, # 21 tablet, 0 Refills, Maintenance, 07/29/23 17:24:00 EST, Tablet, [facility] # 86, Partial fill upon [...] mL, 0 Refills, Maintenance, 05/25/23 15:17:00 EDT, [facility] # [facility], Partial fill upon patient request if the prescription is for a schedule II opioid drug., 1 bottle 90 minutes prior to s... Start Date: 05/25/23 Status: Ordered Suprep Bowel Prep Kit oral liquid 177 mL, By Mouth, Once, split prep, # 354 mL, 0 Refills, Soft Stop, 12/01/22 14:37:00 EDT, [facility] # [facility], Partial fill upon patient request if the prescription is for a schedule II opioid drug., 177 mL By Mouth Once,Instr:split prep, 165, cm, 04... Start Date: 12/01/22 Status: Ordered Trulicity Pen 1.5 mg/0.5 mL subcutaneous solution See Instructions, INJECT 0.5ML SUBCUTANEOUSLY ONCE WEEKLY ROTATE INJECTION SITES, # 2 mL, 5 Refills, Maintenance, 06/07/23 18:02:00 EDT, [facility], 165, cm, 05/25/23 14:40:00 EDT, Height, 118.3, kg, 12/16/22 20:23:00 EDT, Dry Weight Start Date: 06/07/23 Status: Ordered Vitamin D3 5000 intl units oral tablet 1 tablet, By Mouth, Daily, # 30 tablet, 0 Refills, Maintenance, 09/08/23 14:41:00 EST, [facility] # 86, 165, cm, 05/25/23 14:40:00 EDT, Height, 118.3, kg, 12/16/22 20:23:00 EDT, Dry Weight Start Date: 09/08/23 Status: Ordered Wellbutrin XL 300 mg/24 hours oral tablet, extended release 1 tablet = 300 mg, By Mouth, Daily, # 30 tablet, 2 Refills, Maintenance, 09/08/23 15:28:00 EST, ER Tablet, [facility], 165, cm, 05/25/23 14:40:00 EDT, Height, 118.3, kg, 12/16/22 20:23:00 EDT, Dry Weight Start Date: 09/08/23 Stop Date: 12/07/23 Status: Ordered ziprasidone 60 mg oral capsule 2 capsule = 120 mg, By Mouth, Daily at bedtime, # 60 capsule, 2 Refills, Maintenance, 09/08/23 15:30:00 EST, [facility] # 86, Partial fill upon [...] Team Personnel Name: Anabel Roblero [place] Position: [facility] RN Member Role: Primary Care Nurse Name: Isa Ward Position: [facility] RN Member Role: Primary Care Nurse Name: Ofelia Jefferson NP Position: [facility] PCO Associate Professional Member Role: PCP Address: Address: [address] [place] [address] [place] [address]- Name: Tommy Kohli MD Position: [facility] Physician - Behavioral Health Member Role: Lifetime Consulting Physician Address: Address: [address] [place] [id number]- Care Team Related Persons Name: WILLEM SIMON III Address: [place] [address] Name: WILLEM SIMON JR Address: home [address] [place] [address]
--- OUTSIDE RECORDS SUMMARY | 2024-01-22 11:14 | XMS_ITS | Continuity of Care Document ---
Author Organization [facility] Address [address] [place] [id number]- Care Team Providers Care Crop And Soil Scientist Name Role Phone Ronny PAPPAS, Ofelia Acosta Primary Care Physician [phone] Encounter [facility] Date(s): 10/31/22 - 12/04/22 [facility] [address] [place] [address]- Attending Physician: Porter Bhatia MD Admitting Physician: Porter Bhatia MD Referring Physician: Ofelia Jefferson NP Allergies, [...] Note: VIS GIVEN: 03/18/2011 2Result Comment: lot [id number] 09/21/2006 3Admin Note: VIS 05/29/09 GIVEN Medications [...] Refills, Maintenance, 11/26/22 13:26:00 EDT, ER Capsule, [facility] # [facility], please only fill on/after exact due date, 1 capsule By Mouth Daily in AM,x30 days, 165, cm, 11/22/22 10:40:00 EDT,... Start Date: 11/26/22 Stop Date: 12/26/22 Status: Ordered amLODIPine 2.5 mg oral tablet 1 tablet = 2.5 mg, By Mouth, Daily, # 90 tablet, 1 Refills, Maintenance, 11/14/22 13:47:00 EDT, Tablet, [facility] # 86, Partial fill upon patient request if the prescription is for a schedule IIopioid drug., 168, cm, 10/22/22 10:35:00 EST, Heigh... Start Date: 11/14/22 Status: Ordered amphetamine-dextroamphetamine 10 mg oral tablet 1 tablet = 10 mg, By Mouth, 2 times a day, # 60 tablet, 0 Refills, Maintenance, 11/21/22 10:00:00 EDT, [facility], ., 1 tablet By Mouth 2 times a day,x30 days, 168, cm, 10/22/22 10:35:00 EST, Height, 112, kg, 04/22/22 14:00:00 EDT, Dry Weight Start Date: 11/21/22 Stop Date: 12/21/22 Status: Ordered cholecalciferol 5000 intl units oral tablet 1 tablet = 125 mcg, By Mouth, Daily, # 30 tablet, 3 Refills, Maintenance, 10/22/22 10:51:00 EST, Tablet, [facility] # [facility], Partial fill upon patient request if the prescription is for a schedule II opioid drug., 168, cm, 10/22/22 10:35:00 EST, Heig... Start Date: 10/22/22 Stop Date: 02/19/23 Status: Ordered clonazePAM 0.5 mg oral tablet 1 tablet = 0.5 mg, By Mouth, 3 times a day, NEEDED FOR ANXIETY, # 90 tablet, 3 Refills, Maintenance, 10/17/22 8:57:00 EST, Tablet, [facility] # 86, 168, cm, 10/07/22 10:08:00 EST, Height, 112,kg, 04/22/22 14:00:00 EDT, Dry Weight Start Date: 10/17/22 Stop Date: 02/14/23 Status: Ordered docusate sodium 100 mg oral capsule See Instructions, TAKE 1 CAPSULE ONE TO TWO TIMES A DAY FOR CONSTIPATION, # 20 capsule, 0 Refills, [facility] # 86, 168, cm, 08/01/21 17:36:00 EST, Height, 115, kg, 08/01/21 17:36:00 EST, Dry Weight Start Date: 10/31/21 Status: Ordered folic acid 1 mg oral tablet See Instructions, TAKE 1 TABLET BY MOUTH DAILY, # 30 tablet, Refills 5, Tot. Refills 5, Maintenance, 10/12/22 20:53:00 EST, Instructions Replace Required Details, Route to Pharmacy Electronically, [facility], 168, cm, 10/07/22 [...] 1 Refills, Maintenance, 10/22/22 10:50:00 EST, Tablet, [facility] # 86, Partial fill upon patient request if the prescription is for a schedule II opioid drug., 168, cm, 10/22/22 10:35:00 ES... Start Date: 10/22/22 Status: Ordered LaMICtal 200 mg oral tablet 2 tablet = 400 mg, By Mouth, Daily at bedtime, # 60 tablet, 3 Refills, Maintenance, 10/17/22 8:58:00 EST, Tablet, [facility] # 86, Ok for fill early - patient has never lost or needed early refills before, 168, cm, 10/07/22 10:08:00 EST, Height, 1... Start Date: 10/17/22 Stop Date: 02/14/23 Status: Ordered lamotrigine 100 mg oral tablet 100 mg, 1, tablet, By Mouth, Daily in AM, # 30 tablet, Refills 3, Tot. Refills 3, Maintenance, 10/17/22 8:58:00 EST, Route to Pharmacy Electronically, [facility] # [facility], Ok for fill [...] 11/10/22 10:55:00 EDT, Vicente, [facility] # [facility], test date 01/14 .... Start Date: 11/10/22 Status: Ordered omeprazole 40 mg oral enteric coated capsule 1 capsule, By Mouth, 2 times a day, # 60 capsule, 2 Refills, Maintenance, 11/11/22 12:20:00 EDT, [facility] # [facility], 168, cm, 10/22/22 10:35:00 EST, Height, 112, kg, 04/22/22 14:00:00 EDT, Dry Weight Start Date: 11/11/22 Status: Ordered Suprep Bowel Prep Kit oral liquid 177 mL, By Mouth, Once, split prep, # 354 mL, 0 Refills, Soft Stop, 12/01/22 14:37:00 EDT, [facility] # [facility], Partial fill upon patient [...] Refills, Maintenance, 10/17/22 8:57:00 EST, ER Tablet, [facility], Ok for fill early - patient has never lost or needed early refills before, 168, cm, 0... Start Date: 10/17/22 Status: Ordered ziprasidone 40 mg oral capsule See Instructions, Take one capsule in the morning and 1 capsules at bedtime with an 80mg tab TDD 160mg, # 60 capsule, 3 Refills, Maintenance, 10/17/22 8:58:00 EST, [facility], Partial fill upon patient request if the prescription is for a keith... Start Date: 10/17/22 Status: Ordered ziprasidone 80 mg oral capsule 1 capsule = 80 mg, By Mouth, Daily at bedtime, TDD = 160mg/day, # 30 capsule, 3 Refills, Maintenance, 10/17/22 8:59:00 EST, [facility] # [facility], Partial fill upon patient [...] Care Team Personnel Name: Anabel Vyas Position: [facility] RN Member Role: Primary Care Nurse Name: Isa Ward Position: [facility] RN Member Role: Primary Care Nurse Name: Ofelia Jefferson NP Position: [facility] PCO Associate Professional Member Role: PCP Address: Address: [address] [place] [address] [place] [address]- [place] Name: Tommy Kohli MD Position: [facility] Psychiatry MD Member Role: Lifetime Consulting Physician Address: Address: [address] [place] [id number]- Care Team Related Persons Name: WILLEM SIMON III Address: [place] [address] Name: WILLEM SIMON JR Address: home [address] [place] [address]
--- OUTSIDE RECORDS SUMMARY | 2024-01-22 11:14 | XMS_ITS | Continuity of Care Document ---
Author Organization [facility] Address [address] [place] [address] [address] [place] [address]- Care Team Providers Care Director Biostatistics Name Role Phone Ronny SOLAR SALES REPRESENTATIVE, Ofelia Acosta Primary Care Physician Encounter [facility] Date(s): 03/05/22 - 04/04/[address] [place] [address]- Allergies, Adverse Reactions, Alerts Substance Reaction Severity [...] Note: VIS GIVEN: 03/18/2011 2Result Comment: lot [id number] 09/21/2006 3Admin Note: VIS 05/29/09 GIVEN Medications [...]
--- OUTSIDE RECORDS SUMMARY | 2024-01-22 11:14 | XMS_ITS | Continuity of Care Document ---
Author Organization [facility] Address [address] [place], [place] [address]maximo slater, [address] [place] [address]- Care Team Providers Care Signal Supervisor Name Role Phone Amadou STUART ([facility]), William Quesada Primary Care Ph ysician Encounter [facility] Date(s): 05/19/22 - 06/18/[address], [address] [place], [place] [address] Allergies, Adverse Reactions, Alerts Substance Reaction Severity [...] Note: VIS GIVEN: 03/18/2011 2Result Comment: lot [id number] 09/21/2006 3Admin Note: VIS 05/29/09 GIVEN Medications [...] tablet, 0 Refills, Maintenance, 06/03/22 7:20:00 EDT, [facility], 1 tablet By Mouth Daily,x30 days,Instr:last filled 05/16/22, 168, cm, 05/15/22 14:37:00 EDT, Height, 112, kg, ... Start Date: 06/03/22 Stop Date: 07/03/22 Status: Ordered Adderall XR 30 mg oral capsule, extended release 1 capsule = 30 mg, By Mouth, Daily in AM, last filled 05/16/22, # 30 capsule, 0 Refills, Maintenance, 06/03/22 7:20:00 EDT, ER Capsule, [facility] # [facility], 1 capsule By Mouth Daily in AM,Instr:last filled 05/16/22, 168, cm, 05/15/22 14:37:00 EDT, Heigh... Start Date: 06/03/22 Status: Ordered albuterol 90 mcg/inh inhalation powder 2 puffs, Inhalation, Every 4 hours, PRN as needed, # 1 each, 0 Refills, Maintenance, 08/01/21 20:08:00 EST, Powder, [email or web address] # [facility], Partial fill upon patient request if the prescription is for aschedule II opioid drug., 2 puffs Inhalation Every... Start Date: 08/01/21 Status: Ordered Ambien 10 mg oral tablet 1 tablet = 10 mg, By Mouth, Daily at bedtime, PRN as needed for insomnia, for 30 days, # 30 tablet,3 Refills, Acute 07/12/22 9:27:00 EST, 03/14/22 9:27:00 EDT, Tablet, [email or web address], 168, cm, 02/20/22 13:36:00 EDT, Height, 116, kg, 02/20/22 13:... Start Date: 03/14/22 Stop Date: 07/12/22 Status: Ordered amLODIPine 2.5 mg oral tablet 1 tablet = 2.5 mg, By Mouth, Daily, # 90 tablet, 1 Refills, Maintenance, 05/26/22 17:40:00 EDT, Tablet, [facility], Partial fill upon patient request if the prescription is for a schedule IIopioid drug., 168, cm, 05/15/22 14:37:00 EDT, Hair... Start Date: 05/26/22 Status: Ordered cholecalciferol 5000 intl units oral tablet 1 tablet = 125 mcg, By Mouth, Daily, # 30 tablet, 3 Refills, Maintenance, 02/07/22 11:35:00 EDT, Tablet, [facility] # [facility], Partial fill upon patient request if the prescription is for a schedule II opioid drug., 168, cm, 02/07/22 11:03:00 EDT, [facility]... Start Date: 02/07/22 Stop Date: 06/07/22 Status: Ordered clonazePAM 0.5 mg oral tablet 1 tablet = 0.5 mg, By Mouth, 3 times a day, NEEDED FOR ANXIETY, # 90 tablet, 3 Refills, Maintenance, 03/14/22 9:26:00 EDT, Tablet, [facility], 168, cm, 02/20/22 13:36:00 EDT, Height, 116,kg, 02/20/22 13:36:00 EDT, Dry Weight Start Date: 03/14/22 Stop Date: 07/12/22 Status: Ordered docusate sodium 100 mg oral capsule See Instructions, TAKE 1 CAPSULE ONE TO TWO TIMES A DAY FOR CONSTIPATION, # 20 capsule, 0 Refills, [facility], 168, cm, 08/01/21 17:36:00 EST, Height, 115, kg, 08/01/21 17:36:00 EST, Dry Weight Start Date: 10/31/21 Status: Ordered folic acid 1 mg oral tablet See Instructions, TAKE 1 TABLET BY MOUTH DAILY, # 30 tablet, Refills 3, Maintenance, 06/05/22 5:46:00 EDT, Instructions Replace Required Details, Route to Pharmacy Electronically, [facility], 168, cm, [...] 0 Refills, Maintenance, 06/03/22 7:20:00 EDT, Capsule, [email or web address], Partial fill upon patient request if the prescription is for a schedule II opioid drug., 168, cm, 05/15/22 14:37:00 EDT, Heig... Start Date: 06/03/22 Status: Ordered Geodon 80 mg oral capsule 1 capsule = 80 mg, By Mouth, Daily at bedtime, Take with 60mg capsule., # 30 capsule, 0 Refills, Maintenance, 06/03/22 7:20:00 EDT, Capsule, [facility], 168, cm, 05/15/22 14:37:00 EDT, Height, 112, kg, 04/22/22 14:00:00 EDT, Dry Weight Start Date: 06/03/22 Status: Ordered LaMICtal 200 mg oral tablet 2 tablet = 400 mg, By Mouth, Daily at bedtime, # 60 tablet, 3 Refills, Maintenance, 03/14/22 9:27:00 EDT, Tablet, [facility], 168, cm, 02/20/22 13:36:00 EDT, Height, 116, kg, 02/20/22 13:36:00 EDT, Dry Weight Start Date: 03/14/22 Stop Date: 07/12/22 Status: Ordered lamotrigine 100 mg oral tablet 100 mg, 1, tablet, By Mouth, Daily in AM, # 30 tablet, Refills 3, Tot. Refills 3, Maintenance, 03/14/22 9:27:00 EDT, Route to Pharmacy Electronically, [facility], 168, cm, 02/20/22 13:36:00 [...] capsule, 2 Refills, Maintenance, 04/22/22 12:20:00 EDT, [email or web address], 168, cm, 04/21/22 8:42:00 EDT, Height, 113.3, kg, 04/09/22 9:17:00 EDT, Dry Weight Start Date: 04/22/22 Status: Ordered Wellbutrin XL 150 mg/24 hours oral tablet, extended release 1 tablet = 150 mg, By Mouth, Every 24 hours, With the Wellbutrin 300 mg TDD 450 mg, # 30 tablet, 3 Refills, Maintenance, 03/14/22 9:26:00 EDT, ER Tablet, [email or web address], 168, cm, 02/20/22 13:36:00 EDT, Height, 116, kg, 02/20/22 13:36:00 EDT, Dry... Start Date: 03/14/22 Stop Date: 07/12/22 Status: Ordered Wellbutrin XL 300 mg/24 hours oral tablet, extended release 1 tablet = 300 mg, By Mouth, Daily, With the Wellbutrin 150 mg TDD 450 mg, # 30 tablet, 3 Refills, Maintenance, 03/14/22 9:26:00 EDT, ER Tablet, [email or web address], 168, cm, 02/20/22 [...] Care team information Personnel Name: Amadou STUART ([facility] [place]), William Quesada Address: Address: [address] [place] [address]
--- OUTSIDE RECORDS SUMMARY | 2024-01-22 11:14 | XMS_ITS | Continuity of Care Document ---
Author Organization [facility] [place] Address [address] [place] [address]- Care Team Providers Care Supervisor Farm Equipment Maintenance Name Role Phone Ronny PAPPAS, Ofelia Acosta Primary Care Physician Encounter [facility] Date(s): 10/10/22 - 11/30/22 [facility] [address] [place] [address]- Attending Physician: Malu STUART, Chris Referring Physician: Ceci PAPPAS, Pritesh Pradhan Allergies, Adverse Reactions, Alerts Substance Reaction Severity [...] Note: VIS GIVEN: 03/18/2011 2Result Comment: lot [id number] 09/21/2006 3Admin Note: VIS 05/29/09 GIVEN Medications [...] Refills, Maintenance, 11/26/22 13:26:00 EDT, ER Capsule, [facility] Maintenance, 11/14/22 13:47:00 EDT, Tablet, [facility], Partial fill upon patient request if the prescription is for a schedule IIopioid drug., 168, cm, 10/22/22 10:35:00 EST, Heigh... Start Date: 11/14/22 Status: Ordered amphetamine-dextroamphetamine 10 mg oral tablet 1 tablet = 10 mg, By Mouth, 2 times a day, # 60 tablet, 0 Refills, Maintenance, 11/21/22 10:00:00 EDT, [facility] [...] Maintenance, 10/22/22 10:51:00 EST, Tablet, [facility] [...] 3 Refills, Maintenance, 10/17/22 8:57:00 EST, Tablet, [facility], 168, cm, 10/07/22 10:08:00 EST, Height, 112,kg, 04/22/22 14:00:00 EDT, Dry Weight Start Date: 10/17/22 Stop Date: 02/14/23 Status: Ordered docusate sodium 100 mg oral capsule See Instructions, TAKE 1 CAPSULE ONE TO TWO TIMES A DAY FOR CONSTIPATION, # 20 capsule, 0 Refills, [facility], 168, cm, 08/01/21 17:36:00 EST, Height, 115, kg, 08/01/21 17:36:00 EST, Dry Weight Start Date: 10/31/21 Status: Ordered doxycycline hyclate 100 mg oral capsule 1 capsule = 100 mg, By Mouth, 2 times a day, for 10 days, # 20 capsule, 0 Refills, Acute 12/02/22 12:24:00 EDT, 11/22/22 12:24:00 EDT, Capsule, [facility], Partial fill upon patient request if the prescription is for a schedule II opioid drug... Start Date: 11/22/22 Stop Date: 12/02/22 Status: Ordered folic acid 1 mg oral tablet See Instructions, TAKE 1 TABLET BY MOUTH DAILY, # 30 tablet, Refills 5, Tot. Refills 5, Maintenance, 10/12/22 20:53:00 EST, Instructions Replace Required Details, Route to Pharmacy Electronically, [facility], 168, cm, [...] 1 Refills, Maintenance, 10/22/22 10:50:00 EST, Tablet, [facility], Partial fill upon patient request if the prescription is for a schedule II opioid drug., 168, cm, 10/22/22 10:35:00 ES... Start Date: 10/22/22 Status: Ordered LaMICtal 200 mg oral tablet 2 tablet = 400 mg, By Mouth, Daily at bedtime, # 60 tablet, 3 Refills, Maintenance, 10/17/22 8:58:00 EST, Tablet, [facility] # [facility], Ok for fill early - patient has never lost or needed early refills before, 168, cm, 10/07/22 10:08:00 EST, Height, 1... Start Date: 10/17/22 Stop Date: 02/14/23 Status: Ordered lamotrigine 100 mg oral tablet 100 mg, 1, tablet, By Mouth, Daily in AM, # 30 tablet, Refills 3, Tot. Refills 3, Maintenance, 10/17/22 8:58:00 EST, Route to Pharmacy Electronically, [facility] # [facility], Ok for fill early [...] Maintenance, 11/10/22 10:55:00 EDT, Vicente, [facility], test date 01/14 .... Start Date: 11/10/22 Status: Ordered omeprazole 40 mg oral enteric coated capsule 1 capsule, By Mouth, 2 times a day, # 60 capsule, 2 Refills, Maintenance, 11/11/22 12:20:00 EDT, [facility] # [facility], 168, cm, 10/22/22 10:35:00 EST, Height, 112, kg, 04/22/22 14:00:00 EDT, Dry Weight Start Date: 11/11/22 Status: Ordered Wellbutrin XL 150 mg/24 hours oral tablet, extended release 1 tablet = 150 mg, By Mouth, Every 24 hours, With the Wellbutrin 300 mg TDD 450 mg, # 30 tablet, 3 Refills, Maintenance, 10/17/22 8:57:00 EST, ER Tablet, [facility], Ok for [...] Refills, Maintenance, 10/17/22 8:57:00 EST, ER Tablet, [facility], Ok for fill early - patient has never lost or needed early refills before, 168, cm, 0... Start Date: 10/17/22 Status: Ordered ziprasidone 40 mg oral capsule See Instructions, Take one capsule in the morning and 1 capsules at bedtime with an 80mg tab TDD 160mg, # 60 capsule, 3 Refills, Maintenance, 10/17/22 8:58:00 EST, [facility] # [facility], Partial fill upon patient request if the prescription is for a keith... Start Date: 10/17/22 Status: Ordered ziprasidone 80 mg oral capsule 1 capsule = 80 mg, By Mouth, Daily at bedtime, TDD = 160mg/day, # 30 capsule, 3 Refills, Maintenance, 10/17/22 8:59:00 EST, [facility] # [facility], Partial fill upon patient [...] Active Intertrigo Confirmed Active Mastitis NOS Confirmed 3/26/12 Active Morbid Obesity 1 Confirmed Active Myoclonic [...] Care Team Personnel Name: Anabel Vyas Position: [facility] RN Member Role: Primary Care Nurse Name: Isa Ward Position: [facility] RN Member Role: Primary Care Nurse Name: Ofelia Jefferson NP Position: [facility] Associate Professional Member Role: PCP Address: Address: [address] [place] [address] [place] [address]- Name: Tommy Kohli MD Position: [facility] Psychiatry MD Member Role: Lifetime Consulting Physician Address: Address: [address] [place] [address]- Care Team Related Persons Name: WILLEM SIMON III Address: [place] [address] Name: WILLEM SIMON JR Address: home [address] [place] [address]
--- OUTSIDE RECORDS SUMMARY | 2024-01-22 11:14 | XMS_ITS | Continuity of Care Document ---
Author Organization [facility] Lyndsay terrance Address [address] [place] [address] [address]ri [address] [place] [address]- Care Team Providers Care Private Eye Name Role Phone Ronny PAPPAS, Ofelia Acosta Primary Care Physician Encounter [facility] Date(s): 04/22/22 - 04/29/22 [facility] [address] [place] [address]- Attending Physician: Magalis Chua MD Allergies, Adverse Reactions, [...] Note: VIS GIVEN: 03/18/2011 2Result Comment: lot [id number] 09/21/2006 3Admin Note: VIS 05/29/09 GIVEN Medications [...] tablet, 0 Refills, Maintenance, 04/16/22 12:37:00 EDT, [facility], 1 tablet By Mouth Daily,x30 days, 168, cm, 04/06/22 15:19:00 EDT, Height, 113.3, kg, 04/09/22 9:17:00 EDT, Dry Weight Start Date: 04/16/22 Stop Date: 05/16/22 Status: Ordered Adderall XR 30 mg oral capsule, extended release 1 capsule = 30 mg, By Mouth, Daily in AM, # 30 capsule, 0 Refills, Maintenance, 04/16/22 12:37:00 EDT, ER Capsule, [facility] # [facility], 1 capsule By Mouth Daily in AM, 168, cm, 04/06/22 15:19:00 EDT,Height, 113.3, kg, 04/09/22 9:17:00 EDT, Dry Weight Start Date: 04/16/22 Status: Ordered albuterol 90 mcg/inh inhalation powder 2 puffs, Inhalation, Every 4 hours, PRN as needed, # 1 each, 0 Refills, Maintenance, 08/01/21 20:08:00 EST, Powder, [facility], Partial [...] 07/12/22 9:27:00 EST, 03/14/22 9:27:00 EDT, Tablet, [facility], 168, cm, 02/20/22 13:36:00 EDT, Height, 116, kg, 02/20/22 13:... Start Date: 03/14/22 Stop Date: 07/12/22 Status: Ordered amLODIPine 2.5 mg oral tablet 1 tablet = 2.5 mg, By Mouth, Daily, # 90 tablet, 3 Refills, Maintenance, 06/11/21 15:16:00 EDT, Tablet, [facility] # [...] 02/07/22 11:35:00 EDT, Route to Pharmacy Electronically, [facility], Partial [...] 03/14/22 9:27:00 EDT, [facility] Electronically, [facility] [...] capsule, 2 Refills, Maintenance, 04/22/22 12:20:00 EDT, [facility], 168, cm, 04/21/22 8:42:00 EDT, Height, 113.3, kg, 04/09/22 9:17:00 EDT, Dry Weight Start Date: 04/22/22 Status: Ordered Wellbutrin XL 150 mg/24 hours oral tablet, extended release 1 tablet = 150 mg, By Mouth, Every 24 hours, With the Wellbutrin 300 mg TDD 450 mg, # 30 tablet, 3 Refills, Maintenance, 03/14/22 9:26:00 EDT, ER Tablet, [facility] [...] Refills, Maintenance, 03/14/22 9:26:00 EDT, ER Tablet, [facility] [...] oldest [Reference Range]: 1 Height 168 cm (04/22/22 2:00 PM) Weight 112 kg (04/22/22 2:00 PM) Body Mass Index [18.5-24.99] 39.68 *>HHI* (04/22/22 2:00 PM) Dry Weight 112 kg (04/22/22 2:00 PM) Social History Social History Type Response Smoking Status Never (less than 100 in lifetime); Tobacco user in household: No entered on: 07/26/18 Sex Female Care Team Personnel Name: Ronny PAPPAS, Ofelia Acosta Address: [address] [place] [address], [place] [address]
--- OUTSIDE RECORDS SUMMARY | 2024-01-22 11:14 | XMS_ITS | Continuity of Care Document ---
Author Organization [facility] [place] Address [address] [place] [address]- Care Team Providers Care Environmental Science Professor Name Role Phone Ronny CLOTHESPIN DRIER OPERATOR, Ofelia Acosta Primary Care Physician Encounter [facility] Date(s): 09/02/23 - 10/02/23 [facility] [place] [address] [place] [address]- Allergies, Adverse Reactions, Alerts Substance Reaction Severity [...] Note: VIS GIVEN: 03/18/2011 2Result Comment: lot [id number] 09/21/2006 3Admin Note: VIS 05/29/09 GIVEN Medications [...] Refills, Maintenance, 09/18/23 14:18:00 EST, ER Capsule, [facility], 1 capsule By Mouth Daily in AM,x30 days, 165, cm, 05/25/23 14:40:00 EDT, Height, 118.3, kg, 12/16/22 20:23:00 EDT,... Start Date: 09/18/23 Stop Date: 10/18/23 Status: Ordered amLODIPine 2.5 mg oral tablet 1 tablet, By Mouth, Daily, # 90 tablet, 1 Refills, Maintenance, 07/24/23 15:00:00 EST, [facility], 165, cm, 05/25/23 14:40:00 EDT, Height, 118.3, kg, 12/16/22 20:23:00 EDT, Dry Weight Start Date: 07/24/23 Status: Ordered amphetamine-dextroamphetamine 10 mg oral tablet 1 tablet = 10 mg, By Mouth, 2 times a day, # 60 tablet, 0 Refills, Maintenance, 08/27/23 9:57:00 EST, [facility] # [facility], fill on date due, 1 tablet By Mouth 2 times a day,x30 days, 165, cm, 05/25/23 14:40:00 EDT, Height, 118.3, kg, 12/16/22 20:23:00... Start Date: 08/27/23 Stop Date: 09/26/23 Status: Ordered clonazePAM 0.5 mg oral tablet 1 tablet = 0.5 mg, By Mouth, 3 times a day, NEEDED FOR ANXIETY, # 90 tablet, 3 Refills, Maintenance, 09/08/23 15:28:00 EST, Tablet, [facility] # [...] 3 Refills, Maintenance, 09/08/23 15:29:00 EST, Tablet, [facility], 165, cm, 05/25/23 14:40:00 EDT, Height, 118.3, kg, 12/16/22 20:23:00 EDT, Dry Weight Start Date: 09/08/23 Stop Date: 01/06/24 Status: Ordered lamotrigine 100 mg oral tablet 100 mg, 1, tablet, By Mouth, Daily in AM, # 30 tablet, Refills 3, Tot. Refills 3, Maintenance, 09/08/23 15:29:00 EST, [facility] Electronically, [facility] 0 Refills, Maintenance, 07/29/23 17:24:00 EST, Tablet, [facility] # [...] mL, 0 Refills, Maintenance, 05/25/23 15:17:00 EDT, [facility] # [facility], Partial fill upon patient request if the prescription is for a schedule II opioid drug., 1 bottle 90 minutes prior to s... Start Date: 05/25/23 Status: Ordered Suprep Bowel Prep Kit oral liquid 177 mL, By Mouth, Once, split prep, # 354 mL, 0 Refills, Soft Stop, 12/01/22 14:37:00 EDT, [facility] # [facility], Partial fill upon patient [...] tablet, 0 Refills, Maintenance, 09/08/23 14:41:00 EST, [facility], 165, cm, 05/25/23 14:40:00 EDT, Height, 118.3, kg, 12/16/22 20:23:00 EDT, Dry Weight Start Date: 09/08/23 Status: Ordered Wellbutrin XL 300 mg/24 hours oral tablet, extended release 1 tablet = 300 mg, By Mouth, Daily, # 30 tablet, 2 Refills, Maintenance, 09/08/23 15:28:00 EST, ER Tablet, [facility], 165, cm, 05/25/23 14:40:00 EDT, Height, 118.3, kg, 12/16/22 20:23:00 EDT, Dry Weight Start Date: 09/08/23 Stop Date: 12/07/23 Status: Ordered ziprasidone 60 mg oral capsule 2 capsule = 120 mg, By Mouth, Daily at bedtime, # 60 capsule, 2 Refills, Maintenance, 09/08/23 15:30:00 EST, [facility], [...] Team Personnel Name: Anabel Roblero [place] Position: [facility] RN Member Role: Primary Care Nurse Name: Isa Ward Position: [facility] RN Member Role: Primary Care Nurse Name: Ofelia Jefferson NP Position: [facility] Associate Professional Member Role: PCP Address: Address: [address] [place] [address] [place] [address]- Name: Tommy Kohli MD Position: [facility] Physician - Behavioral Health Member Role: Lifetime Consulting Physician Address: Address: [address] [place] [address]- Care Team Related Persons Name: WILLEM SIMON III Address: [place] [address] Name: WILLEM SIMON JR Address: [address] [place] [address]
--- OUTSIDE RECORDS SUMMARY | 2024-01-22 11:14 | XMS_ITS | Continuity of Care Document ---
Author Organization [facility] Address [address] [place] [address]- Care Team Providers Care Employment Agency Manager Name Role Phone Ronny ECOLOGIST, Ofelia L Primary Care Physician Encounter [facility] Date(s): 07/28/22 - 08/27/22 [facility] [address] [place] [address]- Attending Physician: Adriano Becker Admitting Physician: AdmAdriaon feliz Referring Physician: AdmtrAdriano Allergies, Adverse Reactions, Alerts [...] Note: VIS GIVEN: 03/18/2011 2Result Comment: lot [id number] 09/21/2006 3Admin Note: VIS 05/29/09 GIVEN Medications Acetaminophen Extra Strength Gelcaps = 1,000 mg, By Mouth, Every 8 hours, 0 Refills, Maintenance, 04/28/21 7:59:00 EDT, Partial fill upon patient request if the prescription is for a schedule II opioid drug. Start Date: 12/19/20 Status: Ordered Adderall 20 mg oral tablet 1 tablet = 20 mg, By Mouth, Daily, # 30 tablet, 0 Refills, Maintenance, 07/29/22 16:06:00 EST, [facility], 1 tablet By Mouth Daily,x30 days, 168, cm, 07/22/22 10:12:00 EST, Height, 112, kg, 04/22/22 14:00:00 EDT, Dry Weight Start Date: 07/29/22 Stop Date: 08/28/22 Status: Ordered Adderall XR 30 mg oral capsule, extended release 1 capsule = 30 mg, By Mouth, Daily in AM, # 30 capsule, 0 Refills, Maintenance, 07/29/22 16:07:00 EST, ER Capsule, [facility], last filled 07/04 -= please only fill on/after exact due date, 1 capsule By Mouth Daily in AM,x30 days, 168, cm, 11... Start Date: 07/29/22 Stop Date: 08/28/22 Status: Ordered albuterol 90 mcg/inh inhalation powder 2 puffs, Inhalation, Every 4 hours, PRN as needed, # 1 each, 0 Refills, Maintenance, 08/01/21 20:08:00 EST, Powder, [facility], Partial fill upon [...] 1 Refills, Maintenance, 05/26/22 17:40:00 EDT, Tablet, [facility], Partial fill upon patient request if the prescription is for a schedule IIopioid drug., 168, cm, 05/15/22 14:37:00 EDT, Heigh... Start Date: 05/26/22 Status: Ordered cholecalciferol 5000 intl units oral tablet 1 tablet = 125 mcg, By Mouth, Daily, # 30 tablet, 3 Refills, Maintenance, 02/07/22 11:35:00 EDT, Tablet, [facility], Partial fill upon patient request if the prescription is for a schedule II opioid drug., 168, cm, 02/07/22 11:03:00 EDT, Heig... Start Date: 02/07/22 Stop Date: 06/07/22 Status: Ordered clonazePAM 0.5 mg oral tablet 1 tablet = 0.5 mg, By Mouth, 3 times a day, NEEDED FOR ANXIETY, # 90 tablet, 3 Refills, Maintenance, 07/04/22 8:22:00 EST, Tablet, [facility], Ok for fill [...] 0 Refills, Soft Stop, 08/23/22 14:55:00 EST, [facility], Partial fill uponpatient request if the prescription is for a schedu... Start Date: 08/23/22 Status: Ordered docusate sodium 100 mg oral capsule See Instructions, TAKE 1 CAPSULE ONE TO TWO TIMES A DAY FOR CONSTIPATION, # 20 capsule, 0 Refills, [facility], 168, cm, 08/01/21 17:36:00 EST, Height, 115, kg, 08/01/21 17:36:00 EST, Dry Weight Start Date: 10/31/21 Status: Ordered folic acid 1 mg oral tablet See Instructions, TAKE 1 TABLET BY MOUTH DAILY, # 30 tablet, Refills 3, Maintenance, 06/05/22 5:46:00 EDT, Instructions Replace Required Details, Route to Pharmacy Electronically, [facility], 168, cm, 05/15/22 [...] 3 Refills, Maintenance, 07/04/22 8:17:00 EST, Tablet, [facility], Ok [...] 07/04/22 8:17:00 EST, Route to Pharmacy Electronically, [facility], Ok for fill early - patienthas never lost or needed early refills before, 168,... Start Date: 07/04/22 Stop Date: 11/01/22 Status: Ordered Lyrica 75 mg oral capsule 1 capsule = 75 mg, By Mouth, 2 times a day, # 60 capsule, 0 Refills, Maintenance, 07/22/22 10:44:00EST, Capsule, [facility] # [facility], Partial fill [...] 08/30/22 14:56:00 EST, 08/23/22 14:56:00 EST, Capsule, [facility], Partial fill upon patient request if the prescription is for a sche... Start Date: 08/23/22 Stop Date: 08/30/22 Status: Ordered omeprazole 40 mg oral enteric coated capsule See Instructions, TAKE 1 CAPSULE BY MOUTH TWO TIMES A DAY, # 60 capsule, 2 Refills, Maintenance, 08/11/22 12:55:00 EST, [facility], 168, cm, 07/22/22 [...] tablet, 0 Refills, Maintenance, 07/22/22 10:47:00 EST, [facility], Partial fill upo... Start Date: 07/22/22 Status: Ordered Wellbutrin XL 150 mg/24 hours oral tablet, extended release 1 tablet = 150 mg, By Mouth, Every 24 hours, With the Wellbutrin 300 mg TDD 450 mg, # 30 tablet, 3 Refills, Maintenance, 07/04/22 8:16:00 EST, ER Tablet, [facility], Ok for fill early - patient has never lost or needed early refills before, 1... Start Date: 07/04/22 Stop Date: 11/01/22 Status: Ordered Wellbutrin XL 300 mg/24 hours oral tablet, extended release 1 tablet = 300 mg, By Mouth, Daily, With the Wellbutrin 150 mg TDD 450 mg, # 30 tablet, 3 Refills, Maintenance, 07/04/22 8:17:00 EST, ER Tablet, [facility], Ok for fill [...] Care Team Personnel Name: Anabel Vyas Position: [facility] RN Member Role: Primary Care Nurse Name: Isa Wrad Position: [facility] RN Member Role: Primary Care Nurse Name: Ofelia Jefferson NP Position: [facility] Associate Professional Member Role: PCP Address: Address: [address] [facility] [place] [address]- [place] Name: Tommy Kohli MD Position: [facility] Psychiatry MD Member Role: Lifetime Consulting Physician Address: Address: [address] [place] [address]- Care Team Related Persons Name: WILLEM SIMON III Address: [place] [address] Name: WILLEM SIMON SR Address: home [address] [place] [address]
--- OUTSIDE RECORDS SUMMARY | 2024-01-22 11:14 | XMS_ITS | Continuity of Care Document ---
Author Organization [facility] Lyndsay terrance Address [address] [place] [address] [address] [place] [address]- Care Team Providers Care Cost And Risk Analysis Manager Name Role Phone Julienne Bar NP Primary Care Physician Encounter [facility] Date(s): 01/02/22 - 01/09/22 [facility] [address] [place] [address]- Attending Physician: Magalis Chua MD Allergies, Adverse [...] Note: VIS GIVEN: 03/18/2011 2Result Comment: lot [id number] 09/21/2006 3Admin Note: VIS 05/29/09 GIVEN Medications [...] oldest [Reference Range]: 1 Height 168 cm (01/02/22 2:46 PM) Weight 115 kg (01/02/22 2:46 PM) Body Mass Index [18.5-24.99] 40.75 *>HHI* (01/02/22 2:46 PM) Dry Weight 115 kg (01/02/22 2:46 PM) Dry Weight Obtained Via Standing scale (01/02/22 2:46 PM) Social History Social History Type Response Smoking Status Never (less than 100 in lifetime); Tobacco user in household: No entered on: 07/26/18 Sex Female
--- OUTSIDE RECORDS SUMMARY | 2024-01-22 11:14 | XMS_ITS | Continuity of Care Document ---
Author Organization [facility] [place] Address [address] [place] [address]- Care Team Providers Care Nitroglycerin Separator Operator Name Role Phone Yosvany PAPPAS, Julienne Platt Primary Care Physician ( [phone] Encounter [facility] Date(s): 12/04/21 - 01/03/22 [facility] [place] [address] [place] [address]- Allergies, Adverse Reactions, Alerts Substance Reaction Severity [...] Note: VIS GIVEN: 03/18/2011 2Result Comment: lot [id number] 09/21/2006 3Admin Note: VIS 05/29/09 GIVEN Medications [...]
--- OUTSIDE RECORDS SUMMARY | 2024-01-22 11:14 | XMS_ITS | Continuity of Care Document ---
Author Organization [facility] [place] Address [address] [place] [address]- Care Team Providers Care Pie Dough Roller Name Role Phone Danis PAPPAS, Elda Salazar Primary Care Physician Encounter [facility] [id number] Date(s): 04/05/20 - 05/05/20 [facility] [place] [address] [place] [address]- [facility] Allergies, Adverse Reactions, Alerts Substance Reaction Severity [...] Note: VIS GIVEN: 03/18/2011 2Result Comment: lot [id number] 09/21/2006 3Admin Note: VIS 05/29/09 GIVEN Problem [...]
--- OUTSIDE RECORDS SUMMARY | 2024-01-22 11:14 | XMS_ITS | Continuity of Care Document ---
Author Organization [facility] Address [address] [address]- Care Team Providers Care Marble Polisher Hand Name Role Phone Danis PAPPAS, Elda Salazar Primary Care Physician [phone] [id number] Date(s): 10/13/19 - [facility]/16/19 [facility] [address] [address] [facility] Attending Physician: Erica Alexandra CNM Admitting Physician: Erica Alexandra CNM Referring Physician: Elda Moscoso NP Allergies, Adverse [...] Note: VIS GIVEN: 03/18/2011 2Result Comment: lot [id number] 09/21/2006 3Admin Note: VIS 05/29/09 GIVEN Problem [...]
--- OUTSIDE RECORDS SUMMARY | 2024-01-22 11:14 | XMS_ITS | Continuity of Care Document ---
Author Organization [facility] [place] Address [address] [place] [address]- Care Team Providers Care Non Ferrous Material Handler Name Role Phone Ronny LIBRARY HISTORIAN, Ofelia Acosta Primary Care Physician [phone] Encounter [facility] Date(s): 11/12/23 - 12/12/23 [facility] [place] [address] [place] [address]- Allergies, Adverse Reactions, Alerts Substance Reaction Severity [...] Note: VIS GIVEN: 03/18/2011 2Result Comment: lot [id number] 09/21/2006 3Admin Note: VIS 05/29/09 GIVEN Medications [...] Refills, Maintenance, 12/01/23 15:45:00 EDT, ER Capsule, [facility], fill when due, 1 capsule By Mouth Daily in AM,x30 days, 165, cm, 11/06/23 8:10:00 EDT, Height, 110.1, kg, 10/28/23... Start Date: 12/01/23 Stop Date: 12/31/23 Status: Ordered amLODIPine 2.5 mg oral tablet 1 tablet, By Mouth, Daily, # 90 tablet, 1 Refills, Maintenance, 07/24/23 15:00:00 EST, [facility], 165, cm, 05/25/23 14:40:00 EDT, Height, 118.3, kg, 12/16/22 20:23:00 EDT, Dry Weight Start Date: 07/24/23 Status: Ordered amphetamine-dextroamphetamine 10 mg oral tablet 1 tablet = 10 mg, By Mouth, 2 times a day, # 60 tablet, 0 Refills, Maintenance, 12/01/23 15:45:00 EDT, [facility], fill on date due, 1 tablet By Mouth 2 times a day,x30 days, 165, cm, 11/06/23 8:10:00 EDT, Height, 110.1, kg, 10/28/23 1:29:00... Start Date: 12/01/23 Stop Date: 12/31/23 Status: Ordered CeleBREX 100 mg oral capsule 1 capsule = 100 mg, By Mouth, 2 times a day, PRN for pain, # 60 capsule, 3 Refills, Maintenance, 11/06/23 9:04:00 EDT, Capsule, [facility], Partial fill upon patient [...] tablet, 3 Refills, Maintenance, 12/01/23 15:46:00 EDT, [facility], 165, cm, 11/06/23 8:10:00 EDT, Height, 110.1, kg, 10/28/23 1:29:00 EST, Dry Weight Start Date: 12/01/23 Stop Date: 03/30/24 Status: Ordered LaMICtal 200 mg oral tablet 2 tablet = 400 mg, By Mouth, Daily at bedtime, # 60 tablet, 3 Refills, Maintenance, 12/01/23 15:46:00 EDT, Tablet, [facility], 165, cm, 11/06/23 8:10:00 [...] Team Personnel Name: Anabel Roblero [place] Position: [facility] RN Member Role: Primary Care Nurse Name: Isa Ward Position: [facility] RN Member Role: Primary Care Nurse Name: Ofelia Jefferson NP Position: [facility] PCO Associate Professional Member Role: PCP Address: Address: [address] [place] [address] [place] [address]- Name: Tommy Kohli MD Position: [facility] Physician - Behavioral Health Member Role: Lifetime Consulting Physician Address: Address: [address] [place] [address]- Care Team Related Persons Name: WILLEM SIMON III Address: [place] [address] Name: WILLEM SIMON JR Address: home [address] [place] [id number]
--- OUTSIDE RECORDS SUMMARY | 2024-01-22 11:14 | XMS_ITS | Continuity of Care Document ---
Author Organization [facility] Address [address] [place] [address]- Care Team Providers Care Box Gluer Name Role Phone Ronny BPO SPECIALIST, Ofelia Acosta Primary Care Physician Encounter [facility] Date(s): 10/27/23 - 10/28/[address] [address]- Discharge Disposition: A-D/C Home Attending Physician: Harjeet Watkins MD Admitting Physician: Harjeet Watkins MD Referring Physician: Not on Staff, Referring [...] Note: VIS GIVEN: 03/18/2011 2Result Comment: lot [id number] 09/21/2006 3Admin Note: VIS 05/29/09 GIVEN Medications [...] Refills, Maintenance, 10/16/23 7:18:00 EST, ER Capsule, [facility], 1 capsule By Mouth Daily in AM,x30 days, 165, cm, 05/25/23 14:40:00 EDT, Height, 118.3, kg, 12/16/22 20:23:00 EDT, D... Start Date: 10/16/23 Stop Date: 11/15/23 Status: Ordered amLODIPine 2.5 mg oral tablet 1 tablet, By Mouth, Daily, # 90 tablet, 1 Refills, Maintenance, 07/24/23 15:00:00 EST, [facility], 165, cm, 05/25/23 14:40:00 EDT, Height, 118.3, kg, 12/16/22 20:23:00 EDT, Dry Weight Start Date: 07/24/23 Status: Ordered amphetamine-dextroamphetamine 10 mg oral tablet 1 tablet = 10 mg, By Mouth, 2 times a day, # 60 tablet, 0 Refills, Maintenance, 10/07/23 15:45:00 EST, [facility], fill on date due, 1 tablet By Mouth 2 times a day,x30 days, 165, cm, 05/25/23 14:40:00 EDT, Height, 118.3, kg, 12/16/22 20:23:0... Start Date: 10/07/23 Stop Date: 11/06/23 Status: Ordered clonazePAM 0.5 mg oral tablet 1 tablet = 0.5 mg, By Mouth, 3 times a day, NEEDED FOR ANXIETY, # 90 tablet, 3 Refills, Maintenance, 10/20/23 14:17:00 EST, Tablet, [facility], 165, cm, 05/25/23 14:40:00 EDT, Height, 118.3, kg, 12/16/22 20:23:00 EDT, Dry Weight Start Date: 10/20/23 Stop Date: 02/17/24 Status: Ordered cyclobenzaprine 10 mg oral tablet 10 mg, Tablet, By Mouth, Once, STAT, 10/27/23 22:37:00 EST, Stop date 10/27/23 22:37:00 EST Start Date: 10/27/23 Stop Date: 10/27/23 Status: Completed cyclobenzaprine 5 mg oral tablet 1 tablet = 5 mg, By Mouth, 3 times a day, for 7 days, # 21 tablet, 0 Refills, Acute 11/04/23 1:14:00 EDT, 10/28/23 1:14:00 EST, Tablet, [facility], Partial fill upon patient request if the prescription is for a schedule II opioid drug., 165,... Start Date: 10/28/23 Stop Date: 11/04/23 Status: Ordered docusate sodium 100 mg oral [...] 04/29/23 20:24:00 EDT, Route to Pharmacy Electronically, [facility] tablet, 3 Refills, Maintenance, 10/20/23 14:21:00 EST, [facility], 165, cm, 05/25/23 14:40:00 EDT, Height, 118.3, kg, 12/16/22 20:23:00 EDT, Dry Weight Start Date: 10/20/23 Stop Date: 02/17/24 Status: Ordered ibuprofen 800 mg oral tablet 1, tablet, By Mouth, 3 times a day, # 90 tablet, Refills 1, Maintenance, 05/25/23 8:49:00 EDT, Route to Pharmacy Electronically, [facility], 165, cm, 01/21/23 11:55:00 EDT, Height, 118.3, kg, 12/16/22 20:23:00 EDT, Dry Weight Start Date: 05/25/23 Status: Ordered LaMICtal 200 mg oral tablet 2 tablet = 400 mg, By Mouth, Daily at bedtime, # 60 tablet, 3 Refills, Maintenance, 10/20/23 14:22:00 EST, Tablet, [facility], 165, cm, 05/25/23 14:40:00 EDT, Height, 118.3, kg, 12/16/22 20:23:00 EDT, Dry Weight Start Date: 10/20/23 Stop Date: 02/17/24 Status: Ordered lamotrigine 100 mg oral tablet 100 mg, 1, tablet, By Mouth, Daily in AM, # 30 tablet, Refills 3, Tot. Refills 3, Maintenance, 10/20/23 14:22:00 EST, Route to Pharm[facility] Electronically, [facility] 0 Refills, Maintenance, 11/10/22 10:55:00 EDT, [facility], [facility], test date 01/14 .... Start Date: 11/10/22 Status: Ordered omeprazole 40 mg oral enteric coated capsule 1 capsule, By Mouth, 2 times a day, # 180 capsule, 1 Refills, Maintenance, 08/15/23 8:46:00 EST, [facility], 165, cm, 05/25/23 14:40:00 EDT, Height, 118.3, kg, 12/16/22 20:23:00 EDT, Dry Weight Start Date: 08/15/23 Status: Ordered ondansetron 4 mg oral tablet 1 tablet = 4 mg, By Mouth, Every 8 hours, # 21 tablet, 0 Refills, Maintenance, 07/29/23 17:24:00 EST, Tablet, [facility], [...] mL, 0 Refills, Maintenance, 05/25/23 15:17:00 EDT, [facility], Partial fill upon patient request if the prescription is for a schedule II opioid drug., 1 bottle 90 minutes prior to s... Start Date: 05/25/23 Status: Ordered Suprep Bowel Prep Kit oral liquid 177 mL, By Mouth, Once, split prep, # 354 mL, 0 Refills, Soft Stop, 12/01/22 14:37:00 EDT, [facility], Partial fill upon patient request if the prescription is for a schedule II opioid drug., 177 mL By Mouth Once,Instr:split prep, 165, cm, 04... Start Date: 12/01/22 Status: Ordered Trulicity Pen 1.5 mg/0.5 mL subcutaneous solution See Instructions, INJECT 0.5ML SUBCUTANEOUSLY ONCE WEEKLY ROTATE INJECTION SITES, # 2 mL, 5 Refills, Maintenance, 06/07/23 18:02:00 EDT, [facility], 165, cm, 05/25/23 14:40:00 EDT, Height, 118.3, kg, 12/16/22 20:23:00 EDT, Dry Weight Start Date: 06/07/23 Status: Ordered Vitamin D3 5000 intl units oral tablet 1 tablet, By Mouth, Daily, # 30 tablet, 0 Refills, Maintenance, 10/15/23 11:12:00 EST, [facility], 165, cm, 05/25/23 14:40:00 EDT, Height, 118.3, kg, 12/16/22 20:23:00 EDT, Dry Weight Start Date: 10/15/23 Status: Ordered Wellbutrin XL 300 mg/24 hours oral tablet, extended release 1 tablet = 300 mg, By Mouth, Daily, # 30 tablet, 3 Refills, Maintenance, 10/20/23 14:17:00 EST, ER Tablet, [facility], 165, cm, 05/25/23 14:40:00 EDT, Height, 118.3, kg, 12/16/22 20:23:00 EDT, Dry Weight Start Date: 10/20/23 Stop Date: 02/17/24 Status: Ordered ziprasidone 60 mg oral capsule 2 capsule = 120 mg, By Mouth, Daily at bedtime, # 60 capsule, 3 Refills, Maintenance, 10/20/23 14:22:00 EST, [facility], Partial fill upon patient [...] Exam Date Time Procedure Performing Provider Status 10/27/23 11:[address] Cervical Spine W/O Contrast Sara Serrato; Auth (Verified) Notes: (CT Cervical Spine W/O Contrast) Reason For Exam: Neck trauma, dangerous injury mechanism;Other: RESULT: CT Cervical Spine W/O Contrast CT Head/Brain W/O Contrast, CT Cervical Spine W/O Contrast INDICATION: Hx of Present Illness: neck pain and swelling x october she did try to be seen in an ER x once back in October since the weekend pain and swelling is worse OTC meds not helping - also c o chest pressure TECHNIQUE: Noncontrast head CT using axial technique was reconstructed in axial and coronal planes.Noncontrast spiral CT through the cervical spine was formatted in 3 planes. Automatic tube modulation was used for the cervical spine and iterative dose reconstruction was used for both the head and cervical spine to optimize scan parameters and image quality. CTDIvol Body: 9.04 mGy, DLP Body: 202 mGy*cm. CTDIvol Head: 46.33 mGy, DLP Head: 793 mGy*cm. COMPARISON: CT head 04/24/2018 FINDINGS: [place] Findings, Lines and Tubes: None. BRAIN AND EXTRA-AXIAL SPACES: No parenchymal hemorrhage, midline shift, or mass effect. Noland-white matter differentiation is wellpreserved. No acute infarct. Ventricles, sulci, and basilar cisterns are normal. No white matter lesions. No subarachnoid hemorrhage. No subdural or epidural collection. CALVARIUM, SKULL BASE, AND SOFT TISSUES: No fractures or suspicious bony lesions. The paranasal sinuses and mastoid air cells are clear. Visualized orbits and globes are intact. The extracranial soft tissues are unremarkable. CERVICAL SPINE: No fracture. No acute osseous abnormalities. Normal alignment. No locked or perched facet. Moderate multilevel degenerative disc space narrowingand end plate irregularity. OTHER BONES: No acute abnormality. CERVICAL SOFT TISSUES AND LUNG APICES: Normal soft tissues. Visualized lung apices are clear. Preliminary radiology report issued by [facility]. Agree with salient details of report. IMPRESSION: 1. No evidence of acute intracranial abnormality. 2. No evidence of acute fracture or dislocation of the cervical spine. WSN: [id number] Ordering Physician: Beena Palma Dictated By: Sacha Gifford MD Dictated Date/Time: 10/28/23 8:11 am Reviewed By: Sacha Gifford MD Signed By: Sacha Gifford MD Signed Date/Time: 10/28/23 8:11 am Transcribed By: SANDY Transcribed Date/Time: 10/28/23 8:08 am * Exam Date Time Procedure Performing Provider Status 10/27/23 11:[address] Head/Brain W/O Contrast Sara Chakraborty; Auth (Verified) Notes: (CT Head/Brain W/O Contrast) Reason For Exam: Other: RESULT: CT Head/Brain W/O Contrast CT Head/Brain W/O Contrast, CT Cervical Spine W/O Contrast INDICATION: Hx of Present Illness: neck pain and swelling x october she did try to be seen in an ER x once back in October since the weekend pain and swelling is worse OTC meds not helping - also c o chest pressure TECHNIQUE: Noncontrast head CT using axial technique was reconstructed in axial and coronal planes.Noncontrast spiral CT through the cervical spine was formatted in 3 planes. Automatic tube modulation was used for the cervical spine and iterative dose reconstruction was used for both the head and cervical spine to optimize scan parameters and image quality. CTDIvol Body: 9.04 mGy, DLP Body: 202 mGy*cm. CTDIvol Head: 46.33 mGy, DLP Head: 793 mGy*cm. COMPARISON: CT head 04/24/2018 FINDINGS: [place] Findings, Lines and Tubes: None. BRAIN AND EXTRA-AXIAL SPACES: No parenchymal hemorrhage, midline shift, or mass effect. Noland-white matter differentiation is wellpreserved. No acute infarct. Ventricles, sulci, and basilar cisterns are normal. No white matter lesions. No subarachnoid hemorrhage. No subdural or epidural collection. CALVARIUM, SKULL BASE, AND SOFT TISSUES: No fractures or suspicious bony lesions. The paranasal sinuses and mastoid air cells are clear. Visualized orbits and globes are intact. The extracranial soft tissues are unremarkable. CERVICAL SPINE: No fracture. No acute osseous abnormalities. Normal alignment. No locked or perched facet. Moderate multilevel degenerative disc space narrowingand end plate irregularity. OTHER BONES: No acute abnormality. CERVICAL SOFT TISSUES AND LUNG APICES: Normal soft tissues. Visualized lung apices are clear. Preliminary radiology report issued by [facility]. Agree with salient details of report. IMPRESSION: 1. No evidence of acute intracranial abnormality. 2. No evidence of acute fracture or dislocation of the cervical spine. WSN: [id number] Ordering Physician: Beena Palma Dictated By: Sacha Gifford MD Dictated Date/Time: 10/28/23 8:11 am Reviewed By: Sacha Gifford MD Signed By: Sacha Gifford MD Signed Date/Time: 10/28/23 8:11 am Transcribed By: SANDY Transcribed Date/Time: 10/28/23 8:08 am Vital Signs Most recent to oldest [Reference Range]: 1 2 3 Height 165 cm (10/28/23 1:29 AM) 165 cm (10/27/23 9:00 PM) 165 cm (10/27/23 8:57 PM) Weight 110.1 kg (10/28/23 1:29 AM) 110.1 kg (10/27/23 9:00 PM) Oxygen Saturation [94-100 %] 100 % (10/27/23 9:00 PM) 99 % (10/27/23 8:57 PM) Pulse Rate [55-90 bpm] 113 bpm *H* (10/27/23 9:00 PM) 118 bpm *H* (10/27/23 8:57 PM) Blood Pressure [90-138/55-84 mm Hg] 153/99mm Hg *H* (10/27/23 9:00 PM) Respiratory Rate [16-30 br/min] 17 br/min (10/27/23 11:05 PM) 17 br/min (10/27/23 9:00 PM) Temperature [96.8-100.4 DegF] 98.7 DegF (10/27/23 9:00 PM) Mode of Delivery (Oxygen) Room air (10/27/23 9:00 PM) Room air (10/27/23 8:57 PM) Blood pressure sites Arm, left (10/27/23 9:00 PM) Temperature Route Temporal (10/27/23 9:00 PM) Dry Weight 110.1 kg (10/28/23 1:29 AM) 110.1 kg (10/27/23 9:00 PM) Weight Obtained Via Standing scale (10/27/23 9:00 PM) Dry Weight Obtained Via Standing scale (10/27/23 9:00 PM) Social History Social History Type Response Smoking Status Never (less than 100 in lifetime); Tobacco user in household: No entered on: 07/26/18 Sex Female EKG study * Event Display: EKG Authored Date: * Event Display: ECG 12-Lead Authored Date: Please click on pdf link to open report * Event Display: ECG 12-Lead Authored Date: Ventricular Rate: 86 BPM Atrial Rate: 86 BPM P-R Interval: 178 ms QRS Duration: 100 ms Q-T Interval: 372 ms QTC Calculation(Bazett): 445 ms P Aguirre: 30 degrees R Aguirre: -25 degrees T Aguirre: 36 degrees Normal sinus rhythm Nonspecific T wave abnormality Abnormal ECG When compared with ECG of 24-DEC-2021 13:44, T wave inversion now evident in Anterior leads Confirmed by DARRIN SANCHEZ MD ([id number]) on 10/28/2023 8:10:32 PM Iva: DARRIN SANCHEZ MD Note * Harjeet Watkins MD: PERFORM Event Display: Patient Education Leaflets Authored Date: Neck Pain ?? [id number] Neck Pain Neck pain has several possible causes when there is no injury: ??? You can get a minor ligament sprain or muscle strain from a sudden minor neck movement. Sleeping with your neck in an awkward position can also cause this. ??? Some people respond to emotional stress by tensing the muscles of their neck, shoulders, and upper back. Chronic spasm in these musclescan cause neck pain and sometimes headaches. ??? Gradual??wear and tear of the joints in the spine can cause??degenerative arthritis. This can be a source of occasional or chronic neck pain. ??? The spinal disks may bulge and put pressure on a nearby spinal nerve. This can happen as a natural result of aging or repeated small injuries to the neck. The spinal disks are the cushions between each spi nal bone. This causes tingling, pain, or numbness that spreads from the neck to the shoulder, arm, or hand on one side. Acute neck pain usually gets better in 1 to 2 weeks. Neck pain related to disk disease, arthritis in the spinal joints, or spinal stenosis can become chronic and last for months or years. Spinal stenosis is narrowing of the spinal canal. X-rays are usually not ordered for the initial evaluation of neck pain. But X- rays may be done if you had a forceful physical injury, such as a car accident or fall. If pain continues and doesn???t respond to medical treatment, X-rays and other tests may be done at a later time. Less often, neck pain can be a sign of a more serious underlying medical condition. Home care ??? Rest and relax the muscles. Use a comfortable pillow that supports the head. It should also help keep the spine in a neutral position. The position of the head should not be tilted forward or backward. A rolled-up towel may help for a custom fit. ??? A soft cervical collar can help pain, especially pain with head movement. Your healthcare provider can tell you if this is appropriatefor your condition. ??? Some people find relief with??heat. Heat can be applied with either a warm shower or bath or??a moist towel heated in the microwave??and??massage.??Others prefer??cold packs. You can make an ice pack by placing ice in a plastic bag that seals at the top. Then wrap the bag with a thin towel.??Try both and use the method that feels best for??15 to??20 minutes, several times a day. ??? Whether using ice or heat, be careful that you don't injure your skin. Never put ice directly on the skin. Always wrap the ice in a towel or other type of cloth. This is very important, especially in people with poor skin sensations.? Try to reduce your stress level. Emotional stresscan lead to neck muscle tension and get in the way of or delay the healing process. ??? You may use??hzsx-afh-krzyacu pain medicine??to control pain, unless another medicine was prescribed. If you have chronic liver or kidney disease or ever had a stomach ulcer or digestive bleeding, talk with yourprovider before??using these medicines. ?? Follow-up care Follow up with your healthcare provider if your symptoms don't show signs of improvement after 1 week. Physical therapy or more tests may be needed. If X-rays, CT scans, or MRI scans were taken, you'll be told of any new findings that may affect your care. ?? Call 911 Call 911 if you have: ??? Sudden??weakness or numbness in 1 or both arms ??? Neck swelling, difficulty or painful swallowing ??? Trouble breathing ??? Chest pain ?? When to get medical advice Call your healthcare provider right away if any of these occur: ??? Pain gets worse or spreads into1 or both arms ??? Weakness of arms or legs ??? Loss of bowel or bladder control ??? Increasing headache ??? Fever of 100.4??F (38??C) or higher, or as advised by your provider ?? Last Reviewed Date: 2022 ?? [id number] [employer]. All rights reserved. This information is not intended as a substitute for professional medical care. Always follow your healthcare professional's instructions. ?? Patient Care team information Care Team Personnel Name: Anabel Roblero [place] Position: [facility] RN Member Role: Primary Care Nurse Name: Isa Ward Position: [facility] RN Member Role: Primary Care Nurse Name: Ofelia Jefferson NP Position: [facility] Associate Professional Member Role: PCP Address: Address: [address] [facility] [place] [address]- [place] Name: Tommy Kohli MD Position: [facility] Physician - Behavioral Health Member Role: Lifetime Consulting Physician Address: Address: [address] [place] [address]- Care Team Related Persons Name: WILLEM SIMON III Address: [place] [address] Name: WILLEM SIMON JR Address: home [address] [place] [address]
--- OUTSIDE RECORDS SUMMARY | 2024-01-22 11:14 | XMS_ITS | Continuity of Care Document ---
Author Organization [facility] Primary [facility] Address [address] [place] [address]- Care Team Providers Care Patching Machine Operator Name Role Phone Julienne Bar NP Primary Care Physician Encounter [facility] Date(s): 10/03/21 - 11/02/21 [facility] [address] [place] [address]- Encounter Diagnosis Viral URI(Discharge Diagnosis) - 12/01/19 Open wound of abdominal wall(Discharge Diagnosis) - 12/01/19 Attending Physician: Adriano Becker Admitting Physician: Admtr, ArMohan Referring Physician: Admtr, [...] Note: VIS GIVEN: 03/18/2011 2Result Comment: lot [id number] 09/21/2006 3Admin Note: VIS 05/29/09 GIVEN Medications [...]
--- OUTSIDE RECORDS SUMMARY | 2024-01-22 11:14 | XMS_ITS | Continuity of Care Document ---
Author Organization [facility] Address [address] [place] [address]- Care Team Providers Care Realtime Reporter Name Role Phone Ronny RECEPTIONIST TELEPHONE OPERATOR, Ofelia Acosta Primary Care Physician Encounter [facility] Date(s): 02/23/23 - 04/01/23 [facility] [address] [place] [address]- Attending Physician: Faye Brown MD Allergies, Adverse Reactions, Alerts Substance Reaction [...] Note: VIS GIVEN: 03/18/2011 2Result Comment: lot [id number] 09/21/2006 3Admin Note: VIS 05/29/09 GIVEN Medications [...] Refills, Maintenance, 03/25/23 16:27:00 EDT, ER Capsule, [facility], please only fill on/after exact due date, 1 capsule By Mouth Daily in AM,x30 days, 165, cm, 01/21/23 11:55:00 EDT,... Start Date: 03/25/23 Stop Date: 04/24/23 Status: Ordered amLODIPine 2.5 mg oral tablet 1 tablet = 2.5 mg, By Mouth, Daily, # 90 tablet, 1 Refills, Maintenance, 11/14/22 13:47:00 EDT, Tablet, [facility], Partial fill upon patient request if the prescription is for a schedule IIopioid drug., 168, cm, 10/22/22 10:35:00 ESTHair... Start Date: 11/14/22 Status: Ordered amphetamine-dextroamphetamine 10 mg oral tablet 1 tablet = 10 mg, By Mouth, 2 times a day, # 60 tablet, 0 Refills, Maintenance, 03/25/23 16:26:00 EDT, [facility], fill on date [...] 3 Refills, Maintenance, 02/27/23 14:38:00 EDT, Tablet, [facility], 165, cm, 01/21/23 [...] 03/27/23 13:40:00 EDT, Route to Pharmacy Electronically, [facility], Partial fill upon patient [...] 02/27/23 14:39:00 EDT, Route to Pharmacy Electronically, [facility], 165, cm, 01/21/23 11:55:00EDT, [...] each, 0 Refills, Maintenance, 11/10/22 10:55:00 EDT, RECJaneswdraymond, [facility], test date 01/14 .... Start Date: 11/10/22 Status: Ordered omeprazole 40 mg oral enteric coated capsule 1 capsule, By Mouth, 2 times a day, # 60 capsule, 5 Refills, Maintenance, 02/04/23 7:33:00 EDT, [facility], 165, cm, [...] tablet, 0 Refills, Maintenance, 01/21/23 16:49:00 EDT, [facility], Partial fill upo... Start Date: 01/21/23 Status: Ordered Suprep Bowel Prep Kit oral liquid 177 mL, By Mouth, Once, split prep, # 354 mL, 0 Refills, Soft Stop, 12/01/22 14:37:00 EDT, [facility], Partial fill upon patient request if the prescription is for a schedule II opioid drug., 177 mL By Mouth Once,Instr:split prep, 165, cm, 04... Start Date: 12/01/22 Status: Ordered Trulicity Pen 1.5 mg/0.5 mL subcutaneous solution 0.5 mL = 1.5 mg, Subcutaneous Injection, Every week, rotate injection sites, # 2 mL, 0 Refills, Maintenance, 03/25/23 18:32:00 EDT, Solution, [facility], Partial fill upon patient request ifthe prescription is for a schedule II opioid drug.,... Start Date: 03/25/23 Status: Ordered Vitamin D3 5000 intl units oral tablet 1 tablet, By Mouth, Daily, # 30 tablet, 5 Refills, Maintenance, 03/08/23 21:40:00 EDT, [facility], 165, cm, 01/21/23 11:55:00 EDT, Height, 118.3, kg, 12/16/22 20:23:00 EDT, Dry Weight Start Date: 03/08/23 Status: Ordered Wellbutrin XL 150 mg/24 hours oral tablet, extended release 1 tablet = 150 mg, By Mouth, Every 24 hours, With the Wellbutrin 300 mg TDD 450 mg, # 30 tablet, 3 Refills, Maintenance, 02/27/23 14:37:00 EDT, ER Tablet, [facility], 165, cm, 01/21/23 11:55:00 EDT, Height, 118.3, kg, 12/16/22 20:23:00 EDT, D... Start Date: 02/27/23 Stop Date: 06/27/23 Status: Ordered Wellbutrin XL 300 mg/24 hours oral tablet, extended release 1 tablet = 300 mg, By Mouth, Daily, With the Wellbutrin 150 mg TDD 450 mg, # 30 tablet, 3 Refills, Maintenance, 02/27/23 14:37:00 EDT, ER Tablet, [facility], Ok for fill early - patient has never lost or needed early refills before, 165, cm,... Start Date: 02/27/23 Status: Ordered ziprasidone 60 mg oral capsule 1 capsule = 60 mg, By Mouth, Daily at bedtime, # 7 capsule, 0 Refills, Maintenance, 01/28/23 14:16:00 EDT, [facility], please fill this script early as pt in going on vacation and will not have enough pills to get through when she returns- ... Start Date: 01/28/23 Stop Date: 02/04/23 Status: Ordered ziprasidone 60 mg oral capsule 1 capsule = 60 mg, By Mouth, Daily at bedtime, # 30 capsule, 3 Refills, Maintenance, 02/27/23 14:39:00 EDT, [facility], Partial fill upon [...] Stop 04/11/23 8:55:00 EDT, 12/12/22 8:55:00 EDT, [facility], dose reduction, 165, cm, 12/01/22 14:13:00 EDT, Height, 118.3, kg, ... Start Date: 12/12/22 Stop Date: 04/11/23 Status: Ordered ziprasidone 80 mg oral capsule 1 capsule = 80 mg, By Mouth, Daily at bedtime, TDD = 140mg/day Okay to fill early due to vacation.,# 7 capsule, 0 Refills, Maintenance, 02/27/23 14:39:00 EDT, [facility], dose reduction, 165, cm, [...] Personnel Name: Anabel Roblero [place] Position: [facility] RN Member Role: Primary Care Nurse Name: Isa Ward Position: [facility] RN Member Role: Primary Care Nurse Name: Ofelia Jefferson NP Position: [facility] PCO Associate Professional Member Role: PCP Address: Address: [address] [place] [id number]- Name: Tommy Kohli MD Position: [facility] Physician - Behavioral Health Member Role: Lifetime Consulting Physician Address: Address: [address] [place] [address]- Care Team Related Persons Name: WILLEM SIMON III Address: [place] [address] Name: WILLEM SIMON JR Address: home [address] [place] [address]
--- OUTSIDE RECORDS SUMMARY | 2024-01-22 11:14 | XMS_ITS | Continuity of Care Document ---
Author Organization [facility] Address [address] [place] [address]- Care Team Providers Care Structural Shop Helper Name Role Phone Yosvany PAPPAS, Julienne Platt Primary Care Physician Encounter [facility] Date(s): 10/04/21 - 11/03/21 [facility] [address] [place] [address]- Allergies, Adverse Reactions, Alerts Substance Reaction Severity [...] Note: VIS GIVEN: 03/18/2011 2Result Comment: lot [id number] 09/21/2006 3Admin Note: VIS 05/29/09 GIVEN Medications [...]
--- OUTSIDE RECORDS SUMMARY | 2024-01-22 11:14 | XMS_ITS | Continuity of Care Document ---
Author Organization [facility] Address [address] [place] [address]- Care Team Providers Care Art Librarian Name Role Phone Elda Moscoso NP Primary Care Physician Encounter [facility] [id number] Date(s): 11/24/19 - 12/31/19 [facility] [address] [place] [address]- [facility] Attending Physician: Elda Moscoso NP Allergies, Adverse [...] Note: VIS GIVEN: 03/18/2011 2Result Comment: lot [id number] 09/21/2006 3Admin Note: VIS 05/29/09 GIVEN Problem [...]
--- OUTSIDE RECORDS SUMMARY | 2024-01-22 11:14 | XMS_ITS | Continuity of Care Document ---
Author Organization [facility] Address [address] [place] [address]- Care Team Providers Care Fur Buyer Name Role Phone Ronny HOST, Ofelia Acosta Primary Care Physician Encounter [facility] Date(s): 10/31/22 - 11/30/22 [facility] [address] [place] [address]- Attending Physician: Adriano Becker Admitting Physician: Adriano [...] Note: VIS GIVEN: 03/18/2011 2Result Comment: lot [id number] 09/21/2006 3Admin Note: VIS 05/29/09 GIVEN Medications [...] Refills, Maintenance, 11/26/22 13:26:00 EDT, ER Capsule, [facility], please only fill on/after exact due date, 1 capsule By Mouth Daily in AM,x30 days, 165, cm, 11/22/22 10:40:00 EDT,... Start Date: 11/26/22 Stop Date: 12/26/22 Status: Ordered amLODIPine 2.5 mg oral tablet 1 tablet = 2.5 mg, By Mouth, Daily, # 90 tablet, 1 Refills, Maintenance, 11/14/22 13:47:00 EDT, Tablet, [facility], Partial fill upon patient request if the prescription is for a schedule IIopioid drug., 168, cm, 10/22/22 10:35:00 EST, Heigh... Start Date: 11/14/22 Status: Ordered amphetamine-dextroamphetamine 10 mg oral tablet 1 tablet = 10 mg, By Mouth, 2 times a day, # 60 tablet, 0 Refills, Maintenance, 11/21/22 10:00:00 EDT, [facility], ., 1 tablet By Mouth 2 times a day,x30 days, 168, cm, 10/22/22 10:35:00 EST, Height, 112, kg, 04/22/22 14:00:00 EDT, Dry Weight Start Date: 11/21/22 Stop Date: 12/21/22 Status: Ordered cholecalciferol 5000 intl units oral tablet 1 tablet = 125 mcg, By Mouth, Daily, # 30 tablet, 3 Refills, Maintenance, 10/22/22 10:51:00 EST, Tablet, [facility], Partial fill upon patient request if the prescription is for a schedule II opioid drug., 168, cm, 10/22/22 10:35:00 EST, Heig... Start Date: 10/22/22 Stop Date: 02/19/23 Status: Ordered clonazePAM 0.5 mg oral tablet 1 tablet = 0.5 mg, By Mouth, 3 times a day, NEEDED FOR ANXIETY, # 90 tablet, 3 Refills, Maintenance, 10/17/22 8:57:00 EST, Tablet, [facility] [...] 12/02/22 12:24:00 EDT, 11/22/22 12:24:00 EDT, Capsule, [facility] # [...] 1 Refills, Maintenance, 10/22/22 10:50:00 EST, Tablet, [facility], Partial fill upon patient request if the prescription is for a schedule II opioid drug., 168, cm, 10/22/22 10:35:00 ES... Start Date: 10/22/22 Status: Ordered LaMICtal 200 mg oral tablet 2 tablet = 400 mg, By Mouth, Daily at bedtime, # 60 tablet, 3 Refills, Maintenance, 10/17/22 8:58:00 EST, Tablet, [facility], Ok for fill early - patient has never lost or needed early refills before, 168, cm, 10/07/22 10:08:00 EST, Height, 1... Start Date: 10/17/22 Stop Date: 02/14/23 Status: Ordered lamotrigine 100 mg oral tablet 100 mg, 1, tablet, By Mouth, Daily in AM, # 30 tablet, Refills 3, Tot. Refills 3, Maintenance, 10/17/22 8:58:00 EST, Route to Pharmacy Electronically, [facility], Ok for fill early [...] 0 Refills, Maintenance, 11/10/22 10:55:00 EDT, Vicente, [facility], test date 01/14 .... Start Date: 11/10/22 Status: Ordered omeprazole 40 mg oral enteric coated capsule 1 capsule, By Mouth, 2 times a day, # 60 capsule, 2 Refills, Maintenance, 11/11/22 12:20:00 EDT, [facility], 168, cm, 10/22/22 10:35:00 EST, Height, 112, kg, 04/22/22 14:00:00 EDT, Dry Weight Start Date: 11/11/22 Status: Ordered Wellbutrin XL 150 mg/24 hours oral tablet, extended release 1 tablet = 150 mg, By Mouth, Every 24 hours, With the Wellbutrin 300 mg TDD 450 mg, # 30 tablet, 3 Refills, Maintenance, 10/17/22 8:57:00 EST, ER Tablet, [facility], Ok for fill early - patient has never lost or needed early refills before, 1... Start Date: 10/17/22 Stop Date: 02/14/23 Status: Ordered Wellbutrin XL 300 mg/24 hours oral tablet, extended release 1 tablet = 300 mg, By Mouth, Daily, With the Wellbutrin 150 mg TDD 450 mg, # 30 tablet, 3 Refills, Maintenance, 10/17/22 8:57:00 EST, ER Tablet, [facility], Ok for fill early - patient has never lost or needed early refills before, 168, cm, 0... Start Date: 10/17/22 Status: Ordered ziprasidone 40 mg oral capsule See Instructions, Take one capsule in the morning and 1 capsules at bedtime with an 80mg tab TDD 160mg, # 60 capsule, 3 Refills, Maintenance, 10/17/22 8:58:00 EST, [facility], Partial fill upon patient request if the prescription is for a keith... Start Date: 10/17/22 Status: Ordered ziprasidone 80 mg oral capsule 1 capsule = 80 mg, By Mouth, Daily at bedtime, TDD = 160mg/day, # 30 capsule, 3 Refills, Maintenance, 10/17/22 8:59:00 EST, [facility], Partial fill upon patient [...] Care Team Personnel Name: Anabel Vyas Position: [facility] RN Member Role: Primary Care Nurse Name: Isa Ward Position: [facility] RN Member Role: Primary Care Nurse Name: fOelia Jefferson NP Position: [facility] PCO Associate Professional Member Role: PCP Address: Address: [address] [place] [address] [place] [address]- Name: Tommy Kohli MD Position: [facility] Psychiatry MD Member Role: Lifetime Consulting Physician Address: Address: [address] [place] [address] [place] [address]- Care Team Related Persons Name: WILLEM SIMON III Address: [place] [address] Name: WILLEM SIMON JR Address: [address] [place] [address]
--- OUTSIDE RECORDS SUMMARY | 2024-01-22 11:14 | XMS_ITS | Continuity of Care Document ---
Author Organization [facility] Address [address] [place] [address]- Care Team Providers Care Vegetable Cutter Name Role Phone Ronny LABORER SHIPYARD, Ofelia Acosta Primary Care Physician [phone] Encounter [facility] [place] Date(s): 10/07/22 - 11/06/22 [facility] [address] [place] [address]- Attending Physician: Adriano Becker Admitting Physician: AdmAdriano feliz Referring Physician: Admtr, Adriano Allergies, Adverse Reactions, Alerts [...] Note: VIS GIVEN: 03/18/2011 2Result Comment: lot [id number] 09/21/2006 3Admin Note: VIS 05/29/09 GIVEN Medications [...] Refills, Maintenance, 10/17/22 8:56:00 EST, ER Capsule, [facility], please only fill on/after exact due date, 1 capsule By Mouth Daily in AM,x30 days, 168, cm, 10/07/22 10:08:00 EST, H... Start Date: 10/17/22 Stop Date: 11/16/22 Status: Ordered amLODIPine 2.5 mg oral tablet 1 tablet = 2.5 mg, By Mouth, Daily, # 90 tablet, 1 Refills, Maintenance, 05/26/22 17:40:00 EDT, Tablet, [facility], Partial fill upon patient request if the prescription is for a schedule IIopioid drug., 168, cm, 05/15/22 14:37:00 EDT, Heigh... Start Date: 05/26/22 Status: Ordered amphetamine-dextroamphetamine 10 mg oral tablet 1 tablet = 10 mg, By Mouth, 2 times a day, # 60 tablet, 0 Refills, Maintenance, 10/17/22 8:57:00 EST, [facility], ., 1 tablet By Mouth 2 times a day,x30 days, 168, cm, 10/07/22 10:08:00 EST,Height, 112, kg, 04/22/22 14:00:00 EDT, Dry Weight Start Date: 10/17/22 Stop Date: 11/16/22 Status: Ordered cholecalciferol 5000 intl units oral tablet 1 tablet = 125 mcg, By Mouth, Daily, # 30 tablet, 3 Refills, Maintenance, 10/22/22 10:51:00 EST, Tablet, [facility], Partial fill upon patient request if the prescription is for a schedule II opioid drug., 168, cm, 10/22/22 10:35:00 EST, Heig... Start Date: 10/22/22 Stop Date: 02/19/23 Status: Ordered clonazePAM 0.5 mg oral tablet 1 tablet = 0.5 mg, By Mouth, 3 times a day, NEEDED FOR ANXIETY, # 90 tablet, 3 Refills, Maintenance, 10/17/22 8:57:00 EST, Tablet, [facility] [...] 1 Refills, Maintenance, 10/22/22 10:50:00 EST, Tablet, [facility] [...] capsule, 2 Refills, Maintenance, 08/11/22 12:55:00 EST, [facility], 168, cm, 07/22/22 10:12:00 EST, Height, 112, kg, 04/22/22 14:00:00 EDT, Dry Weight Start Date: 08/11/22 Status: Ordered Wellbutrin XL 150 mg/24 hours oral tablet, extended release 1 tablet = 150 mg, By Mouth, Every 24 hours, With the Wellbutrin 300 mg TDD 450 mg, # 30 tablet, 3 Refills, Maintenance, 10/17/22 8:57:00 EST, ER Tablet, [facility], Ok for fill early - patient has never lost or needed early refills before, 1... Start Date: 10/17/22 Stop Date: 02/14/23 Status: Ordered Wellbutrin XL 300 mg/24 hours oral tablet, extended release 1 tablet = 300 mg, By Mouth, Daily, With the Wellbutrin 150 mg TDD 450 mg, # 30 tablet, 3 Refills, Maintenance, 10/17/22 8:57:00 EST, ER Tablet, [facility], Ok for fill early - patient has never lost or needed early refills before, 168, cm, 0... Start Date: 10/17/22 Status: Ordered ziprasidone 40 mg oral capsule See Instructions, Take one capsule in the morning and 1 capsules at bedtime with an 80mg tab TDD 160mg, # 60 capsule, 3 Refills, Maintenance, 10/17/22 8:58:00 EST, [facility], Partial fill upon patient request if the prescription is for a keith... Start Date: 10/17/22 Status: Ordered ziprasidone 80 mg oral capsule 1 capsule = 80 mg, By Mouth, Daily at bedtime, TDD = 160mg/day, # 30 capsule, 3 Refills, Maintenance, 10/17/22 8:59:00 EST, [facility], Partial fill upon [...] Care Team Personnel Name: Anabel Vyas Position: [facility] RN Member Role: Primary Care Nurse Name: Isa Ward Position: [facility] RN Member Role: Primary Care Nurse Name: Ofelia Jefferson NP Position: [facility] Associate Professional Member Role: PCP Address: Address: [address] [place] [address] [place], [place] [address] Name: Tommy Kohli MD Position: S Psychiatry MD Member Role: Lifetime Consulting Physician Address: Address: [address] [place] [address]- Care Team Related Persons Name: WILLEM SIMON III Address: [place] [address] Name: WILLEM SIMON JR Address: home [address] [place] [address]
--- OUTSIDE RECORDS SUMMARY | 2024-01-22 11:14 | XMS_ITS | Continuity of Care Document ---
Author Organization [facility] Address [address] [place] [address]- Care Team Providers Care Electronic Scale Assembler And Tester Name Role Phone Elda Moscoso NP Primary Care Physician Encounter [facility] [id number] Date(s): 11/24/19 - 12/01/19 [facility] [address] [place] [address]- [facility] Encounter Diagnosis Viral URI(Discharge Diagnosis) - 11/24/19 Attending Physician: Elda Moscoso NP Allergies, Adverse [...] Note: VIS GIVEN: 03/18/2011 2Result Comment: lot [id number] 09/21/2006 3Admin Note: VIS 05/29/09 GIVEN Problem [...] Diagnosis Diagnosis Type Effective Dates Health Status Clini rachel Service Informant Viral URI Discharge Diagnosis 11/24/19 Social History Social History Type Response Smoking Status Never (less than 100 in lifetime) entered on: 12/31/18 Sex
--- OUTSIDE RECORDS SUMMARY | 2024-01-22 11:14 | XMS_ITS | Continuity of Care Document ---
Author Organization [facility] Address [address] [place] [address]- Care Team Providers Care Interface Control Officer Name Role Phone Ronny PLASTICS WORKER, Ofelia Acosta Primary Care Physician Encounter [facility] Date(s): 12/17/23 - 01/16/24 [facility] [address] [place] [address]- Allergies, Adverse Reactions, Alerts Substance Reaction Severity [...] Note: VIS GIVEN: 03/18/2011 2Result Comment: lot [id number] 09/21/2006 3Admin Note: VIS 05/29/09 GIVEN Medications [...] Refills, Maintenance, 01/12/24 7:19:00 EDT, ER Capsule, [facility] # [facility], fill when due, 1 capsule By Mouth Daily in AM,x30 days, 165, cm,12/17/23 12:31:00 EDT, Height, 110.1, kg, 10/28/23... Start Date: 01/12/24 Stop Date: 02/11/24 Status: Ordered amLODIPine 2.5 mg oral tablet 1 tablet, By Mouth, Daily, # 90 tablet, 1 Refills, Maintenance, 01/10/24 10:27:00 EDT, [facility], 165, cm, 12/17/23 12:31:00 EDT, Height, 110.1, kg, 10/28/23 1:29:00 EST, Dry Weight Start Date: 01/10/24 Status: Ordered amphetamine-dextroamphetamine 10 mg oral tablet 1 tablet = 10 mg, By Mouth, 2 times a day, # 60 tablet, 0 Refills, Maintenance, 01/12/24 7:19:00 EDT, [facility], fill on date [...] 3 Refills, Maintenance, 11/06/23 9:04:00 EDT, Capsule, [facility], Partial fill upon patient request if the prescription is for a schedule II opioid drug., 165, cm, 10/22... Start Date: 11/06/23 Stop Date: 03/05/24 Status: Ordered clonazePAM 0.5 mg oral tablet 1 tablet = 0.5 mg, By Mouth, 3 times a day, NEEDED FOR ANXIETY, # 90 tablet, 3 Refills, Maintenance, 12/01/23 15:45:00 EDT, Tablet, [facility] # [facility], 165, cm, [...] 04/29/23 20:24:00 EDT, Route to Pharmacy Electronically, [facility], 165, cm, 01/21/23 11:55:00 EDT, Height, 118.3, kg, 12/16/22 20:23:00 EDT, Dry Weight Start Date: 04/29/23 Status: Ordered folic acid 1 mg oral tablet See Instructions, TAKE ONE TABLET BY MOUTH EVERY DAY, # 30 tablet, Refills 5, Maintenance, :13:00 EST, Instructions Replace Required Details, Route to Pharmacy Electronically, [facility], 165, cm, [...] tablet, 3 Refills, Maintenance, 12/01/23 15:46:00 EDT, [facility] # [facility], 165, cm, 11/06/23 8:10:00 EDT, Height, 110.1, kg, 10/28/23 1:29:00 EST, Dry Weight Start Date: 12/01/23 Stop Date: 03/30/24 Status: Ordered LaMICtal 200 mg oral tablet 2 tablet = 400 mg, By Mouth, Daily at bedtime, # 60 tablet, 3 Refills, Maintenance, 12/01/23 15:46:00 EDT, Tablet, [facility] # [facility], 165, cm, 11/06/23 8:10:00 EDT, Height, 110.1, kg, 10/28/23 1:29:00 EST, Dry Weight Start Date: 12/01/23 Stop Date: 03/30/24 Status: Ordered lamotrigine 100 mg oral tablet 100 mg, 1, tablet, By Mouth, Daily in AM, # 30 tablet, Refills 3, Tot. Refills 3, Maintenance, 12/01/23 15:46:00 EDT, Route to Pharmacy Electronically, [facility] # [facility], 165, cm, [...] 0 Refills, Maintenance, 11/10/22 10:55:00 EDT, [facility], [facility] # 86, test date 01/14 .... Start Date: 11/10/22 Status: Ordered omeprazole 40 mg oral enteric coated capsule 1 capsule, By Mouth, 2 times a day, # 180 capsule, 1 Refills, Maintenance, 08/15/23 8:46:00 EST, [facility] # 86, 165, cm, 05/25/23 14:40:00 EDT, Height, 118.3, kg, 12/16/22 20:23:00 EDT, Dry Weight Start Date: 08/15/23 Status: Ordered ondansetron 4 mg oral tablet 1 tablet = 4 mg, By Mouth, Every 8 hours, # 21 tablet, 0 Refills, Maintenance, 07/29/23 17:24:00 EST, Tablet, [facility] # [...] mL, 0 Refills, Maintenance, 05/25/23 15:17:00 EDT, [facility] # 86, Partial fill upon patient request if the prescription is for a schedule II opioid drug., 1 bottle 90 minutes prior to s... Start Date: 05/25/23 Status: Ordered Trulicity Pen 1.5 mg/0.5 mL subcutaneous solution See Instructions, INJECT 0.5ML SUBCUTANEOUSLY ONCE WEEKLY ROTATE INJECTION SITES, # 2 mL, 5 Refills, Maintenance, 06/07/23 18:02:00 EDT, [facility] # [facility], 165, cm, 05/25/23 14:40:00 EDT, Height, 118.3, kg, 12/16/22 20:23:00 EDT, Dry Weight Start Date: 06/07/23 Status: Ordered Vitamin D3 5000 intl units oral tablet 1 tablet, By Mouth, Daily, # 30 tablet, 0 Refills, Maintenance, 10/15/23 11:12:00 EST, [facility], 165, cm, 05/25/23 14:40:00 EDT, Height, 118.3, kg, 12/16/22 20:23:00 EDT, Dry Weight Start Date: 10/15/23 Status: Ordered Wellbutrin XL 300 mg/24 hours oral tablet, extended release 1 tablet = 300 mg, By Mouth, Daily, # 30 tablet, 3 Refills, Maintenance, 12/01/23 15:45:00 EDT, ER Tablet, [facility] # [facility], 165, cm, 11/06/23 8:10:00 EDT, Height, 110.1, kg, 10/28/23 1:29:00 EST,Dry Weight Start Date: 12/01/23 Stop Date: 03/30/24 Status: Ordered ziprasidone 20 mg oral capsule 1 capsule = 20 mg, By Mouth, Daily at bedtime, # 30 capsule, 3 Refills, Maintenance, 12/01/23 15:56:00 EDT, [facility] # [facility], dose reduction, [...] Team Personnel Name: Anabel Roblero [place] Position: [facility] Office Staff Member Role: Primary Care Nurse Name: Isa Paulson [place] Position: [facility] Office Staff Member Role: Primary Care Nurse Name: Ofelia Jefferson NP Position: [facility] PCO Associate Professional Member Role: PCP Address: Address: [address] [place] [id number]- Name: Tommy Kohli MD Position: [facility] Physician - Behavioral Health Member Role: Lifetime Consulting Physician Address: Address: [address] [place] [address]- Care Team Related Persons Name: WILLEM SIMON III Address: [place] [address] Name: WILLEM SIMON JR Address: home [address] [place] [id number]
--- OUTSIDE RECORDS SUMMARY | 2024-01-22 11:15 | XMS_ITS | Continuity of Care Document ---
Author Organization [facility] Address [address] [place] [address]- Care Team Providers Care Railroad Yard Worker Name Role Phone Yosvany PAPPAS, Julienne Platt Primary Care Physician Encounter [facility] Date(s): 08/01/21 - 08/31/21 [facility] [address] [place] [address]- Attending Physician: Adriano Becker Admitting Physician: Adriano [...] Note: VIS GIVEN: 03/18/2011 2Result Comment: lot [id number] 09/21/2006 3Admin Note: VIS 05/29/09 GIVEN Medications [...]
--- OUTSIDE RECORDS SUMMARY | 2024-01-22 11:15 | XMS_ITS | Continuity of Care Document ---
Author Organization [facility] terrance Address [address] [place] [address] [address] [place] [address]- Care Team Providers Care Electrical System Specialist Name Role Phone Ronny PAPPAS, Ofelia Acosta Primary Care Physician [place] [facility] Date(s): 01/30/22 - 02/06/22 [facility] [address] [place] [address]- Attending Physician: Magalis Chua MD Allergies, Adverse [...] influenza virus vaccine, inactivated 2 09/20/06 Gi jakcson tetanus/diphtheria/pertussis, acel(Tdap) 02/09/14 Given pneumococcal 23-valent vaccine 3 09/01/11 Given 1Admin Note: VIS GIVEN: 03/18/2011 2Result Comment: lot [id number] 09/21/2006 3Admin Note: VIS 05/29/09 GIVEN Medications [...] oldest [Reference Range]: 1 Height 168 cm (01/30/22 9:57 AM) Weight 115 kg (01/30/22 9:57 AM) Body Mass Index [18.5-24.99] 40.75 *>HHI* (01/30/22 9:57 AM) Dry Weight 115 kg (01/30/22 9:57 AM) Dry Weight Obtained Via Standing scale (01/30/22 9:57 AM) Social History Social History Type Response Smoking Status Never (less than 100 in lifetime); Tobacco user in household: No entered on: 07/26/18 Sex Female
--- OUTSIDE RECORDS SUMMARY | 2024-01-22 11:15 | XMS_ITS | Continuity of Care Document ---
Author Organization [facility] Address [address] [place] [address]- Care Team Providers Care Fly Winder Name Role Phone Ronny EXHIBIT DISPLAY REPRESENTATIVE, Ofelia Acosta Primary Care Physician [phone] Encounter [facility] Date(s): 09/03/23 - 10/03/23 [facility] [place] [address] [place] [address]- Encounter Diagnosis Viral URI(Discharge Diagnosis) - 12/01/19 Open wound of abdominal wall(Discharge Diagnosis) - 12/01/19 Attending Physician: Admtr, [id number] Admitting Physician: Admtr, [...] Note: VIS GIVEN: 03/18/2011 2Result Comment: lot [id number] 09/21/2006 3Admin Note: VIS 05/29/09 GIVEN Medications [...] Refills, Maintenance, 09/18/23 14:18:00 EST, ER Capsule, [facility], 1 capsule By Mouth Daily in AM,x30 days, 165, cm, 05/25/23 14:40:00 EDT, Height, 118.3, kg, 12/16/22 20:23:00 EDT,... Start Date: 09/18/23 Stop Date: 10/18/23 Status: Ordered amLODIPine 2.5 mg oral tablet 1 tablet, By Mouth, Daily, # 90 tablet, 1 Refills, Maintenance, 07/24/23 15:00:00 EST, [facility], 165, cm, 05/25/23 14:40:00 EDT, Height, 118.3, kg, 12/16/22 20:23:00 EDT, Dry Weight Start Date: 07/24/23 Status: Ordered amphetamine-dextroamphetamine 10 mg oral tablet 1 tablet = 10 mg, By Mouth, 2 times a day, # 60 tablet, 0 Refills, Maintenance, 08/27/23 9:57:00 EST, [facility] # [facility], fill on date due, 1 tablet By Mouth 2 times a day,x30 days, 165, cm, 05/25/23 14:40:00 EDT, Height, 118.3, kg, 12/16/22 20:23:00... Start Date: 08/27/23 Stop Date: 09/26/23 Status: Ordered clonazePAM 0.5 mg oral tablet 1 tablet = 0.5 mg, By Mouth, 3 times a day, NEEDED FOR ANXIETY, # 90 tablet, 3 Refills, Maintenance, 09/08/23 15:28:00 EST, Tablet, [facility], 165, cm, 05/25/23 14:40:00 [...] capsule, 1 Refills, Maintenance, 08/15/23 8:46:00 EST, [facility] # [facility], 165, cm, 05/25/23 14:40:00 EDT, Height, 118.3, kg, 12/16/22 20:23:00 EDT, Dry Weight Start Date: 08/15/23 Status: Ordered ondansetron 4 mg oral tablet 1 tablet = 4 mg, By Mouth, Every 8 hours, # 21 tablet, 0 Refills, Maintenance, 07/29/23 17:24:00 EST, Tablet, [facility] # [facility], Partial fill upon patient [...] mL, 0 Refills, Maintenance, 05/25/23 15:17:00 EDT, [facility], Partial fill upon patient request if the prescription is for a schedule II opioid drug., 1 bottle 90 minutes prior to s... Start Date: 05/25/23 Status: Ordered Suprep Bowel Prep Kit oral liquid 177 mL, By Mouth, Once, split prep, # 354 mL, 0 Refills, Soft Stop, 12/01/22 14:37:00 EDT, [facility], Partial [...] Team Personnel Name: Anabel Roblero [place] Position: [facility] RN Member Role: Primary Care Nurse Name: Isa Ward Position: [facility] RN Member Role: Primary Care Nurse Name: Ofelia Jefferson NP Position: [facility] PCO Associate Professional Member Role: PCP Address: Address: [address] [place] [address] [place] [address]- Name: Tommy Kohli MD Position: [facility] Physician - Behavioral Health Member Role: Lifetime Consulting Physician Address: Address: [address] [place] [address]- Care Team Related Persons Name: WILLEM SIMON III Address: [place] [address] Name: WILLEM SIMON JR Address: home [address] [place] [address]
--- OUTSIDE RECORDS SUMMARY | 2024-01-22 11:15 | XMS_ITS | Continuity of Care Document ---
Author Organization [facility] Address [address] [place] [address]- Care Team Providers Care Clinical Trial Head Name Role Phone Yosvany PAPPAS, Julienne Platt Primary Care Physician Encounter [facility] Date(s): 10/31/21 - 11/30/21 [facility] [address] [place] [address]- Allergies, Adverse Reactions, Alerts Substance Reaction Severity Status OxyCODONE Hydrochloride hives full body itch Active Immunizations Given and Recorded Vaccine Date Status Refusal Reason SARS-CoV-2 (COVID-19) mRNA BNT-162b2 vac 01/05/21 Recorded SARS-CoV-2 (COVID-19) mRNA BNT-162p2 vac 12/15/20 Recorded influenza virus vaccine, inactivated [...] Note: VIS GIVEN: 03/18/2011 2Result Comment: lot [id number] 09/21/2006 3Admin Note: VIS 05/29/09 GIVEN Medications [...]
--- OUTSIDE RECORDS SUMMARY | 2024-01-22 11:15 | XMS_ITS | Continuity of Care Document ---
Author Organization [facility] Lyndsay terrance Address [address] [place] [address] D[address] ve [address] [address]- Care Team Providers Care Construction Supervisor Name Role Phone Amadou STUART ([facility]), William Quesada Primary Care Ph ysician Encounter [facility] Date(s): 04/22/22 - 05/22/22 [facility] [address] [address]- Attending Physician: Adriano Becker Admitting Physician: [id number] Referring Physician: [id number] Allergies, Adverse Reactions, Alerts Substance Reaction Severity [...] Note: VIS GIVEN: 03/18/2011 2Result Comment: lot [id number] 09/21/2006 3Admin Note: VIS 05/29/09 GIVEN Medications Acetaminophen Extra Strength Gelcaps = 1,000 mg, By Mouth, Every 8 hours, 0 Refills, Maintenance, 04/28/21 7:59:00 EDT, Partial fill upon patient request if the prescription is for a schedule II opioid drug. Start Date: 12/19/20 Status: Ordered Adderall 20 mg oral tablet 1 tablet = 20 mg, By Mouth, Daily, last filled 04/18/22, # 30 tablet, 0 Refills, Maintenance, 05/13/22 8:50:00 EDT, [facility], 1 tablet By Mouth Daily,x30 days,Instr:last filled 04/18/22, 168, cm, 04/22/22 14:00:00 EDT, Height, 112, kg, ... Start Date: 05/13/22 Stop Date: 06/12/22 Status: Ordered Adderall XR 30 mg oral capsule, extended release 1 capsule = 30 mg, By Mouth, Daily in AM, last filled 04/18/2022, # 30 capsule, 0 Refills, Maintenance, 05/13/22 8:50:00 EDT, ER Capsule, [facility], 1 capsule By Mouth Daily in AM,Instr:lastfilled 04/18/2022, 168, cm, 04/22/22 14:00:00 EDT, H... Start Date: 05/13/22 Status: Ordered albuterol 90 mcg/inh inhalation powder 2 puffs, Inhalation, Every 4 hours, PRN as needed, # 1 each, 0 Refills, Maintenance, 08/01/21 20:08:00 EST, Powder, [facility], Partial [...] 3 Refills, Maintenance, 06/11/21 15:16:00 EDT, Tablet, [facility], Partial fill upon patient request if the prescription is for a schedule IIopioid drug., 168, cm, 06/11/21 14:35:00 EDT, Heigh... Start Date: 06/11/21 Status: Ordered cholecalciferol 5000 intl units oral tablet 1 tablet = 125 mcg, By Mouth, Daily, # 30 tablet, 3 Refills, Maintenance, 02/07/22 11:35:00 EDT, Tablet, [facility], Partial [...] 3 Refills, Maintenance, 03/14/22 9:26:00 EDT, Tablet, [facility], 168, cm, 02/20/22 13:36:00 EDT, Height, 116,kg, 02/20/22 13:36:00 EDT, Dry Weight Start Date: 03/14/22 Stop Date: 07/12/22 Status: Ordered docusate sodium 100 mg oral capsule See Instructions, TAKE 1 CAPSULE ONE TO TWO TIMES A DAY FOR CONSTIPATION, # 20 capsule, 0 Refills, [facility], 168, cm, 08/01/21 17:36:00 EST, Height, 115, kg, 08/01/21 17:36:00 EST, Dry Weight Start Date: 10/31/21 Status: Ordered folic acid 1 mg oral tablet 1 mg, 1, tablet, By Mouth, Daily, # 30 tablet, Refills 3, Tot. Refills 3, Maintenance, 02/07/22 11:35:00 EDT, Route to Pharmacy Electronically, [facility], Partial [...] 0 Refills, Maintenance, 04/18/22 13:47:00 EDT, Capsule, [facility] # [facility], Partial fill upon patient request ifthe prescription is for a schedule II opioid drug.,... Start Date: 04/18/22 Status: Ordered Geodon 80 mg oral capsule 1 capsule = 80 mg, By Mouth, Daily at bedtime, Take with 60mg capsule., # 30 capsule, 0 Refills, Maintenance, 04/18/22 13:47:00 EDT, Capsule, [facility], 168, cm, 04/06/22 15:19:00 EDT, Height, 113.3, kg, 04/09/22 9:17:00 EDT, Dry Weight Start Date: 04/18/22 Status: Ordered LaMICtal 200 mg oral tablet 2 tablet = 400 mg, By Mouth, Daily at bedtime, # 60 tablet, 3 Refills, Maintenance, 03/14/22 9:27:00 EDT, Tablet, [facility], 168, cm, 02/20/22 13:36:00 EDT, Height, 116, kg, 02/20/22 13:36:00 EDT, Dry Weight Start Date: 03/14/22 Stop Date: 07/12/22 Status: Ordered lamotrigine 100 mg oral tablet 100 mg, 1, tablet, By Mouth, Daily in AM, # 30 tablet, Refills 3, Tot. Refills 3, Maintenance, 03/14/22 9:27:00 EDT, Route to Pharmacy Electronically, [facility], 168, cm, 02/20/22 13:36:00 [...] capsule, 2 Refills, Maintenance, 04/22/22 12:20:00 EDT, [facility], 168, cm, 04/21/22 8:42:00 EDT, Height, 113.3, kg, 04/09/22 9:17:00 EDT, Dry Weight Start Date: 04/22/22 Status: Ordered Wellbutrin XL 150 mg/24 hours oral tablet, extended release 1 tablet = 150 mg, By Mouth, Every 24 hours, With the Wellbutrin 300 mg TDD 450 mg, # 30 tablet, 3 Refills, Maintenance, 03/14/22 9:26:00 EDT, ER Tablet, [facility], 168, cm, 02/20/22 13:36:00 EDT, Height, 116, kg, 02/20/22 13:36:00 EDT, Dry... Start Date: 03/14/22 Stop Date: 07/12/22 Status: Ordered Wellbutrin XL 300 mg/24 hours oral tablet, extended release 1 tablet = 300 mg, By Mouth, Daily, With the Wellbutrin 150 mg TDD 450 mg, # 30 tablet, 3 Refills, Maintenance, 03/14/22 9:26:00 EDT, ER Tablet, [facility], 168, [...] Care team information Personnel Name: Amadou STUART ([facility]), William Quesada Address: Address: [address] [place] [address]
--- OUTSIDE RECORDS SUMMARY | 2024-01-22 11:15 | XMS_ITS | Continuity of Care Document ---
Author Organization [facility] Address [address] [place] [address]- Care Team Providers Care Staff Home Therapy Rn Name Role Phone Ronny SHOELACE TIPPING MACHINE OPERATOR, Ofelia Acosta Primary Care Physician [phone] Encounter [facility] Date(s): 10/28/23 - 11/27/23 [facility] [address] [place] [address]- Allergies, Adverse Reactions, Alerts Substance Reaction Severity [...] Note: VIS GIVEN: 03/18/2011 2Result Comment: lot [id number] 09/21/2006 3Admin Note: VIS 05/29/09 GIVEN Medications [...] Refills, Maintenance, 11/13/23 7:20:00 EDT, ER Capsule, [facility] # [facility], fill when due, 1 capsule By Mouth Daily in AM,x30 days, 165, cm,11/06/23 8:10:00 EDT, Height, 110.1, kg, 10/28/23 1... Start Date: 11/13/23 Stop Date: 12/13/23 Status: Ordered amLODIPine 2.5 mg oral tablet 1 tablet, By Mouth, Daily, # 90 tablet, 1 Refills, Maintenance, 07/24/23 15:00:00 EST, [facility], 165, cm, 05/25/23 14:40:00 EDT, Height, 118.3, kg, 12/16/22 20:23:00 EDT, Dry Weight Start Date: 07/24/23 Status: Ordered amphetamine-dextroamphetamine 10 mg oral tablet 1 tablet = 10 mg, By Mouth, 2 times a day, # 60 tablet, 0 Refills, Maintenance, 11/13/23 7:20:00 EDT, [facility], fill on date [...] 3 Refills, Maintenance, 11/06/23 9:04:00 EDT, Capsule, [facility], Partial fill upon patient request if the prescription is for a schedule II opioid drug., 165, cm, 10/22... Start Date: 11/06/23 Stop Date: 03/05/24 Status: Ordered clonazePAM 0.5 mg oral tablet 1 tablet = 0.5 mg, By Mouth, 3 times a day, NEEDED FOR ANXIETY, # 90 tablet, 3 Refills, Maintenance, 10/20/23 14:17:00 EST, Tablet, [facility], 165, [...] 04/29/23 20:24:00 EDT, Route to Pharmacy Electronically, [facility], 165, cm, 01/21/23 11:55:00 EDT, Height, 118.3, kg, 12/16/22 20:23:00 EDT, Dry Weight Start Date: 04/29/23 Status: Ordered folic acid 1 mg oral tablet See Instructions, TAKE ONE TABLET BY MOUTH EVERY DAY, # 30 tablet, Refills 5, Maintenance, :13:00 EST, Instructions Replace Required Details, Route to Pharmacy Electronically, 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, 08/20/23 7:33:00 EDT, per ins this is what [...] tablet, 3 Refills, Maintenance, 10/20/23 14:21:00 EST, [facility], 165, cm, 05/25/23 14:40:00 EDT, Height, 118.3, kg, 12/16/22 20:23:00 EDT, Dry Weight Start Date: 10/20/23 Stop Date: 02/17/24 Status: Ordered LaMICtal 200 mg oral tablet 2 tablet = 400 mg, By Mouth, Daily at bedtime, # 60 tablet, 3 Refills, Maintenance, 10/20/23 14:22:00 EST, Tablet, [facility], 165, cm, 05/25/23 14:40:00 EDT, Height, 118.3, kg, 12/16/22 20:23:00 EDT, Dry Weight Start Date: 10/20/23 Stop Date: 02/17/24 Status: Ordered lamotrigine 100 mg oral tablet 100 mg, 1, tablet, By Mouth, Daily in AM, # 30 tablet, Refills 3, Tot. Refills 3, Maintenance, 10/20/23 14:22:00 EST, Route to Pharmacy Electronically, [facility], 165, [...] 0 Refills, Maintenance, 11/10/22 10:55:00 EDT, [facility], [facility], test date 01/14 .... Start Date: 11/10/22 Status: Ordered omeprazole 40 mg oral enteric coated capsule 1 capsule, By Mouth, 2 times a day, # 180 capsule, 1 Refills, Maintenance, 08/15/23 8:46:00 EST, [facility], 165, cm, 05/25/23 14:40:00 EDT, Height, 118.3, kg, 12/16/22 20:23:00 EDT, Dry Weight Start Date: 08/15/23 Status: Ordered ondansetron 4 mg oral tablet 1 tablet = 4 mg, By Mouth, Every 8 hours, # 21 tablet, 0 Refills, Maintenance, 07/29/23 17:24:00 EST, Tablet, [facility] [...] 15:17:00 EDT, [facility], Partial fill upon patient request if the prescription is for a schedule II opioid drug., 1 bottle 90 minutes prior to s... Start Date: 05/25/23 Status: Ordered Suprep Bowel Prep Kit oral liquid 177 mL, By Mouth, Once, split prep, # 354 mL, 0 Refills, Soft Stop, 12/01/22 14:37:00 EDT, [facility], Partial fill upon patient request if the prescription is for a schedule II opioid drug., 177 mL By Mouth Once,Instr:split prep, 165, cm, 04... Start Date: 12/01/22 Status: Ordered Trulicity Pen 1.5 mg/0.5 mL subcutaneous solution See Instructions, INJECT 0.5ML SUBCUTANEOUSLY ONCE WEEKLY ROTATE INJECTION SITES, # 2 mL, 5 Refills, Maintenance, 06/07/23 18:02:00 EDT, [facility], 165, cm, 05/25/23 14:40:00 EDT, Height, 118.3, kg, 12/16/22 20:23:00 EDT, Dry Weight Start Date: 06/07/23 Status: Ordered Vitamin D3 5000 intl units oral tablet 1 tablet, By Mouth, Daily, # 30 tablet, 0 Refills, Maintenance, 10/15/23 11:12:00 EST, [facility], 165, cm, 05/25/23 14:40:00 EDT, Height, 118.3, kg, 12/16/22 20:23:00 EDT, Dry Weight Start Date: 10/15/23 Status: Ordered Wellbutrin XL 300 mg/24 hours oral tablet, extended release 1 tablet = 300 mg, By Mouth, Daily, # 30 tablet, 3 Refills, Maintenance, 10/20/23 14:17:00 EST, ER Tablet, [facility], 165, [...] Team Personnel Name: Anabel Roblero [place] Position: [facility] RN Member Role: Primary Care Nurse Name: Isa Ward Position: [facility] RN Member Role: Primary Care Nurse Name: Ofelia Jefferson NP Position: [facility] PCO Associate Professional Member Role: PCP Address: Address: [address] [facility] [place] [address]- [place] Name: Tommy Kohli MD Position: [facility] Physician - Behavioral Health Member Role: Lifetime Consulting Physician Address: Address: [address] [place] [address]- Care Team Related Persons Name: WILLEM SIMON III Address: [place] [address] Name: WILLEM SIMON JR Address: home [address] [place] [id number]
--- OUTSIDE RECORDS SUMMARY | 2024-01-22 11:15 | XMS_ITS | Continuity of Care Document ---
Author Organization [facility] [place] [facility] [place] Address [address] [place] [address]- Care Team Providers Care Cabinet Assembler Name Role Phone Stacie Rendon NP Primary Care Physician Encounter [facility] Date(s): 02/26/21 - 03/28/21 [facility] [place] [address] [place] [address]- Allergies, Adverse Reactions, Alerts Substance Reaction Severity [...] Note: VIS GIVEN: 03/18/2011 2Result Comment: lot [id number] 09/21/2006 3Admin Note: VIS 05/29/09 GIVEN Medications [...]
--- OUTSIDE RECORDS SUMMARY | 2024-01-22 11:15 | XMS_ITS | Continuity of Care Document ---
Author Organization [facility] [place] Address [address] [place] [address]- Care Team Providers Care Addressograph Operator Name Role Phone Stacie Rendon NP Primary Care Physician Encounter [email or web address] NBR [id number] Date(s): 12/07/20 - 01/09/21 [facility] [place] [address] [place] [address]- Attending Physician: Stacie Rendon NP Allergies, Adverse [...] Note: VIS GIVEN: 03/18/2011 2Result Comment: lot [id number] 09/21/2006 3Admin Note: VIS 05/29/09 GIVEN Medications [...]
--- OUTSIDE RECORDS SUMMARY | 2024-01-22 11:15 | XMS_ITS | Continuity of Care Document ---
Author Organization [facility] [place] Address [address] [place] [address]- Care Team Providers Care Oracle Brm Developer Name Role Phone Amadou STUART ([facility]), William Quesada Primary Care Ph ysician Encounter [facility] Date(s): 04/23/22 - 05/23/22 [facility] [place] [address] [place], [place] [address] Allergies, Adverse Reactions, Alerts Substance Reaction [...] Note: VIS GIVEN: 03/18/2011 2Result Comment: lot [id number] 09/21/2006 3Admin Note: VIS 05/29/09 GIVEN Medications [...] tablet, 0 Refills, Maintenance, 05/13/22 8:50:00 EDT, [facility], [...] Refills, Maintenance, 05/13/22 8:50:00 EDT, ER Capsule, [facility], 1 capsule By Mouth Daily in AM,Instr:lastfilled 04/18/2022, 168, cm, 04/22/22 14:00:00 EDT, H... Start Date: 05/13/22 Status: Ordered albuterol 90 mcg/inh inhalation powder 2 puffs, Inhalation, Every 4 hours, PRN as needed, # 1 each, 0 Refills, Maintenance, 08/01/21 20:08:00 EST, Powder, [facility], Partial fill upon patient request if the prescription is for aschedule II opioid drug., 2 puffs Inhalation Every... Start Date: 08/01/21 Status: Ordered Ambien 10 mg oral tablet 1 tablet = 10 mg, By Mouth, Daily at bedtime, PRN as needed for insomnia, for 30 days, # 30 tablet,3 Refills, Acute 07/12/22 9:27:00 EST, 03/14/22 9:27:00 EDT, Tablet, [facility], 168, cm, 02/20/22 13:36:00 EDT, Height, 116, kg, 02/20/22 13:... Start Date: 03/14/22 Stop Date: 07/12/22 Status: Ordered amLODIPine 2.5 mg oral tablet 1 tablet = 2.5 mg, By Mouth, Daily, # 90 tablet, 3 Refills, Maintenance, 06/11/21 15:16:00 EDT, Tablet, [facility], Partial fill upon patient request if the prescription is for a schedule IIopioid drug., 168, cm, 06/11/21 14:35:00 EDT, Heigh... Start Date: 06/11/21 Status: Ordered cholecalciferol 5000 intl units oral tablet 1 tablet = 125 mcg, By Mouth, Daily, # 30 tablet, 3 Refills, Maintenance, 02/07/22 11:35:00 EDT, Tablet, [facility], [...] 3 Refills, Maintenance, 03/14/22 9:26:00 EDT, Tablet, [facility], 168, cm, 02/20/22 13:36:00 EDT, Height, 116,kg, 02/20/22 13:36:00 EDT, Dry Weight Start Date: 03/14/22 Stop Date: 07/12/22 Status: Ordered docusate sodium 100 mg oral capsule See Instructions, TAKE 1 CAPSULE ONE TO TWO TIMES A DAY FOR CONSTIPATION, # 20 capsule, 0 Refills, [facility], 168, cm, 08/01/21 17:36:00 EST, Height, 115, kg, 08/01/21 17:36:00 EST, Dry Weight Start Date: 10/31/21 Status: Ordered folic acid 1 mg oral tablet 1 mg, 1, tablet, By Mouth, Daily, # 30 tablet, Refills 3, Tot. Refills 3, Maintenance, 02/07/22 11:35:00 EDT, Route to Pharmacy Electronically, [facility], [...] 0 Refills, Maintenance, 04/18/22 13:47:00 EDT, Capsule, [facility], Partial fill upon patient request ifthe prescription is for a schedule II opioid drug.,... Start Date: 04/18/22 Status: Ordered Geodon 80 mg oral capsule 1 capsule = 80 mg, By Mouth, Daily at bedtime, Take with 60mg capsule., # 30 capsule, 0 Refills, Maintenance, 04/18/22 13:47:00 EDT, Capsule, [facility], 168, cm, 04/06/22 15:19:00 EDT, Height, 113.3, kg, 04/09/22 9:17:00 EDT, Dry Weight Start Date: 04/18/22 Status: Ordered LaMICtal 200 mg oral tablet 2 tablet = 400 mg, By Mouth, Daily at bedtime, # 60 tablet, 3 Refills, Maintenance, 03/14/22 9:27:00 EDT, Tablet, [facility], 168, cm, 02/20/22 13:36:00 EDT, Height, 116, kg, 02/20/22 13:36:00 EDT, Dry Weight Start Date: 03/14/22 Stop Date: 07/12/22 Status: Ordered lamotrigine 100 mg oral tablet 100 mg, 1, tablet, By Mouth, Daily in AM, # 30 tablet, Refills 3, Tot. Refills 3, Maintenance, 03/14/22 9:27:00 EDT, Route to Pharmacy Electronically, [facility], 168, cm, 02/20/22 13:36:00 [...] capsule, 2 Refills, Maintenance, 04/22/22 12:20:00 EDT, [facility], 168, cm, 04/21/22 8:42:00 EDT, Height, 113.3, kg, 04/09/22 9:17:00 EDT, Dry Weight Start Date: 04/22/22 Status: Ordered Wellbutrin XL 150 mg/24 hours oral tablet, extended release 1 tablet = 150 mg, By Mouth, Every 24 hours, With the Wellbutrin 300 mg TDD 450 mg, # 30 tablet, 3 Refills, Maintenance, 03/14/22 9:26:00 EDT, ER Tablet, [facility], [...] 9:26:00 EDT, ER Tablet, [facility], 168, cm, 02/20/22 13:36:00 EDT, Height, 116, kg, 02/20/22 13:36:00 EDT, Dry Weight Start Date: 03/14/22 Status: Ordered ziprasidone 20 mg oral capsule 1 capsule = 20 mg, By Mouth, 3 times a day, # 90 capsule, 2 Refills, Maintenance, 03/14/22 9:23:00 EDT, Capsule, [facility], pt is slowly [...] Care team information Personnel Name: Amadou STUART ([facility]), William Quesada Address: Address: [address] [place] [address], [place], [place] [address]
--- OUTSIDE RECORDS SUMMARY | 2024-01-22 11:15 | XMS_ITS | Continuity of Care Document ---
Author Organization [facility] Address [address] [place] [address] [address] [place] [address]- Care Team Providers Care Bolt Sorter Name Role Phone Danis PAPPAS, Elda Salazar Primary Care Physician [phone] Encounter [facility] Date(s): 03/15/19 - 08/12/[address] [place] [address]- [facility] Attending Physician: Karlos Zaman MD Referring Physician: Julienne Bar NP Allergies, Adverse [...] Note: VIS GIVEN: 03/18/2011 2Result Comment: lot [id number] 09/21/2006 3Admin Note: VIS 05/29/09 GIVEN Medications omeprazole 40 mg oral enteric coated capsule 1 capsule = 40 mg, By Mouth, 2 times a day, # 60 capsule, 11 Refills, Maintenance, 06/07/18 15:21:59 EDT Start Date: 06/07/18 Stop Date: 06/02/19 Status: Ordered oxybutynin 10 mg/24 hr oral tablet, extended [...] back pain(Confirmed) Active Postprandial epigastric pain(Confirmed) Active GERD (gastroesophageal reflu x disease)(Confirmed) Active Hepatic steatosis(Confirmed) Active Mastitis NOS(Confirmed) 11/17/11 Active Morbid Obesity(Confirmed) 1 Active 1s/p gastric sleeve Social History Social History Type Response Smoking Status Never (less than 100 in lifetime) entered on: 12/31/18 Sex
--- OUTSIDE RECORDS SUMMARY | 2024-01-22 11:15 | XMS_ITS | Continuity of Care Document ---
Author Organization [facility] [place] Address [address] [place] [address]- Care Team Providers Care Material Yard Clerk Name Role Phone Danis PAPPAS, Elda Marie Primary Care Physician Encounter [facility] NBR [id number] Date(s): 09/05/20 - 10/05/20 [facility] [place] [address] [place] [address]- Allergies, Adverse Reactions, Alerts Substance Reaction Severity [...] Note: VIS GIVEN: 03/18/2011 2Result Comment: lot [id number] 09/21/2006 3Admin Note: VIS 05/29/09 GIVEN Medications [...]
--- OUTSIDE RECORDS SUMMARY | 2024-01-22 11:15 | XMS_ITS | Continuity of Care Document ---
Author Organization [facility] [place] Address [address] [place] [address]- Care Team Providers Care Bobbin Handler Name Role Phone Ronny DRESSMAKER OR TAILOR, Ofelia Acosta Primary Care Physician [phone] Encounter [facility] Date(s): 02/07/22 - 03/09/22 [facility] [place] [address] [place] [address]- Allergies, Adverse Reactions, Alerts Substance Reaction Severity [...] Note: VIS GIVEN: 03/18/2011 2Result Comment: lot [id number] 09/21/2006 3Admin Note: VIS 05/29/09 GIVEN Medications [...]
--- OUTSIDE RECORDS SUMMARY | 2024-01-22 11:15 | XMS_ITS | Continuity of Care Document ---
Author Organization [facility] Address [address] [place] [address]- Care Team Providers Care Cargo Station Worker Name Role Phone Ronny DISTRIBUTION ENGINEERING TECHNOLOGIST, Ofelia L Primary Care Physician Encounter [facility] NBR [id number] Date(s): 02/19/22 - 03/30/22 [facility] [address] [place] [address]- Attending Physician: Chris Toribio MD Allergies, Adverse Reactions, [...] Note: VIS GIVEN: 03/18/2011 2Result Comment: lot [id number] 09/21/2006 3Admin Note: VIS 05/29/09 GIVEN Medications [...]
--- OUTSIDE RECORDS SUMMARY | 2024-01-22 11:15 | XMS_ITS | Continuity of Care Document ---
Author Organization [facility] [place] [facility] [place] Address [address] [place] [address]- Care Team Providers Care Vat Packer Name Role Phone Ronny PAPPAS, Ofelia Acosta Primary Care Physician Encounter [facility] Date(s): 09/02/23 - 10/03/23 [facility] [place] [address] [place] [address]- Attending Physician: Yosvany PAPPAS, Julienne Platt Allergies, Adverse [...] Note: VIS GIVEN: 03/18/2011 2Result Comment: lot [id number] 09/21/2006 3Admin Note: VIS 05/29/09 GIVEN Medications [...] Refills, Maintenance, 09/18/23 14:18:00 EST, ER Capsule, [facility], 1 capsule By Mouth Daily in AM,x30 days, 165, cm, 05/25/23 14:40:00 EDT, Height, 118.3, kg, 12/16/22 20:23:00 EDT,... Start Date: 09/18/23 Stop Date: 10/18/23 Status: Ordered amLODIPine 2.5 mg oral tablet 1 tablet, By Mouth, Daily, # 90 tablet, 1 Refills, Maintenance, 07/24/23 15:00:00 EST, [facility], 165, cm, 05/25/23 14:40:00 EDT, Height, 118.3, kg, 12/16/22 20:23:00 EDT, Dry Weight Start Date: 07/24/23 Status: Ordered amphetamine-dextroamphetamine 10 mg oral tablet 1 tablet = 10 mg, By Mouth, 2 times a day, # 60 tablet, 0 Refills, Maintenance, 08/27/23 9:57:00 EST, [facility], fill on date due, 1 tablet By Mouth 2 times a day,x30 days, 165, cm, 05/25/23 14:40:00 EDT, Height, 118.3, kg, 12/16/22 20:23:00... Start Date: 08/27/23 Stop Date: 09/26/23 Status: Ordered clonazePAM 0.5 mg oral tablet 1 tablet = 0.5 mg, By Mouth, 3 times a day, NEEDED FOR ANXIETY, # 90 tablet, 3 Refills, Maintenance, 09/08/23 15:28:00 EST, Tablet, [facility], 165, cm, 05/25/23 14:40:00 [...] [facility], 165, cm, 01/21/23 [...] Refills, Maintenance, 05/29/23 13:41:00 EDT, [facility], 165, cm, 05/25/23 14:40:00 EDT, Height, 118.3, kg, 12/16/22 20:23:00 EDT, Dry Weight Start Date: 05/29/23 Stop Date: 09/26/23 Status: Ordered ibuprofen 800 mg oral tablet 1, tablet, By Mouth, 3 times a day, # 90 tablet, Refills 1, Maintenance, 05/25/23 8:49:00 EDT, Route to Pharmacy Electronically, [facility], 165, cm, 01/21/23 11:55:00 EDT, Height, 118.3, kg, 12/16/22 20:23:00 EDT, Dry Weight Start Date: 05/25/23 Status: Ordered LaMICtal 200 mg oral tablet 2 tablet = 400 mg, By Mouth, Daily at bedtime, # 60 tablet, 3 Refills, Maintenance, 09/08/23 15:29:00 EST, Tablet, [facility], 165, cm, 05/25/23 14:40:00 EDT, Height, 118.3, kg, 12/16/22 20:23:00 EDT, Dry Weight Start Date: 09/08/23 Stop Date: 01/06/24 Status: Ordered lamotrigine 100 mg oral tablet 100 mg, 1, tablet, By Mouth, Daily in AM, # 30 tablet, Refills 3, Tot. Refills 3, Maintenance, 09/08/23 15:29:00 EST, Route to Pharmacy Electronically, [facility], 165, cm, 05/25/23 [...] Maintenance, 11/10/22 10:55:00 EDT, RECPowder, [facility], test date 01/14 .... Start Date: 11/10/22 Status: Ordered omeprazole 40 mg oral enteric coated capsule 1 capsule, By Mouth, 2 times a day, # 180 capsule, 1 Refills, Maintenance, 08/15/23 8:46:00 EST, [facility], 165, cm, 05/25/23 14:40:00 EDT, Height, 118.3, kg, 12/16/22 20:23:00 EDT, Dry Weight Start Date: 08/15/23 Status: Ordered ondansetron 4 mg oral tablet 1 tablet = 4 mg, By Mouth, Every 8 hours, # 21 tablet, 0 Refills, Maintenance, 07/29/23 17:24:00 EST, Tablet, [facility] [...] mL, 0 Refills, Maintenance, 05/25/23 15:17:00 EDT, [facility], Partial fill upon patient request if the prescription is for a schedule II opioid drug., 1 bottle 90 minutes prior to s... Start Date: 05/25/23 Status: Ordered Suprep Bowel Prep Kit oral liquid 177 mL, By Mouth, Once, split prep, # 354 mL, 0 Refills, Soft Stop, 12/01/22 14:37:00 EDT, [facility], Partial fill upon patient request if the prescription is for a schedule II opioid drug., 177 mL By Mouth Once,Instr:split prep, 165, cm, 04... Start Date: 12/01/22 Status: Ordered Trulicity Pen 1.5 mg/0.5 mL subcutaneous solution See Instructions, INJECT 0.5ML SUBCUTANEOUSLY ONCE WEEKLY ROTATE INJECTION SITES, # 2 mL, 5 Refills, Maintenance, 06/07/23 18:02:00 EDT, [facility], 165, cm, 05/25/23 14:40:00 EDT, Height, 118.3, kg, 12/16/22 20:23:00 EDT, Dry Weight Start Date: 06/07/23 Status: Ordered Vitamin D3 5000 intl units oral tablet 1 tablet, By Mouth, Daily, # 30 tablet, 0 Refills, Maintenance, 09/08/23 14:41:00 EST, [facility], 165, cm, 05/25/23 14:40:00 EDT, Height, 118.3, kg, 12/16/22 20:23:00 EDT, Dry Weight Start Date: 09/08/23 Status: Ordered Wellbutrin XL 300 mg/24 hours oral tablet, extended release 1 tablet = 300 mg, By Mouth, Daily, # 30 tablet, 2 Refills, Maintenance, 09/08/23 15:28:00 EST, ER Tablet, [facility], 165, cm, 05/25/23 14:40:00 EDT, Height, 118.3, kg, 12/16/22 20:23:00 EDT, Dry Weight Start Date: 09/08/23 Stop Date: 12/07/23 Status: Ordered ziprasidone 60 mg oral capsule 2 capsule = 120 mg, By Mouth, Daily at bedtime, # 60 capsule, 2 Refills, Maintenance, 09/08/23 15:30:00 EST, [facility] # [...] Team Personnel Name: Anabel Roblero [place] Position: [facility] RN Member Role: Primary Care Nurse Name: Isa Ward Position: [facility] RN Member Role: Primary Care Nurse Name: Ofelia Jefferson NP Position: [facility] PCO Associate Professional Member Role: PCP Address: Address: [address] [place] [address] [place] [address]- [place] Name: Tommy Kohli MD Position: [facility] Physician - Behavioral Health Member Role: Lifetime Consulting Physician Address: Address: [address] [place] [address]- Care Team Related Persons Name: WILLEM SIMON III Address: [place] [address] Name: WILLEM SIMON JR Address: home [address] [place] [address]
--- OUTSIDE RECORDS SUMMARY | 2024-01-22 11:15 | XMS_ITS | Continuity of Care Document ---
Author Organization [facility] Address [address] [place] [address]- Care Team Providers Care Diesel Truck Crane Operator Name Role Phone Stacie Rendon NP Primary Care Physician Encounter [facility] Date(s): 03/20/21 - 04/19/21 [facility] [address] [place] [address]- Allergies, Adverse Reactions, Alerts Substance Reaction Severity [...] Note: VIS GIVEN: 03/18/2011 2Result Comment: lot [id number] 09/21/2006 3Admin Note: VIS 05/29/09 GIVEN Medications [...]
--- OUTSIDE RECORDS SUMMARY | 2024-01-22 11:15 | XMS_ITS | Continuity of Care Document ---
Author Organization [facility] [place] [facility] [place] Address [address] [place] [address]- Care Team Providers Care Applications Support Analyst Name Role Phone Elda Moscoso NP Primary Care Physician Encounter [facility] NBR [id number] Date(s): 03/26/20 - 04/29/20 [facility] [place] [address] [place] [address]- [facility] Attending Physician: Elda Moscoso NP Allergies, Adverse [...] Note: VIS GIVEN: 03/18/2011 2Result Comment: lot [id number] 09/21/2006 3Admin Note: VIS 05/29/09 GIVEN Problem [...]
--- OUTSIDE RECORDS SUMMARY | 2024-01-22 11:15 | XMS_ITS | Continuity of Care Document ---
Author Organization [facility] [place] Address [address] [place] [address]- Care Team Providers Care Display Coordinator Name Role Phone Justice PAPPAS, Stacie Ulloa Primary Care Physician Encounter [facility] Date(s): 11/07/20 - 12/08/20 [facility] [place] [address] [place] [address]- Attending Physician: Eulalio PAPPAS, Georgie Rojas Referring Physician: Elda Moscoso NP Allergies, Adverse [...] Note: VIS GIVEN: 03/18/2011 2Result Comment: lot [id number] 09/21/2006 3Admin Note: VIS 05/29/09 GIVEN Medications [...]
--- OUTSIDE RECORDS SUMMARY | 2024-01-22 11:15 | XMS_ITS | Continuity of Care Document ---
Author Organization [facility] [place] Address [address] [place] [address]- Care Team Providers Care Pr Manager Name Role Phone Danis PAPPAS, Elda Salazar Primary Care Physician [phone] Encounter [facility] NBR [id number] Date(s): 08/13/20 - 09/14/20 [facility] [place] [address] [place] [address]- Attending Physician: Stacie Rendon NP Allergies, Adverse [...] Note: VIS GIVEN: 03/18/2011 2Result Comment: lot [id number] 09/21/2006 3Admin Note: VIS 05/29/09 GIVEN Medications [...]
--- OUTSIDE RECORDS SUMMARY | 2024-01-22 11:15 | XMS_ITS | Continuity of Care Document ---
Author Organization [facility] Address [address] [place] [address]- Care Team Providers Care Hide Inspector And Sorter Name Role Phone Ronny IN CLASSROOM TUTOR, Ofelia Acosta Primary Care Physician [phone] Encounter [facility] Date(s): 10/02/22 - 11/01/22 [facility] [place] [address] [place] [address]- Allergies, Adverse Reactions, Alerts Substance Reaction Severity [...] Note: VIS GIVEN: 03/18/2011 2Result Comment: lot [id number] 09/21/2006 3Admin Note: VIS 05/29/09 GIVEN Medications [...] Refills, Maintenance, 10/17/22 8:56:00 EST, ER Capsule, [facility], please only fill on/after exact due date, 1 capsule By Mouth Daily in AM,x30 days, 168, cm, 10/07/22 10:08:00 EST, H... Start Date: 10/17/22 Stop Date: 11/16/22 Status: Ordered amLODIPine 2.5 mg oral tablet 1 tablet = 2.5 mg, By Mouth, Daily, # 90 tablet, 1 Refills, Maintenance, 05/26/22 17:40:00 EDT, Tablet, [facility] # [facility], Partial fill upon patient request if the prescription is for a schedule IIopioid drug., 168, cm, 05/15/22 14:37:00 EDT, Heigh... Start Date: 05/26/22 Status: Ordered amphetamine-dextroamphetamine 10 mg oral tablet 1 tablet = 10 mg, By Mouth, 2 times a day, # 60 tablet, 0 Refills, Maintenance, 10/17/22 8:57:00 EST, [facility], ., 1 tablet By Mouth 2 times a day,x30 days, 168, cm, 10/07/22 10:08:00 EST,Height, 112, kg, 04/22/22 14:00:00 EDT, Dry Weight Start Date: 10/17/22 Stop Date: 11/16/22 Status: Ordered cholecalciferol 5000 intl units oral tablet 1 tablet = 125 mcg, By Mouth, Daily, # 30 tablet, 3 Refills, Maintenance, 10/22/22 10:51:00 EST, Tablet, [facility] # [facility], Partial fill upon patient request if the prescription is for a schedule II opioid drug., 168, cm, 10/22/22 10:35:00 EST, [place]... Start Date: 10/22/22 Stop Date: 02/19/23 Status: Ordered clonazePAM 0.5 mg oral tablet 1 tablet = 0.5 mg, By Mouth, 3 times a day, NEEDED FOR ANXIETY, # 90 tablet, 3 Refills, Maintenance, 10/17/22 8:57:00 EST, Tablet, [facility], 168, cm, 10/07/22 10:08:00 EST, Height, 112,kg, 04/22/22 14:00:00 EDT, Dry Weight Start Date: 10/17/22 Stop Date: 02/14/23 Status: Ordered docusate sodium 100 mg oral capsule See Instructions, TAKE 1 CAPSULE ONE TO TWO TIMES A DAY FOR CONSTIPATION, # 20 capsule, 0 Refills, [facility], 168, cm, 08/01/21 17:36:00 EST, Height, 115, kg, 08/01/21 17:36:00 EST, Dry Weight Start Date: 10/31/21 Status: Ordered folic acid 1 mg oral tablet See Instructions, TAKE 1 TABLET BY MOUTH DAILY, # 30 tablet, Refills 5, Tot. Refills 5, Maintenance, 10/12/22 20:53:00 EST, Instructions Replace Required Details, Route to Pharmacy Electronically, [facility], 168, cm, 10/07/22 [...] 1 Refills, Maintenance, 10/22/22 10:50:00 EST, Tablet, [facility], Partial fill upon patient request if the prescription is for a schedule II opioid drug., 168, cm, 10/22/22 10:35:00 ES... Start Date: 10/22/22 Status: Ordered LaMICtal 200 mg oral tablet 2 tablet = 400 mg, By Mouth, Daily at bedtime, # 60 tablet, 3 Refills, Maintenance, 10/17/22 8:58:00 EST, Tablet, [facility], Ok for fill early - patient has never lost or needed early refills before, 168, cm, 10/07/22 10:08:00 EST, Height, 1... Start Date: 10/17/22 Stop Date: 02/14/23 Status: Ordered lamotrigine 100 mg oral tablet 100 mg, 1, tablet, By Mouth, Daily in AM, # 30 tablet, Refills 3, Tot. Refills 3, Maintenance, 10/17/22 8:58:00 EST, Route to Pharmacy Electronically, [facility], Ok for fill early - patienthas never lost or needed early refills before, 168,... Start Date: 10/17/22 Stop Date: 02/14/23 Status: Ordered omeprazole 40 mg oral enteric coated capsule See Instructions, TAKE 1 CAPSULE BY MOUTH TWO TIMES A DAY, # 60 capsule, 2 Refills, Maintenance, 08/11/22 12:55:00 EST, [facility], 168, cm, 07/22/22 10:12:00 EST, Height, 112, kg, 04/22/22 14:00:00 EDT, Dry Weight Start Date: 08/11/22 Status: Ordered Wellbutrin XL 150 mg/24 hours oral tablet, extended release 1 tablet = 150 mg, By Mouth, Every 24 hours, With the Wellbutrin 300 mg TDD 450 mg, # 30 tablet, 3 Refills, Maintenance, 10/17/22 8:57:00 EST, ER Tablet, [facility], Ok for fill early - patient has never lost or needed early refills before, 1... Start Date: 10/17/22 Stop Date: 02/14/23 Status: Ordered Wellbutrin XL 300 mg/24 hours oral tablet, extended release 1 tablet = 300 mg, By Mouth, Daily, With the Wellbutrin 150 mg TDD 450 mg, # 30 tablet, 3 Refills, Maintenance, 10/17/22 8:57:00 EST, ER Tablet, [facility], Ok for fill early - patient has never lost or needed early refills before, 168, cm, 0... Start Date: 10/17/22 Status: Ordered ziprasidone 40 mg oral capsule See Instructions, Take one capsule in the morning and 1 capsules at bedtime with an 80mg tab TDD 160mg, # 60 capsule, 3 Refills, Maintenance, 10/17/22 8:58:00 EST, [facility], Partial fill upon patient request if the prescription is for a keith... Start Date: 10/17/22 Status: Ordered ziprasidone 80 mg oral capsule 1 capsule = 80 mg, By Mouth, Daily at bedtime, TDD = 160mg/day, # 30 capsule, 3 Refills, Maintenance, 10/17/22 8:59:00 EST, [facility], Partial fill upon patient [...] Care Team Personnel Name: Anabel Vyas Position: [facility] RN Member Role: Primary Care Nurse Name: Isa Ward Position: [facility] RN Member Role: Primary Care Nurse Name: Ofelia Jefferson NP Position: [facility] PCO Associate Professional Member Role: PCP Address: Address: [address] [place] [id number] Name: Tommy Kohli MD Position: [facility] Psychiatry MD Member Role: Lifetime Consulting Physician Address: Address: [address] [place] [address]- Care Team Related Persons Name: WILLEM SIMON III Address: [place] [address] Name: WILLEM SIMON JR Address: home [address] [place] [address]
--- OUTSIDE RECORDS SUMMARY | 2024-01-22 11:15 | XMS_ITS | Continuity of Care Document ---
Author Organization [facility] [place] Address [address] [place] [address]- Care Team Providers Care Accounting Coordinator Name Role Phone Amadou STUART ([facility] [place]), William Quesada Primary Care Ph ysician Encounter [facility] Date(s): 04/22/22 - 05/22/22 [facility] [place] [address] [place] [address]- Allergies, Adverse Reactions, Alerts Substance Reaction Severity [...] Note: VIS GIVEN: 03/18/2011 2Result Comment: lot [id number] 09/21/2006 3Admin Note: VIS 05/29/09 GIVEN Medications [...] tablet, 0 Refills, Maintenance, 05/13/22 8:50:00 EDT, [facility], 1 tablet By Mouth Daily,x30 days,Instr:last filled 04/18/22, 168, cm, 04/22/22 14:00:00 EDT, Height, 112, kg, ... Start Date: 05/13/22 Stop Date: 06/12/22 Status: Ordered Adderall XR 30 mg oral capsule, extended release 1 capsule = 30 mg, By Mouth, Daily in AM, last filled 04/18/2022, # 30 capsule, 0 Refills, Maintenance, 05/13/22 8:50:00 EDT, ER Capsule, [facility], 1 capsule By Mouth Daily in AM,Instr:lastfilled 04/18/2022, 168, cm, 04/22/22 14:00:00 EDT, H... Start Date: 05/13/22 Status: Ordered albuterol 90 mcg/inh inhalation powder 2 puffs, Inhalation, Every 4 hours, PRN as needed, # 1 each, 0 Refills, Maintenance, 08/01/21 20:08:00 EST, Powder, [facility], [...] 07/12/22 9:27:00 EST, 03/14/22 9:27:00 EDT, Tablet, [facility], 168, cm, 02/20/22 13:36:00 EDT, Height, 116, kg, 02/20/22 13:... Start Date: 03/14/22 Stop Date: 07/12/22 Status: Ordered amLODIPine 2.5 mg oral tablet 1 tablet = 2.5 mg, By Mouth, Daily, # 90 tablet, 3 Refills, Maintenance, 06/11/21 15:16:00 EDT, Tablet, [facility], Partial fill upon patient request if the prescription is for a schedule IIopioid drug., 168, cm, 06/11/21 14:35:00 EDT, Heigh... Start Date: 06/11/21 Status: Ordered cholecalciferol 5000 intl units oral tablet 1 tablet = 125 mcg, By Mouth, Daily, # 30 tablet, 3 Refills, Maintenance, 02/07/22 11:35:00 EDT, Tablet, [facility] # [...] 3 Refills, Maintenance, 03/14/22 9:26:00 EDT, Tablet, [facility], 168, cm, 02/20/22 [...] 02/07/22 11:35:00 EDT, Route to Pharmacy Electronically, [facility] [...] 0 Refills, Maintenance, 04/18/22 13:47:00 EDT, Capsule, [facility], Partial fill upon patient request ifthe prescription is for a schedule II opioid drug.,... Start Date: 04/18/22 Status: Ordered Geodon 80 mg oral capsule 1 capsule = 80 mg, By Mouth, Daily at bedtime, Take with 60mg capsule., # 30 capsule, 0 Refills, Maintenance, 04/18/22 13:47:00 EDT, Capsule, [facility], 168, cm, 04/06/22 15:19:00 EDT, Height, 113.3, kg, 04/09/22 9:17:00 EDT, Dry Weight Start Date: 04/18/22 Status: Ordered LaMICtal 200 mg oral tablet 2 tablet = 400 mg, By Mouth, Daily at bedtime, # 60 tablet, 3 Refills, Maintenance, 03/14/22 9:27:00 EDT, Tablet, [facility], 168, cm, 02/20/22 13:36:00 EDT, Height, 116, kg, 02/20/22 13:36:00 EDT, Dry Weight Start Date: 03/14/22 Stop Date: 07/12/22 Status: Ordered lamotrigine 100 mg oral tablet 100 mg, 1, tablet, By Mouth, Daily in AM, # 30 tablet, Refills 3, Tot. Refills 3, Maintenance, 03/14/22 9:27:00 EDT, Route to Pharmacy Electronically, [facility], 168, cm, 02/20/22 13:36:00 [...] Refills, Maintenance, 03/14/22 9:26:00 EDT, ER Tablet, [facility], 168, cm, 02/20/22 13:36:00 EDT, Height, 116, kg, 02/20/22 13:36:00 EDT, Dry... Start Date: 03/14/22 Stop Date: 07/12/22 Status: Ordered Wellbutrin XL 300 mg/24 hours oral tablet, extended release 1 tablet = 300 mg, By Mouth, Daily, With the Wellbutrin 150 mg TDD 450 mg, # 30 tablet, 3 Refills, Maintenance, 03/14/22 9:26:00 EDT, ER Tablet, [facility], 168, cm, 02/20/22 [...] Care team information Personnel Name: Amadou STUART ([facility] [place]), William Quesada Address: Address: [address] [place] [address], [place], [place] [address]
--- OUTSIDE RECORDS SUMMARY | 2024-01-22 11:15 | XMS_ITS | Continuity of Care Document ---
Author Organization [facility] [place] Address [address] [place] [address]- Care Team Providers Care Head Silverman Name Role Phone Justice PAPPAS, Stacie Ulloa Primary Care Physician Encounter [facility] [id number] Date(s): 11/12/20 - 12/13/20 [facility] [place] [address] [place] [address]- Attending Physician: Cherri Brownlee NP Allergies, Adverse Reactions, Alerts Substance Reaction [...] Note: VIS GIVEN: 03/18/2011 2Result Comment: lot [id number] 09/21/2006 3Admin Note: VIS 05/29/09 GIVEN Medications [...]
--- OUTSIDE RECORDS SUMMARY | 2024-01-22 11:15 | XMS_ITS | Continuity of Care Document ---
Author Organization [facility] [place] Address [address] [place] [address]- Care Team Providers Care Engine Repair Supervisor Name Role Phone Danis PAPPAS, Elda Salazar Primary Care Physician Encounter [facility] [id number] Date(s): 07/17/20 - 08/16/20 [facility] [place] [address] [place] [address]- Allergies, Adverse Reactions, Alerts Substance Reaction Severity [...] Note: VIS GIVEN: 03/18/2011 2Result Comment: lot [id number] 09/21/2006 3Admin Note: VIS 05/29/09 GIVEN Problem [...]
--- OUTSIDE RECORDS SUMMARY | 2024-01-22 11:15 | XMS_ITS | Continuity of Care Document ---
Author Organization [facility] [place] Address [address] [place] [address]- Care Team Providers Care Psychopaedic Nurse Name Role Phone Ronny ROCKET ENGINE TESTER, Ofelia Acosta Primary Care Physician Encounter [facility] Date(s): 11/12/22 - 03/12/23 [facility] [place] [address] [place] [address]- Attending Physician: German Cortez MD Allergies, Adverse [...] Note: VIS GIVEN: 03/18/2011 2Result Comment: lot [id number] 09/21/2006 3Admin Note: VIS 05/29/09 GIVEN Medications [...] Refills, Maintenance, 02/23/23 14:44:00 EDT, ER Capsule, [facility], please only fill on/after exact due date, 1 capsule By Mouth Daily in AM,x30 days, 165, cm, 01/21/23 11:55:00 EDT,... Start Date: 02/23/23 Stop Date: 03/25/23 Status: Ordered amLODIPine 2.5 mg oral tablet 1 tablet = 2.5 mg, By Mouth, Daily, # 90 tablet, 1 Refills, Maintenance, 11/14/22 13:47:00 EDT, Tablet, [facility], Partial fill upon patient request if the prescription is for a schedule IIopioid drug., 168, cm, 10/22/22 10:35:00 ESTHair... Start Date: 11/14/22 Status: Ordered amphetamine-dextroamphetamine 10 mg oral tablet 1 tablet = 10 mg, By Mouth, 2 times a day, NO EARLY REFILLS, # 60 tablet, 0 Refills, Maintenance, 02/23/23 14:44:00 EDT, [facility], fill on date due, 1 tablet By Mouth 2 times a day,x30 days,Instr:NO EARLY REFILLS, 165, cm, 01/21/23 11:55:00... Start Date: 02/23/23 Stop Date: 03/25/23 Status: Ordered clonazePAM 0.5 mg oral tablet 1 tablet = 0.5 mg, By Mouth, 3 times a day, NEEDED FOR ANXIETY, # 90 tablet, 3 Refills, Maintenance, 02/27/23 14:38:00 EDT, Tablet, [facility], 165, cm, 01/21/23 [...] tablet, 3 Refills, Maintenance, 02/27/23 14:38:00 EDT, [facility], 165, cm, 01/21/23 11:55:00 EDT, Height, 118.3, kg, 12/16/22 20:23:00 EDT, Dry Weight Start Date: 02/27/23 Stop Date: 06/27/23 Status: Ordered LaMICtal 200 mg oral tablet 2 tablet = 400 mg, By Mouth, Daily at bedtime, # 60 tablet, 3 Refills, Maintenance, 02/27/23 14:38:00 EDT, Tablet, [facility], 165, cm, 01/21/23 11:55:00 [...] tablet, 0 Refills, Maintenance, 01/21/23 16:49:00 EDT, [facility], Partial fill upo... Start Date: 01/21/23 Status: Ordered Suprep Bowel Prep Kit oral liquid 177 mL, By Mouth, Once, split prep, # 354 mL, 0 Refills, Soft Stop, 12/01/22 14:37:00 EDT, [facility], Partial fill upon patient request if the prescription is for a schedule II opioid drug., 177 mL By Mouth Once,Instr:split prep, 165, cm, 04... Start Date: 12/01/22 Status: Ordered Trulicity Pen 0.75 mg/0.5 mL subcutaneous solution 0.5 mL = 0.75 mg, Subcutaneous Injection, Every week, rotate injection sites, # 2 mL, 0 Refills, Maintenance, 02/19/23 19:04:00 EDT, Solution, [facility], Partial fill upon patient request if the prescription is for a schedule II opioid drug.... Start Date: 02/19/23 Status: Ordered Vitamin D3 5000 intl units oral tablet 1 tablet, By Mouth, Daily, # 30 tablet, 5 Refills, Maintenance, 03/08/23 21:40:00 EDT, [facility], 165, cm, 01/21/23 11:55:00 EDT, Height, 118.3, kg, 12/16/22 20:23:00 EDT, Dry Weight Start Date: 03/08/23 Status: Ordered Wellbutrin XL 150 mg/24 hours oral tablet, extended release 1 tablet = 150 mg, By Mouth, Every 24 hours, With the Wellbutrin 300 mg TDD 450 mg, # 30 tablet, 3 Refills, Maintenance, 02/27/23 14:37:00 EDT, ER Tablet, [facility], 165, cm, 01/21/23 11:55:00 EDT, Height, 118.3, kg, 12/16/22 20:23:00 EDT, D... Start Date: 02/27/23 Stop Date: 06/27/23 Status: Ordered Wellbutrin XL 300 mg/24 hours oral tablet, extended release 1 tablet = 300 mg, By Mouth, Daily, With the Wellbutrin 150 mg TDD 450 mg, # 30 tablet, 3 Refills, Maintenance, 02/27/23 14:37:00 EDT, ER Tablet, [facility], Ok for fill early - patient has never lost or needed early refills before, 165, cm,... Start Date: 02/27/23 Status: Ordered ziprasidone 60 mg oral capsule 1 capsule = 60 mg, By Mouth, Daily at bedtime, # 7 capsule, 0 Refills, Maintenance, 01/28/23 14:16:00 EDT, [facility], please fill this script early as pt in going on vacation and will not have enough pills to get through when she returns- ... Start Date: 01/28/23 Stop Date: 02/04/23 Status: Ordered ziprasidone 60 mg oral capsule 1 capsule = 60 mg, By Mouth, Daily at bedtime, # 30 capsule, 3 Refills, Maintenance, 02/27/23 14:39:00 EDT, [facility], Partial fill [...] Stop 04/11/23 8:55:00 EDT, 12/12/22 8:55:00 EDT, [facility], dose reduction, 165, [...] Team Personnel Name: Anabel Roblero [place] Position: [facility] RN Member Role: Primary Care Nurse Name: Isa Ward Position: [facility] RN Member Role: Primary Care Nurse Name: Ofelia Jefferson NP Position: [facility] PCO Associate Professional Member Role: PCP Address: Address: [address] [place] [address]- Name: Tommy Kohli MD Position: [facility] Physician - Behavioral Health Member Role: Lifetime Consulting Physician Address: Address: [address] [place] [address]- Care Team Related Persons Name: WILLEM SIMON III Address: [place] [address] Name: WILLEM SIMON JR Address: home [address] [place] [address]
--- OUTSIDE RECORDS SUMMARY | 2024-01-22 11:15 | XMS_ITS | Continuity of Care Document ---
Author Organization [facility] Address [address] [place] [address]- Care Team Providers Care Stock Hanger Name Role Phone Yosvany PAPPAS, Julienne Platt Primary Care Physician Encounter [facility] Date(s): 08/01/21 - 08/08/21 [facility] [address] [place] [address]- Attending Physician: Not on Staff, Attending MD Referring Physician: Julienne Bar NP Allergies, [...] Note: VIS GIVEN: 03/18/2011 2Result Comment: lot [id number] 09/21/2006 3Admin Note: VIS 05/29/09 GIVEN Medications [...]
--- OUTSIDE RECORDS SUMMARY | 2024-01-22 11:16 | XMS_ITS | Continuity of Care Document ---
Author Organization [facility] [place] Address [address] [place] [address]- Care Team Providers Care Vat Operator Name Role Phone Yosvany PAPPAS, Julienne Platt Primary Care Physician ( [phone] [facility] Date[facility] 07/12/21 - 08/11/21 [facility] [place] [address] [place] [address]- Allergies, Adverse Reactions, Alerts Substance Reaction Severity [...] Note: VIS GIVEN: 03/18/2011 2Result Comment: lot [id number] 09/21/2006 3Admin Note: VIS 05/29/09 GIVEN Medications [...]
--- OUTSIDE RECORDS SUMMARY | 2024-01-22 11:16 | XMS_ITS | Continuity of Care Document ---
Author Organization [facility] [place] Address [address] [place] [address]- Care Team Providers Care Manager Ui Name Role Phone Danis PAPPAS, Elda Salazar Primary Care Physician Encounter [facility] [id number] Date(s): 08/07/20 - 09/06/20 [facility] [place] [address] [place] [address]- Allergies, Adverse Reactions, Alerts Substance Reaction Severity [...] Note: VIS GIVEN: 03/18/2011 2Result Comment: lot [id number] 09/21/2006 3Admin Note: VIS 05/29/09 GIVEN Medications [...]
--- OUTSIDE RECORDS SUMMARY | 2024-01-22 11:16 | XMS_ITS | Continuity of Care Document ---
Author Organization [facility] [place] Address [address] [place] [address]- Care Team Providers Care Social Service Technician Name Role Phone Amadou STUART ([facility] [place]), William Quesada Primary Care Ph ysician Encounter [facility] Date(s): 06/05/22 - 07/05/22 [facility] [place] [address] [place] [address]- Allergies, Adverse Reactions, Alerts Substance Reaction Severity [...] Note: VIS GIVEN: 03/18/2011 2Result Comment: lot [id number] 09/21/2006 3Admin Note: VIS 05/29/09 GIVEN Medications [...] tablet, 0 Refills, Maintenance, 07/04/22 8:15:00 EST, [facility], Ok for fill early [...] Refills, Maintenance, 07/04/22 8:16:00 EST, ER Capsule, [facility], Ok for fill early - patient has never lost or needed early refills before, 1 capsule By Mouth Daily in AM,x30 days,... Start Date: 07/04/22 Stop Date: 08/03/22 Status: Ordered albuterol 90 mcg/inh inhalation powder 2 puffs, Inhalation, Every 4 hours, PRN as needed, # 1 each, 0 Refills, Maintenance, 08/01/21 20:08:00 EST, Powder, [facility], Partial fill upon patient request if the prescription is for aschedule II opioid drug., 2 puffs Inhalation Every... Start Date: 08/01/21 Status: Ordered Ambien 10 mg oral tablet 1 tablet = 10 mg, By Mouth, Daily at bedtime, PRN as needed for insomnia, for 30 days, # 30 tablet,3 Refills, Acute 11/01/22 8:19:00 EST, 07/04/22 8:19:00 EST, Tablet, [facility], 168, cm, 05/15/22 14:37:00 EDT, Height, 112, kg, 04/22/22 14:... Start Date: 07/04/22 Stop Date: 11/01/22 Status: Ordered amLODIPine 2.5 mg oral tablet 1 tablet = 2.5 mg, By Mouth, Daily, # 90 tablet, 1 Refills, Maintenance, 05/26/22 17:40:00 EDT, Tablet, [facility], Partial fill upon patient request if the prescription is for a schedule IIopioid drug., 168, cm, 05/15/22 14:37:00 EDT, [facility]... Start Date: 05/26/22 Status: Ordered cholecalciferol 5000 intl units oral tablet 1 tablet = 125 mcg, By Mouth, Daily, # 30 tablet, 3 Refills, Maintenance, 02/07/22 11:35:00 EDT, Tablet, [facility] [...] 3 Refills, Maintenance, 07/04/22 8:22:00 EST, Tablet, [facility] [...] to Pharmacy Electronically, [facility] # [...] information Care Team Personnel Name: Amadou STUART ([facility] [place])William Position: [facility] Primary Care Physician Member Role: PCP Address: Address: [address] [place] [address] Care, [place], [place] [address] Name: Anabel Vyas Position: [facility] RN Member Role: Primary Care Nurse Name: Khurram RICHARDSON Isa Position: [facility] RN Member Role: Primary Care Nurse Name: Tommy Kohli MD Position: [facility] Psychiatry MD Member Role: Lifetime Consulting Physician Address: Address: [address] [place] [address]- Care Team Related Persons Name: WILLEM SIMON III Address: [place] [address] Name: WILLEM SIMON SR Address: home [address] [place] [address]
--- OUTSIDE RECORDS SUMMARY | 2024-01-22 11:16 | XMS_ITS | Continuity of Care Document ---
Author Organization [facility] [place] [facility] Address [address], [address] [place] [address]- Care Team Providers Care Payroll Representative Name Role Phone Ronny LASER MACHINE OPERATOR, Ofelia Acosta Primary Care Physician Encounter [facility] Date(s): 06/11/22 - 08/27/22 [facility] [address], [address]th [place] [address]- Attending Physician: Not on Staff, Attending MD Referring Physician: Amadou STUART ([facility]), [place]ceasar A Allergies, Adverse Reactions, Alerts Substance Reaction Severity [...] Note: VIS GIVEN: 03/18/2011 2Result Comment: lot [id number] 09/21/2006 3Admin Note: VIS 05/29/09 GIVEN Medications [...] tablet, 0 Refills, Maintenance, 07/29/22 16:06:00 EST, [facility], 1 tablet By Mouth Daily,x30 days, 168, cm, 07/22/22 10:12:00 EST, Height, 112, kg, 04/22/22 14:00:00 EDT, Dry Weight Start Date: 07/29/22 Stop Date: 08/28/22 Status: Ordered Adderall XR 30 mg oral capsule, extended release 1 capsule = 30 mg, By Mouth, Daily in AM, # 30 capsule, 0 Refills, Maintenance, 07/29/22 16:07:00 EST, ER Capsule, [facility], last filled 07/04 -= please only fill on/after exact due date, 1 capsule By Mouth Daily in AM,x30 days, 168, cm, 11... Start Date: 07/29/22 Stop Date: 08/28/22 Status: Ordered albuterol 90 mcg/inh inhalation powder 2 puffs, Inhalation, Every 4 hours, PRN as needed, # 1 each, 0 Refills, Maintenance, 08/01/21 20:08:00 EST, Powder, [facility], Partial fill upon patient request if the prescription is for aschedule II opioid drug., 2 puffs Inhalation Every... Start Date: 08/01/21 Status: Ordered Ambien 10 mg oral tablet 1 tablet = 10 mg, By Mouth, Daily at bedtime, PRN as needed for insomnia, for 30 days, # 30 tablet,3 Refills, Acute 11/01/22 8:19:00 EST, 07/04/22 8:19:00 EST, Tablet, [facility], 168, cm, 05/15/22 14:37:00 EDT, Height, 112, kg, 04/22/22 14:... Start Date: 07/04/22 Stop Date: 11/01/22 Status: Ordered amLODIPine 2.5 mg oral tablet 1 tablet = 2.5 mg, By Mouth, Daily, # 90 tablet, 1 Refills, Maintenance, 05/26/22 17:40:00 EDT, Tablet, [facility], Partial fill upon patient request if the prescription is for a schedule IIopioid drug., 168, cm, 05/15/22 14:37:00 EDT, Heigh... Start Date: 05/26/22 Status: Ordered cholecalciferol 5000 intl units oral tablet 1 tablet = 125 mcg, By Mouth, Daily, # 30 tablet, 3 Refills, Maintenance, 02/07/22 11:35:00 EDT, Tablet, [facility], Partial fill upon patient request if the prescription is for a schedule II opioid drug., 168, cm, 02/07/22 11:03:00 EDT, Heig... Start Date: 02/07/22 Stop Date: 06/07/22 Status: Ordered clonazePAM 0.5 mg oral tablet 1 tablet = 0.5 mg, By Mouth, 3 times a day, NEEDED FOR ANXIETY, # 90 tablet, 3 Refills, Maintenance, 07/04/22 8:22:00 EST, Tablet, [facility], Ok for fill [...] 0 Refills, Soft Stop, 08/23/22 14:55:00 EST, [facility], Partial fill uponpatient request if the prescription is for a schedu... Start Date: 08/23/22 Status: Ordered docusate sodium 100 mg oral capsule See Instructions, TAKE 1 CAPSULE ONE TO TWO TIMES A DAY FOR CONSTIPATION, # 20 capsule, 0 Refills, [facility], 168, cm, 08/01/21 17:36:00 EST, Height, 115, kg, 08/01/21 17:36:00 EST, Dry Weight Start Date: 10/31/21 Status: Ordered folic acid 1 mg oral tablet See Instructions, TAKE 1 TABLET BY MOUTH DAILY, # 30 tablet, Refills 3, Maintenance, 06/05/22 5:46:00 EDT, Instructions Replace Required Details, Route to Pharmacy Electronically, [facility], 168, cm, 05/15/22 [...] 3 Refills, Maintenance, 07/04/22 8:17:00 EST, Tablet, [facility], Ok for fill early - patient has never lost or needed early refills before, 168, cm, 05/15/22 14:37:00 EDT, Height, 1... Start Date: 07/04/22 Stop Date: 11/01/22 Status: Ordered lamotrigine 100 mg oral tablet 100 mg, 1, tablet, By Mouth, Daily in AM, # 30 tablet, Refills 3, Tot. Refills 3, Maintenance, 07/04/22 8:17:00 EST, Route to Pharmacy Electronically, [facility], Ok for fill early - patienthas never lost or needed early refills before, 168,... Start Date: 07/04/22 Stop Date: 11/01/22 Status: Ordered Lyrica 75 mg oral capsule 1 capsule = 75 mg, By Mouth, 2 times a day, # 60 capsule, 0 Refills, Maintenance, 07/22/22 10:44:00EST, Capsule, [facility] # [...] 08/30/22 14:56:00 EST, 08/23/22 14:56:00 EST, Capsule, [facility], Partial fill upon patient request if the prescription is for a sche... Start Date: 08/23/22 Stop Date: 08/30/22 Status: Ordered omeprazole 40 mg oral enteric coated capsule See Instructions, TAKE 1 CAPSULE BY MOUTH TWO TIMES A DAY, # 60 capsule, 2 Refills, Maintenance, 08/11/22 12:55:00 EST, [facility], 168, cm, 07/22/22 [...] tablet, 0 Refills, Maintenance, 07/22/22 10:47:00 EST, [facility], Partial fill upo... Start Date: 07/22/22 Status: Ordered Wellbutrin XL 150 mg/24 hours oral tablet, extended release 1 tablet = 150 mg, By Mouth, Every 24 hours, With the Wellbutrin 300 mg TDD 450 mg, # 30 tablet, 3 Refills, Maintenance, 07/04/22 8:16:00 EST, ER Tablet, [facility], Ok for fill early - patient has never lost or needed early refills before, 1... Start Date: 07/04/22 Stop Date: 11/01/22 Status: Ordered Wellbutrin XL 300 mg/24 hours oral tablet, extended release 1 tablet = 300 mg, By Mouth, Daily, With the Wellbutrin 150 mg TDD 450 mg, # 30 tablet, 3 Refills, Maintenance, 07/04/22 8:17:00 EST, ER Tablet, [facility], Ok for fill [...] Care Team Personnel Name: Anabel Vyas Position: [facility] RN Member Role: Primary Care Nurse Name: Isa Ward Position: [facility] RN Member Role: Primary Care Nurse Name: Ofelia Jefferson NP Position: [facility] PCO Associate Professional Member Role: PCP Address: Address: [address] [facility] [place] [address]- [place] Name: Tommy Kohli MD Position: [facility] Psychiatry MD Member Role: Lifetime Consulting Physician Address: Address: [address] [place] [id number]- Care Team Related Persons Name: WILLEM SIMON III Address: [place] [address] Name: WILLEM SIMON SR Address: home [address] [place] [id number]
--- OUTSIDE RECORDS SUMMARY | 2024-01-22 11:16 | XMS_ITS | Continuity of Care Document ---
Author Organization [facility] Address [address] [place] [address]- Care Team Providers Care Mail Machine Operator Name Role Phone Stacie Rendon NP Primary Care Physician Encounter [facility] Date(s): 11/16/20 - 02/03/21 [facility] [address] [place] [address]- Attending Physician: Kenneth STUART, Jillian Allergies, Adverse Reactions, Alerts Substance Reaction Severity [...] Note: VIS GIVEN: 03/18/2011 2Result Comment: lot [id number] 09/21/2006 3Admin Note: VIS 05/29/09 GIVEN Medications [...]
--- OUTSIDE RECORDS SUMMARY | 2024-01-22 11:16 | XMS_ITS | Continuity of Care Document ---
Author Organization [facility] Address [address] [place] [address]- Care Team Providers Care Overnight Cashier Name Role Phone Ronny HUMAN RESOURCE STATISTICIAN, Ofelia Acosta Primary Care Physician Encounter [facility] Date(s): 09/10/23 - 10/10/23 [facility] [address] [place] [address]- Allergies, Adverse Reactions, Alerts Substance Reaction Severity Status codeine HIVES Active penicillin N&V - Nausea and vomiting Unknown Ac tive amoxicillin Active Immunizations Given and Recorded Vaccine Date [...] Note: VIS GIVEN: 03/18/2011 2Result Comment: lot [id number] 09/21/2006 3Admin Note: VIS 05/29/09 GIVEN Medications [...] Refills, Maintenance, 09/18/23 14:18:00 EST, ER Capsule, [facility], 1 capsule By Mouth Daily in AM,x30 days, 165, cm, 05/25/23 14:40:00 EDT, Height, 118.3, kg, 12/16/22 20:23:00 EDT,... Start Date: 09/18/23 Stop Date: 10/18/23 Status: Ordered amLODIPine 2.5 mg oral tablet 1 tablet, By Mouth, Daily, # 90 tablet, 1 Refills, Maintenance, 07/24/23 15:00:00 EST, [facility], 165, cm, 05/25/23 14:40:00 EDT, Height, 118.3, kg, 12/16/22 20:23:00 EDT, Dry Weight Start Date: 07/24/23 Status: Ordered amphetamine-dextroamphetamine 10 mg oral tablet 1 tablet = 10 mg, By Mouth, 2 times a day, # 60 tablet, 0 Refills, Maintenance, 10/07/23 15:45:00 EST, [facility], fill on date [...] 3 Refills, Maintenance, 09/08/23 15:28:00 EST, Tablet, [facility], 165, cm, 05/25/23 [...] EDT, Route to Pharmacy Electronically, [facility], 165, cm, 01/21/23 [...] Refills, Maintenance, 05/29/23 13:41:00 EDT, [facility], 165, cm, 05/25/23 14:40:00 EDT, Height, 118.3, kg, 12/16/22 20:23:00 EDT, Dry Weight Start Date: 05/29/23 Stop Date: 09/26/23 Status: Ordered ibuprofen 800 mg oral tablet 1, tablet, By Mouth, 3 times a day, # 90 tablet, Refills 1, Maintenance, 05/25/23 8:49:00 EDT, Route to Pharmacy Electronically, [facility], 165, cm, 01/21/23 11:55:00 EDT, Height, 118.3, kg, 12/16/22 20:23:00 EDT, Dry Weight Start Date: 05/25/23 Status: Ordered LaMICtal 200 mg oral tablet 2 tablet = 400 mg, By Mouth, Daily at bedtime, # 60 tablet, 3 Refills, Maintenance, 09/08/23 15:29:00 EST, Tablet, [facility], 165, cm, 05/25/23 14:40:00 EDT, Height, 118.3, kg, 12/16/22 20:23:00 EDT, Dry Weight Start Date: 09/08/23 Stop Date: 01/06/24 Status: Ordered lamotrigine 100 mg oral tablet 100 mg, 1, tablet, By Mouth, Daily in AM, # 30 tablet, Refills 3, Tot. Refills 3, Maintenance, 09/08/23 15:29:00 EST, Route to Pharmacy Electronically, [facility], 165, cm, 05/25/23 [...] 0 Refills, Maintenance, 11/10/22 10:55:00 EDT, RECPowder, [facility], test date 01/14 .... Start Date: 11/10/22 Status: Ordered omeprazole 40 mg oral enteric coated capsule 1 capsule, By Mouth, 2 times a day, # 180 capsule, 1 Refills, Maintenance, 08/15/23 8:46:00 EST, [facility], 165, cm, 05/25/23 14:40:00 EDT, Height, 118.3, kg, 12/16/22 20:23:00 EDT, Dry Weight Start Date: 08/15/23 Status: Ordered ondansetron 4 mg oral tablet 1 tablet = 4 mg, By Mouth, Every 8 hours, # 21 tablet, 0 Refills, Maintenance, 07/29/23 17:24:00 EST, Tablet, [facility], Partial fill upon patient [...] Soft Stop, 12/01/22 14:37:00 EDT, [facility], Partial fill upon patient request if the prescription is for a schedule II opioid drug., 177 mL By Mouth Once,Instr:split prep, 165, cm, 04... Start Date: 12/01/22 Status: Ordered Trulicity Pen 1.5 mg/0.5 mL subcutaneous solution See Instructions, INJECT 0.5ML SUBCUTANEOUSLY ONCE WEEKLY ROTATE INJECTION SITES, # 2 mL, 5 Refills, Maintenance, 06/07/23 18:02:00 EDT, [facility], 165, cm, 05/25/23 14:40:00 EDT, Height, 118.3, kg, 12/16/22 20:23:00 EDT, Dry Weight Start Date: 06/07/23 Status: Ordered Vitamin D3 5000 intl units oral tablet 1 tablet, By Mouth, Daily, # 30 tablet, 0 Refills, Maintenance, 10/09/23 8:27:00 EST, [facility], 165, cm, 05/25/23 14:40:00 EDT, Height, 118.3, kg, 12/16/22 20:23:00 EDT, Dry Weight Start Date: 10/09/23 Status: Ordered Wellbutrin XL 300 mg/24 hours oral tablet, extended release 1 tablet = 300 mg, By Mouth, Daily, # 30 tablet, 2 Refills, Maintenance, 09/08/23 15:28:00 EST, ER Tablet, [facility], 165, cm, 05/25/23 14:40:00 EDT, Height, 118.3, kg, 12/16/22 20:23:00 EDT, Dry Weight Start Date: 09/08/23 Stop Date: 12/07/23 Status: Ordered ziprasidone 60 mg oral capsule 2 capsule = 120 mg, By Mouth, Daily at bedtime, # 60 capsule, 2 Refills, Maintenance, 09/08/23 15:30:00 EST, [facility], Partial fill upon [...] Team Personnel Name: Anabel Roblero [place] Position: [facility] RN Member Role: Primary Care Nurse Name: Isa Ward Position: [facility] RN Member Role: Primary Care Nurse Name: Ofelia Jefferson NP Position: [facility] PCO Associate Professional Member Role: PCP Address: Address: [address] [place] [id number]- Name: Tommy Kohli MD Position: [facility] Physician - Behavioral Health Member Role: Lifetime Consulting Physician Address: Address: [address] [place] [address]- Care Team Related Persons Name: WILLEM SIMON III Address: [place] [address] Name: WILLEM SIMON JR Address: home [address] [place] [address]
--- OUTSIDE RECORDS SUMMARY | 2024-01-22 11:16 | XMS_ITS | Continuity of Care Document ---
Author Organization [facility] Address [address] [place] [address]- Care Team Providers Care Medical Office Clerk Name Role Phone Ronny PAPPAS, Ofelia Acosta Primary Care Physician Encounter [facility] Date(s): 07/24/23 - 08/23/23 [facility] [address] [place] [address]- Allergies, Adverse Reactions, Alerts Substance Reaction Severity [...] Note: VIS GIVEN: 03/18/2011 2Result Comment: lot [id number] 09/21/2006 3Admin Note: VIS 05/29/09 GIVEN Medications [...] Refills, Maintenance, 07/27/23 16:59:00 EST, ER Capsule, [facility], please only fill on/after exact due date, 1 capsule By Mouth Daily in AM,x30 days, 165, cm, 05/25/23 14:40:00 EDT,... Start Date: 07/27/23 Stop Date: 08/26/23 Status: Ordered amLODIPine 2.5 mg oral tablet 1 tablet, By Mouth, Daily, # 90 tablet, 1 Refills, Maintenance, 07/24/23 15:00:00 EST, [facility], 165, cm, 05/25/23 14:40:00 EDT, Height, 118.3, kg, 12/16/22 20:23:00 EDT, Dry Weight Start Date: 07/24/23 Status: Ordered amphetamine-dextroamphetamine 10 mg oral tablet 1 tablet = 10 mg, By Mouth, 2 times a day, # 60 tablet, 0 Refills, Maintenance, 07/27/23 16:59:00 EST, [facility], fill on date due, 1 tablet By Mouth 2 times a day,x30 days, 165, cm, 05/25/23 14:40:00 EDT, Height, 118.3, kg, 12/16/22 20:23:0... Start Date: 07/27/23 Stop Date: 08/26/23 Status: Ordered clonazePAM 0.5 mg oral tablet 1 tablet = 0.5 mg, By Mouth, 3 times a day, NEEDED FOR ANXIETY, # 90 tablet, 3 Refills, Maintenance, 05/29/23 13:42:00 EDT, Tablet, [facility], 165, cm, 05/25/23 14:40:00 EDT, Height, 118.3, kg, 12/16/22 20:23:00 EDT, Dry Weight Start Date: 05/29/23 Stop Date: 09/26/23 Status: Ordered docusate sodium 100 mg oral capsule See Instructions, TAKE 1 CAPSULE ONE TO TWO TIMES A DAY FOR CONSTIPATION, # 20 capsule, 0 Refills, [facility], 168, cm, 08/01/21 17:36:00 EST, Height, 115, kg, 08/01/21 17:36:00 EST, Dry Weight Start Date: 10/31/21 Status: Ordered folic acid 1 mg oral tablet 1, tablet, By Mouth, Daily, # 30 tablet, Refills 5, Maintenance, 04/29/23 20:24:00 EDT, Route to Pharmacy Electronically, [facility], 165, cm, [...] tablet, 3 Refills, Maintenance, 05/29/23 13:41:00 EDT, [facility], 165, cm, 05/25/23 14:40:00 EDT, Height, 118.3, kg, 12/16/22 20:23:00 EDT, Dry Weight Start Date: 05/29/23 Stop Date: 09/26/23 Status: Ordered ibuprofen 800 mg oral tablet 1, tablet, By Mouth, 3 times a day, # 90 tablet, Refills 1, Maintenance, 05/25/23 8:49:00 EDT, Route to Pharmacy Electronically, [facility], 165, cm, 01/21/23 11:55:00 EDT, Height, 118.3, kg, 12/16/22 20:23:00 EDT, Dry Weight Start Date: 05/25/23 Status: Ordered LaMICtal 200 mg oral tablet 2 tablet = 400 mg, By Mouth, Daily at bedtime, for 30 days, # 60 tablet, 3 Refills, Hard Stop 09/26/23 13:41:00 EST, 05/29/23 13:41:00 EDT, Tablet, [facility], 165, cm, 05/25/23 14:40:00 EDT, Height, 118.3, kg, 12/16/22 20:23:00 EDT, Dry Weight Start Date: 05/29/23 Stop Date: 09/26/23 Status: Ordered LaMICtal 200 mg oral tablet 2 tablet = 400 mg, By Mouth, Daily at bedtime, # 60 tablet, 3 Refills, Maintenance, 09/26/23 13:41:00 EST, Tablet, [facility], 165, cm, 05/25/23 14:40:00 EDT, Height, 118.3, kg, 12/16/22 20:23:00 EDT, Dry Weight Start Date: 09/26/23 Stop Date: 01/24/24 Status: Ordered lamotrigine 100 mg oral tablet 100 mg, 1, tablet, By Mouth, Daily in AM, # 30 tablet, Refills 3, Tot. Refills 3, Maintenance, 05/29/23 13:41:00 EDT, Route to Pharmacy Electronically, [facility], 165, cm, [...] 0 Refills, Maintenance, 11/10/22 10:55:00 EDT, [facility], [facility], test date 01/14 .... Start Date: 11/10/22 Status: Ordered omeprazole 40 mg oral enteric coated capsule 1 capsule, By Mouth, 2 times a day, # 180 capsule, 1 Refills, Maintenance, 08/15/23 8:46:00 EST, [facility], 165, cm, 05/25/23 14:40:00 EDT, Height, 118.3, kg, 12/16/22 20:23:00 EDT, Dry Weight Start Date: 08/15/23 Status: Ordered ondansetron 4 mg oral tablet 1 tablet = 4 mg, By Mouth, Every 8 hours, # 21 tablet, 0 Refills, Maintenance, 07/29/23 17:24:00 EST, Tablet, [facility], Partial fill upon patient [...] 0 Refills, Soft Stop, 12/01/22 14:37:00 EDT, [facility], Partial fill upon patient request if the prescription is for a schedule II opioid drug., 177 mL By Mouth Once,Instr:split prep, 165, cm, 04... Start Date: 12/01/22 Status: Ordered Trulicity Pen 1.5 mg/0.5 mL subcutaneous solution See Instructions, INJECT 0.5ML SUBCUTANEOUSLY ONCE WEEKLY ROTATE INJECTION SITES, # 2 mL, 5 Refills, Maintenance, 06/07/23 18:02:00 EDT, [facility], 165, cm, 05/25/23 14:40:00 EDT, Height, 118.3, kg, 12/16/22 20:23:00 EDT, Dry Weight Start Date: 06/07/23 Status: Ordered Vitamin D3 5000 intl units oral tablet 1 tablet, By Mouth, Daily, # 30 tablet, 5 Refills, Maintenance, 03/08/23 21:40:00 EDT, [facility], 165, cm, 01/21/23 11:55:00 EDT, Height, 118.3, kg, 12/16/22 20:23:00 EDT, Dry Weight Start Date: 03/08/23 Status: Ordered Wellbutrin XL 300 mg/24 hours oral tablet, extended release 1 tablet = 300 mg, By Mouth, Daily, # 30 tablet, 2 Refills, Maintenance, 08/11/23 7:22:00 EST, ER Tablet, [facility], dose reduction - 300mg/day, 165, cm, 05/25/23 14:40:00 EDT, Height, 118.3, kg, 12/16/22 20:23:00 EDT, Dry Weight Start Date: 08/11/23 Stop Date: 11/09/23 Status: Ordered ziprasidone 60 mg oral capsule 2 capsule = 120 mg, By Mouth, Daily at bedtime, # 60 capsule, 2 Refills, Maintenance, 07/28/23 14:51:00 EST, [facility], Partial fill [...] Team Personnel Name: Anabel Roblero [place] Position: [facility] RN Member Role: Primary Care Nurse Name: Isa Ward Position: [facility] RN Member Role: Primary Care Nurse Name: Ofelia Jefferson NP Position: [facility] PCO Associate Professional Member Role: PCP Address: Address: [address] [place] [address] [place] [address]- Name: Tommy Kohli MD Position: [facility] Physician - Behavioral Health Member Role: Lifetime Consulting Physician Address: Address: [address] [place] [id number]- Care Team Related Persons Name: WILLEM SIMON III Address: [place] [address] Name: WILLEM SIMON JR Address: [address] [place] [address]
--- OUTSIDE RECORDS SUMMARY | 2024-01-22 11:16 | XMS_ITS | Continuity of Care Document ---
Author Organization [facility] Address [address] [place] [address] [address], [address] [place] [address]- Care Team Providers Care Shipping Checker Name Role Phone Ronny INSIDE POLISHER, Ofelia Acosta Primary Care Physician Encounter [facility] Date(s): 01/01/23 - 01/31/[address], [address] [place] [address]- Allergies, Adverse Reactions, Alerts Substance Reaction Severity [...] Note: VIS GIVEN: 03/18/2011 2Result Comment: lot [id number] 09/21/2006 3Admin Note: VIS 05/29/09 GIVEN Medications [...] 01/20/23 16:02:00 EDT, ER Capsule, [facility], please only fill on/after exact due date, 1 capsule By Mouth Daily in AM,x30 days, 165, cm, 01/06/23 8:47:00 EDT, H... Start Date: 01/20/23 Stop Date: 02/19/23 Status: Ordered amLODIPine 2.5 mg oral tablet 1 tablet = 2.5 mg, By Mouth, Daily, # 90 tablet, 1 Refills, Maintenance, 11/14/22 13:47:00 EDT, Tablet, [facility], Partial fill upon patient request if the prescription is for a schedule IIopioid drug., 168, brittney, 10/22/22 10:35:00 EST, Heigh... Start Date: 11/14/22 Status: Ordered amphetamine-dextroamphetamine 10 mg oral tablet 1 tablet = 10 mg, By Mouth, 2 times a day, NO EARLY REFILLS, # 60 tablet, 0 Refills, Maintenance, 01/20/23 16:02:00 EDT, [facility], fill on date due, 1 tablet By Mouth 2 times a day,x30 days,Instr:NO EARLY REFILLS, 165, cm, 01/06/23 8:47:00... Start Date: 01/20/23 Stop Date: 02/19/23 Status: Ordered cholecalciferol 5000 intl units oral tablet 1 tablet = 125 mcg, By Mouth, Daily, # 30 tablet, 3 Refills, Maintenance, 10/22/22 10:51:00 EST, Tablet, [facility], Partial fill upon [...] Maintenance, 12/12/22 8:54:00 EDT, Tablet, [facility], 165, cm, 12/01/22 14:13:00 EDT, Height, 118.3, kg, 11/22/22 10:55:00 EDT, Dry Weight Start Date: 12/12/22 Stop Date: 04/11/23 Status: Ordered docusate sodium 100 mg oral capsule See Instructions, TAKE 1 CAPSULE ONE TO TWO TIMES A DAY FOR CONSTIPATION, # 20 capsule, 0 Refills, [facility], 168, cm, 08/01/21 17:36:00 EST, Height, 115, kg, 08/01/21 17:36:00 EST, Dry Weight Start Date: 10/31/21 Status: Ordered folic acid 1 mg oral tablet See Instructions, TAKE 1 TABLET BY MOUTH DAILY, # 30 tablet, Refills 5, Tot. Refills 5, Maintenance, 10/12/22 20:53:00 EST, Instructions Replace Required Details, Route to Pharmacy Electronically, [facility], 168, cm, [...] Refills, Maintenance, 01/21/23 16:48:00 EDT, [facility], massPAT checked on 01/21/23 for the gabapentin last fill was on 12/24/02 for a 30 day supply (#90), 01/23/23, 165, cm, 01/21/23 11:55:00... Start Date: 01/21/23 Status: Ordered LaMICtal 200 mg oral tablet 2 tablet = 400 mg, By Mouth, Daily at bedtime, # 60 tablet, 3 Refills, Maintenance, 12/12/22 8:54:00 EDT, Tablet, [facility], 165, cm, 12/01/22 14:13:00 EDT, Height, 118.3, kg, 11/22/22 10:55:00 EDT, Dry Weight Start Date: 12/12/22 Stop Date: 04/11/23 Status: Ordered lamotrigine 100 mg oral tablet 100 mg, 1, tablet, By Mouth, Daily in AM, # 30 tablet, Refills 3, Tot. Refills 3, Maintenance, 12/12/22 8:54:00 EDT, Route to Pharmacy Electronically, [facility], 165, cm, 12/01/22 [...] Maintenance, 11/10/22 10:55:00 EDT, [facility]Powder, [facility], test date 01/14 .... Start Date: 11/10/22 Status: Ordered omeprazole 40 mg oral enteric coated capsule 1 capsule, By Mouth, 2 times a day, # 60 capsule, 2 Refills, Maintenance, 11/11/22 12:20:00 EDT, [facility], 168, cm, [...] Refills, Maintenance, 01/21/23 16:49:00 EDT, [facility], Partial fill upo... Start Date: 01/21/23 Status: Ordered Suprep Bowel Prep Kit oral liquid 177 mL, By Mouth, Once, split prep, # 354 mL, 0 Refills, Soft Stop, 12/01/22 14:37:00 EDT, [facility], Partial fill [...] 12/12/22 8:53:00 EDT, ER Tablet, [facility], 165, cm, 12/01/22 14:13:00 EDT, Height, 118.3, kg, 11/22/22 10:55:00 EDT, . Start Date: 12/12/22 Stop Date: 04/11/23 Status: Ordered Wellbutrin XL 300 mg/24 hours oral tablet, extended release 1 tablet = 300 mg, By Mouth, Daily, With the Wellbutrin 150 mg TDD 450 mg, # 30 tablet, 3 Refills, Maintenance, 12/12/22 8:53:00 EDT, ER Tablet, [facility], Ok for fill early - patient has never lost or needed early refills before, 165, cm, 0... Start Date: 12/12/22 Status: Ordered ziprasidone 60 mg oral capsule 1 capsule = 60 mg, By Mouth, Daily at bedtime, # 7 capsule, 0 Refills, Maintenance, 01/28/23 14:16:00 EDT, [facility], please fill this script early as pt in going on vacation and will not have enough pills to get through when she returns- ... Start Date: 01/28/23 Stop Date: 02/04/23 Status: Ordered ziprasidone 60 mg oral capsule 1 capsule = 60 mg, By Mouth, Daily at bedtime, # 30 capsule, 3 Refills, Maintenance, 12/12/22 8:55:00 EDT, [facility], Partial fill [...] capsule, 0 Refills, Maintenance, 01/28/23 14:32:00 EDT, [facility], dose reduction, 165, cm, 01/21/23 11:55:00 EDT, Height, 118.3, kg, 04... Start Date: 01/28/23 Status: Ordered ziprasidone 80 mg oral capsule 1 capsule = 80 mg, By Mouth, Daily at bedtime, for 30 days, TDD = 140mg/day, # 30 capsule, 3 Refills, Hard Stop 04/11/23 8:55:00 EDT, 12/12/22 8:55:00 EDT, [facility], dose reduction, 165, cm, [...] Anabel Roblero [place] Position: [facility] RN Member Role: Primary Care Nurse Name: Isa Ward Position: [facility] RN Member Role: Primary Care Nurse Name: Ofelia Jefferson NP Position: [facility] PCO Associate Professional Member Role: PCP Address: Address: [address] [place] [id number]- Name: Tommy Kohli MD Position: [facility] Physician - Behavioral Health Member Role: Lifetime Consulting Physician Address: Address: [address] [place] [address]- Care Team Related Persons Name: WILLEM SIMON III Address: [place] [address] Name: WILLEM SIMON JR Address: home [address] [place] [address]
--- OUTSIDE RECORDS SUMMARY | 2024-01-22 11:16 | XMS_ITS | Continuity of Care Document ---
Author Organization [facility] [place] Address [address] [place] [address]- Care Team Providers Care Sporting Goods Sales Associate Name Role Phone Ronny CLOTH CUTTING MACHINE OPERATOR, Ofelia Acosta Primary Care Physician [phone] Encounter [facility] Date(s): 10/29/23 - 12/12/23 [facility] [place] [address] [place] [address]- Attending Physician: German Cortez MD Allergies, Adverse [...] Note: VIS GIVEN: 03/18/2011 2Result Comment: lot [id number] 09/21/2006 3Admin Note: VIS 05/29/09 GIVEN Medications [...] Refills, Maintenance, 12/01/23 15:45:00 EDT, ER Capsule, [facility], fill when due, 1 capsule By Mouth Daily in AM,x30 days, 165, cm, 11/06/23 8:10:00 EDT, Height, 110.1, kg, 10/28/23... Start Date: 12/01/23 Stop Date: 12/31/23 Status: Ordered amLODIPine 2.5 mg oral tablet 1 tablet, By Mouth, Daily, # 90 tablet, 1 Refills, Maintenance, 07/24/23 15:00:00 EST, [facility], 165, cm, 05/25/23 14:40:00 EDT, Height, 118.3, kg, 12/16/22 20:23:00 EDT, Dry Weight Start Date: 07/24/23 Status: Ordered amphetamine-dextroamphetamine 10 mg oral tablet 1 tablet = 10 mg, By Mouth, 2 times a day, # 60 tablet, 0 Refills, Maintenance, 12/01/23 15:45:00 EDT, [facility], fill on date [...] 3 Refills, Maintenance, 11/06/23 9:04:00 EDT, Capsule, [facility], Partial fill upon patient request if the prescription is for a schedule II opioid drug., 165, cm, 10/22... Start Date: 11/06/23 Stop Date: 03/05/24 Status: Ordered clonazePAM 0.5 mg oral tablet 1 tablet = 0.5 mg, By Mouth, 3 times a day, NEEDED FOR ANXIETY, # 90 tablet, 3 Refills, Maintenance, 12/01/23 15:45:00 EDT, Tablet, [facility], 165, cm, 11/06/23 [...] tablet, 3 Refills, Maintenance, 12/01/23 15:46:00 EDT, [facility], 165, cm, 11/06/23 8:10:00 EDT, Height, 110.1, kg, 10/28/23 1:29:00 EST, Dry Weight Start Date: 12/01/23 Stop Date: 03/30/24 Status: Ordered LaMICtal 200 mg oral tablet 2 tablet = 400 mg, By Mouth, Daily at bedtime, # 60 tablet, 3 Refills, Maintenance, 12/01/23 15:46:00 EDT, Tablet, [facility], 165, cm, 11/06/23 8:10:00 EDT, Height, 110.1, kg, 10/28/23 1:29:00 EST, Dry Weight Start Date: 12/01/23 Stop Date: 03/30/24 Status: Ordered lamotrigine 100 mg oral tablet 100 mg, 1, tablet, By Mouth, Daily in AM, # 30 tablet, Refills 3, Tot. Refills 3, Maintenance, 12/01/23 15:46:00 EDT, Route to Pharmacy Electronically, [facility], 165, cm, 11/06/23 [...] capsule, 1 Refills, Maintenance, 08/15/23 8:46:00 EST, [facility], 165, cm, 05/25/23 14:40:00 EDT, Height, 118.3, kg, 12/16/22 20:23:00 EDT, Dry Weight Start Date: 08/15/23 Status: Ordered ondansetron 4 mg oral tablet 1 tablet = 4 mg, By Mouth, Every 8 hours, # 21 tablet, 0 Refills, Maintenance, 07/29/23 17:24:00 EST, Tablet, [facility] # [...] mL, 0 Refills, Maintenance, 05/25/23 15:17:00 EDT, [facility], Partial [...] tablet, 0 Refills, Maintenance, 10/15/23 11:12:00 EST, [facility], 165, cm, 05/25/23 14:40:00 EDT, Height, 118.3, kg, 12/16/22 20:23:00 EDT, Dry Weight Start Date: 10/15/23 Status: Ordered Wellbutrin XL 300 mg/24 hours oral tablet, extended release 1 tablet = 300 mg, By Mouth, Daily, # 30 tablet, 3 Refills, Maintenance, 12/01/23 15:45:00 EDT, ER Tablet, [facility], 165, cm, 11/06/23 8:10:00 EDT, Height, 110.1, kg, 10/28/23 1:29:00 EST,Dry Weight Start Date: 12/01/23 Stop Date: 03/30/24 Status: Ordered ziprasidone 20 mg oral capsule 1 capsule = 20 mg, By Mouth, Daily at bedtime, # 30 capsule, 3 Refills, Maintenance, 12/01/23 15:56:00 EDT, [facility], dose reduction, 165, [...] Team Personnel Name: Anabel Roblero [place] Position: [facility] RN Member Role: Primary Care Nurse Name: Isa Ward Position: [facility] RN Member Role: Primary Care Nurse Name: Ofelia Jefferson NP Position: [facility] PCO Associate Professional Member Role: PCP Address: Address: [address] [place] [address] [place] [address]- Name: Tommy Kohli MD Position: [facility] Physician - Behavioral Health Member Role: Lifetime Consulting Physician Address: Address: [address] [place] [id number]- Care Team Related Persons Name: WILLEM SIMON III Address: [place] [address] Name: WILLEM SIMON JR Address: home [address] [place] [address]
--- OUTSIDE RECORDS SUMMARY | 2024-01-22 11:16 | XMS_ITS | Continuity of Care Document ---
Author Organization [facility] [place] Address [address] [place] [address]- Care Team Providers Care Biological Photographer Name Role Phone Adama STUART, Aly Salazar Primary Care Physician Encounter [facility] Date(s): 05/09/21 - 06/08/21 [facility] [place] [address] [place] [address]- Allergies, Adverse Reactions, Alerts Substance Reaction Severity [...] Note: VIS GIVEN: 03/18/2011 2Result Comment: lot [id number] 09/21/2006 3Admin Note: VIS 05/29/09 GIVEN Medications [...]
--- OUTSIDE RECORDS SUMMARY | 2024-01-22 11:16 | XMS_ITS | Continuity of Care Document ---
Author Organization [facility] Address [address] [place] [address]- Care Team Providers Care Booster Pump Oiler Name Role Phone Stacie Rendon NP Primary Care Physician Encounter [facility] Date(s): 11/20/20 - 12/20/20 [facility] [address] [place] [address]- Allergies, Adverse Reactions, Alerts Substance Reaction Severity [...] Note: VIS GIVEN: 03/18/2011 2Result Comment: lot [id number] 09/21/2006 3Admin Note: VIS 05/29/09 GIVEN Medications [...] 4 hours, PRN as needed for pain, for 5 days, # 30 tablet, 0 Refills, Acute 12/24/20 9:10:00 EDT, 12/19/20 9:10:00 EDT, Tablet, [facility], Partial fill upon patient request if the prescription is for a... Start Date: 12/19/20 Stop Date: 12/24/20 Status: Ordered Dilaudid 2 mg oral tablet [...]
--- OUTSIDE RECORDS SUMMARY | 2024-01-22 11:16 | XMS_ITS | Continuity of Care Document ---
Author Organization [facility] [place] Address [address] [place] [address]- Care Team Providers Care Baggage Smasher Name Role Phone Ronny PAPPAS, Ofelia Acosta Primary Care Physician [phone] Encounter [facility] Date(s): 12/17/22 - 01/16/23 [facility] [place] [address] [place] [address]- Allergies, Adverse Reactions, Alerts Substance Reaction Severity [...] Note: VIS GIVEN: 03/18/2011 2Result Comment: lot [id number] 09/21/2006 3Admin Note: VIS 05/29/09 GIVEN Medications [...] Refills, Maintenance, 12/12/22 8:53:00 EDT, ER Capsule, [facility], please only fill on/after exact due date, 1 capsule By Mouth Daily in AM,x30 days, 165, cm, 12/01/22 14:13:00 EDT, H... Start Date: 12/12/22 Stop Date: 01/11/23 Status: Ordered amLODIPine 2.5 mg oral tablet 1 tablet = 2.5 mg, By Mouth, Daily, # 90 tablet, 1 Refills, Maintenance, 11/14/22 13:47:00 EDT, Tablet, [facility], Partial fill upon patient request if the prescription is for a schedule IIopioid drug., 168, cm, 10/22/22 10:35:00 EST, Heigh... Start Date: 11/14/22 Status: Ordered amphetamine-dextroamphetamine 10 mg oral tablet 1 tablet = 10 mg, By Mouth, 2 times a day, # 60 tablet, 0 Refills, Maintenance, 12/12/22 8:53:00 EDT, [facility], fill on date due, 1 tablet By Mouth 2 times a day,x30 days, 165, cm, 12/01/22 14:13:00 EDT, Height, 118.3, kg, 11/22/22 10:55:00... Start Date: 12/12/22 Stop Date: 01/11/23 Status: Ordered cholecalciferol 5000 intl units oral tablet 1 tablet = 125 mcg, By Mouth, Daily, # 30 tablet, 3 Refills, Maintenance, 10/22/22 10:51:00 EST, Tablet, [facility], Partial fill upon [...] Maintenance, 12/12/22 8:54:00 EDT, Tablet, [facility], 165, cm, 12/01/22 [facility], 168, cm, 10/07/22 [...] tablet, 0 Refills, Maintenance, 01/02/23 8:01:00 EDT, [facility], massPAT checked for the gabapentin-appropriate; last fill was on 11-23-22 for a 30 daysupply (#90), 165, cm, 12/18/22 13:42:00 EDT, Heigh... Start Date: 01/02/23 Status: Ordered LaMICtal 200 mg oral tablet 2 tablet = 400 mg, By Mouth, Daily at bedtime, # 60 tablet, 3 Refills, Maintenance, 12/12/22 8:54:00 EDT, Tablet, [facility], 165, cm, 12/01/22 [...] [facility], 165, cm, 12/01/22 [...] Refills, Maintenance, 11/11/22 12:20:00 EDT, [facility], 168, cm, 10/22/22 [...] Refills, Maintenance, 12/12/22 8:53:00 EDT, ER Tablet, [facility], 165, cm, 12/01/22 14:13:00 EDT, Height, 118.3, kg, 11/22/22 10:55:00 EDT, . Start Date: 12/12/22 Stop Date: 04/11/23 Status: Ordered Wellbutrin XL 300 mg/24 hours oral tablet, extended release 1 tablet = 300 mg, By Mouth, Daily, With the Wellbutrin 150 mg TDD 450 mg, # 30 tablet, 3 Refills, Maintenance, 12/12/22 8:53:00 EDT, ER Tablet, [facility], Ok for fill early - patient has never lost or needed early refills before, 165, cm, 0... Start Date: 12/12/22 Status: Ordered ziprasidone 60 mg oral capsule 1 capsule = 60 mg, By Mouth, Daily at bedtime, # 30 capsule, 3 Refills, Maintenance, 12/12/22 8:55:00 EDT, [facility], Partial fill upon patient request if the prescription is for a scheduleII opioid drug., 165, cm, 12/01/22 14:13:00 EDT, John. Start Date: 12/12/22 Stop Date: 04/11/23 Status: Ordered ziprasidone 80 mg oral capsule 1 capsule = 80 mg, By Mouth, Daily at bedtime, TDD = 140mg/day, # 30 capsule, 3 Refills, Maintenance, 12/12/22 8:55:00 EDT, [facility], dose reduction, 165, cm, [...] Team Personnel Name: Anabel Vyas Position: [facility] RN Member Role: Primary Care Nurse Name: Isa Ward Position: [facility] RN Member Role: Primary Care Nurse Name: Ofelia Jefferson NP Position: [facility] PCO Associate Professional Member Role: PCP Address: Address: [address] [place] [address] [place] [address]- [place] Name: Tommy Kohli MD Position: [facility] Psychiatry MD Member Role: Lifetime Consulting Physician Address: Address: [address] [place] [address]- Care Team Related Persons Name: WILLEM SIMON III Address: [place] [address] Name: WILLEM SIMON JR Address: [address] [place] [address]
--- OUTSIDE RECORDS SUMMARY | 2024-01-22 11:16 | XMS_ITS | Continuity of Care Document ---
Author Organization [facility] Address [address] [place] [address]- Care Team Providers Care Ticket Maker Name Role Phone Ronny PAPPAS, Ofelia Acosta Primary Care Physician [phone] Encounter [facility] Date(s): 10/24/22 - 12/03/[address] [address] Attending Physician: Ofelia Jefferson NP Admitting Physician: Ofelia Jefferson NP Referring Physician: Ofelia Jefferson NP Allergies, Adverse [...] Note: VIS GIVEN: 03/18/2011 2Result Comment: lot [id number] 09/21/2006 3Admin Note: VIS 05/29/09 GIVEN Medications [...] Refills, Maintenance, 11/26/22 13:26:00 EDT, ER Capsule, [facility], please only fill on/after exact due date, 1 capsule By Mouth Daily in AM,x30 days, 165, cm, 11/22/22 10:40:00 EDT,... Start Date: 11/26/22 Stop Date: 12/26/22 Status: Ordered amLODIPine 2.5 mg oral tablet 1 tablet = 2.5 mg, By Mouth, Daily, # 90 tablet, 1 Refills, Maintenance, 11/14/22 13:47:00 EDT, Tablet, [facility], Partial fill upon patient request if the prescription is for a schedule IIopioid drug., 168, cm, 10/22/22 10:35:00 EST, Heigh... Start Date: 11/14/22 Status: Ordered amphetamine-dextroamphetamine 10 mg oral tablet 1 tablet = 10 mg, By Mouth, 2 times a day, # 60 tablet, 0 Refills, Maintenance, 11/21/22 10:00:00 EDT, [facility], ., 1 tablet By Mouth 2 times a day,x30 days, 168, cm, 10/22/22 10:35:00 EST, Height, 112, kg, 04/22/22 14:00:00 EDT, Dry Weight Start Date: 11/21/22 Stop Date: 12/21/22 Status: Ordered cholecalciferol 5000 intl units oral tablet 1 tablet = 125 mcg, By Mouth, Daily, # 30 tablet, 3 Refills, Maintenance, 10/22/22 10:51:00 EST, Tablet, [facility], Partial fill upon [...] Maintenance, 10/17/22 8:57:00 EST, Tablet, [facility], 168, cm, 10/07/22 10:08:00 EST, Height, 112,kg, 04/22/22 14:00:00 EDT, Dry Weight Start Date: 10/17/22 Stop Date: 02/14/23 Status: Ordered docusate sodium 100 mg oral capsule See Instructions, TAKE 1 CAPSULE ONE TO TWO TIMES A DAY FOR CONSTIPATION, # 20 capsule, 0 Refills, [facility], 168, [...] Electronically, [facility], 168, [...] 1 Refills, Maintenance, 10/22/22 10:50:00 EST, Tablet, [facility], Partial fill upon patient request if the prescription is for a schedule II opioid drug., 168, cm, 10/22/22 10:35:00 ES... Start Date: 10/22/22 Status: Ordered LaMICtal 200 mg oral tablet 2 tablet = 400 mg, By Mouth, Daily at bedtime, # 60 tablet, 3 Refills, Maintenance, 10/17/22 8:58:00 EST, Tablet, [facility], Ok for fill early - patient has never lost or needed early refills before, 168, cm, 10/07/22 10:08:00 EST, Height, 1... Start Date: 10/17/22 Stop Date: 02/14/23 Status: Ordered lamotrigine 100 mg oral tablet 100 mg, 1, tablet, By Mouth, Daily in AM, # 30 tablet, Refills 3, Tot. Refills 3, Maintenance, 10/17/22 8:58:00 EST, Route to Pharmacy Electronically, [facility], Ok for fill early [...] 0 Refills, Maintenance, 11/10/22 10:55:00 EDT, Vicente, [facility], test date 01/14 .... Start Date: 11/10/22 Status: Ordered omeprazole 40 mg oral enteric coated capsule 1 capsule, By Mouth, 2 times a day, # 60 capsule, 2 Refills, Maintenance, 11/11/22 12:20:00 EDT, [facility], 168, cm, 10/22/22 10:35:00 EST, Height, 112, kg, 04/22/22 14:00:00 EDT, Dry Weight Start Date: 11/11/22 Status: Ordered Suprep Bowel Prep Kit oral liquid 177 mL, By Mouth, Once, split prep, # 354 mL, 0 Refills, Soft Stop, 12/01/22 14:37:00 EDT, [facility], Partial fill upon patient [...] Refills, Maintenance, 10/17/22 8:57:00 EST, ER Tablet, [facility], Ok for fill early - patient has never lost or needed early refills before, 1... Start Date: 10/17/22 Stop Date: 02/14/23 Status: Ordered Wellbutrin XL 300 mg/24 hours oral tablet, extended release 1 tablet = 300 mg, By Mouth, Daily, With the Wellbutrin 150 mg TDD 450 mg, # 30 tablet, 3 Refills, Maintenance, 10/17/22 8:57:00 EST, ER Tablet, [facility], Ok for fill early - patient has never lost or needed early refills before, 168, cm, 0... Start Date: 10/17/22 Status: Ordered ziprasidone 40 mg oral capsule See Instructions, Take one capsule in the morning and 1 capsules at bedtime with an 80mg tab TDD 160mg, # 60 capsule, 3 Refills, Maintenance, 10/17/22 8:58:00 EST, [facility], Partial fill upon patient request if the prescription is for a keith... Start Date: 10/17/22 Status: Ordered ziprasidone 80 mg oral capsule 1 capsule = 80 mg, By Mouth, Daily at bedtime, TDD = 160mg/day, # 30 capsule, 3 Refills, Maintenance, 10/17/22 8:59:00 EST, [facility], Partial fill upon patient [...] Care Team Personnel Name: Anabel Vyas Position: [facility] RN Member Role: Primary Care Nurse Name: Isa Ward Position: [facility] RN Member Role: Primary Care Nurse Name: Ofelia Jefferson NP Position: [facility] PCO Associate Professional Member Role: PCP Address: Address: [address] [place] [address] [place] [address]- Name: Tommy Kohli MD Position: [facility] Psychiatry MD Member Role: Lifetime Consulting Physician Address: Address: [address] [place] [address]- Care Team Related Persons Name: WILLEM SIMON III Address: [place] [address] Name: WILLEM SIMON JR Address: home [address] [place] [address]
--- OUTSIDE RECORDS SUMMARY | 2024-01-22 11:16 | XMS_ITS | Continuity of Care Document ---
Author Organization [facility] Address [address] [place] [id number]- Care Team Providers Care Capacitor Inspector Name Role Phone Ronny PAPPAS, Ofelia Acosta Primary Care Physician [phone] Encounter [facility] Date(s): 10/13/22 - 11/12/22 [facility] [address] [place] [id number]- [place] Allergies, Adverse Reactions, Alerts Substance Reaction [...] Note: VIS GIVEN: 03/18/2011 2Result Comment: lot [id number] 09/21/2006 3Admin Note: VIS 05/29/09 GIVEN Medications [...] Refills, Maintenance, 10/17/22 8:56:00 EST, ER Capsule, [facility], please only fill on/after exact due date, 1 capsule By Mouth Daily in AM,x30 days, 168, cm, 10/07/22 10:08:00 EST, H... Start Date: 10/17/22 Stop Date: 11/16/22 Status: Ordered amLODIPine 2.5 mg oral tablet 1 tablet = 2.5 mg, By Mouth, Daily, # 90 tablet, 1 Refills, Maintenance, 05/26/22 17:40:00 EDT, Tablet, [facility], Partial fill upon patient request if the prescription is for a schedule IIopioid drug., 168, cm, 05/15/22 14:37:00 EDT, Heigh... Start Date: 05/26/22 Status: Ordered amphetamine-dextroamphetamine 10 mg oral tablet 1 tablet = 10 mg, By Mouth, 2 times a day, # 60 tablet, 0 Refills, Maintenance, 10/17/22 8:57:00 EST, [facility], ., 1 tablet By Mouth 2 times a day,x30 days, 168, cm, 10/07/22 10:08:00 EST,Height, 112, kg, 04/22/22 14:00:00 EDT, Dry Weight Start Date: 10/17/22 Stop Date: 11/16/22 Status: Ordered cholecalciferol 5000 intl units oral tablet 1 tablet = 125 mcg, By Mouth, Daily, # 30 tablet, 3 Refills, Maintenance, 10/22/22 10:51:00 EST, Tablet, [facility] # [facility], Partial fill upon patient request if the prescription is for a schedule II opioid drug., 168, cm, 10/22/22 10:35:00 EST, [place]... Start Date: 10/22/22 Stop Date: 02/19/23 Status: Ordered clonazePAM 0.5 mg oral tablet 1 tablet = 0.5 mg, By Mouth, 3 times a day, NEEDED FOR ANXIETY, # 90 tablet, 3 Refills, Maintenance, 10/17/22 8:57:00 EST, Tablet, [facility], 168, cm, 10/07/22 [...] 10/17/22 8:58:00 EST, Route to Pharmacy Electronically, [facility], Ok for fill early [...] each, 0 Refills, Maintenance, 11/10/22 10:55:00 EDT, [place], [facility], test date 01/14 .... Start Date: 11/10/22 Status: Ordered omeprazole 40 mg oral enteric coated capsule 1 capsule, By Mouth, 2 times a day, # 60 capsule, 2 Refills, Maintenance, 11/11/22 12:20:00 EDT, [facility], 168, cm, 10/22/22 10:35:00 EST, Height, 112, kg, 04/22/22 14:00:00 EDT, Dry Weight Start Date: 11/11/22 Status: Ordered Wellbutrin XL 150 mg/24 hours oral tablet, extended release 1 tablet = 150 mg, By Mouth, Every 24 hours, With the Wellbutrin 300 mg TDD 450 mg, # 30 tablet, 3 Refills, Maintenance, 10/17/22 8:57:00 EST, ER Tablet, [facility], Ok for fill early [...] capsule, 3 Refills, Maintenance, 10/17/22 8:58:00 EST, [facility], Partial fill upon patient request if the prescription is for a keith... Start Date: 10/17/22 Status: Ordered ziprasidone 80 mg oral capsule 1 capsule = 80 mg, By Mouth, Daily at bedtime, TDD = 160mg/day, # 30 capsule, 3 Refills, Maintenance, 10/17/22 8:59:00 EST, [facility], Partial fill upon [...] Care Team Personnel Name: Anabel Vyas Position: [facility] RN Member Role: Primary Care Nurse Name: Isa Ward Position: [facility] RN Member Role: Primary Care Nurse Name: Ronny PAPPAS, Ofelia Acosta Position: [facility] PCO Associate Professional Member Role: PCP Address: Address: [address] [facility] [place] [address]- Name: Tommy Kohli MD Position: [facility] Psychiatry MD Member Role: Lifetime Consulting Physician Address: Address: [address] [place] [address]- Care Team Related Persons Name: WILLEM SIMON III Address: [place] [address] Name: WILLEM SIMON JR Address: home [address] [place] [address]
--- OUTSIDE RECORDS SUMMARY | 2024-01-22 11:16 | XMS_ITS | Continuity of Care Document ---
Author Organization [facility] Address [address] [place] [address]- Care Team Providers Care Resort Manager Name Role Phone Ronny FIELD MARKETING LEAD, Ofelia Acosta Primary Care Physician Encounter [facility] Date(s): 04/09/22 - 04/09/[address] [address]- Discharge Disposition: A-D/C Home Attending Physician: Earle Santana MD Admitting Physician: Earle Santana MD Referring Physician: Earle Santana MD Allergies, Adverse Reactions, Alerts Substance Reaction [...] Note: VIS GIVEN: 03/18/2011 2Result Comment: lot [id number] 09/21/2006 3Admin Note: VIS 05/29/09 GIVEN Medications [...] opioid drug. Start Date: 08/08/20 Status: Ordered OxyCODONE IR Tablet 5 mg, Tablet, By Mouth, Every 4 hours, in PACU ONLY, if patient can tolerate PO, PRN for Pain , Mild, Routine, 04/09/22 11:53:00 EDT Start Date: 04/09/22 Stop Date: 04/09/22 Status: Discontinued Problem List Condition Effective Dates [...] to oldest [Reference Range]: 1 2 3 Weight 113.3 kg (04/09/22 9:17 AM) Oxygen Saturation [94-100 %] 94 % (04/09/22 1:00 PM) 93 % *L* (04/09/22 12:45 PM) 93 % *L* (04/09/22 12:30 PM) Pulse Rate [55-90 bpm] 81 bpm (04/09/22 9:17 AM) Blood Pressure [90-138/55-84 mm Hg] 115/71mm Hg (04/09/22 12:45 PM) 117/80mm Hg (04/09/22 12:30 PM) 116/70mm Hg (04/09/22 12:15 PM) Respiratory Rate [16-30 br/min] 15 br/min *L* (04/09/22 1:00 PM) 17 br/min (04/09/22 12:45 PM) 14 br/min *L* (04/09/22 12:30 PM) Temperature [96.8-100.4 DegF] 97.9 DegF (04/09/22 1:00 PM) 97.8 DegF (04/09/22 11:40 AM) 97 DegF (04/09/22 9:17 AM) Liters per Minute 6 L/min (04/09/22 11:45 AM) 6 L/min (04/09/22 11:40 AM) Mode of Delivery (Oxygen) Room air (04/09/22 1:00 PM) Room air (04/09/22 12:45 PM) Room air (04/09/22 12:30 PM) Blood pressure sites Arm, left (04/09/22 12:45 PM) Arm, left (04/09/22 12:30 PM) Arm, left (04/09/22 12:15 PM) Temperature Route Temporal (04/09/22 1:00 PM) Temporal (04/09/22 11:40 AM) Temporal (04/09/22 9:17 AM) Dry Weight 113.3 kg (04/09/22 9:17 AM) Weight Obtained Via Standing scale (04/09/22 9:17 AM) Dry Weight Obtained Via Standing scale (04/09/22 9:17 AM) Social History Social History Type Response Smoking Status Never (less than 100 in lifetime); Tobacco user in household: No entered on: 07/26/18 Sex Female
--- OUTSIDE RECORDS SUMMARY | 2024-01-22 11:16 | XMS_ITS | Continuity of Care Document ---
Author Organization [facility] Address [address] [place] [address]- Care Team Providers Care Ticket Agent Name Role Phone Ronny CONCRETE TRUCK DRIVER, Ofelia Acosta Primary Care Physician Encounter [facility] Date(s): 01/14/24 - 01/14/[address] [address]- Discharge Disposition: A-D/C Home Attending Physician: Gus STUART, King Yu Admitting Physician: King Weber MD Referring Physician: [...] Note: VIS GIVEN: 03/18/2011 2Result Comment: lot [id number] 09/21/2006 3Admin Note: VIS 05/29/09 GIVEN Medications [...] Refills, Maintenance, 01/12/24 7:19:00 EDT, ER Capsule, [facility], fill when due, 1 capsule By Mouth Daily in AM,x30 days, 165, cm,12/17/23 12:31:00 EDT, Height, 110.1, kg, 10/28/23... Start Date: 01/12/24 Stop Date: 02/11/24 Status: Ordered amLODIPine 2.5 mg oral tablet 1 tablet, By Mouth, Daily, # 90 tablet, 1 Refills, Maintenance, 01/10/24 10:27:00 EDT, [facility], 165, cm, 12/17/23 12:31:00 EDT, Height, 110.1, kg, 10/28/23 1:29:00 EST, Dry Weight Start Date: 01/10/24 Status: Ordered amphetamine-dextroamphetamine 10 mg oral tablet 1 tablet = 10 mg, By Mouth, 2 times a day, # 60 tablet, 0 Refills, Maintenance, 01/12/24 7:19:00 EDT, [facility], fill [...] 3 Refills, Maintenance, 11/06/23 9:04:00 EDT, Capsule, [facility], Partial fill upon patient request if the prescription is for a schedule II opioid drug., 165, cm, 10/22... Start Date: 11/06/23 Stop Date: 03/05/24 Status: Ordered clonazePAM 0.5 mg oral tablet 1 tablet = 0.5 mg, By Mouth, 3 times a day, NEEDED FOR ANXIETY, # 90 tablet, 3 Refills, Maintenance, 12/01/23 15:45:00 EDT, Tablet, [facility], 165, cm, 11/06/23 8:10:00 [...] tablet, 3 Refills, Maintenance, 12/01/23 15:46:00 EDT, [facility], 165, cm, 11/06/23 8:10:00 EDT, Height, 110.1, kg, 10/28/23 1:29:00 EST, Dry Weight Start Date: 12/01/23 Stop Date: 03/30/24 Status: Ordered LaMICtal 200 mg oral tablet 2 tablet = 400 mg, By Mouth, Daily at bedtime, # 60 tablet, 3 Refills, Maintenance, 12/01/23 15:46:00 EDT, Tablet, [facility], 165, cm, 11/06/23 8:10:00 EDT, Height, 110.1, kg, 10/28/23 1:29:00 EST, Dry Weight Start Date: 12/01/23 Stop Date: 03/30/24 Status: Ordered lamotrigine 100 mg oral tablet 100 mg, 1, tablet, By Mouth, Daily in AM, # 30 tablet, Refills 3, Tot. Refills 3, Maintenance, 12/01/23 15:46:00 EDT, Route to Pharmacy Electronically, [facility], 165, cm, 11/06/23 8:10:00 [...] mL, 0 Refills, Maintenance, 05/25/23 15:17:00 EDT, [facility], Partial fill upon patient request if the prescription is for a schedule II opioid drug., 1 bottle 90 minutes prior to s... Start Date: 05/25/23 Status: Ordered Trulicity Pen 1.5 mg/0.5 mL subcutaneous solution See Instructions, INJECT 0.5ML SUBCUTANEOUSLY ONCE WEEKLY ROTATE INJECTION SITES, # 2 mL, 5 Refills, Maintenance, 06/07/23 18:02:00 EDT, [facility], 165, cm, 05/25/23 14:40:00 EDT, Height, 118.3, kg, 12/16/22 20:23:00 EDT, Dry Weight Start Date: 06/07/23 Status: Ordered Vitamin D3 5000 intl units oral tablet 1 tablet, By Mouth, Daily, # 30 tablet, 0 Refills, Maintenance, 10/15/23 11:12:00 EST, [facility], 165, cm, 05/25/23 14:40:00 EDT, Height, 118.3, kg, 12/16/22 20:23:00 EDT, Dry Weight Start Date: 10/15/23 Status: Ordered Wellbutrin XL 300 mg/24 hours oral tablet, extended release 1 tablet = 300 mg, By Mouth, Daily, # 30 tablet, 3 Refills, Maintenance, 12/01/23 15:45:00 EDT, ER Tablet, [facility], 165, cm, 11/06/23 8:10:00 EDT, Height, 110.1, kg, 10/28/23 1:29:00 EST,Dry Weight Start Date: 12/01/23 Stop Date: 03/30/24 Status: Ordered ziprasidone 20 mg oral capsule 1 capsule = 20 mg, By Mouth, Daily at bedtime, # 30 capsule, 3 Refills, Maintenance, 12/01/23 15:56:00 EDT, [facility], dose reduction, 165, [...] Exam Date Time Procedure Performing Provider Status 01/14/24 2:09 PM Knee 1 or 2 Views Left Reuben Houston; Auth (Verified) Notes: (Knee 1 or 2 Views Left) Reason For Exam: Trauma RESULT: Knee 1 or 2 Views Left Knee 1 or 2 Views Left, 2 views Hx of Present Illness: fell out of bed this morning L ankle rolled,unable to bear weight on it without pain.denies LOC,chronic knee pain,neck pain. L ankle surgery 2020; Reason: Trauma; Clinical Question(s): Fracture COMPARISON: 12/17/2023 FINDINGS: No bone lesions or fractures. Moderate tricompartmental degenerative osteoarthritis but no evidence of osteochondral defect or intra-articular loose body. Unchanged small patellar spur at the insertion of quadriceps tendon. No evidence of joint effusion. IMPRESSION: Moderate tricompartmental degenerative osteoarthritis but no acute abnormality. I have personally reviewed the images and I agree with this report. WSN: [id number] Ordering Physician: Beena Palma Dictated By: Paulina Vance MD Dictated Date/Time: 01/14/24 2:26 pm Reviewed By: Ward Velez MD, V Signed By: Ward Velez MD, V Signed Date/Time: 01/14/24 2:31 pm Transcribed By: SANDY Transcribed Date/Time: 01/14/24 2:24 pm * Exam Date Time Procedure Performing Provider Status 01/14/24 2:09 PM Foot Min 3 Views Left Saba Houston (Verified) Notes: (Foot Min 3 Views Left) Reason For Exam: Trauma RESULT: Foot Min 3 Views Left Foot Min 3 Views Left, 3 views Hx of Present Illness: fell out of bed this morning L ankle rolled,unable to bear weight on it without pain.denies LOC,chronic knee pain,neck pain. L ankle surgery 2020; Reason: Trauma; Clinical Question(s): Fracture COMPARISON: 12/17/2023 and multiple priors. FINDINGS: Nondisplaced fracture of the lateral head proximal phalanx of first digit extending to the articular surface.. Postoperative changes with hardware at the first proximal phalanx and arthrodesis at the first metatarsophalangeal joint with unchanged hardware alignment. Small plantar calcaneal spur unchanged. IMPRESSION: Nondisplaced intra-articular fracture of lateral head proximal phalanx of the first digit. I have personally reviewed the images and I agree with this report. WSN: [id number] Ordering Physician: Beena Palma Dictated By: Paulina Vance MD Dictated Date/Time: 01/14/24 2:25 pm Reviewed By: Ward Velez MD, V Signed By: Ward Velez MD, V Signed Date/Time: 01/14/24 2:30 pm Transcribed By: SANDY Transcribed Date/Time: 01/14/24 2:22 pm * Exam Date Time Procedure Performing Provider Status 01/14/24 1:13 PM Ankle Min 3 Views Left Reuben Houston (Verified) Notes: (Ankle Min 3 Views Left) Reason For Exam: Trauma RESULT: Ankle Min 3 Views Left Examination: Left ankle performed on 01/14/2024. History: Hx of Present Illness: fell out of bed this morning L ankle rolled,unable to bear weight on it without pain.denies LOC,chronic knee pain,neck pain. L ankle surgery 2020; Reason: Trauma; Clinical Question(s): Fracture Findings: Frontal, oblique, and lateral views of the left ankle are compared to a left foot performed on 12/17/2023. The mortise is preserved. There is an oblique, nondisplaced fracture of the lateral malleolus. Surgical hardware related to the first tarsometatarsal articulation is noted. Soft tissue swelling overlies the ankle. Impression: Lateral malleolar fracture. An actionable message ([place]) has been communicated via the [employer] system on 01/14/2024 1:52 PM, Message ID [id number]. WSN: [id number] Ordering Physician: Porter Murphy Dictated By: Maryan Boateng MD Dictated Date/Time: 01/14/24 1:53 pm Reviewed By: Maryan Boateng MD Signed By: Maryan Boateng MD Signed Date/Time: 01/14/24 1:53 pm Transcribed By: SANDY Transcribed Date/Time: 01/14/24 1:51 pm Vital Signs Most recent to oldest [Reference Range]: 1 Height 165 cm (01/14/24 12:42 PM) Weight 104 kg (01/14/24 12:42 PM) Oxygen Saturation [94-100 %] 99 % (01/14/24 12:42 PM) Pulse Rate [55-90 bpm] 106 bpm *H* (01/14/24 12:42 PM) Blood Pressure [90-138/55-84 mm Hg] 126/ 86mm Hg (01/14/24 12:42 PM) Respiratory Rate [16-30 br/min] 17 br/mi n (01/14/24 12:42 PM) Temperature [96.8-100.4 DegF] 97.9 DegF (01/14/24 12:42 PM) Mode of Delivery (Oxygen) Room air (01/14/24 12:42 PM) Blood pressure sites Arm, left (01/14/24 12:42 PM) Temperature Route Temporal (01/14/24 12:42 PM) Dry Weight 104 kg (01/14/24 12:42 PM) Weight Obtained Via Standing scale (01/14/24 12:42 PM) Dry Weight Obtained Via Standing scale (01/14/24 12:42 PM) Social History Social History Type Response Smoking Status Never (less than 100 in lifetime); Tobacco user in household: No entered on: 07/26/18 Sex Female Note * Beena Yin: PERFORM, SIGN, VERIFY Event Display: Patient Education Handout Authored Date: [id number] * Beena Yin: PERFORM Event Display: Patient Education Leaflets Authored Date: [id number] Closed Toe Fracture ?? [id number] Closed Toe Fracture Your??toe is broken (fractured). This causes pain, swelling, and sometimes bruising. This injury usually takes about 4 to 6 weeks to heal, sometimes longer. Toe injuries are often treated by taping the injured toe to the next one (javed taping). Or you may have a hard shoe, splint, or cast. These protect the injured toe and hold it in position. If the toenail has been severely injured, it may fall off in 1 to 2 weeks. It takes up to 12 monthsfor a new toenail to grow back. Home care Follow these guidelines when caring for yourself at home: ??? You may be given a cast shoe to wear to keep your toe from moving. If not, you can use a sandal or any shoe that doesn???t put pressure on the injured toe until the swelling and pain go away. If using a sandal, be careful not to hit yourfoot against anything. Another injury could make the fracture worse. If you were given crutches, don???t put full weight on the injured foot until you can do so without pain, or as directed by your healthcare provider. ??? Keep your foot elevated to reduce pain and swelling. When sleeping, put a pillow under the injured leg. When sitting, support the injured leg so it's above your waist. This is very important during the first 2 days (48 hours). ??? Put an ice pack on the injured area. Do this for 20 minutes every 1 to 2 hours the first day for pain relief. You can make an ice pack by wrapping a plastic bag of ice cubes in a thin towel. As the ice melts, be careful that any cloth or paper tape doesn???t get wet. Continue using the ice pack 3 to 4 times a day for the next 2 days. Then, usethe ice pack as needed to ease pain and swelling. ??? If javed tape was used and it becomes wet or dirty, change it. You may replace it with paper, plastic, or cloth tape. Cloth tape and paper tape must be kept dry. ??? You may use acetaminophen or ibuprofen to control pain, unless another pain medi cine was prescribed. If you have chronic liver or kidney disease, talk with your healthcare provider before using these medicines. Also, talk with your provider if you???ve had a stomach ulcer, gastrointestinal bleeding, or take a blood thinner. ??? You may return to sports or physical education activities after 4 weeks when you can run without pain, or as directed by your healthcare provider. ?? Follow-up care Follow up with your healthcare provider or as advised. This is to make sure the bone is healing theway it should. X-rays may be taken. You will be told of any new findings that may affect your care. ?? When to seek medical advice Call your healthcare provider right away if any of these occur: ??? Pain or swelling gets worse ???The cast or splint cracks ??? The cast and padding get wet and stay wet more than 24 hours ??? Bad odor from the cast or splint or wound fluid stains the cast ??? Tightness or pressure under the castor splint gets worse ??? Toe becomes cold, blue, numb, or tingly ??? You can???t move the toe ??? Signs of infection: fever, redness, warmth, swelling, or drainage from the wound??or cast ??? Fever of??100.4??F (38??C)??or higher, or as directed by your healthcare provider ??? Shaking chills ?? Last Reviewed Date: 2022 ?? [id number] [employer]. All rights reserved. This information is not intended as a substitute for professional medical care. Always follow your healthcare professional's instructions. ?? * Beena Yin: PERFORM Event Display: Patient Education Leaflets Authored Date: [id number] Ankle Fracture,??Distal Fibula ?? [id number] Ankle Fracture,??Distal Fibula You have a fracture, or broken bone, of the end of the fibula bone. The fibula is 1 of 2 bones thatsupport the ankle joint. Home care ??? You will be given a splint, cast, or special boot to prevent movement at the injury site. Don't put weight on a splint. It will break. Follow your healthcare provider???s advice about when to begin bearing weight on a cast or boot. ??? Keep your leg raised??when sitting or lying down.When sleeping, place a pillow under the injured leg. When sitting, support the injured leg so it's above heart level. This is very important during the first 48 hours. ??? Keep the cast or splint completely dry at all times. When bathing, protect the cast or splint with??2??large plastic bags. Place 1 bag outside of the other. Tape each??bag with duct tape??at the top end or use rubber bands. Water can still leak in even when the foot is covered. So it's best to keep the cast, splint, or boot away from water.??If a fiberglass cast or splint gets wet, dry it with a examining chair assembler??on a cool setting. ??? Place an ice pack over the injured area for??no more than 15 to??20 minutes. Do this every??3to 6??hours for the first??24 to 48 hours. Continue this 3 to 4 times a day??as needed. To make an i ce pack, put ice cubes in a plastic??bag that seals at the top. Wrap the bag in a??clean, thin??towel or cloth. Never put ice or an ice pack directly on the skin. The ice pack can be put right on thecast or splint. As the ice melts, be careful that the cast or splint doesn???t get wet. ??? You may use??yiwm-[id number] pain medicine??to control pain, unless another pain medicine was prescribed. If you have chronic liver or kidney disease or ever had a stomach ulcer, gastrointestinal bleeding, or take a blood thinner, talk with your provider before using these medicines. ?? Follow-up care Follow up with your healthcare provider in 1 week, or as advised. This is to be sure the bone is healing properly. If you were given a splint, it may be changed to a cast or boot??after the swelling goes down. If X-rays were taken, you will be told of??any new findings that may affect your care. ?? When to get medical advice Call your healthcare provider right away if any of these occur: ??? The plaster cast or splint becomes wet or soft ??? The fiberglass cast or splint stays wet for more than 24 hours ??? There is increased tightness or pain under the cast or splint ??? Your toes become swollen, cold, blue, numb, or tingly ??? The cast or splint??becomes loose ??? The cast or splint??has a bad smell ??? Sore areas develop under the cast or splint ??? The cast or splint??develops cracks or breaks? Last Reviewed Date: 2021 ?? [employer]. All rights reserved. This information is not intended as a substitute for professional medical care. Always follow your healthcare professional's instructions. ?? Patient Care team information Care Team Personnel Name: Anabel Roblero MA Position: [facility] Staff Member Role: Primary Care Nurse Name: Isa Paulson MA Position: [facility] Staff Member Role: Primary Care Nurse Name: Ofelia Jefferson NP Position: [facility] PCO Associate Professional Member Role: PCP Address: Address: [address] [facility] [place] [address]- [place] Name: Tommy Kohli MD Position: [facility] Physician - Behavioral Health Member Role: Lifetime Consulting Physician Address: Address: [address] [place] [address]- Care Team Related Persons Name: WILLEM SIMON III Address: [place] [address] Name: WILLEM SIMON JR Address: [address] [place] [address]
--- OUTSIDE RECORDS SUMMARY | 2024-01-22 11:16 | XMS_ITS | Continuity of Care Document ---
Author Organization [facility] Address [address] [place] [address]- Care Team Providers Care Fiberglass Autobody Repairer Name Role Phone Elda Moscoso NP Primary Care Physician [id number] Date(s): 11/25/19 - 12/02/19 [facility] [address] [place] [address]- [facility] Encounter Diagnosis Viral URI(Discharge Diagnosis) - 11/25/19 Attending Physician: Elda Moscoso NP Allergies, Adverse [...] Note: VIS GIVEN: 03/18/2011 2Result Comment: lot [id number] 09/21/2006 3Admin Note: VIS 05/29/09 GIVEN Problem [...] rachel Service Informant Viral URI Discharge Diagnosis 11/25/19 Social History Social History Type Response Smoking Status Never (less than 100 in lifetime) entered on: 12/31/18 Sex
--- OUTSIDE RECORDS SUMMARY | 2024-01-22 11:16 | XMS_ITS | Continuity of Care Document ---
Author Organization [facility] Address [address] [place] [address] [address], [address] [place] [address]- Care Team Providers Care Internet Marketing Executive Name Role Phone mAadou STUART ([facility]), William Quesada Primary Care Ph ysician Encounter [facility] Date(s): 05/15/22 - 05/22/22 [facility] [address] [place] [address] Drive, [address] [place] [address]- Attending Physician: Jack Castillo MD Referring Physician: Ronny PAPPAS, Ofelia Acosta Allergies, Adverse Reactions, Alerts Substance Reaction Severity [...] Note: VIS GIVEN: 03/18/2011 2Result Comment: lot [id number] 09/21/2006 3Admin Note: VIS 05/29/09 GIVEN Medications [...] Refills, Maintenance, 05/13/22 8:50:00 EDT, ER Capsule, [facility], 1 capsule By [...] 3 Refills, Maintenance, 06/11/21 15:16:00 EDT, Tablet, [facility] # [facility], Partial fill upon patient request if the prescription is for a schedule IIopioid drug., 168, cm, 06/11/21 14:35:00 EDT, Heigh... Start Date: 06/11/21 Status: Ordered cholecalciferol 5000 intl units oral tablet 1 tablet = 125 mcg, By Mouth, Daily, # 30 tablet, 3 Refills, Maintenance, 02/07/22 11:35:00 EDT, Tablet, [facility], [...] 3 Refills, Maintenance, 03/14/22 9:26:00 EDT, Tablet, [facility], 168, cm, 02/20/22 [...] 02/07/22 11:35:00 EDT, Route to Pharmacy Electronically, [facility], Partial [...] 0 Refills, Maintenance, 04/18/22 13:47:00 EDT, Capsule, [facility], Partial fill upon patient request ifthe prescription is for a schedule II opioid drug.,... Start Date: 04/18/22 Status: Ordered Geodon 80 mg oral capsule 1 capsule = 80 mg, By Mouth, Daily at bedtime, Take with 60mg capsule., # 30 capsule, 0 Refills, Maintenance, 04/18/22 13:47:00 EDT, Capsule, [facility], 168, cm, 04/06/22 15:19:00 EDT, Height, 113.3, kg, 04/09/22 9:17:00 EDT, Dry Weight Start Date: 04/18/22 Status: Ordered LaMICtal 200 mg oral tablet 2 tablet = 400 mg, By Mouth, Daily at bedtime, # 60 tablet, 3 Refills, Maintenance, 03/14/22 9:27:00 EDT, Tablet, [facility], 168, cm, 02/20/22 13:36:00 EDT, Height, 116, kg, 02/20/22 13:36:00 EDT, Dry Weight Start Date: 03/14/22 Stop Date: 07/12/22 Status: Ordered lamotrigine 100 mg oral tablet 100 mg, 1, tablet, By Mouth, Daily in AM, # 30 tablet, Refills 3, Tot. Refills 3, Maintenance, 03/14/22 9:27:00 EDT, Route to Pharmacy Electronically, [facility], 168, cm, 02/20/22 13:36:00 [...] capsule, 2 Refills, Maintenance, 04/22/22 12:20:00 EDT, [facility], 168, cm, 04/21/22 8:42:00 EDT, Height, 113.3, kg, 04/09/22 9:17:00 EDT, Dry Weight Start Date: 04/22/22 Status: Ordered Wellbutrin XL 150 mg/24 hours oral tablet, extended release 1 tablet = 150 mg, By Mouth, Every 24 hours, With the Wellbutrin 300 mg TDD 450 mg, # 30 tablet, 3 Refills, Maintenance, 03/14/22 9:26:00 EDT, ER Tablet, [facility], 168, cm, 02/20/22 13:36:00 EDT, Height, 116, kg, 02/20/22 13:36:00 EDT, Dry... Start Date: 03/14/22 Stop Date: 07/12/22 Status: Ordered Wellbutrin XL 300 mg/24 hours oral tablet, extended release 1 tablet = 300 mg, By Mouth, Daily, With the Wellbutrin 150 mg TDD 450 mg, # 30 tablet, 3 Refills, Maintenance, 03/14/22 9:26:00 EDT, ER Tablet, [facility], 168, cm, 02/20/22 13:36:00 [...] 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 Vital Signs Most recent to oldest [Reference Range]: 1 Height 168 cm (05/15/22 2:37 PM) Weight 112 kg (05/15/22 2:37 PM) Body Mass Index [18.5-24.99 kg/m2] 39.68 kg/m2 *>HHI* (05/15/22 2:37 PM) Social History Social History Type Response Smoking Status Never (less than 100 in lifetime); Tobacco user in household: No entered on: 07/26/18 Sex Female Patient Care team information Personnel Name: Amadou STUART ([facility]), William Quesada Address: Address: [address] [place] [address], [place], [place] [address]
--- OUTSIDE RECORDS SUMMARY | 2024-01-22 11:16 | XMS_ITS | Continuity of Care Document ---
Author Organization [facility] Address [address] [place] [address]- Care Team Providers Care Global Cmo Name Role Phone Ronny PAPPAS, Ofelia Acosta Primary Care Physician [facility] Date(s): 05/27/23 - 06/26/23 [facility] [address] [place] [address]- Allergies, Adverse Reactions, Alerts Substance Reaction Severity [...] Note: VIS GIVEN: 03/18/2011 2Result Comment: lot [id number] 09/21/2006 3Admin Note: VIS 05/29/09 GIVEN Medications [...] Refills, Maintenance, 06/19/23 7:21:00 EDT, ER Capsule, [facility], please only fill on/after exact due date, 1 capsule By Mouth Daily in AM,x30 days, 165, cm, 05/25/23 14:40:00 EDT, H... Start Date: 06/19/23 Stop Date: 07/19/23 Status: Ordered amLODIPine 2.5 mg oral tablet 1 tablet, By Mouth, Daily, # 90 tablet, 0 Refills, Maintenance, 05/30/23 13:07:00 EDT, [facility], 165, cm, 05/25/23 14:40:00 EDT, Height, 118.3, kg, 12/16/22 20:23:00 EDT, Dry Weight Start Date: 05/30/23 Status: Ordered amphetamine-dextroamphetamine 10 mg oral tablet 1 tablet = 10 mg, By Mouth, 2 times a day, # 60 tablet, 0 Refills, Maintenance, 06/19/23 7:21:00 EDT, [facility], fill on [...] 3 Refills, Maintenance, 05/29/23 13:42:00 EDT, Tablet, [facility], 165, cm, 05/25/23 14:40:00 EDT, Height, 118.3, kg, 12/16/22 20:23:00 EDT, Dry Weight Start Date: 05/29/23 Stop Date: 09/26/23 Status: Ordered docusate sodium 100 mg oral capsule See Instructions, TAKE 1 CAPSULE ONE TO TWO TIMES A DAY FOR CONSTIPATION, # 20 capsule, 0 Refills, [facility], 168, cm, 08/01/21 17:36:00 EST, Height, 115, kg, 08/01/21 17:36:00 EST, Dry Weight Start Date: 10/31/21 Status: Ordered folic acid 1 mg oral tablet 1, tablet, By Mouth, Daily, # 30 tablet, Refills 5, Maintenance, 04/29/23 20:24:00 EDT, Route to Pharmacy Electronically, [facility], 165, cm, 01/21/23 11:55:00 [...] Refills, Maintenance, 02/04/23 7:33:00 EDT, [facility], 165, cm, 01/21/23 [...] Refills, Maintenance, 05/25/23 15:17:00 EDT, [facility], Partial fill upon patient request if the prescription is for a schedule II opioid drug., 1 bottle 90 minutes prior to s... Start Date: 05/25/23 Status: Ordered Suprep Bowel Prep Kit oral liquid 177 mL, By Mouth, Once, split prep, # 354 mL, 0 Refills, Soft Stop, 12/01/22 14:37:00 EDT, [facility], Partial fill [...] 05/29/23 13:42:00 EDT, ER Tablet, [facility], dose reduction [...] Team Personnel Name: Anabel Roblero [place] Position: [facility] RN Member Role: Primary Care Nurse Name: Isa Ward Position: [facility] RN Member Role: Primary Care Nurse Name: Ofelia Jefferson NP Position: [facility] PCO Associate Professional Member Role: PCP Address: Address: [address] [place] [address] [place] [address]- [place] Name: Tommy Kohli MD Position: [facility] Physician - Behavioral Health Member Role: Lifetime Consulting Physician Address: Address: [address] [place] [address]- Care Team Related Persons Name: WILLEM SIMON III Address: [place] [address] Name: WILLEM SIMON JR Address: home [address] [place] [address]
--- OUTSIDE RECORDS SUMMARY | 2024-01-22 11:16 | XMS_ITS | Continuity of Care Document ---
Author Organization [facility] Address [address] [place] [address]- Care Team Providers Care Dietary Tech Name Role Phone Ronny CVICU NURSE, Ofelia Acosta Primary Care Physician Encounter [facility] Date(s): 01/23/22 - 02/22/22 [facility] [address] [place] [address]- Allergies, Adverse Reactions, Alerts Substance Reaction Severity [...] Note: VIS GIVEN: 03/18/2011 2Result Comment: lot [id number] 09/21/2006 3Admin Note: VIS 05/29/09 GIVEN Medications [...]
--- OUTSIDE RECORDS SUMMARY | 2024-01-22 11:16 | XMS_ITS | Continuity of Care Document ---
Author Organization [facility] Address [address] [address]- Care Team Providers Care Supervisor Paper Testing Name Role Phone Danis PAPPAS, Elda Salazar Primary Care Physician [phone] Encounter [facility] [id number] Date(s): 04/04/20 - 05/04/20 [facility] [address] [address]- [facility] Attending Physician: Adriano Becker Admitting Physician: [...] Note: VIS GIVEN: 03/18/2011 2Result Comment: lot [id number] 09/21/2006 3Admin Note: VIS 05/29/09 GIVEN Problem [...]
--- OUTSIDE RECORDS SUMMARY | 2024-01-22 11:16 | XMS_ITS | Continuity of Care Document ---
Author Organization [facility] [place] Address [address] [place] [address]- Care Team Providers Care Director Of Marketing Google Performance Ads Name Role Phone Yosvany PAPPAS, Julienne Platt Primary Care Physician Encounter [facility] Date(s): 04/16/21 - 05/16/21 [facility] [address] [place] [address]- Allergies, Adverse Reactions, Alerts Substance Reaction Severity Status OxyCODONE Hydrochloride hives full body itch Active Immunizations Given and Recorded Vaccine Date Status Refusal Reason SARS-CoV-2 (COVID-19) mRNA BNT-162b2 vac 01/05/21 Recorded SARS-CoV-2 (COVID-19) mRNA BNT-162m7 vac 12/15/20 Recorded influenza virus vaccine, inactivated 06/22/20 Give n influenza virus vaccine, inactivated 06/23/13 Give n influenza virus vaccine, inactivated 1 09/01/11 [facility] influenza virus vaccine, inactivated 2 09/20/06 [facility] tetanus/diphtheria/pertussis, acel(Tdap) 02/09/14 Given pneumococcal 23-valent vaccine 3 09/01/11 Given 1Admin Note: VIS GIVEN: 03/18/2011 2Result Comment: lot [id number] 09/21/2006 3Admin Note: VIS 05/29/09 GIVEN Medications [...]
--- OUTSIDE RECORDS SUMMARY | 2024-01-22 11:17 | XMS_ITS | Continuity of Care Document ---
Author Organization [facility] Address [address] [place] [address]- Care Team Providers Care Investigations Manager Name Role Phone Ofelia Jefferson NP Primary Care Physician Encounter [facility] Date(s): 12/16/22 - 01/16/23 [facility] [address] [place] [address]- Attending Physician: Ofelia Jefferson NP Allergies, Adverse Reactions, [...] Note: VIS GIVEN: 03/18/2011 2Result Comment: lot [id number] 09/21/2006 3Admin Note: VIS 05/29/09 GIVEN Medications [...] Refills, Maintenance, 12/12/22 8:53:00 EDT, ER Capsule, [facility], please only fill on/after exact due date, 1 capsule By Mouth Daily in AM,x30 days, 165, cm, 12/01/22 14:13:00 EDT, H... Start Date: 12/12/22 Stop Date: 01/11/23 Status: Ordered amLODIPine 2.5 mg oral tablet 1 tablet = 2.5 mg, By Mouth, Daily, # 90 tablet, 1 Refills, Maintenance, 11/14/22 13:47:00 EDT, Tablet, [facility], Partial fill upon patient request if the prescription is for a schedule IIopioid drug., 168, cm, 10/22/22 10:35:00 EST, Heigh... Start Date: 11/14/22 Status: Ordered amphetamine-dextroamphetamine 10 mg oral tablet 1 tablet = 10 mg, By Mouth, 2 times a day, # 60 tablet, 0 Refills, Maintenance, 12/12/22 8:53:00 EDT, [facility], fill on date due, 1 tablet By Mouth 2 times a day,x30 days, 165, cm, 12/01/22 14:13:00 EDT, Height, 118.3, kg, 11/22/22 10:55:00... Start Date: 12/12/22 Stop Date: 01/11/23 Status: Ordered cholecalciferol 5000 intl units oral tablet 1 tablet = 125 mcg, By Mouth, Daily, # 30 tablet, 3 Refills, Maintenance, 10/22/22 10:51:00 EST, Tablet, [facility], Partial fill upon [...] tablet, 0 Refills, Maintenance, 01/02/23 8:01:00 EDT, [facility], massPAT checked for the gabapentin-appropriate; [...] 0 Refills, Maintenance, 11/10/22 10:55:00 EDT, Vicente, [facility], test date 01/14 .... Start Date: 11/10/22 Status: Ordered omeprazole 40 mg oral enteric coated capsule 1 capsule, By Mouth, 2 times a day, # 60 capsule, 2 Refills, Maintenance, 11/11/22 12:20:00 EDT, [facility], 168, cm, 10/22/22 10:35:00 EST, Height, 112, kg, 04/22/22 14:00:00 EDT, Dry Weight Start Date: 11/11/22 Status: Ordered Suprep Bowel Prep Kit oral liquid 177 mL, By Mouth, Once, split prep, # 354 mL, 0 Refills, Soft Stop, 12/01/22 14:37:00 EDT, [facility], Partial fill [...] Refills, Maintenance, 12/12/22 8:53:00 EDT, ER Tablet, [facility], 165, cm, 12/01/22 14:13:00 EDT, Height, 118.3, kg, 11/22/22 10:55:00 EDT, . Start Date: 12/12/22 Stop Date: 04/11/23 Status: Ordered Wellbutrin XL 300 mg/24 hours oral tablet, extended release 1 tablet = 300 mg, By Mouth, Daily, With the Wellbutrin 150 mg TDD 450 mg, # 30 tablet, 3 Refills, Maintenance, 12/12/22 8:53:00 EDT, ER Tablet, [facility], Ok for fill early - patient has never lost or needed early refills before, 165, cm, 0... Start Date: 12/12/22 Status: Ordered ziprasidone 60 mg oral capsule 1 capsule = 60 mg, By Mouth, Daily at bedtime, # 30 capsule, 3 Refills, Maintenance, 12/12/22 8:55:00 EDT, [facility], Partial fill upon patient request if the prescription is for a scheduleII opioid drug., 165, cm, 12/01/22 14:13:00 EDT, .. Start Date: 12/12/22 Stop Date: 04/11/23 Status: Ordered ziprasidone 80 mg oral capsule 1 capsule = 80 mg, By Mouth, Daily at bedtime, TDD = 140mg/day, # 30 capsule, 3 Refills, Maintenance, 12/12/22 8:55:00 EDT, [facility], dose reduction, 165, cm, [...] Care Team Personnel Name: Anabel Vyas Position: [facility] RN Member Role: Primary Care Nurse Name: Isa Ward Position: [facility] RN Member Role: Primary Care Nurse Name: Ofelia Jefferson NP Position: [facility] PCO Associate Professional Member Role: PCP Address: Address: [address] [place] [address] [place] [address]- Name: Tommy Kohli MD Position: [facility] Psychiatry MD Member Role: Lifetime Consulting Physician Address: Address: [address] [place] [address]- Care Team Related Persons Name: WILLEM SIMON III Address: [place] [address] Name: WILLEM SIMON JR Address: home [address] [place] [id number]
--- OUTSIDE RECORDS SUMMARY | 2024-01-22 11:17 | XMS_ITS | Continuity of Care Document ---
Author Organization [facility] Address [address] [place] [address] [address], [address] [place] [address]- Care Team Providers Care Head Operator Name Role Phone Elda Moscoso NP Primary Care Physician [phone] Encounter [facility] Date(s): 11/17/19 - 12/16/19 [facility] [address] [place] [address] Drive, [address] [place] [address]- [facility] Attending Physician: Jack Castillo MD Referring Physician: [...] Note: VIS GIVEN: 03/18/2011 2Result Comment: lot [id number] 09/21/2006 3Admin Note: VIS 05/29/09 GIVEN Problem [...]
--- OUTSIDE RECORDS SUMMARY | 2024-01-22 11:17 | XMS_ITS | Continuity of Care Document ---
Author Organization [facility] Address [address] [place] [address]- Care Team Providers Care Railroad Crossing Protection Maintainer Name Role Phone Ronny SEASONER, Ofelia Acosta Primary Care Physician Encounter [facility] Date(s): 10/27/22 - 11/26/22 [facility] [address] [place] [address]- Attending Physician: Adriano Becker Admitting Physician: Adriano [...] Note: VIS GIVEN: 03/18/2011 2Result Comment: lot [id number] 09/21/2006 3Admin Note: VIS 05/29/09 GIVEN Medications [...] Refills, Maintenance, 11/26/22 13:26:00 EDT, ER Capsule, [facility], please only fill [...] tablet, 0 Refills, Maintenance, 11/21/22 10:00:00 EDT, [facility], ., 1 tablet By Mouth 2 times a day,x30 days, 168, cm, 10/22/22 10:35:00 EST, Height, 112, kg, 04/22/22 14:00:00 EDT, Dry Weight Start Date: 11/21/22 Stop Date: 12/21/22 Status: Ordered cholecalciferol 5000 intl units oral tablet 1 tablet = 125 mcg, By Mouth, Daily, # 30 tablet, 3 Refills, Maintenance, 10/22/22 10:51:00 EST, Tablet, [facility], Partial fill upon [...] 1 Refills, Maintenance, 10/22/22 10:50:00 EST, Tablet, [facility], Partial fill upon patient [...] 10/17/22 8:58:00 EST, Route to Pharmacy Electronically, [facility], Ok for fill early [...] Maintenance, 11/10/22 10:55:00 EDT, Vicente, [facility], test date 01/14 .... Start Date: 11/10/22 Status: Ordered omeprazole 40 mg oral enteric coated capsule 1 capsule, By Mouth, 2 times a day, # 60 capsule, 2 Refills, Maintenance, 11/11/22 12:20:00 EDT, [facility], 168, cm, 10/22/22 10:35:00 EST, Height, 112, kg, 04/22/22 14:00:00 EDT, Dry Weight Start Date: 11/11/22 Status: Ordered Wellbutrin XL 150 mg/24 hours oral tablet, extended release 1 tablet = 150 mg, By Mouth, Every 24 hours, With the Wellbutrin 300 mg TDD 450 mg, # 30 tablet, 3 Refills, Maintenance, 10/17/22 8:57:00 EST, ER Tablet, [facility], Ok for fill early - patient has never lost or needed early refills before, 1... Start Date: 10/17/22 Stop Date: 02/14/23 Status: Ordered Wellbutrin XL 300 mg/24 hours oral tablet, extended release 1 tablet = 300 mg, By Mouth, Daily, With the Wellbutrin 150 mg TDD 450 mg, # 30 tablet, 3 Refills, Maintenance, 10/17/22 8:57:00 EST, ER Tablet, [facility], Ok for fill early - patient has never lost or needed early refills before, 168, cm, 0... Start Date: 10/17/22 Status: Ordered ziprasidone 40 mg oral capsule See Instructions, Take one capsule in the morning and 1 capsules at bedtime with an 80mg tab TDD 160mg, # 60 capsule, 3 Refills, Maintenance, 10/17/22 8:58:00 EST, [facility], Partial fill upon patient request if the prescription is for a keith... Start Date: 10/17/22 Status: Ordered ziprasidone 80 mg oral capsule 1 capsule = 80 mg, By Mouth, Daily at bedtime, TDD = 160mg/day, # 30 capsule, 3 Refills, Maintenance, 10/17/22 8:59:00 EST, [facility], Partial fill upon [...] Care Team Personnel Name: Anabel Vyas Position: [facility] RN Member Role: Primary Care Nurse Name: Isa Ward Position: [facility] RN Member Role: Primary Care Nurse Name: Ofelia Jefferson NP Position: [facility] PCO Associate Professional Member Role: PCP Address: Address: [address] [place] [address] [place] [address]- Name: Tommy Kohli MD Position: [facility] Psychiatry MD Member Role: Lifetime Consulting Physician Address: Address: [address] [place] [address]- Care Team Related Persons Name: WILLEM SIMON III Address: [place] [address] Name: WILLEM SIMON JR Address: home [address] [place] [address]
--- OUTSIDE RECORDS SUMMARY | 2024-01-22 11:17 | XMS_ITS | Continuity of Care Document ---
Author Organization [facility] Address [address] [place] [address]- Care Team Providers Care Crab Butcher Name Role Phone Ronny PAPPAS, Ofelia Acosta Primary Care Physician [phone] [facility] Date(s): 07/22/22 - 11/06/22 [facility] [address] [place] [address]- Attending Physician: Yonatan Coreas MD Referring Physician: [...] Note: VIS GIVEN: 03/18/2011 2Result Comment: lot [id number] 09/21/2006 3Admin Note: VIS 05/29/09 GIVEN Medications [...] Refills, Maintenance, 10/17/22 8:56:00 EST, ER Capsule, [facility], please only fill on/after exact due date, 1 capsule By Mouth Daily in AM,x30 days, 168, cm, 10/07/22 10:08:00 EST, H... Start Date: 10/17/22 Stop Date: 11/16/22 Status: Ordered amLODIPine 2.5 mg oral tablet 1 tablet = 2.5 mg, By Mouth, Daily, # 90 tablet, 1 Refills, Maintenance, 05/26/22 17:40:00 EDT, Tablet, [facility], Partial fill upon patient request if the prescription is for a schedule IIopioid drug., 168, cm, 05/15/22 14:37:00 EDT, Heigh... Start Date: 05/26/22 Status: Ordered amphetamine-dextroamphetamine 10 mg oral tablet 1 tablet = 10 mg, By Mouth, 2 times a day, # 60 tablet, 0 Refills, Maintenance, 10/17/22 8:57:00 EST, [facility], ., 1 tablet By Mouth 2 times a day,x30 days, 168, cm, 10/07/22 10:08:00 EST,Height, 112, kg, 04/22/22 14:00:00 EDT, Dry Weight Start Date: 10/17/22 Stop Date: 11/16/22 Status: Ordered cholecalciferol 5000 intl units oral tablet 1 tablet = 125 mcg, By Mouth, Daily, # 30 tablet, 3 Refills, Maintenance, 10/22/22 10:51:00 EST, Tablet, [facility], Partial fill upon [...] 10/17/22 8:58:00 EST, Route to Pharmacy Electronically, [facility], Ok for fill early - patienthas never lost or needed early refills before, 168,... Start Date: 10/17/22 Stop Date: 02/14/23 Status: Ordered omeprazole 40 mg oral enteric coated capsule See Instructions, TAKE 1 CAPSULE BY MOUTH TWO TIMES A DAY, # 60 capsule, 2 Refills, Maintenance, 08/11/22 12:55:00 EST, [facility] [...] Refills, Maintenance, 10/17/22 8:57:00 EST, ER Tablet, [facility], Ok for [...] Refills, Maintenance, 10/17/22 8:57:00 EST, ER Tablet, [facility], Ok for fill early - patient has never lost or needed early refills before, 168, cm, 0... Start Date: 10/17/22 Status: Ordered ziprasidone 40 mg oral capsule See Instructions, Take one capsule in the morning and 1 capsules at bedtime with an 80mg tab TDD 160mg, # 60 capsule, 3 Refills, Maintenance, 10/17/22 8:58:00 EST, [facility], Partial fill upon patient request if the prescription is for a keith... Start Date: 10/17/22 Status: Ordered ziprasidone 80 mg oral capsule 1 capsule = 80 mg, By Mouth, Daily at bedtime, TDD = 160mg/day, # 30 capsule, 3 Refills, Maintenance, 10/17/22 8:59:00 EST, [facility], Partial fill upon [...] Care Team Personnel Name: Anabel Vyas Position: [facility] RN Member Role: Primary Care Nurse Name: Isa Ward Position: [facility] RN Member Role: Primary Care Nurse Name: Ofelia Jefferson NP Position: [facility] PCO Associate Professional Member Role: PCP Address: Address: [address] [place] [address] Primary [place], [place] [address] Name: Tommy Kohli MD Position: [facility] Psychiatry MD Member Role: Lifetime Consulting Physician Address: Address: [address] [place] [address]- Care Team Related Persons Name: WILLEM SIMON III Address: [place] [address] Name: WILLEM SIMON JR Address: home [address] [place] [address]
== END 2024-01-22 12:05 | disposition home or self-care (01) ==
LOC: HO.HNS 11:07
PROVIDERS: PCP Internal Medicine; Referring Provider Internal Medicine; Visit Provider Physician Assistant
DX: M54.12 Radiculopathy, cervical region (principal)
CPT/HCPCS: 99204

== ENCOUNTER → 2024-01-22 11:07 | Outpatient (BNVA) | payer OTHER, SELFPAY | PROVIDERS: PCP Internal Medicine; Visit Provider Physician Assistant | DX: M54.12 Radiculopathy, cervical region (principal) | CPT/HCPCS: 99202 ==

== ENCOUNTER 2024-01-25 09:56 | Outpatient (REF) | payer OTHER, SELFPAY ==
--- NOTE | ~2024-01-25 | XR_ITS ---
EXAMINATION: XR ANKLE, LEFT CLINICAL INFORMATION: Pain in unspecified ankle and joints of unspecified foot COMPARISON: Same-day left foot TECHNIQUE: AP and mortise views of the left ankle. FINDINGS: There is a nondisplaced oblique fracture of the distal fibula. Ankle mortise is well-maintained. A few ossific or calcific densities are seen in the lateral gutter of the ankle mortise which may represent loose bodies within the joint. Joint spaces are maintained. There is mild soft tissue swelling over the lateral malleolus. Surgical hardware is seen in the left foot. XR/XR ankle LT min 3V IMPRESSION: Nondisplaced oblique fracture of the distal fibula.
--- NOTE | ~2024-01-25 | XR_ITS ---
EXAMINATION: XR FOOT, LEFT CLINICAL INFORMATION: Pain in unspecified foot COMPARISON: CT scan left foot 06/10/2021 same-day left ankle TECHNIQUE: AP, lateral, and oblique views of the left foot. FINDINGS: Oblique fracture of the distal fibula is better seen on the left ankle radiographs. There is no fracture within the left foot. There is mild osteoarthritis of the talocrural, subtalar, talonavicular, calcaneocuboid and navicular-cuneiform joints with small marginal osteophytes. There is a dorsal staple spanning the first tarsometatarsal joint with 2 prongs into the medial cuneiform and 2 prongs at the base of the first metatarsal. There is an oblique screw seen within the medial cuneiform and proximal first metatarsal. There is essentially complete osseous union at the first tarsometatarsal joint. There is a stable device in the proximal to midportion of the first proximal phalanx. Hardware appears intact. Small posterior plantar calcaneal spur is seen. Calcification is seen in the distal Achilles tendon. XR/XR foot LT min 3V IMPRESSION: 1. Postsurgical changes of the left foot with essentially complete osseous union of the first tarsometatarsal joint. No hardware complications. 2. Multiple sites of mild osteoarthritis.
== END 2024-01-25 09:57 | disposition home or self-care (01) ==
LOC: HO.HOSX 09:56
PROVIDERS: Visit Provider Physician Assistant
DX: S92.415A Nondisplaced fracture of proximal phalanx of left great toe, initial encounter for closed fracture (principal); S82.62XA Displaced fracture of lateral malleolus of left fibula, initial encounter for closed fracture
CPT/HCPCS: 73610; 73630; 99202

== ENCOUNTER 2024-01-25 14:12 | Outpatient (AMB) | payer OTHER, SELFPAY ==
--- NOTE | 2024-01-25 14:22 | MHC.OFFVIS ---
Intake Visit Reasons: FC - left fibula fracture, great toe fracture Intake Note: Johnna is a 53 year old female who presents today for a evaluation of her left fibula fx, DOI 01/14/24. Patient reports she woke up at night to use the restroom and she fell of her bed and landing on her left ankle. Currently she is having about of pain behind her ankle and it radiates up to her wilson. Allergies oxycodone Allergy (Unknown, Verified 01/25/24 14:27) itching No Known Allergies [No Known Allergies*] Allergy (Verified 01/25/24 14:27) HPI HPI FC - left fibula fracture, great toe fracture: Details: 53-year-old female who presents in the office today, as a new patient, for an evaluation of left foot/ankle pain. Patient presented to [facility] on 01/14/2024 status post falling out of bed causing her to twist her left ankle. X-rays were obtained. She was placed in a walking boot and provided crutches. While in the office today the patient reports she woke up at night to use the restroom and fell from her bed landing on her left ankle. She reports losing sensation and function in the entire left lower extremity. She states she felt as if the left lower extremity was not attached to her body. She reports this has happened several times over the past 10 years causing her to fall. She confirms pain behind her left ankle that radiates up to her wilson. Patient has a significant medical history of diabetes mellitus. [facility] Social History (Updated 01/25/24 @ 14:30 by Mahin Garcia) e-Cigarette/Vaping Use: Former Use Review of Systems Const All systems reviewed & are unremarkable except as noted in HPI and below Physical Exam Const General: cooperative and no acute distress Orientation/consciousness: patient oriented x3 Resp Effort & Inspection: normal respiratory effort and able to speak in complete sentences Cardio Peripheral pulses: Peripheral pulses 2+ throughout Skin General skin exam: no rashes or lesions noted Neuro General: patient oriented x3 Extrem Other: Left foot: Left great toe prior surgical scar noted. No surrounding erythema or drainage. No signs of infection. Tenderness to palpation at the IP joint distally. Able to slightly flex and extend the great toe with pain. Left ankle: Normal to inspection. No ecchymosis, erythema, or edema. Global tenderness to palpation over all anatomical landmarks. Able to slightly dorsiflex, plantarflex with pain. Sensation intact. Pedal Pulse intact. Office Procedures Fracture Care Fracture Billing Code: Fracture Billing Code Assessment & Plan Assessment & Plan (1) Fracture of left great toe: Code(s): S92.402A - Displaced unspecified fracture of left great toe, initial encounter for closed fracture Category: Medical (2) Left malleolar fracture: Code(s): S82.892A - Other fracture of left lower leg, initial encounter for closed fracture Category: Medical Plan Ms. Brady is a 53-year-old female who presents in the office today, as a new patient, for an evaluation of left foot/ankle pain. Patient presented to [facility] on 01/14/2024 status post falling out of bed causing her to twist her left ankle. X-rays were obtained. She was placed in a walking boot and provided crutches. While in the office today the patient reports she woke up at night to use the restroom and fell from her bed landing on her left ankle. She reports losing sensation and function in the entire left lower extremity. She states she felt as if the left lower extremity was not attached to her body. She reports this has happened several times over the past 10 years causing her to fall. She confirms pain behind her left ankle that radiates up to her wilson. Patient has a significant medical history of diabetes mellitus. Patient presents in the office in a short walking boot that was not fitting properly for the patient. She was placed in a tall walking boot, off the shelf. She may weight bear as tolerated. Follow-up will be in 4 weeks with repeat x-rays, or sooner if needed. X-rays of the left foot/ankle which were obtained while in the office today and were reviewed by me, Karin Olivares PA-C, revealed intact orthopedic hardware. Fracture noted over the distal and proximal phalanx of the left great toe. A lateral distal fibular fracture was noted. X-rays of the left foot, obtained on 01/14/2024, revealed: Nondisplaced intra-articular fracture of the lateral head proximal phalanx of the first digit. X-rays of the left ankle, obtained on 01/14/2024, revealed: Lateral malleolar fracture. Orders: Orders XR ankle LT min 3V 01/25/24 M25.579 - Pain in unspecified ankle and joints of unspecified foot XR foot LT min 3V 01/25/24 M79.673 - Pain in unspecified foot Patient Instructions: Scribed by Daniela Adrian, medical liaison, for Karin Olivares KATERIN on 01/25/2024 at 2:15 pm, EST. Coding Level of Care Code New Pt Level 4 (85414) Diagnoses Fracture of left great toe S92.402A Left malleolar fracture S82.892A CPT Codes Fracture Care - Fracture Billing Code: Fracture Billing Code ([id number])
== END 2024-01-25 15:05 | disposition home or self-care (01) ==
PROVIDERS: PCP Internal Medicine; Visit Provider Physician Assistant
DX: S92.415A Nondisplaced fracture of proximal phalanx of left great toe, initial encounter for closed fracture (principal); S82.892A Other fracture of left lower leg, initial encounter for closed fracture; S82.65XA Nondisplaced fracture of lateral malleolus of left fibula, initial encounter for closed fracture
CPT/HCPCS: 99203

== ENCOUNTER 2024-03-01 11:19 | Outpatient (REF) | payer OTHER, SELFPAY | END 2024-03-01 11:20 | disposition home or self-care (01) | LOC: HO.HOSX 11:19 | PROVIDERS: Visit Provider Physician Assistant | DX: Z13.89 Encounter for screening for other disorder (principal) ==

== ENCOUNTER 2024-04-12 11:29 | Outpatient (REF) | payer OTHER, SELFPAY | END 2024-04-12 11:30 | disposition home or self-care (01) | LOC: HO.HOSX 11:29 | PROVIDERS: Visit Provider Physician Assistant | DX: Z13.89 Encounter for screening for other disorder (principal) ==

== ENCOUNTER 2024-04-26 08:19 | Outpatient (REF) | payer OTHER, SELFPAY ==
--- NOTE | ~2024-04-26 | XR_ITS ---
EXAMINATION: XR ANKLE, LEFT XR FOOT, LEFT CLINICAL INFORMATION: Left ankle and foot pain. Fracture. COMPARISON: Left foot and ankle radiographs dated 01/25/2024. TECHNIQUE: AP, oblique, and lateral views of the left ankle and left foot. FINDINGS: Redemonstration of a distal fibular fracture in unchanged anatomic alignment with what appears to be complete versus near-complete osseous bridging when compared to the prior examination. No new fracture or dislocation. The ankle mortise is maintained. Small tibiotalar marginal osteophytes are unchanged. No talar osteochondral lesion. Fusion hardware redemonstrated at the 1st tarsometatarsal joint without hardware fracture or perihardware lucency to suggest loosening or infection. There appears to be similar osseous bridging at the 1st tarsometatarsal joint. Orthopedic hardware associated with the 1st proximal phalanx without evidence of complication. Midfoot osteoarthritis appears unchanged. Plantar and dorsal calcaneal spurs. Circumferential soft tissue swelling. No abnormal soft tissue calcification. XR/XR foot LT min 3V IMPRESSION: 1. Distal fibular fracture in unchanged anatomic alignment with what appears to be complete versus near-complete osseous bridging when compared to the prior examination. 2. Fusion hardware redemonstrated at the 1st tarsometatarsal joint without evidence of complication. 3. 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 4. Circumferential soft tissue swelling. Electronically signed by: Cuba Viveros MD 05/02/2024 01:10 PM EDT
--- NOTE | ~2024-04-26 | XR_ITS ---
EXAMINATION: XR ANKLE, LEFT XR FOOT, LEFT CLINICAL INFORMATION: Left ankle and foot pain. Fracture. COMPARISON: Left foot and ankle radiographs dated 01/25/2024. TECHNIQUE: AP, oblique, and lateral views of the left ankle and left foot. FINDINGS: Redemonstration of a distal fibular fracture in unchanged anatomic alignment with what appears to be complete versus near-complete osseous bridging when compared to the prior examination. No new fracture or dislocation. The ankle mortise is maintained. Small tibiotalar marginal osteophytes are unchanged. No talar osteochondral lesion. Fusion hardware redemonstrated at the 1st tarsometatarsal joint without hardware fracture or perihardware lucency to suggest loosening or infection. There appears to be similar osseous bridging at the 1st tarsometatarsal joint. Orthopedic hardware associated with the 1st proximal phalanx without evidence of complication. Midfoot osteoarthritis appears unchanged. Plantar and dorsal calcaneal spurs. Circumferential soft tissue swelling. No abnormal soft tissue calcification. XR/XR ankle LT min 3V IMPRESSION: 1. Distal fibular fracture in unchanged anatomic alignment with what appears to be complete versus near-complete osseous bridging when compared to the prior examination. 2. Fusion hardware redemonstrated at the 1st tarsometatarsal joint without evidence of complication. 3. 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 4. Circumferential soft tissue swelling. Electronically signed by: Cuba Viveros MD 05/02/2024 01:10 PM EDT
== END 2024-04-26 08:20 | disposition home or self-care (01) ==
LOC: HO.HOSX 08:19
DX: S82.892D Other fracture of left lower leg, subsequent encounter for closed fracture with routine healing (principal); S92.402D Displaced unspecified fracture of left great toe, subsequent encounter for fracture with routine healing
CPT/HCPCS: 73610; 73630; 99212

== ENCOUNTER 2024-04-26 11:14 | Outpatient (AMB) | payer OTHER, SELFPAY ==
--- NOTE | 2024-04-26 11:18 | A.OFFVIS_ITS ---
Vital Signs 04/26/24 11:27 Height 5 ft 5 in Weight 221 lb BMI 36.8 Intake Visit Reasons: OV- LT fibula fracture, great toe FC -follow up Intake Note: Johnna is a 53 year old female who presents today for a follow up visit for her left great toe and malleolar fracture s/p DOI: 01/14/24. Patient reports she has not wore her boot in 2 weeks due to increased swelling. She says the boot was too heavy for her so she would elevate her foot most of the time. She noticed the swelling and increase in pain 2 weeks ago. She expresses pain and tingling in her heel and when she tries to put her foot on the floor she feels like a lump under her big toe. She also is concerned about water retention in the lower left leg.Tylenol and ibuprofen does not provide her with relief. Ice and elevation does help her. Denies recent injury and numbness. Hx of surgery in her left foot in 2020, she has hardware in from this procedure. Allergies codeine Allergy (Verified 04/26/24 11:30) Hives amoxicillin Adverse Reaction (Verified 04/26/24 11:30) Nausea and Vomiting Penicillins Adverse Reaction (Verified 04/26/24 11:30) Nausea and Vomiting HPI HPI OV- LT fibula fracture, great toe FC -follow up: Details: Patient is a 53-year-old female who presents for follow-up for left distal fibula fracture and left great toe fracture, date of injury 01/14/2024. Unfortunately, the patient was unable to get to her to previously scheduled followups, as her is going through active chemotherapy and she brings him to and from his appointments. Today, the patient reports that she is still experiencing significant discomfort in both the left ankle and foot, as well as pain in the posterior foot and heel, and states that she has had difficulty weight bearing due to both discomfort and swelling of the left ankle. The patient reports that ?my left ankle was 3 times the size of the other one? when she was weight-bearing previously. The patient also states that she is experiencing some ?water retention? in her left ankle, which she states she has not experienced since her previous weight loss surgery. The patient reports that this discomfort in her ankle radiates up into the middle of the lower leg. The patient also states that she feels her great and 2nd toes on the left ?have a different alignment than they did prior to injury. The patient states that she had previously been weight-bearing in the boot without difficulty, but that she donated the boot sometime ago. The patient also reports diminished sensation in the digits of the left foot. No other acute complaints or concerns at this time. [facility] Medical History (Updated 03/23/24 @ 14:10 by Charmaine Chen RN) Neck pain Bilateral knee pain Vitamin D deficiency PTSD (post-traumatic stress disorder) Postprandial epigastric pain BRIANNA (obstructive sleep apnea) Nipple discharge in female Myoclonic jerking Morbid obesity Mixed incontinence Hx of mastitis Intertrigo Incomplete defecation HTN (hypertension) Hepatic steatosis GERD (gastroesophageal reflux disease) RADHA (generalized anxiety disorder) Gastrointestinal stromal tumor (GIST) Foot pain Diabetes Constipation Chronic low back pain Bipolar disorder Background diabetic retinopathy ADD (attention deficit disorder) Surgical History (Updated 03/23/24 @ 14:10 by Charmaine Chen RN) Hx of colonoscopy Hx of section Hx of abdominal hysterectomy History of carpal tunnel release History of lumbar fusion Hx of ovarian cystectomy History of bunionectomy History of esophagogastroduodenoscopy (EGD) History of sleeve gastrectomy Social History (Updated 04/26/24 @ 11:31 by WES Valero) Alcohol intake: former e-Cigarette/Vaping Use: Currently Using Frequency of e-Cigarette/Vaping Use: THC pen Substance Use Type: Marijuana Current occupational status: employed Current occupation: N Review of Systems Const All systems reviewed & are unremarkable except as noted in HPI and below Physical Exam Vital Signs: BMI result Body Mass Index 36.8 Extrem Other: Patient is alert, oriented, and in no acute distress. Neuro: Diminished sensation to the great toe of the left foot, as well as tingling with palpation of the small toe of the left foot. Normal sensation to all of the digits of the left foot Vascular: Cap refill brisk Pain: Patient reports tenderness to palpation about the distal 1st metatarsal, proximal phalanx and IP joint of the left great toe Patient reports circumferential tenderness to palpation about the left heel and ankle, worst over the lateral malleolus at the level of the fracture Patient does report an ?discomfort? with calf squeeze on the left, but not pain. ROM: Patient is able to dorsiflex the left foot without difficulty Patient does have difficulty with plantar flexion, and is only able to get to 10-20 degrees past neutral due to pain in the left ankle and great toe Patient has limited flexion and extension capabilities of the left great toe due to pain Patient is able to flex and extend all other digits of the left foot Skin: No lacerations or abrasions. General: No ecchymosis, erythema, or evidence of infection. There is noted to be mild edema of the left ankle when compared to the right. There is no visible or palpable deformity at the left Achilles tendon Negative Carmichael's test on the left Psych: Appears grossly normal Affect normal Attitude cooperative Results Reviewed Results Reviewed: X-rays obtained in the office today and independently reviewed by me, Silver Nuno PA-C, demonstrate fractures of the proximal phalanx of the left great toe as well as the lateral malleolus of the left ankle, with some evidence of interval bony healing, however there is still noted to be cortical disruption 3 months after initial injury. Assessment & Plan Assessment & Plan (1) Left malleolar fracture: Code(s): S82.892A - Other fracture of left lower leg, initial encounter for closed fracture Category: Medical (2) Fracture of left great toe: Code(s): S92.402A - Displaced unspecified fracture of left great toe, initial encounter for closed fracture Category: Medical Plan 1. Fracture of lateral malleolus of left ankle 2. Fracture of left great toe proximal phalanx Date of injury 01/14/2024 At this time, after discussion with the patient, due to concerns for potential delayed healing or nonunion of fractures in both the left great toe and left lateral malleolus, I feel that this case warrants referral to foot and ankle specialist at [facility] for further evaluation Patient is amenable to this plan In the meantime, patient is provided with a new boot to wear while she is weight-bearing Patient is educated that she should continue to weight bear as tolerated Patient is amenable to this plan as well Patient will follow-up as needed with any acute concerns Orders: Orders XR ankle LT min 3V Today M25.572 - Pain in left ankle and joints of left foot XR foot LT min 3V Today M79.672 - Pain in left foot Referrals Orthopedics Referral S82.892A - Other fracture of left lower leg, initial encounter for closed fracture, S92.402A - Displaced unspecified fracture of left great toe, initial encounter for closed fracture Coding Level of Care Code Est Pt Level 3 (85027) Global (84913) Diagnoses Left malleolar fracture S82.892A Fracture of left great toe S92.402A
--- OUTSIDE RECORDS SUMMARY | 2024-04-26 11:18 | XMS_ITS | Continuity of Care Document ---
Author Organization [facility] ter Address [address] [place] [id number]- Care Team Providers Care Police Dispatcher Name Role Phone Ronny MANAGER LEGAL, Ofelia L Primary Care Physician Encounter [facility] Date(s): 11/13/23 - 02/10/[address] [address] Attending Physician: German Cortez MD Admitting Physician: German Cortez MD Referring Physician: German Cortez MD Allergies, Adverse Reactions, [...] Note: VIS GIVEN: 03/18/2011 2Result Comment: lot [id number] 09/21/2006 3Admin Note: VIS 05/29/09 GIVEN Medications [...] AM, # 30 capsule, 0 Refills, Maintenance, 02/05/24 15:21:00 EDT, ER Capsule, [facility], ok to fill early, 1 capsule By Mouth Daily in AM,x30 days, 165,cm, 01/14/24 12:49:00 EDT, Height, 104, kg, ... Start Date: 02/05/24 Stop Date: 03/06/24 Status: Ordered amLODIPine 2.5 mg oral tablet 1 tablet, By Mouth, Daily, # 90 tablet, 1 Refills, Maintenance, 01/10/24 10:27:00 EDT, [facility], 165, cm, 12/17/23 12:31:00 EDT, Height, 110.1, kg, 10/28/23 1:29:00 EST, Dry Weight Start Date: 01/10/24 Status: Ordered amphetamine-dextroamphetamine 10 mg oral tablet 1 tablet = 10 mg, By Mouth, 2 times a day, # 60 tablet, 0 Refills, Maintenance, 02/05/24 15:21:00 EDT, [facility], fill on date due, 1 tablet By Mouth 2 times a day,x30 days, 165, cm, 01/14/24 12:49:00 EDT, Height, 104, kg, 01/14/24 12:49:00... Start Date: 02/05/24 Stop Date: 03/06/24 Status: Ordered CeleBREX 100 mg oral capsule 1 capsule = 100 mg, By Mouth, 2 times a day, PRN for pain, # 60 capsule, 3 Refills, Maintenance, 11/06/23 9:04:00 EDT, Capsule, [facility], Partial fill upon patient request if the prescription is for a schedule II opioid drug., 165, cm, 10/22... Start Date: 11/06/23 Stop Date: 03/05/24 Status: Ordered clonazePAM 1 mg oral tablet 1 tablet = 1 mg, By Mouth, 3 times a day, # 90 tablet, 1 Refills, Maintenance, 02/05/24 15:23:00 EDT, Tablet, [facility], dose increase, 165, cm, 01/14/24 12:49:00 EDT, Height, 104, kg, 01/14/24 12:49:00 EDT, Dry Weight Start Date: 02/05/24 Stop Date: 04/05/24 Status: Ordered docusate sodium 100 mg oral capsule See Instructions, TAKE 1 CAPSULE ONE TO TWO TIMES A DAY FOR CONSTIPATION, # 20 capsule, 0 Refills, [facility], 168, cm, 08/01/21 17:36:00 EST, Height, 115, kg, 08/01/21 17:36:00 EST, Dry Weight Start Date: 10/31/21 Status: Ordered folic acid 1 mg oral tablet 1, tablet, By Mouth, Daily, # 30 tablet, Refills 5, Maintenance, 04/29/23 20:24:00 EDT, Route to Pharmacy Electronically, [facility], 165, cm, 01/21/23 11:55:00 EDT, Height, 118.3, kg, 12/16/22 20:23:00 EDT, Dry Weight Start Date: 04/29/23 Status: Ordered folic acid 1 mg oral tablet See Instructions, TAKE ONE TABLET BY MOUTH EVERY DAY, # 30 tablet, Refills 5, Maintenance, :13:00 EST, Instructions Replace Required Details, Route to Pharmacy Electronically, [facility], 165, cm, [...] mg oral tablet 1 tablet, By Mouth, 4 times a day, # 120 tablet, 3 Refills, Maintenance, 02/05/24 15:21:00 EDT, [facility], dose increase, 165, cm, 01/14/24 12:49:00 EDT, Height, 104, kg, 01/14/24 12:49:00 EDT, Dry Weight Start Date: 02/05/24 Stop Date: 06/04/24 Status: Ordered LaMICtal 200 mg oral tablet 2 tablet = 400 mg, By Mouth, Daily at bedtime, # 60 tablet, 3 Refills, Maintenance, 12/01/23 15:46:00 EDT, Tablet, [facility], 165, cm, 11/06/23 8:10:00 EDT, Height, 110.1, kg, 10/28/23 1:29:00 EST, Dry Weight Start Date: 12/01/23 Stop Date: 03/30/24 Status: Ordered lamotrigine 100 mg oral tablet 100 mg, 1, tablet, By Mouth, Daily in AM, # 30 tablet, Refills 3, Tot. Refills 3, Maintenance, 12/01/23 15:46:00 EDT, Route to Pharmacy Electronically, [facility], 165, cm, [...] 0 Refills, Maintenance, 11/10/22 10:55:00 EDT, [facility]Powder, [facility], test date 01/14 .... Start Date: 11/10/22 Status: Ordered omeprazole 40 mg oral enteric coated capsule 1 capsule, By Mouth, 2 times a day, # 180 capsule, 1 Refills, Maintenance, 08/15/23 8:46:00 EST, [facility], 165, cm, 05/25/23 14:40:00 EDT, Height, 118.3, kg, 12/16/22 20:23:00 EDT, Dry Weight Start Date: 08/15/23 Status: Ordered ondansetron 4 mg oral tablet 1 tablet = 4 mg, By Mouth, Every 8 hours, # 21 tablet, 0 Refills, Maintenance, 07/29/23 17:24:00 EST, Tablet, [facility] [...] mL, 0 Refills, Maintenance, 05/25/23 15:17:00 EDT, [facility], Partial fill upon patient request if the prescription is for a schedule II opioid drug., 1 bottle 90 minutes prior to s... Start Date: 05/25/23 Status: Ordered Trulicity Pen 1.5 mg/0.5 mL subcutaneous solution See Instructions, INJECT 0.5ML SUBCUTANEOUSLY ONCE WEEKLY ROTATE INJECTION SITES, # 2 mL, 5 Refills, Maintenance, 06/07/23 18:02:00 EDT, [facility], 165, cm, 05/25/23 14:40:00 EDT, Height, 118.3, kg, 12/16/22 20:23:00 EDT, Dry Weight Start Date: 06/07/23 Status: Ordered Trulicity Pen 1.5 mg/0.5 mL subcutaneous solution See Instructions, INJECT ( 0.5 ML ) SUBCUTANEOUSLY ONCE WEEKLY ROTATE INJECTION SITES, # 2 mL, 5 Refills, Maintenance, 02/01/24 8:23:00 EDT, [facility], 165, cm, 01/14/24 12:49:00 EDT, Height, 104, kg, 01/14/24 12:49:00 EDT, Dry Weight Start Date: 02/01/24 Status: Ordered Vitamin D3 5000 intl units oral tablet 1 tablet, By Mouth, Daily, # 30 tablet, 0 Refills, Maintenance, 10/15/23 11:12:00 EST, [facility], 165, cm, 05/25/23 14:40:00 EDT, Height, 118.3, kg, 12/16/22 20:23:00 EDT, Dry Weight Start Date: 10/15/23 Status: Ordered Wellbutrin XL 300 mg/24 hours oral tablet, extended release 1 tablet = 300 mg, By Mouth, Daily, # 30 tablet, 3 Refills, Maintenance, 12/01/23 15:45:00 EDT, ER Tablet, [facility], 165, cm, [...] Team Personnel Name: Anabel Roblero MA Position: [facility] Office Staff Member Role: Primary Care Nurse Name: Isa Paulson MA Position: [facility] Office Staff Member Role: Primary Care Nurse Name: Ofelia Jefferson NP Position: [facility] PCO Associate Professional Member Role: PCP Address: Address: [address] [place] [address]- Name: Tommy Kohli MD Position: [facility] Physician - Behavioral Health Member Role: [employer] Physician Address: Address: [address] [place] [id number]- Care Team Related Persons Name: WILLEM SIMON III Address: [place] [address] Name: WILLEM SIMON JR Address: home [address] [place] [address]
--- OUTSIDE RECORDS SUMMARY | 2024-04-26 11:18 | XMS_ITS | Continuity of Care Document ---
Author Organization [facility] [place] Address [address] [place] [address]- Care Team Providers Care Jacker Name Role Phone Ronny SPECIAL EDUCATION PRESCHOOL TEACHER, Ofelia Acosta Primary Care Physician Encounter [facility] Date(s): 01/31/24 - 03/01/24 [facility] [place] [address] [place] [address]- Allergies, Adverse Reactions, Alerts Substance Reaction Severity [...] Note: VIS GIVEN: 03/18/2011 2Result Comment: lot [id number] 09/21/2006 3Admin Note: VIS 05/29/09 GIVEN Medications [...] Refills, Maintenance, 02/05/24 15:21:00 EDT, ER Capsule, [facility], ok to fill early, 1 capsule By Mouth Daily in AM,x30 days, 165,cm, 01/14/24 12:49:00 EDT, Height, 104, kg, ... Start Date: 02/05/24 Stop Date: 03/06/24 Status: Ordered amLODIPine 2.5 mg oral tablet 1 tablet, By Mouth, Daily, # 90 tablet, 1 Refills, Maintenance, 01/10/24 10:27:00 EDT, [facility], 165, cm, 12/17/23 12:31:00 EDT, Height, 110.1, kg, 10/28/23 1:29:00 EST, Dry Weight Start Date: 01/10/24 Status: Ordered amphetamine-dextroamphetamine 10 mg oral tablet 1 tablet = 10 mg, By Mouth, 2 times a day, # 60 tablet, 0 Refills, Maintenance, 02/05/24 15:21:00 EDT, [facility], fill on date due, 1 tablet By Mouth 2 times a day,x30 days, 165, cm, 01/14/24 12:49:00 EDT, Height, 104, kg, 01/14/24 12:49:00... Start Date: 02/05/24 Stop Date: 03/06/24 Status: Ordered celecoxib 100 mg oral capsule 1 capsule, By Mouth, 2 times a day, # 60 capsule, 1 Refills, Maintenance, 02/27/24 20:30:00 EDT, [facility], 165, cm, 01/14/24 12:49:00 EDT, Height, 104, kg, 01/14/24 12:49:00 EDT, Dry Weight Start Date: 02/27/24 Status: Ordered clonazePAM 1 mg oral tablet 1 tablet = 1 mg, By Mouth, 3 times a day, # 90 tablet, 1 Refills, Maintenance, 02/05/24 15:23:00 EDT, Tablet, [facility], dose increase, 165, cm, [...] tablet, 3 Refills, Maintenance, 02/05/24 15:21:00 EDT, [facility], dose increase, 165, cm, 01/14/24 12:49:00 EDT, Height, 104, kg, 01/14/24 12:49:00 EDT, Dry Weight Start Date: 02/05/24 Stop Date: 06/04/24 Status: Ordered LaMICtal 200 mg oral tablet 2 tablet = 400 mg, By Mouth, Daily at bedtime, # 60 tablet, 3 Refills, Maintenance, 12/01/23 15:46:00 EDT, Tablet, [facility] # [...] mL, 5 Refills, Maintenance, 02/01/24 8:23:00 EDT, [facility], 165, cm, 01/14/24 12:49:00 [...] Team Personnel Name: Anabel Roblero MA Position: [facility] Staff Member Role: Primary Care Nurse Name: Isa Paulson MA Position: [facility] Staff Member Role: Primary Care Nurse Name: Ofelia Jefferson NP Position: [facility] Associate Professional Member Role: PCP Address: Address: [address] [facility] [place] [address]- [place] Name: Tommy Kohli MD Position: [facility] Physician - Behavioral Health Member Role: Lifetime Consulting Physician Address: Address: [address] [place] [address]- [place] Care Team Related Persons Name: WILLEM SIMON III Address: [place] [address] Name: WILLEM SIMON JR Address: home [address] [place] [id number]
--- OUTSIDE RECORDS SUMMARY | 2024-04-26 11:19 | XMS_ITS | Continuity of Care Document ---
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 Date(s): 11/21/22 - 12/21/22 [facility] [place] [address] [place] [address]- Allergies, Adverse Reactions, Alerts Substance Reaction Severity [...] Note: VIS GIVEN: 03/18/2011 2Result Comment: lot [id number] 09/21/2006 3Admin Note: VIS 05/29/09 GIVEN Medications [...] Refills, Maintenance, 12/12/22 8:53:00 EDT, ER Capsule, [facility], please only fill on/after exact due date, 1 capsule By Mouth Daily in AM,x30 days, 165, cm, 12/01/22 14:13:00 EDT, H... Start Date: 12/12/22 Stop Date: 01/11/23 Status: Ordered amLODIPine 2.5 mg oral tablet 1 tablet = 2.5 mg, By Mouth, Daily, # 90 tablet, 1 Refills, Maintenance, 11/14/22 13:47:00 EDT, Tablet, [facility] # [facility], Partial fill upon patient request if the prescription is for a schedule IIopioid drug., 168, cm, 10/22/22 10:35:00 EST, Heigh... Start Date: 11/14/22 Status: Ordered amphetamine-dextroamphetamine 10 mg oral tablet 1 tablet = 10 mg, By Mouth, 2 times a day, # 60 tablet, 0 Refills, Maintenance, 12/12/22 8:53:00 EDT, [facility], fill on date due, 1 tablet By Mouth 2 times a day,x30 days, 165, cm, 12/01/22 14:13:00 EDT, Height, 118.3, kg, 11/22/22 10:55:00... Start Date: 12/12/22 Stop Date: 01/11/23 Status: Ordered cholecalciferol 5000 intl units oral tablet 1 tablet = 125 mcg, By Mouth, Daily, # 30 tablet, 3 Refills, Maintenance, 10/22/22 10:51:00 EST, Tablet, [facility], Partial fill upon patient request if the prescription is for a schedule II opioid drug., 168, cm, 10/22/22 10:35:00 EST, Heig... Start Date: 10/22/22 Stop Date: 02/19/23 Status: Ordered clonazePAM 0.5 mg oral tablet 1 tablet = 0.5 mg, By Mouth, 3 times a day, NEEDED FOR ANXIETY, # 90 tablet, 3 Refills, Maintenance, 12/12/22 8:54:00 EDT, Tablet, [facility] # [facility], 165, cm, 12/01/22 14:13:00 EDT, Height, 118.3, kg, 11/22/22 10:55:00 EDT, Dry Weight Start Date: 12/12/22 Stop Date: 04/11/23 Status: Ordered docusate sodium 100 mg oral capsule See Instructions, TAKE 1 CAPSULE ONE TO TWO TIMES A DAY FOR CONSTIPATION, # 20 capsule, 0 Refills, [facility], 168, cm, 08/01/21 17:36:00 EST, Height, 115, kg, 08/01/21 17:36:00 EST, Dry Weight Start Date: 10/31/21 Status: Ordered folic acid 1 mg oral tablet See Instructions, TAKE 1 TABLET BY MOUTH DAILY, # 30 tablet, Refills 5, Tot. Refills 5, Maintenance, 10/12/22 20:53:00 EST, Instructions Replace Required Details, Route to Pharmacy Electronically, [facility], 168, [...] tablet, 0 Refills, Maintenance, 12/16/22 11:32:00 EDT, [facility], massPAT checked 12-16-22-not appropriate-not due until 12-23-22; last fill was on 11-23-22 for a 30 day supply (#90), 12/22/22, 165, cm, 04/... Start Date: 12/16/22 Status: Ordered LaMICtal 200 mg oral tablet 2 tablet = 400 mg, By Mouth, Daily at bedtime, # 60 tablet, 3 Refills, Maintenance, 12/12/22 8:54:00 EDT, Tablet, [facility] # [facility], 165, cm, 12/01/22 14:13:00 EDT, Height, 118.3, kg, 11/22/22 10:55:00 EDT, Dry Weight Start Date: 12/12/22 Stop Date: 04/11/23 Status: Ordered lamotrigine 100 mg oral tablet 100 mg, 1, tablet, By Mouth, Daily in AM, # 30 tablet, Refills 3, Tot. Refills 3, Maintenance, 12/12/22 8:54:00 EDT, Route to Pharmacy Electronically, [facility], 165, cm, 12/01/22 14:13:00 EDT, Height, 118.3, kg, 11/22/22 10:55:00 EDT, Dry W... Start Date: 12/12/22 Stop Date: 04/11/23 Status: Ordered methocarbamol 750 mg oral tablet 1 tablet = 750 mg, By Mouth, 3 times a day, PRN Spasm, for 7 days, # 30 tablet, 0 Refills, Acute 12/25/22 14:07:00 EDT, 12/18/22 14:07:00 EDT, Tablet, [facility] # 86, Partial fill upon patient request if the prescription is for a schedule II opio... Start Date: 12/18/22 Stop Date: 12/25/22 Status: Ordered NuLYTELY with Flavor Packs oral powder for reconstitution 240 mL, By Mouth, Every 10 minutes, split prep method, take 1st half of prep evening before procedure, 2nd half 6 hrs prior to procedure., # 1 each, 0 Refills, Maintenance, 11/10/22 10:55:00 EDT, RECPowder, [facility] # 86, test date 01/14 .... Start Date: 11/10/22 Status: Ordered omeprazole 40 mg oral enteric coated capsule 1 capsule, By Mouth, 2 times a day, # 60 capsule, 2 Refills, Maintenance, 11/11/22 12:20:00 EDT, [facility] # [facility], 168, cm, 10/22/22 10:35:00 EST, Height, 112, kg, 04/22/22 14:00:00 EDT, Dry Weight Start Date: 11/11/22 Status: Ordered Suprep Bowel Prep Kit oral liquid 177 mL, By Mouth, Once, split prep, # 354 mL, 0 Refills, Soft Stop, 12/01/22 14:37:00 EDT, [facility] # [facility], Partial [...] Refills, Maintenance, 12/12/22 8:53:00 EDT, ER Tablet, [facility], 165, cm, 12/01/22 14:13:00 EDT, Height, 118.3, kg, 11/22/22 10:55:00 EDT, . Start Date: 12/12/22 Stop Date: 04/11/23 Status: Ordered Wellbutrin XL 300 mg/24 hours oral tablet, extended release 1 tablet = 300 mg, By Mouth, Daily, With the Wellbutrin 150 mg TDD 450 mg, # 30 tablet, 3 Refills, Maintenance, 12/12/22 8:53:00 EDT, ER Tablet, [facility] # 86, Ok for fill early - patient has never lost or needed early refills before, 165, cm, 0... Start Date: 12/12/22 Status: Ordered ziprasidone 60 mg oral capsule 1 capsule = 60 mg, By Mouth, Daily at bedtime, # 30 capsule, 3 Refills, Maintenance, 12/12/22 8:55:00 EDT, [facility] # [facility], Partial fill upon patient request if the prescription is for a scheduleII opioid drug., 165, cm, 12/01/22 14:13:00 EDT, Luz Start Date: 12/12/22 Stop Date: 04/11/23 Status: Ordered ziprasidone 80 mg oral capsule 1 capsule = 80 mg, By Mouth, Daily at bedtime, TDD = 140mg/day, # 30 capsule, 3 Refills, Maintenance, 12/12/22 8:55:00 EDT, [facility], dose [...] Care Team Personnel Name: Anabel Vyas Position: [facility] RN Member Role: Primary Care Nurse Name: Isa Ward Position: [facility] RN Member Role: Primary Care Nurse Name: Ofelia Jefferson NP Position: [facility] Associate Professional Member Role: PCP Address: Address: [address] [place] [address] [place] [address]- Name: Tommy Kohli MD Position: [facility] Psychiatry MD Member Role: Lifetime Consulting Physician Address: Address: [address] [place] [address]- Care Team Related Persons Name: WILLEM SIMON III Address: [place] [address] Name: WILLEM SIMON JR Address: home [address] [place] [address]
--- OUTSIDE RECORDS SUMMARY | 2024-04-26 11:19 | XMS_ITS | Continuity of Care Document ---
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 Start Date: 02/05/24 Stop Date: 03/06/24 Status: Ordered amLODIPine 2.5 mg oral tablet 1 tablet, By Mouth, Daily, # 90 tablet, 1 Refills, Maintenance, 01/10/24 10:27:00 EDT, [facility], 165, cm, 12/17/23 12:31:00 EDT, Height, 110.1, kg, 10/28/23 1:29:00 EST, Dry Weight Start Date: 01/10/24 Status: Ordered amphetamine-dextroamphetamine 10 mg oral tablet 1 tablet = 10 mg, By Mouth, 2 times a day, # 60 tablet, 0 Refills, Maintenance, 02/05/24 15:21:00 EDT, [facility], fill on date [...] 3 Refills, Maintenance, 11/06/23 9:04:00 EDT, Capsule, [facility], Partial fill upon patient request if the prescription is for a schedule II opioid drug., 165, cm, 10/22... Start Date: 11/06/23 Stop Date: 03/05/24 Status: Ordered clonazePAM 1 mg oral tablet 1 tablet = 1 mg, By Mouth, 3 times a day, # 90 tablet, 1 Refills, Maintenance, 02/05/24 15:23:00 EDT, Tablet, [facility], dose increase, 165, cm, 01/14/24 12:49:00 EDT, Height, 104, kg, 01/14/24 12:49:00 EDT, Dry Weight Start Date: 02/05/24 Stop Date: 04/05/24 Status: Ordered docusate sodium 100 mg oral capsule See Instructions, TAKE 1 CAPSULE ONE TO TWO TIMES A DAY FOR CONSTIPATION, # 20 capsule, 0 Refills, [facility], 168, cm, 08/01/21 17:36:00 EST, Height, 115, kg, 08/01/21 17:36:00 EST, Dry Weight Start Date: 10/31/21 Status: Ordered folic acid 1 mg oral tablet 1, tablet, By Mouth, Daily, # 30 tablet, Refills 5, Maintenance, 04/29/23 20:24:00 EDT, [facility], [facility] tablet, 3 Refills, Maintenance, 02/05/24 15:21:00 EDT, [facility], dose increase, 165, cm, 01/14/24 12:49:00 EDT, Height, 104, kg, 01/14/24 12:49:00 EDT, Dry Weight Start Date: 02/05/24 Stop Date: 06/04/24 Status: Ordered LaMICtal 200 mg oral tablet 2 tablet = 400 mg, By Mouth, Daily at bedtime, # 60 tablet, 3 Refills, Maintenance, 12/01/23 15:46:00 EDT, Tablet, [facility], 165, cm, 11/06/23 8:10:00 EDT, Height, 110.1, kg, 10/28/23 1:29:00 EST, Dry Weight Start Date: 12/01/23 Stop Date: 03/30/24 Status: Ordered lamotrigine 100 mg oral tablet 100 mg, 1, tablet, By Mouth, Daily in AM, # 30 tablet, Refills 3, Tot. Refills 3, Maintenance, 12/01/23 15:46:00 EDT, Route to Pharmacy Electronically, [facility], 165, cm, 11/06/23 8:10:00 [...] 0 Refills, Maintenance, 11/10/22 10:55:00 EDT, RECPowder, [facility], test date 01/14 .... Start Date: 11/10/22 Status: Ordered omeprazole 40 mg oral enteric coated capsule 1 capsule, By Mouth, 2 times a day, # 180 capsule, 1 Refills, Maintenance, 08/15/23 8:46:00 EST, [facility], 165, cm, 05/25/23 14:40:00 EDT, Height, 118.3, kg, 12/16/22 20:23:00 EDT, Dry Weight Start Date: 08/15/23 Status: Ordered ondansetron 4 mg oral tablet 1 tablet = 4 mg, By Mouth, Every 8 hours, # 21 tablet, 0 Refills, Maintenance, 07/29/23 17:24:00 EST, Tablet, [facility], Partial fill upon patient [...] mL, 0 Refills, Maintenance, 05/25/23 15:17:00 EDT, [facility] # [facility], Partial fill upon patient request if the prescription is for a schedule II opioid drug., 1 bottle 90 minutes prior to s... Start Date: 05/25/23 Status: Ordered Trulicity Pen 1.5 mg/0.5 mL subcutaneous solution See Instructions, INJECT 0.5ML SUBCUTANEOUSLY ONCE WEEKLY ROTATE INJECTION SITES, # 2 mL, 5 Refills, Maintenance, 06/07/23 18:02:00 EDT, [facility], 165, cm, 05/25/23 14:40:00 EDT, Height, 118.3, kg, 12/16/22 20:23:00 EDT, Dry Weight Start Date: 06/07/23 Status: Ordered Trulicity Pen 1.5 mg/0.5 mL subcutaneous solution See Instructions, INJECT ( 0.5 ML ) SUBCUTANEOUSLY ONCE WEEKLY ROTATE INJECTION SITES, # 2 mL, 5 Refills, Maintenance, 02/01/24 8:23:00 EDT, [facility], 165, cm, 01/14/24 12:49:00 EDT, Height, 104, kg, 01/14/24 12:49:00 EDT, Dry Weight Start Date: 02/01/24 Status: Ordered Vitamin D3 5000 intl units oral tablet 1 tablet, By Mouth, Daily, # 30 tablet, 0 Refills, Maintenance, 10/15/23 11:12:00 EST, [facility], 165, cm, 05/25/23 14:40:00 EDT, Height, 118.3, kg, 12/16/22 20:23:00 EDT, Dry Weight Start Date: 10/15/23 Status: Ordered Wellbutrin XL 300 mg/24 hours oral tablet, extended release 1 tablet = 300 mg, By Mouth, Daily, # 30 tablet, 3 Refills, Maintenance, 12/01/23 15:45:00 EDT, ER Tablet, [facility], 165, cm, 11/06/23 [...] Team Personnel Name: Anabel Roblero MA Position: [facility] Office Staff Member Role: Primary Care Nurse Name: Isa Paulson MA Position: [facility] Staff Member Role: Primary Care Nurse Name: Ofelia Jefferson NP Position: [facility] Associate Professional Member Role: PCP Address: Address: [address] [facility] [place] [address]- Name: Tommy Kohli MD Position: [facility] Physician - Behavioral Health Member Role: Lifetime Consulting Physician Address: Address: [address] [place] [id number]- Care Team Related Persons Name: WILLEM SIMON III Address: [place] [address] Name: WILLEM SIMON JR Address: home [address] [place] [id number]
--- OUTSIDE RECORDS SUMMARY | 2024-04-26 11:20 | XMS_ITS | Continuity of Care Document ---
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), William Quesada Primary Care Ph ysician Encounter [facility] Date(s): 03/13/22 - 07/16/22 [facility] [employer] [facility] [address] [facility], [address] [place], [place] [address] Attending Physician: Not on Staff, Attending MD Referring Physician: Ronny PAPPAS, Ofelia Acosta [...] Note: VIS GIVEN: 03/18/2011 2Result Comment: lot [id number] 09/21/2006 3Admin Note: VIS 05/29/09 GIVEN Medications [...] tablet, 0 Refills, Maintenance, 07/04/22 8:15:00 EST, [facility], Ok for fill early [...] Refills, Maintenance, 07/04/22 8:16:00 EST, ER Capsule, [facility], Ok for fill early - patient has never lost or needed early refills before, 1 capsule By Mouth Daily in AM,x30 days,... Start Date: 07/04/22 Stop Date: 08/03/22 Status: Ordered albuterol 90 mcg/inh inhalation powder 2 puffs, Inhalation, Every 4 hours, PRN as needed, # 1 each, 0 Refills, Maintenance, 08/01/21 20:08:00 EST, Powder, [facility], Partial fill upon patient request if the prescription is for aschedule II opioid drug., 2 puffs Inhalation Every... Start Date: 08/01/21 Status: Ordered Ambien 10 mg oral tablet 1 tablet = 10 mg, By Mouth, Daily at bedtime, PRN as needed for insomnia, for 30 days, # 30 tablet,3 Refills, Acute 11/01/22 8:19:00 EST, 07/04/22 8:19:00 EST, Tablet, [facility], 168, cm, 05/15/22 [...] 3 Refills, Maintenance, 07/04/22 8:22:00 EST, Tablet, [facility] # [facility], Ok for [...] 3 Refills, Maintenance, 07/04/22 8:17:00 EST, Tablet, [facility], Ok for fill early - patient has never lost or needed early refills before, 168, cm, 05/15/22 14:37:00 EDT, Height, 1... Start Date: 07/04/22 Stop Date: 11/01/22 Status: Ordered lamotrigine 100 mg oral tablet 100 mg, 1, tablet, By Mouth, Daily in AM, # 30 tablet, Refills 3, Tot. Refills 3, Maintenance, 07/04/22 8:17:00 EST, Route to Pharmacy Electronically, [facility], Ok for fill early [...] capsule, 2 Refills, Maintenance, 04/22/22 12:20:00 EDT, [facility], 168, cm, 04/21/22 8:42:00 [...] capsule, 3 Refills, Maintenance, 07/04/22 8:19:00 EST, [facility], Partial fill upon [...] information Care Team Personnel Name: Amadou STUART ([facility]), William Quesada Position: [facility] Primary Care Physician Member Role: PCP Address: Address: [address] [facility], [place] [address]- [place] Name: Anabel Vyas Position: [facility] RN Member Role: Primary Care Nurse Name: Isa Ward Position: [facility] RN Member Role: Primary Care Nurse Name: Tommy Kohli MD Position: [facility] Psychiatry MD Member Role: Lifetime Consulting Physician Address: Address: [address] [place] [address]- Care Team Related Persons Name: WILLEM SIMON III Address: [place] [address] Name: WILLEM SIMON SR Address: [address] [place] [address]
--- OUTSIDE RECORDS SUMMARY | 2024-04-26 11:20 | XMS_ITS | Continuity of Care Document ---
Author Organization [facility] Address [address] [place] [address]- Care Team Providers Care Railway Equipment Operator Name Role Phone Ronny INSERTING OPERATOR, Ofelia Acosta Primary Care Physician Encounter [facility] Date(s): 01/20/24 - 02/19/24 [facility] [address], [place] [id number] Allergies, Adverse Reactions, Alerts Substance Reaction Severity [...] Note: VIS GIVEN: 03/18/2011 2Result Comment: lot [id number] 09/21/2006 3Admin Note: VIS 05/29/09 GIVEN Medications [...] Refills, Maintenance, 02/05/24 15:21:00 EDT, ER Capsule, [facility], ok to fill early, 1 capsule By Mouth Daily in AM,x30 days, 165,cm, 01/14/24 12:49:00 EDT, Height, 104, kg, ... Start Date: 02/05/24 Stop Date: 03/06/24 Status: Ordered amLODIPine 2.5 mg oral tablet 1 tablet, By Mouth, Daily, # 90 tablet, 1 Refills, Maintenance, 01/10/24 10:27:00 EDT, [facility], 165, cm, 12/17/23 12:31:00 EDT, Height, 110.1, kg, 10/28/23 1:29:00 EST, Dry Weight Start Date: 01/10/24 Status: Ordered amphetamine-dextroamphetamine 10 mg oral tablet 1 tablet = 10 mg, By Mouth, 2 times a day, # 60 tablet, 0 Refills, Maintenance, 02/05/24 15:21:00 EDT, [facility], fill on date [...] 3 Refills, Maintenance, 11/06/23 9:04:00 EDT, Capsule, [facility], Partial fill upon [...] 04/29/23 20:24:00 EDT, [facility] to [facility] Electronically, [facility] tablet, 3 Refills, Maintenance, 02/05/24 15:21:00 EDT, [facility], dose increase, 165, cm, 01/14/24 12:49:00 EDT, Height, 104, kg, 01/14/24 12:49:00 EDT, Dry Weight Start Date: 02/05/24 Stop Date: 06/04/24 Status: Ordered LaMICtal 200 mg oral tablet 2 tablet = 400 mg, By Mouth, Daily at bedtime, # 60 tablet, 3 Refills, Maintenance, 12/01/23 15:46:00 EDT, Tablet, [facility], 165, cm, 11/06/23 8:10:00 EDT, Height, 110.1, kg, 10/28/23 1:29:00 EST, Dry Weight Start Date: 12/01/23 Stop Date: 03/30/24 Status: Ordered lamotrigine 100 mg oral tablet 100 mg, 1, tablet, By Mouth, Daily in AM, # 30 tablet, Refills 3, Tot. Refills 3, Maintenance, 12/01/23 15:46:00 EDT, Route to Pharmacy Electronically, [facility], 165, cm, 11/06/23 8:10:00 [...] 0 Refills, Maintenance, 11/10/22 10:55:00 EDT, [facility], [facility], test date 01/14 .... Start Date: 11/10/22 Status: Ordered omeprazole 40 mg oral enteric coated capsule 1 capsule, By Mouth, 2 times a day, # 180 capsule, 1 Refills, Maintenance, 08/15/23 8:46:00 EST, [facility], 165, cm, 05/25/23 14:40:00 EDT, Height, 118.3, kg, 12/16/22 20:23:00 EDT, Dry Weight Start Date: 08/15/23 Status: Ordered ondansetron 4 mg oral tablet 1 tablet = 4 mg, By Mouth, Every 8 hours, # 21 tablet, 0 Refills, Maintenance, 07/29/23 17:24:00 EST, Tablet, [facility], Partial fill upon patient [...] mL, 0 Refills, Maintenance, 05/25/23 15:17:00 EDT, [facility], Partial fill upon patient request if the prescription is for a schedule II opioid drug., 1 bottle 90 minutes prior to s... Start Date: 05/25/23 Status: Ordered Trulicity Pen 1.5 mg/0.5 mL subcutaneous solution See Instructions, INJECT 0.5ML SUBCUTANEOUSLY ONCE WEEKLY ROTATE INJECTION SITES, # 2 mL, 5 Refills, Maintenance, 06/07/23 18:02:00 EDT, [facility], 165, cm, 05/25/23 14:40:00 EDT, Height, 118.3, kg, 12/16/22 20:23:00 EDT, Dry Weight Start Date: 06/07/23 Status: Ordered Trulicity Pen 1.5 mg/0.5 mL subcutaneous solution See Instructions, INJECT ( 0.5 ML ) SUBCUTANEOUSLY ONCE WEEKLY ROTATE INJECTION SITES, # 2 mL, 5 Refills, Maintenance, 02/01/24 8:23:00 EDT, [facility], 165, cm, 01/14/24 12:49:00 EDT, Height, 104, kg, 01/14/24 12:49:00 EDT, Dry Weight Start Date: 02/01/24 Status: Ordered Vitamin D3 5000 intl units oral tablet 1 tablet, By Mouth, Daily, # 30 tablet, 0 Refills, Maintenance, 10/15/23 11:12:00 EST, [facility], 165, cm, 05/25/23 14:40:00 EDT, Height, 118.3, kg, 12/16/22 20:23:00 EDT, Dry Weight Start Date: 10/15/23 Status: Ordered Wellbutrin XL 300 mg/24 hours oral tablet, extended release 1 tablet = 300 mg, By Mouth, Daily, # 30 tablet, 3 Refills, Maintenance, 12/01/23 15:45:00 EDT, ER Tablet, [facility] [...] Team Personnel Name: Anabel Roblero MA Position: [facility] Staff Member Role: Primary Care Nurse Name: Isa Paulson MA Position: [facility] Staff Member Role: Primary Care Nurse Name: Ofelia Jefferson NP Position: [facility] Associate Professional Member Role: PCP Address: Address: [address] [facility] [place] [address]- Name: Tommy Kohli MD Position: [facility] Physician - Behavioral Health Member Role: Lifetime Consulting Physician Address: Address: [address] [place] [id number]- Care Team Related Persons Name: WILLEM SIMON III Address: [place] [address] Name: WILLEM SIMON JR Address: home [address] [place] [id number]
--- OUTSIDE RECORDS SUMMARY | 2024-04-26 11:21 | XMS_ITS | Continuity of Care Document ---
Author Organization [facility] Address [address] [place] [address]- Care Team Providers Care Fabricator Artificial Breast Name Role Phone Ronny CRIMINAL JUSTICE FACULTY, Ofelia Acosta Primary Care Physician Encounter [facility] Date(s): 02/27/24 - 03/28/24 [facility] [address] [place] [address]- Allergies, Adverse Reactions, Alerts Substance Reaction Severity [...] Note: VIS GIVEN: 03/18/2011 2Result Comment: lot [id number] 09/21/2006 3Admin Note: VIS 05/29/09 GIVEN Medications [...] AM, # 30 capsule, 0 Refills, Maintenance, 03/04/24 15:23:00 EDT, ER Capsule, [facility], 1 capsule By Mouth Daily in AM,x30 days, 165, cm, 01/14/24 12:49:00 EDT, Height, 104, kg, 01/14/24 12:49:00 EDT, . Start Date: 03/04/24 Stop Date: 04/03/24 Status: Ordered amLODIPine 2.5 mg oral tablet 1 tablet, By Mouth, Daily, # 90 tablet, 1 Refills, Maintenance, 01/10/24 10:27:00 EDT, [facility], 165, cm, 12/17/23 12:31:00 EDT, Height, 110.1, kg, 10/28/23 1:29:00 EST, Dry Weight Start Date: 01/10/24 Status: Ordered amphetamine-dextroamphetamine 10 mg oral tablet 1 tablet = 10 mg, By Mouth, 2 times a day, # 60 tablet, 0 Refills, Maintenance, 03/04/24 15:23:00 EDT, [facility], fill on date due, 1 tablet By Mouth 2 times a day,x30 days, 165, cm, 01/14/24 12:49:00 EDT, Height, 104, kg, 01/14/24 12:49:00... Start Date: 03/04/24 Stop Date: 04/03/24 Status: Ordered celecoxib 100 mg oral capsule 1 capsule, By Mouth, 2 times a day, # 60 capsule, 1 Refills, Maintenance, 02/27/24 20:30:00 EDT, [facility], 165, cm, 01/14/24 12:49:00 EDT, Height, 104, kg, 01/14/24 12:49:00 EDT, Dry Weight Start Date: 02/27/24 Status: Ordered clonazePAM 1 mg oral tablet 1 tablet = 1 mg, By Mouth, 3 times a day, # 90 tablet, 3 Refills, Maintenance, 03/04/24 15:24:00 EDT, Tablet, [facility], 165, cm, 01/14/24 12:49:00 EDT, Height, 104, kg, 01/14/24 12:49:00 EDT, Dry Weight Start Date: 03/04/24 Stop Date: 07/02/24 Status: Ordered docusate sodium 100 mg oral capsule See Instructions, TAKE 1 CAPSULE ONE TO TWO TIMES A DAY FOR CONSTIPATION, # 20 capsule, 0 Refills, [facility], 168, cm, [...] Required Details, Route to Pharmacy Electronically, [facility] [...] day, # 120 tablet, 3 Refills, Maintenance, 03/04/24 15:26:00 EDT, [facility] # [facility], 165, cm, 01/14/24 12:49:00 EDT, Height, 104, kg, 01/14/24 12:49:00 EDT, Dry Weight Start Date: 03/04/24 Stop Date: 07/02/24 Status: Ordered LaMICtal 200 mg oral tablet 2 tablet = 400 mg, By Mouth, Daily at bedtime, # 60 tablet, 3 Refills, Maintenance, 03/04/24 15:26:00 EDT, Tablet, [facility], 165, cm, 01/14/24 12:49:00 EDT, Height, 104, kg, 01/14/24 12:49:00 EDT, Dry Weight Start Date: 03/04/24 Stop Date: 07/02/24 Status: Ordered lamotrigine 100 mg oral tablet 100 mg, 1, tablet, By Mouth, Daily in AM, # 30 tablet, Refills 3, Tot. Refills 3, Maintenance, 03/04/24 15:26:00 EDT, Route to Pharmacy Electronically, [facility], 165, cm, 01/14/24 12:49:00EDT, Height, 104, kg, 01/14/24 12:49:00 EDT, Dry We... Start Date: 03/04/24 Stop Date: 07/02/24 Status: Ordered NuLYTELY with Flavor Packs oral powder for reconstitution 240 mL, By Mouth, Every 10 minutes, split prep method, take 1st half of prep evening before procedure, 2nd half 6 hrs prior to procedure., # 1 each, 0 Refills, Maintenance, 11/10/22 10:55:00 EDT, [facility], [facility], test date 01/14 .... Start Date: 11/10/22 Status: Ordered omeprazole 40 mg oral enteric coated capsule 1 capsule, By Mouth, 2 times a day, # 180 capsule, 1 Refills, Maintenance, 08/15/23 8:46:00 EST, [facility], 165, cm, 05/25/23 14:40:00 EDT, Height, 118.3, kg, 12/16/22 20:23:00 EDT, Dry Weight Start Date: 08/15/23 Status: Ordered ondansetron 4 mg oral tablet 1 tablet = 4 mg, By Mouth, Every 8 hours, # 21 tablet, 0 Refills, Maintenance, 07/29/23 17:24:00 EST, Tablet, [facility] # [facility], Partial [...] 0 Refills, Maintenance, 05/25/23 15:17:00 EDT, [facility], [...] 5 Refills, Maintenance, 02/01/24 8:23:00 EDT, [facility], 165, cm, 01/14/24 12:49:00 EDT, Height, 104, kg, 01/14/24 12:49:00 EDT, Dry Weight Start Date: 02/01/24 Status: Ordered Vitamin D3 5000 intl units oral tablet 1 tablet, By Mouth, Daily, # 30 tablet, 0 Refills, Maintenance, 10/15/23 11:12:00 EST, [facility], 165, cm, 05/25/23 14:40:00 EDT, Height, 118.3, kg, 12/16/22 20:23:00 EDT, Dry Weight Start Date: 10/15/23 Status: Ordered Wellbutrin XL 300 mg/24 hours oral tablet, extended release 1 tablet = 300 mg, By Mouth, Daily, # 30 tablet, 4 Refills, Maintenance, 03/04/24 15:24:00 EDT, ER Tablet, [facility], 165, cm, 01/14/24 12:49:00 EDT, Height, 104, kg, 01/14/24 12:49:00 EDT,Dry Weight Start Date: 03/04/24 Stop Date: 08/01/24 Status: Ordered ziprasidone 20 mg oral capsule 1 capsule = 20 mg, By Mouth, Daily at bedtime, # 30 capsule, 3 Refills, Maintenance, 03/04/24 15:26:00 EDT, [facility], 165, cm, 01/14/24 12:49:00 EDT, Height, 104, kg, 01/14/24 12:49:00 EDT, Dry Weight Start Date: 03/04/24 Stop Date: 07/02/24 Status: Ordered Problem List Condition Confirmation Course [...] Team Personnel Name: Anabel Roblero MA Position: [facility] Staff Member Role: Primary Care Nurse Name: Isa Paulson MA Position: [facility] Staff Member Role: Primary Care Nurse Name: Ofelia Jefferson NP Position: [facility] Associate Professional Member Role: PCP Address: Address: [address] [facility] [place] [address]- [place] Name: Tommy Kohli MD Position: [facility] Physician - Behavioral Health Member Role: Lifetime Consulting Physician Address: Address: [address] [place] [address]- Care Team Related Persons Name: WILLEM SIMON III Address: [place] [address] Name: WILLEM SIMON JR Address: home [address] [place] [id number]
--- OUTSIDE RECORDS SUMMARY | 2024-04-26 11:22 | XMS_ITS | Continuity of Care Document ---
Author Organization [facility] Address [address] [place] [address]- Care Team Providers Care Director Of Accounts Payable Name Role Phone Ronny CONCRETE CONVEYOR OPERATOR, Ofelia Acosta Primary Care Physician Encounter [facility] Date(s): 01/21/24 - 02/20/24 [facility] [address] [place] [address]- Allergies, Adverse Reactions, Alerts Substance Reaction Severity [...] Note: VIS GIVEN: 03/18/2011 2Result Comment: lot [id number] 09/21/2006 3Admin Note: VIS 05/29/09 GIVEN Medications [...] Refills, Maintenance, 02/05/24 15:21:00 EDT, ER Capsule, [facility], ok to fill early, 1 capsule By Mouth Daily in AM,x30 days, 165,cm, 01/14/24 12:49:00 EDT, Height, 104, kg, ... Start Date: 02/05/24 Stop Date: 03/06/24 Status: Ordered amLODIPine 2.5 mg oral tablet 1 tablet, By Mouth, Daily, # 90 tablet, 1 Refills, Maintenance, 01/10/24 10:27:00 EDT, [facility], 165, cm, 12/17/23 12:31:00 EDT, Height, 110.1, kg, 10/28/23 1:29:00 EST, Dry Weight Start Date: 01/10/24 Status: Ordered amphetamine-dextroamphetamine 10 mg oral tablet 1 tablet = 10 mg, By Mouth, 2 times a day, # 60 tablet, 0 Refills, Maintenance, 02/05/24 15:21:00 EDT, [facility], fill on date [...] 3 Refills, Maintenance, 11/06/23 9:04:00 EDT, Capsule, [facility], Partial fill upon [...] EDT, Route to Pharmacy Electronically, [facility], 165, cm, 01/21/23 11:55:00 EDT, Height, 118.3, kg, 12/16/22 20:23:00 EDT, Dry Weight Start Date: 04/29/23 Status: Ordered folic acid 1 mg oral tablet See Instructions, TAKE ONE TABLET BY MOUTH EVERY DAY, # 30 tablet, Refills 5, Maintenance, :13:00 EST, Instructions Replace Required Details, Route to Pharmacy Electronically, [facility], 165, cm, 05/25/23 [...] tablet, 3 Refills, Maintenance, 02/05/24 15:21:00 EDT, [facility], dose increase, 165, cm, 01/14/24 12:49:00 EDT, Height, 104, kg, 01/14/24 12:49:00 EDT, Dry Weight Start Date: 02/05/24 Stop Date: 06/04/24 Status: Ordered LaMICtal 200 mg oral tablet 2 tablet = 400 mg, By Mouth, Daily at bedtime, # 60 tablet, 3 Refills, Maintenance, 12/01/23 15:46:00 EDT, Tablet, [facility], 165, cm, 11/06/23 8:10:00 EDT, Height, 110.1, kg, 10/28/23 1:29:00 EST, Dry Weight Start Date: 12/01/23 Stop Date: 03/30/24 Status: Ordered lamotrigine 100 mg oral tablet 100 mg, 1, tablet, By Mouth, Daily in AM, # 30 tablet, Refills 3, Tot. Refills 3, Maintenance, 12/01/23 15:46:00 EDT, Route to Pharmacy Electronically, [facility], 165, cm, 11/06/23 8:10:00 [...] 0 Refills, Maintenance, 11/10/22 10:55:00 EDT, [facility], [facility], test date 01/14 .... Start Date: 11/10/22 Status: Ordered omeprazole 40 mg oral enteric coated capsule 1 capsule, By Mouth, 2 times a day, # 180 capsule, 1 Refills, Maintenance, 08/15/23 8:46:00 EST, [facility], 165, cm, 05/25/23 14:40:00 EDT, Height, 118.3, kg, 12/16/22 20:23:00 EDT, Dry Weight Start Date: 08/15/23 Status: Ordered ondansetron 4 mg oral tablet 1 tablet = 4 mg, By Mouth, Every 8 hours, # 21 tablet, 0 Refills, Maintenance, 07/29/23 17:24:00 EST, Tablet, [facility], Partial fill upon patient [...] Refills, Maintenance, 05/25/23 15:17:00 EDT, [facility] # [...] 18:02:00 EDT, [facility], 165, cm, 05/25/23 14:40:00 EDT, Height, 118.3, kg, 12/16/22 20:23:00 EDT, Dry Weight Start Date: 06/07/23 Status: Ordered Trulicity Pen 1.5 mg/0.5 mL subcutaneous solution See Instructions, INJECT ( 0.5 ML ) SUBCUTANEOUSLY ONCE WEEKLY ROTATE INJECTION SITES, # 2 mL, 5 Refills, Maintenance, 02/01/24 8:23:00 EDT, [facility], 165, cm, 01/14/24 12:49:00 EDT, Height, 104, kg, 01/14/24 12:49:00 EDT, Dry Weight Start Date: 02/01/24 Status: Ordered Vitamin D3 5000 intl units oral tablet 1 tablet, By Mouth, Daily, # 30 tablet, 0 Refills, Maintenance, 10/15/23 11:12:00 EST, [facility], 165, cm, 05/25/23 14:40:00 EDT, Height, 118.3, kg, 12/16/22 20:23:00 EDT, Dry Weight Start Date: 10/15/23 Status: Ordered Wellbutrin XL 300 mg/24 hours oral tablet, extended release 1 tablet = 300 mg, By Mouth, Daily, # 30 tablet, 3 Refills, Maintenance, 12/01/23 15:45:00 EDT, ER Tablet, [facility], 165, cm, 11/06/23 [...] Team Personnel Name: Anabel Roblero MA Position: [facility] Staff Member Role: Primary Care Nurse Name: Isa Paulson MA Position: [facility] Staff Member Role: Primary Care Nurse Name: Ofelia Jefferson NP Position: [facility] Associate Professional Member Role: PCP Address: Address: [address] [facility] [place] [address]- Name: Tommy Kohli MD Position: [facility] Physician - Behavioral Health Member Role: Lifetime Consulting Physician Address: Address: [address] [place] [address]- Care Team Related Persons Name: WILLEM SIMON III Address: [place] [address] Name: WILLEM SIMON JR Address: home [address] [place] [id number]
[2024-04-26 11:27] VITALS: BMI 36.8
== END 2024-04-26 12:13 | disposition home or self-care (01) ==
LOC: HO.HOS 11:14
PROVIDERS: PCP Internal Medicine
DX: S82.892A Other fracture of left lower leg, initial encounter for closed fracture (principal); S92.402A Displaced unspecified fracture of left great toe, initial encounter for closed fracture
CPT/HCPCS: 99024; 99213

== ENCOUNTER 2024-12-01 10:07 | Outpatient (REF) | payer OTHER, SELFPAY ==
--- NOTE | ~2024-12-01 | XR_ITS ---
EXAMINATION: X-ray lumbar spine 4 views. CLINICAL INFORMATION: Intervertebral disc degeneration, lumbar region TECHNIQUE: 4 views lumbar spine including flexion and extension position. COMPARISON: None FINDINGS: Transpedicular screws connected with the Benitez placed at L4 S1 with ankylosis/arthrodesis the intervertebral disc spacers at L4-5 and L5-S1 levels. Marginal osteophyte formation and endplate sclerosis and decreased intervertebral disc height L3-4 and to a lesser extent L2-3. No gross malalignment in neutral nor flexion or extension position. Vascular clips in the retroperitoneum/anterior prevertebral compartment lower lumbar spine. Abundant stool and gas throughout the intestine without air-fluid levels. XR/XR lumbar spine 4V min IMPRESSION: Status post posterior lumbar fusion and arthrodesis L4 S1 without acute fracture or, gross listhesis or instability. Spondylosis L2-3 and L3-4 levels. Electronically signed by: Charlie Ward MD 12/01/2024 11:26 AM EDT
--- OUTSIDE RECORDS SUMMARY | 2024-12-01 12:48 | XMS_ITS | Clinical Summary ---
Author Organization [facility] Address [address] [place] [address] Care Team Providers Care Medical Tech Name Role Phone Faye Brown MD Primary Care Provider [phone] Social History Tobacco Use Types Packs/Day Years Used Date Smoking Tobacco: Never Assessed Sex and Gender Information Value Date Recorded Sex Assigned at Not on file Gender Identity Not on file Sexual Orientation Not on file Plan of Treatment Health Maintenance Due Date Last Done Comments Hepatitis B Vaccines (1 of 3 - 3-dose series) 1972 Hepatitis C Screening 1972 COVID-19 Vaccine (#1) 03/29/1973 Depression Screening 1984 Preventative Health Evaluation 1990 DTap / Tdap / Td (1 - Tdap) 1991 Cervical Cancer Screening (P ap Smear) 1993 Colon Cancer Screening (Colonoscopy) 2017 Breast Cancer Screening (Mammogram) 2022 Shingrix-Zoster Vaccine (1 of 2) 2022 Influenza Vaccine (#1) 2024 Pneumococcal Vaccine Aged Out No long er eligible based on patient's age to complete this topic RSV Ped < 20 months Aged Out No longe r eligible based on patient's age to complete this topic Care Teams Medical Tech Relationship Specialty Start Date End Date Faye Brown MD [address] [place] [address] PCP - General Internal Medicine 10/02/20
--- OUTSIDE RECORDS SUMMARY | 2024-12-01 12:48 | XMS_ITS | Clinical Summary ---
Author Organization [facility] ity Address [address] [place] [address] Care Team Providers Care Fiber Designer Name Role Phone Domingo Mcadams MD Primary Care Provider [phone] Surgical History Surgery Date Site/Laterality Comments PARTIAL HYSTERECTOMY PROCEDURE: [place] SUPRACERVICAL ABDL HYSTER W/WO RMVL TUBE OVARY [...] age to complete this topic Care Teams Fiber Designer Relationship Specialty Start Date End Date Domingo Mcadams MD [address] [place] [phone] PCP - General Internal Medicine 08/26/12
--- OUTSIDE RECORDS SUMMARY | 2024-12-01 12:48 | XMS_ITS ---
Author Name [facility] Organization Unknown Encounters Encounter Type Encounter Reason Primary Diagnosis Location Date Ambulatory [facility] 01/20/2024
== END 2024-12-01 10:08 | disposition home or self-care (01) ==
LOC: HO.HOSX 10:07
PROVIDERS: PCP Internal Medicine; Visit Provider Physician Assistant
DX: M51.369 Other intervertebral disc degeneration, lumbar region without mention of lumbar back pain or lower extremity pain (principal); M54.12 Radiculopathy, cervical region
CPT/HCPCS: 72110; 99212

== ENCOUNTER 2024-12-01 10:07 | Outpatient (AMB) | payer OTHER, SELFPAY ==
--- NOTE | 2024-12-01 10:09 | A.SPINEOV_ITS ---
Intake Visit Reasons: headaches, bilateral arm pain and numbness Intake Note: Ms. Samuel is here today c/o Headaches and bilateral arm pain/numbness. Cartridge Loader Required: No Allergies codeine Allergy (Verified 12/01/24 10:12) Hives amoxicillin Adverse Reaction (Verified 12/01/24 10:12) Nausea and Vomiting Penicillins Adverse Reaction (Verified 12/01/24 10:12) Nausea and Vomiting Assessment & Plan Assessment & Plan (1) Lumbar degenerative disc disease: Code(s): M51.369 - Other intervertebral disc degeneration, lumbar region without mention of lumbar back pain or lower extremity pain Category: Medical (2) Cervical radiculopathy: Code(s): M54.12 - Radiculopathy, cervical region Category: Medical Plan Mrs Samuel returned in follow-up. Please refer to my last note for the specif ics of her problem. Unfortunately she was unable to undergo her C7-T1 anterior cervical fusion because her came down with cancer of the throat. He underwent his treatments and she is now focusing back on herself again. The pain in her right arm has only continued to escalate over time. In fact it feels different altogether in the sense that before it was radiating down her arm into her 4th and 5th digits but now she feels like it is going down into her whole hand, mostly on the palm. She is also getting it on the left side as well. She also has pain that radiates from the posterior cervical area up to the side of her head and into her face. She notices weakness in her arms. She has been using her Celebrex to help deal with the pain and discomfort. In addition to this, her low back has been feeling uncomfortable if not very painful as well when she stands and walks. She will feel like there is motion in her back or something is sliding or slipping. She had a previous anterior lumbar interbody fusion done about 20 years ago, also what sounds like a postoperative decompression after that. She is having pain that shoots down both of her legs into her calves. On my exam today she is very uncomfortable, has a hard time standing she walks with an antalgic gait. It is very hard for me to examine her right arm because they are so much pain in it. She may have a little weakness in her triceps on the right but it is difficult secondary to pain. The rest of her motor examined reflexes are normal. No Rojas's sign, no clonus. I am going to submit for new cervical MRI in light of the change in symptoms. Also, because of the history of lumbar fusion, and what sounds like a subsequent decompression, I would like to get a set of x-rays standing with flexion-extension and a lumbar MRI to evaluate for adjacent segment disease. She has not done any recent physical therapy, she does take Celebrex for her back pain. I warned her that her insurance companies [employer] typically would require 6 weeks of PT, but I feel that in light of her history of previous surgery at no recent imaging any escalation in her back pain over the last few years that it would be reasonable to establish if there is a bigger issue before we start treating something and we are not sure what it is. She would like to have the MRIs done at [facility]. Total amount of time spent in this visit was 20 minutes in discussion of symptoms, previous cervical imaging results and subsequent plan of care Pritesh Han MD,PhD [facility] Orders: Orders XR lumbar spine 4V min Today M51.369 - Other intervertebral disc degeneration, lumbar region without mention of lumbar back pain or lower extremity pain MR lumbar spine wo con Today M51.369 - Other intervertebral disc degeneration, lumbar region without mention of lumbar back pain or lower extremity pain MR cervical spine wo con Today M54.12 - Radiculopathy, cervical region Coding Level of Care Code Est Pt Level 3 (76709) Diagnoses Lumbar degenerative disc disease M51.369 Cervical radiculopathy M54.12
--- OUTSIDE RECORDS SUMMARY | 2024-12-01 11:48 | XMS_ITS | Clinical Summary ---
Author Organization [facility] ity Address [address] [place] [address] Care Team Providers Care Senior Support Analyst Name Role Phone Domingo Mcadams MD Primary Care Provider [phone] Surgical History Surgery Date Site/Laterality Comments PARTIAL HYSTERECTOMY PROCEDURE: [place] SUPRACERVICAL ABDL HYSTER W/WO RMVL TUBE OVARY Medical History Medical History Date Comments Backache, unspecified 08/13/2005 DX:Backach e, unspecified Family History Medical History Relation Name Comments Other: bipolar Father Other: lupus Mother Relation Name Status Comments Father Mother Social History Tobacco Use Types Packs/Day Years Used Date Smoking Tobacco: Never Alcohol Use Standard Drinks/Week Comments No 0 (1 standard drink = 0.6 oz pur e alcohol) Comments Unknown Sex and Gender Information Value Date Recorded Sex Assigned at Not on file Legal Sex Female 12:06 AM EST Gender Identity Not on file Sexual Orientation Not on file Obstetrics History Plan of Treatment Health Maintenance Due Date Last Done Comments Breast Cancer Screening 1972 DTaP,Tdap,and Td Vaccines (1 - Tdap) 1991 Hepatitis B Vaccines (1 of 3 - 19+ 3-dose series) 1991 Cervical Cancer Screening: P ap Smear 1993 Pneumococcal Vaccine: 50+ Ye ars (1 of 1 - PCV) 2022 Zoster Vaccines (1 of 2) 2022 COVID-19 Vaccine ( - 2023-2 5 season) 2024 Influenza Vaccine (Season Ended) 2025 HIB Vaccines Aged Out No longer eligi ble based on patient's age to complete this topic HPV Vaccines Aged Out No longer eligi ble based on patient's age to complete this topic Hepatitis A Vaccines Aged Out No long er eligible based on patient's age to complete this topic IPV Vaccines Aged Out No longer eligi ble based on patient's age to complete this topic MMR Vaccines Aged Out No longer eligi ble based on patient's age to complete this topic Meningococcal ACWY Vaccine Aged Out N o longer eligible based on patient's age to complete this topic Meningococcal B Vaccine Aged Out No l onger eligible based on patient's age to complete this topic Pneumococcal Vaccine: Pediat rics (0 to 5 Years) and At-Risk Patients (6 to 64 Years) Aged Out No longer eligible b ased on patient's age to complete this topic RSV Immunization Patients Un naty 20 months Aged Out No longer eligible b ased on patient's age to complete this topic Varicella Vaccines Aged Out No longer eligible based on patient's age to complete this topic Care Teams Senior Support Analyst Relationship Specialty Start Date End Date Domingo Mcadams MD [address] [place] [id number] PCP - General Internal Medicine 08/26/12
== END 2024-12-01 11:20 | disposition home or self-care (01) ==
LOC: HO.HNS 10:07
PROVIDERS: PCP Internal Medicine; Visit Provider Physician Assistant
DX: M51.369 Other intervertebral disc degeneration, lumbar region without mention of lumbar back pain or lower extremity pain (principal); M54.12 Radiculopathy, cervical region
CPT/HCPCS: 99213

== ENCOUNTER → 2024-12-01 10:48 | Outpatient (BNV) | payer OTHER, SELFPAY | PROVIDERS: PCP Internal Medicine; Visit Provider Radiology Diagnostic Radiology | DX: Z98.1 Arthrodesis status (principal) | CPT/HCPCS: 72110 ==

== ENCOUNTER 2024-12-26 13:11 | Outpatient (AMB) | payer OTHER, SELFPAY ==
--- NOTE | 2024-12-26 13:52 | A.OFFVIS_ITS ---
Intake Visit Reasons: New Prob - B/L knee pain Intake Note: Johnna is a 54 year old female who presents today for a evaluation of her bilateral knee pain. Patient report ongoing pain for about many years. She states that her pain is worse on the right knee than the left knee. Her pain is on the medial aspect of both knees and it moves to the back of her knees. Patient notices that her pain is worse when she is bending, waking, going up and down the stairs. She has tried and failed ice, rest, Tylenol/NSAIDs and lidocaine patches. Allergies codeine Allergy (Verified 12/26/24 13:55) Hives amoxicillin Adverse Reaction (Verified 12/26/24 13:55) Nausea and Vomiting Penicillins Adverse Reaction (Verified 12/26/24 13:55) Nausea and Vomiting HPI HPI New Prob - B/L knee pain: Details: Ms. Samuel is a 54-year-old female who presents to the office today for bilateral knee pain. She states that the pain has been severe for quite some time. Her pain is affecting her quality of life and activities of daily living. She is unable to go to the grocery store and walk for any length of time. She reports that she has had multiple cortisone injections in the past which do help for a short period of time and then her pain returns. [facility] Medical History (Updated 12/27/24 @ 09:07 by Karin Olivares PA-C) Neck pain Bilateral knee pain Vitamin D deficiency PTSD (post-traumatic stress disorder) Postprandial epigastric pain BRIANNA (obstructive sleep apnea) Nipple discharge in female Myoclonic jerking Morbid obesity Mixed incontinence Hx of mastitis Intertrigo Incomplete defecation HTN (hypertension) Hepatic steatosis GERD (gastroesophageal reflux disease) RADHA (generalized anxiety disorder) Gastrointestinal stromal tumor (GIST) Foot pain Diabetes Constipation Chronic low back pain Bipolar disorder Background diabetic retinopathy ADD (attention deficit disorder) Surgical History (Updated 03/23/24 @ 14:10 by Charmaine Chen RN) Hx of colonoscopy Hx of section Hx of abdominal hysterectomy History of carpal tunnel release History of lumbar fusion Hx of ovarian cystectomy History of bunionectomy History of esophagogastroduodenoscopy (EGD) History of sleeve gastrectomy Social History Alcohol intake: former e-Cigarette/Vaping Use: Currently Using Substance Use Type: Marijuana Current occupational status: employed Current occupation: [employer] Review of Systems Const All systems reviewed & are unremarkable except as noted in HPI and below Physical Exam Extrem Other: Right knee ROM 0-90 degrees with crepitus. Global tenderness to palpation. NVI. Office Procedures AMB Joint Injection/Aspiration Joint Injection/Aspiration Primary Site: right knee Prep: site was prepped using aseptic technique, ethochloride spray was applied and injection warnings given Injected: 80 mg of, DepoMedrol, with 8 mL of (2% plain lido ) and in the joint Approach Used: anterolateral Procedure: The patient tolerated the procedure well, but had some pain with the injection and there was some relief with the local anesthesia Coding 03383 - Large joint Procedure code (CPT) selection complete Assessment & Plan Assessment & Plan (1) Osteoarthritis of knees, bilateral: Code(s): M17.0 - Bilateral primary osteoarthritis of knee Category: Medical Plan Ms. Samuel is a 54-year-old female who presents to the office today for bilateral knee pain. She states that the pain has been severe for quite some time. Her pain is affecting her quality of life and activities of daily living. She is unable to go to the grocery store and walk for any length of time. She reports that she has had multiple cortisone injections in the past which do help for a short period of time and then her pain returns. While the office today, I discussed the case with Dr. Bee who was available but did not see the patient with me. Unfortunately, the patient is quite young for a total knee arthroplasty. I did discuss this with the patient however she has elected to discuss this further with Dr. Bee who was in agreement. A follow up appointment has been made with Dr. Bee for further discussion. Additionally, the patient was offered a cortisone injection in the right knee with 80 mg of DepoMedrol. The patient was explained the risks, benefits, and alternatives to receiving this injection. After receiving consent for the injection, the patient had the procedure done while in the office today. The patient tolerated the procedure well with no complications. Follow-up will be with Dr. Bee, next available, or sooner if needed. X-rays of bilateral knees which were obtained while in the office today and were reviewed by me, Karin Olivares PA-C, revealed osteoarthritis bilateral knees. Orders: Orders XR knee RT 3V 12/26/24 M25.569 - Pain in unspecified knee XR knee LT 3V 12/26/24 M25.569 - Pain in unspecified knee XR Knee Chao 3V 12/26/24 M25.561 - Pain in right knee, M25.562 - Pain in left knee Coding Level of Care Code Est Pt Level 4 (37655) Diagnoses Osteoarthritis of knees, bilateral M17.0 CPT Codes Coding - 06213 Large joint: 70838 - Large joint ([id number])
--- OUTSIDE RECORDS SUMMARY | 2024-12-26 14:33 | XMS_ITS | Clinical Summary ---
Author Organization [facility] Address [address] [place] [address] Care Team Providers Care Z Os Mainframe Systems Programmer Name Role Phone Faye Brown MD Primary Care Provider [phone] Social History Tobacco Use Types Packs/Day Years [...] age to complete this topic Care Teams Z [employer] Mainframe Systems Programmer Relationship Specialty Start Date End Date Faye Brown MD [address] [place] [address] PCP - General Internal Medicine 10/02/20
--- OUTSIDE RECORDS SUMMARY | 2024-12-26 14:33 | XMS_ITS | Clinical Summary ---
Author Organization [facility] ity Address [address] [place] [address] Care Team Providers Care Finance Admin Name Role Phone Domingo Mcadams MD Primary Care Provider [phone] Surgical History Surgery Date Site/Laterality Comments PARTIAL HYSTERECTOMY PROCEDURE: [place] SUPRACERVICAL ABDL HYSTER W/WO RMVL TUBE OVARY [...] Vaccines (1 of 2) 2022 COVID-19 Vaccine (2023-2 5 season) 2024 Influenza Vaccine (Season Ended) [...] age to complete this topic Care Teams Finance Admin Relationship Specialty Start Date End Date Domingo Mcadams MD [address] [place] [phone] PCP - General Internal Medicine 08/26/12
--- OUTSIDE RECORDS SUMMARY | 2024-12-26 14:33 | XMS_ITS | Continuity of Care Document ---
Author Organization [facility] Address [address] [place] [address]- Care Team Providers Care Brim Rounder Name Role Phone Ronny PAPPAS, Ofelia Acosta Primary Care Physician [phone] Encounter [facility] Date(s): 11/24/24 - 12/24/24 [facility] [place] [address] [place], [place] [address] Encounter Type: Triage Allergies, Adverse Reactions, Alerts Substance Criticality Severity Reaction Reaction Severity Status amoxicillin Active codeine HIVES Active penicillin Unable to assess criticality Unknown N&V - Nausea and vomiting Active Immunizations Given and Recorded Vaccine Date [...] Note: VIS GIVEN: 03/18/2011 2Result Comment: lot [id number] 09/21/2006 3Admin Note: VIS 05/29/09 GIVEN Problem List Condition Confirmation Course Effective Dates Status H ealth Status Informant ADD (attention deficit disorder) Confirmed Active Background diabetic retinopathy Confirmed Active Bipolar disorder Confirmed Active Bipolar II disorder Confirmed Active Chronic low back pain Confirmed Active Constipation Confirmed Active Diabetes Confirmed Active Postprandial epigastric pain Confirmed Active Hot flashes Confirmed Active Foot pain Confirmed Active Gastrointestinal stromal tumor (GIST) Confirmed Active Generalized anxiety disorder Confirmed Active GERD (gastroesophageal reflux disease) Confirmed Active History of diabetes mellitus Confirmed Active Hepatic steatosis Confirmed Active Gastric [...] abnormality Confirmed Active Severe obesity Confirmed Active Type 2 diabetes mellitus Confirmed Active Vitamin D deficiency Confirmed Active Weight gain Confirmed Active 1s/p gastric sleeve Social History Social History Type Response Smoking Status Never (less than 100 in lifetime); Tobacco user in household: No entered on: 07/26/18 Sex Female Sex Representation Female (finding) Patient Care team information Care Team Personnel Name: Anabel Roblero MA Position: [facility] Office Staff Member Role: Primary Care Nurse Name: Isa Paulson [place] Position: [facility] Office Staff Member Role: Primary Care Nurse Name: Ofelia Jefferson NP Position: [facility] Associate Professional Member Role: PCP Address: [address] [place] [address] [place] [address]- Telecom: Name: Tommy Kohli MD Position: [facility] Physician - Behavioral Health Member Role: [employer] Consult[employer] Physician Address: [address] [place] [address] Behavioral [place] [address]- Telecom: Care Team Related Persons Name: WILLEM SIMON III Name: WILLEM SIMON JR Insurance Providers Guarantor name: FREDDY SIMON Health Plan Information #: 1 Payer: [facility] Member Number: NA Policy Number: NA Group Number: NA
== END 2024-12-27 09:06 | disposition home or self-care (01) ==
LOC: HO.HOS 13:12
PROVIDERS: PCP Internal Medicine; Visit Provider Physician Assistant
DX: M17.0 Bilateral primary osteoarthritis of knee (principal)
CPT/HCPCS: 20610; 99214

== ENCOUNTER 2024-12-26 13:20 | Outpatient (REF) | payer OTHER, SELFPAY ==
--- NOTE | ~2024-12-26 | XR_ITS ---
CLINICAL HISTORY: knee pain Three views of each knee Comparison: None Findings: Right knee: Bones intact. No dislocations. Moderately severe medial compartment joint space narrowing. Moderate patellofemoral compartment joint space narrowing. No joint effusion. No radiopaque foreign body. Left knee: Bones intact. No dislocations. Moderately severe medial compartment joint space narrowing. Moderate patellofemoral compartment joint space narrowing. No joint effusion. No radiopaque foreign body. IMPRESSION: 1. No acute findings. 2. Advanced degenerative changes within the medial compartment bilaterally. This document has been electronically signed by: Riley Diaz MD on 12/27/2024 12:28:10
== END 2024-12-26 13:21 | disposition home or self-care (01) ==
LOC: HO.HOSX 13:20
PROVIDERS: Visit Provider Physician Assistant
DX: M25.561 Pain in right knee (principal); M25.562 Pain in left knee; M17.0 Bilateral primary osteoarthritis of knee
CPT/HCPCS: 20610; 73562; 99212; J1010; J2003

== ENCOUNTER → 2024-12-26 13:22 | Outpatient (BNV) | payer OTHER, SELFPAY | PROVIDERS: Visit Provider Radiology Vascular & Interventional Radiology | DX: M17.0 Bilateral primary osteoarthritis of knee (principal) | CPT/HCPCS: 73562 ==

== ENCOUNTER 2025-03-20 11:02 | Outpatient (AMB) | payer OTHER, SELFPAY ==
--- OUTSIDE RECORDS SUMMARY | 2025-03-19 23:59 | XMS_ITS | Continuity of Care Document ---
Author Organization [facility] Address [address] [place] [address]- Care Team Providers Care Tree Farmer Name Role Phone Ronny ACCOUNTING PRACTICE MANAGER, Ofelia Acosta Primary Care Physician [phone] Encounter [facility] Date(s): 02/17/25 - 03/19/25 [facility] [address], [place] [address] Encounter Type: Triage Allergies, Adverse Reactions, Alerts Substance Criticality Severity Reaction Reaction Severity Status codeine HIVES Active amoxicillin Active penicillin Unable to assess criticality Unknown [...] Note: VIS GIVEN: 03/18/2011 2Result Comment: lot [id number] 09/21/2006 3Admin Note: VIS 05/29/09 GIVEN Medications Acetaminophen Extra Strength Gelcaps = 1,000 mg, By Mouth, Every 8 hours, 0 Refills, Maintenance, 12/19/20 7:59:00 AM EDT, Partial fill upon patient request if the prescription is for a schedule II opioid drug. Start Date: 12/19/20 Status: Ordered Repeat number: 1 Adderall XR 30 mg oral capsule, extended release 1 capsule = 30 mg, By Mouth, Daily in AM, # 30 capsule, 0 Refills, Maintenance, 03/14/25 8:28:00 AM EDT, ER Capsule, [facility], fill when due, 1 capsule By Mouth Daily in AM,x30 days, 165, cm, 11/22/24 10:07:00 EDT, Height, 103.5, kg, 06/08/24 8:45:00 EDT, Dry Weight Start Date: 03/14/25 Stop Date: 04/13/25 Status: Ordered Quantity: 30.0 Unit: capsule Repeat number: 1 amLODIPine 2.5 mg oral tablet 1 tablet, By Mouth, Daily, # 90 tablet, 1 Refills, Maintenance, 09/30/24 3:12:00 PM EST, [facility], 165, cm, 09/26/24 12:01:00 EST, Height, 103.5, kg, 06/08/24 8:45:00 EDT, Dry Weight Start Date: 09/30/24 Status: Ordered Quantity: 90.0 Unit: tablet Repeat number: 1 amphetamine-dextroamphetamine 10 mg oral tablet 1 tablet = 10 mg, By Mouth, 2 times a day, # 60 tablet, 0 Refills, Maintenance, 03/14/25 8:28:00 AM EDT, [facility], fill on date due, 1 tablet By Mouth 2 times a day,x30 days, 165, cm, 11/22/24 10:07:00 EDT, Height, 103.5, kg, 06/08/24 8:45:00 EDT, Dry Weight Start Date: 03/14/25 Stop Date: 04/13/25 Status: Ordered Quantity: 60.0 Unit: tablet Repeat number: 1 clonazePAM 1 mg oral tablet 1 tablet = 1 mg, By Mouth, 3 times a day, # 90 tablet, 3 Refills, Maintenance, 10/21/24 12:55:00 PM EST, Tablet, [facility], 165, cm, 09/26/24 12:01:00 EST, Height, 103.5, kg, 06/08/24 8:45:00 EDT, Dry Weight Start Date: 10/21/24 Stop Date: 02/18/25 Status: Ordered Quantity: 90.0 Unit: tablet Repeat number: 4 Diflucan 150 mg oral tablet 1 tablet = 150 mg, By Mouth, Once, # 1 tablet, 0 Refills, Soft Stop, 08/23/24 4:36:00 PM EST, Tablet, [facility], Partial fill upon patient request if the prescription is for a schedule II opioid drug., 165, cm, 08/11/24 16:34:00 EST, Height, 103.5, kg, 06/08/24 8:45:00 EDT, Dry Weight Start Date: 08/23/24 Status: Ordered Quantity: 1.0 Unit: tablet Repeat number: 1 Effexor XR 75 mg oral capsule, extended release 75 mg, 1, capsule, By Mouth, Daily, NO MORE REFILLED UNTIL SEEN, NEEDS SHALA OV, # 7 capsule, Refills 0, Tot. Refills 0, Maintenance, 09/08/24 7:39:00 AM EST, Route to Pharmacy Electronically, [facility], Partial fill upon patient request if the prescription is for a schedule II opioid drug., 165, cm, 08/11/24 16:34:00 EST, Height, 103.5, kg, 06/08/24 8:45:00 EDT, Dry Weight Start Date: 09/08/24 Stop Date: 09/15/24 Status: Ordered Quantity: 7.0 Unit: capsule Repeat number: 1 Indications: Flushing; folic acid 1 mg oral tablet 1, tablet, By Mouth, Daily, # 30 tablet, Refills 5, Maintenance, 04/29/23 8:24:00 PM EDT, Route to Pharmacy Electronically, [facility], 165, cm, 01/21/23 11:55:00 EDT, Height, 118.3, kg, 12/16/22 20:23:00 EDT, Dry Weight Start Date: 04/29/23 Status: Ordered Quantity: 30.0 Unit: tablet Repeat number: 1 folic acid 1 mg oral tablet 1 mg, 1, tablet, By Mouth, Daily, OV 11-15-24, # 90 tablet, Refills 1, Tot. Refills 1, Maintenance, 11/01/24 5:04:00 PM EDT, Route to Pharmacy Electronically, [facility], 165, cm, 09/26/24 12:01:00 EST, Height, 103.5, kg, 06/08/24 8:45:00 EDT, Dry Weight Start Date: 11/01/24 Stop Date: 04/30/25 Status: Ordered Quantity: 90.0 Unit: tablet Repeat number: 2 Freestyle Lite Monitor See Instructions, # 1 each, Refills 0, Tot. Refills 0, Maintenance, DX E11.9.For patients use to check her blood glucose levels 2 x a day., 09/19/20 1:48:00 PM EST, Supply, 168, cm, 08/08/20 14:39:00 EST, Height, 127.1, kg, 09/16/19 9:51:00 EST, Dry Weight Start Date: 09/19/20 Status: Ordered Quantity: 1.0 Unit: each Repeat number: 1 Freestyle Lite Precision Test Strips Freestyle Lite Precision Test Strips, See Instructions, # 100 each, Refills 0, Tot. Refills 0, Maintenance, use to test once daily DX: E11.9, 04/12/23 7:33:00 AM EDT, per ins this is what they will cover, Supply, 165, cm, 01/21/23 11:55:00 EDT, Height, 118.3, kg, 12/16/22 20:23:00 EDT, Dry Weight Start Date: 04/12/23 Status: Ordered Quantity: 100.0 Unit: each Repeat number: 1 FREESTYLE LITE TEST STRP FREESTYLE LITE TEST STRP, See Instructions, # 100 Unknown, 0 Refills, Maintenance, USE TO TEST ONCEDAILY, 07/09/23 8:06:00 AM EST, 165, cm, 05/25/23 14:40:00 EDT, Height, 118.3, kg, 12/16/22 20:23:00 EDT, Dry Weight Start Date: 07/09/23 Status: Ordered Quantity: 100.0 Unit: Unknown Repeat number: 1 FREESTYLE LITE TEST STRP FREESTYLE LITE TEST STRP, See Instructions, # 100 Unknown, 0 Refills, Maintenance, USE TO TEST ONCEDAILY., 10/09/23 8:06:00 AM EST, 165, cm, 05/25/23 14:40:00 EDT, Height, 118.3, kg, 12/16/22 20:23:00 EDT, Dry Weight Start Date: 10/09/23 Status: Ordered Quantity: 100.0 Unit: Unknown Repeat number: 1 gabapentin 600 mg oral tablet 1 tablet, By Mouth, 4 times a day, # 120 tablet, 3 Refills, Maintenance, 10/21/24 12:55:00 PM EST, [facility], 165, cm, 09/26/24 12:01:00 EST, Height, 103.5, kg, 06/08/24 8:45:00 EDT, Dry Weight Start Date: 10/21/24 Stop Date: 02/18/25 Status: Ordered Quantity: 120.0 Unit: tablet Repeat number: 4 LaMICtal 200 mg oral tablet 2 tablet = 400 mg, By Mouth, Daily at bedtime, # 60 tablet, 5 Refills, Maintenance, 10/21/24 12:55:00 PM EST, Tablet, [facility], 165, cm, 09/26/24 12:01:00 EST, Height, 103.5, kg, 06/08/24 8:45:00 EDT, Dry Weight Start Date: 10/21/24 Stop Date: 04/19/25 Status: Ordered Quantity: 60.0 Unit: tablet Repeat number: 6 lamotrigine 100 mg oral tablet 100 mg, 1, tablet, By Mouth, Daily in AM, # 30 tablet, Refills 5, Tot. Refills 5, Maintenance, 10/21/24 12:56:00 PM EST, Route to Pharmacy Electronically, [facility], 165, cm, 09/26/24 12:01:00 EST, Height, 103.5, kg, 06/08/24 8:45:00 EDT, Dry Weight Start Date: 10/21/24 Stop Date: 04/19/25 Status: Ordered Quantity: 30.0 Unit: tablet Repeat number: 6 Linzess 145 mcg oral capsule 1 capsule = 145 mcg, By Mouth, Daily before breakfast, Take 30 minutes before breakfast, # 90 capsule, 3 Refills, Maintenance, 03/16/25 1:13:00 PM EDT, Capsule, [facility], 165, cm, 11/22/24 10:07:00 EDT, Height, 103.5, kg, 06/08/24 8:45:00 EDT, Dry Weight Start Date: 03/16/25 Stop Date: 07/14/25 Status: Ordered Quantity: 90.0 Unit: capsule Repeat number: 4 NuLYTELY with Flavor Packs oral powder for reconstitution 240 mL, By Mouth, Every 10 minutes, split prep method, take 1st half of prep evening before procedure, 2nd half 6 hrs prior to procedure., # 1 each, 0 Refills, Maintenance, 11/10/22 10:55:00 AM EDT, REC Powder, [facility], test date 01/14 . CAN SUBSTITUE WITH ANY PEG 3350 SOLUTION AVAILABLE, 240 mL By Mouth Every 10 minutes,Instr:split prep method, take 1st half of prep evening beforeprocedure, 2nd half 6 hrs prior to procedure., 168, cm, 10/22/22 10:35:00 EST, Height, 112, kg, 04/22/22 14:00:00 EDT, Dry Weight Start Date: 11/10/22 Status: Ordered Quantity: 1.0 Unit: each Repeat number: 1 omeprazole 40 mg oral enteric coated capsule 1 capsule, By Mouth, 2 times a day, patient to schedule apt to discuss meds charito high dose omeprazole, # 60 capsule, 0 Refills, Maintenance, 06/14/24 4:56:00 PM EDT, [facility], 165, cm, 06/08/24 8:45:00 EDT, Height, 103.5, kg, 06/08/24 8:45:00 EDT, Dry Weight Start Date: 06/14/24 Stop Date: 07/14/24 Status: Ordered Quantity: 60.0 Unit: capsule Repeat number: 1 omeprazole 40 mg oral enteric coated capsule 1 capsule = 40 mg, By Mouth, Daily, # 30 capsule, 5 Refills, Maintenance, 02/21/25 6:36:00 AM EDT, ECCapsule, [facility], Partial fill upon patient request if the prescription is for a schedule II opioid drug., 165, cm, 11/22/24 10:07:00 EDT, Height, 103.5, kg, 06/08/24 8:45:00 EDT, Dry Weight Start Date: 02/21/25 Status: Ordered Quantity: 30.0 Unit: capsule Repeat number: 6 ondansetron 4 mg oral tablet, disintegrating 1 tablet = 4 mg, By Mouth, Every 6 hours, PRN Nausea & Vomiting, # 24 tablet, 1 Refills, Maintenance, 09/26/24 1:20:00 PM EST, Tablet, [facility], Partial fill upon patient request if the prescription is for a schedule II opioid drug., 165, cm, 09/26/24 12:01:00 EST, Height, 103.5, kg, 06/08/24 8:45:00 EDT, Dry Weight Start Date: 09/26/24 Status: Ordered Quantity: 24.0 Unit: tablet Repeat number: 2 ONE TOUCH DELICA PLUS 33G ONE TOUCH DELICA PLUS 33G, See Instructions, # 100 Unknown, 0 Refills, Maintenance, USE DAILY TO CHECK MORNING FASTING BLOOD SUGAR., 05/11/23 10:11:00 AM EDT, 165, cm, 01/21/23 11:55:00 EDT, Height, 118.3, kg, 12/16/22 20:23:00 EDT, Dry Weight Start Date: 05/11/23 Status: Ordered Quantity: 100.0 Unit: Unknown Repeat number: 1 ONE TOUCH DELICA PLUS 33G ONE TOUCH DELICA PLUS 33G, See Instructions, # 100 Unknown, 11 Refills, Maintenance, USE DAILY TO CHECK MORNING FASTING BLOOD SUGAR., 08/08/23 9:02:00 PM EST, 165, cm, 05/25/23 14:40:00 EDT, Height, 118.3, kg, 12/16/22 20:23:00 EDT, Dry Weight Start Date: 08/08/23 Status: Ordered Quantity: 100.0 Unit: Unknown Repeat number: 1 ONETOUCH VERIO STRP ONETOUCH VERIO STRP, See Instructions, # 50 Unknown, 0 Refills, Maintenance, USE DAILY TO CHECK MORNING FASTING BLOOD SUGAR., 04/06/23 7:38:00 AM EDT, 165, cm, 01/21/23 11:55:00 EDT, Height, 118.3, kg, 12/16/22 20:23:00 EDT, Dry Weight Start Date: 04/06/23 Status: Ordered Quantity: 50.0 Unit: Unknown Repeat number: 1 OneTouch Verio Glucose Meter See Instructions, # 1 each, Maintenance, Use daily to check morning fasting blood sugar ICD 10: E11.9, 02/19/23 11:43:00 AM EDT, Supply, 165, cm, 01/21/23 11:55:00 EDT, Height, 118.3, kg, 12/16/22 20:23:00 EDT, Dry Weight Start Date: 02/19/23 Status: Ordered Quantity: 1.0 Unit: each Repeat number: 1 OneTouch Verio Lancets See Instructions, # 1 each, Maintenance, Use daily to check morning fasting blood sugar ICD 10: E11.9, 02/19/23 11:43:00 AM EDT, Supply, 165, cm, 01/21/23 11:55:00 EDT, Height, 118.3, kg, 12/16/22 20:23:00 EDT, Dry Weight Start Date: 02/19/23 Status: Ordered Quantity: 1.0 Unit: each Repeat number: 1 OneTouch Verio Test Strips See Instructions, # 1 each, Maintenance, Use daily to check morning fasting blood sugar ICD 10: E11.9, 02/19/23 11:43:00 AM EDT, Supply, 165, cm, 01/21/23 11:55:00 EDT, Height, 118.3, kg, 12/16/22 20:23:00 EDT, Dry Weight Start Date: 02/19/23 Status: Ordered Quantity: 1.0 Unit: each Repeat number: 1 PEG-3350 with Electrolytes Lemon (Eqv-NuLYTELY) oral powder for reconstitution See Instructions, follow instructions provided by the office, # 240 mL, 0 Refills, Maintenance, 08/03/24 9:48:00 AM EST, REC Powder, [facility], Partial fill upon patient request if the prescription is for a schedule II opioid drug., follow instructions provided by the office, 165, cm, 06/08/24 8:45:00 EDT, Height, 103.5, kg, 06/08/24 8:45:00 EDT, Dry Weight Start Date: 08/03/24 Status: Ordered Quantity: 240.0 Unit: mL Repeat number: 1 Readi-Cat 2 Smoothie Creamy Vanilla 2% oral suspension See Instructions, 1 bottle 90 minutes prior to study, # 420 mL, 0 Refills, Maintenance, 05/25/23 3:17:00 PM EDT, [facility], Partial fill upon patient request if the prescription is for a schedule II opioid drug., 1 bottle 90 minutes prior to study, 165, cm, 05/25/23 14:40:00 EDT, Height, 118.3, kg, 12/16/22 20:23:00 EDT, Dry Weight Start Date: 05/25/23 Status: Ordered Quantity: 420.0 Unit: mL Repeat number: 1 Indications: Other specified symptoms and signs involving the digestive system and abdomen; Type 2 diabetes mellitus without complications; Unspecified abdominal pain; Trulicity Pen 1.5 mg/0.5 mL subcutaneous solution See Instructions, INJECT 1.5 MG SUBCUTANEOUSLY ONCE WEEKLY ROTATE INJECTION SITES, # 2 mL, 5 Refills, Maintenance, 01/20/25 8:41:00 PM EDT, [facility], 165, cm, 11/22/24 10:07:00 EDT, Height, 103.5, kg, 06/08/24 8:45:00 EDT, Dry Weight Start Date: 01/20/25 Status: Ordered Quantity: 2.0 Unit: mL Repeat number: 1 Vitamin D3 5000 intl units oral tablet 1 tablet, By Mouth, Daily, # 30 tablet, 0 Refills, Maintenance, 02/17/25 4:34:00 PM EDT, [facility], 165, cm, 11/22/24 10:07:00 EDT, Height, 103.5, kg, 06/08/24 8:45:00 EDT, Dry Weight Start Date: 02/17/25 Status: Ordered Quantity: 30.0 Unit: tablet Repeat number: 1 Wellbutrin XL 300 mg/24 hours oral tablet, extended release 1 tablet = 300 mg, By Mouth, Daily, # 30 tablet, 5 Refills, Maintenance, 10/21/24 12:55:00 PM EST, ER Tablet, [facility], 165, cm, 09/26/24 12:01:00 EST, Height, 103.5, kg, 06/08/24 8:45:00 EDT, Dry Weight Start Date: 10/21/24 Stop Date: 04/19/25 Status: Ordered Quantity: 30.0 Unit: tablet Repeat number: 6 ziprasidone 20 mg oral capsule 2 capsule = 40 mg, By Mouth, Daily at bedtime, TDD 120 mg with food, # 60 capsule, 5 Refills, Maintenance, 10/21/24 12:56:00 PM EST, [facility], 165, cm, 09/26/24 12:01:00 EST, Height, 103.5,kg, 06/08/24 8:45:00 EDT, Dry Weight Start Date: 10/21/24 Stop Date: 04/19/25 Status: Ordered Quantity: 60.0 Unit: capsule Repeat number: 6 ziprasidone 80 mg oral capsule 1 capsule = 80 mg, By Mouth, Daily, TDD 120 mg with food, # 30 capsule, 5 Refills, Maintenance, 10/21/24 12:56:00 PM EST, [facility], Partial fill upon patient request if the prescription is for a schedule II opioid drug., 165, cm, 09/26/24 12:01:00 EST, Height, 103.5, kg, 06/08/24 8:45:00 EDT, Dry Weight Start Date: 10/21/24 Stop Date: 04/19/25 Status: Ordered Quantity: 30.0 Unit: capsule Repeat number: 6 Problem List Condition Confirmation Course Effective Dates [...] Care Nurse Name: Ofelia Jefferson NP Position: [facility] PCO Associate Professional Member Role: PCP Address: [address] [place] [address] [place] [address]- Telecom: Name: Tommy Kohli MD Position: [facility] Physician - Behavioral Health Member Role: Lifetime Consulting Physician Address: [address] [place] [address] Behavioral Health [place] [address]- Telecom: Care Team Related Persons Name: WILLEM SIMON III Name: WILLEM SIMON JR Insurance Providers Guarantor name: FREDDY SIMON Health Plan Information #: 1 Payer: [employer] [facility] [employer] Payer Identifier: [place] Member Number: [id number] Group Number: [id number] Subscriber Identifier: [id number] Relationship to Subscriber: self Coverage Type: Medicaid (Managed Care) Coverage Verification Date: [place] Telecom: [place] Address:
[2025-03-20 11:06] VITALS: BMI 36.8
--- NOTE | 2025-03-20 11:06 | MHC.OFFVIS ---
Vital Signs 03/20/25 11:06 Height 5 ft 5 in Weight 221 lb BMI 36.8 Intake Visit Reasons: OV - Discuss Right TKA Intake Note: Johnna is a 54 year old female who presents today for a follow up of her Right Knee OA. She was last seen with Karin where it was discussed that she is too young for TKA, however she would like to discuss this in further detail. Patient reports today she would like to discuss possible injections. Allergies codeine Allergy (Verified 03/20/25 11:11) Hives amoxicillin Adverse Reaction (Verified 03/20/25 11:11) Nausea and Vomiting Penicillins Adverse Reaction (Verified 03/20/25 11:11) Nausea and Vomiting HPI HPI OV - Discuss Right TKA: Details: THis is a 54 yo F with a long history of left knee pain that has been treated intermittantly with steroid injection. The last injection (3 mo ago) was very helpful for about 6 weeks. Now kapil is having progressively worsining pain, especially at night. Her pain localizes to the medial aspect of her left knee. She denies injury. She is working to lose weight and is on Trulicity. [facility] Medical History (Updated 03/21/25 @ 07:11 by Elder Bee MD) Neck pain Bilateral knee pain Vitamin D deficiency PTSD (post-traumatic stress disorder) Postprandial epigastric pain BRIANNA (obstructive sleep apnea) Nipple discharge in female Myoclonic jerking Morbid obesity Mixed incontinence Hx of mastitis Intertrigo Incomplete defecation HTN (hypertension) Hepatic steatosis GERD (gastroesophageal reflux disease) RADHA (generalized anxiety disorder) Gastrointestinal stromal tumor (GIST) Foot pain Diabetes Constipation Chronic low back pain Bipolar disorder Background diabetic retinopathy ADD (attention deficit disorder) Surgical History (Updated 03/23/24 @ 14:10 by Charmaine Chen RN) Hx of colonoscopy Hx of section Hx of abdominal hysterectomy History of carpal tunnel release History of lumbar fusion Hx of ovarian cystectomy History of bunionectomy History of esophagogastroduodenoscopy (EGD) History of sleeve gastrectomy Social History Alcohol intake: former e-Cigarette/Vaping Use: Currently Using Substance Use Type: Marijuana Current occupational status: employed Current occupation: N Physical Exam Vital Signs: BMI result Body Mass Index 36.8 Extrem Other: 5-130 deg of motion with sharp TTP over the medial tibial plateau and medial femoral cyndyle. Mild effusion. Stable to v/v stress Office Procedures Joint Inj/Aspir; Non-Pain Clin Joint Injection/Drain Details: Injected 1 mL of Decadron and 3 mL 1% lidocaine and 3 mL of 0.25% Marcaine. Site was prepped using aseptic technique. Patient tolerated the procedure well. Shoulders, Hips, Knees, Knee Large Joint Injection : Left Knee Coding Procedure code (CPT) selection complete Results Reviewed Results Reviewed: I personally reviewed relevant radiographs. 1. No acute findings. 2. Advanced degenerative changes within the medial compartment bilaterally Assessment & Plan Assessment & Plan (1) Arthritis of left knee: Code(s): M17.12 - Unilateral primary osteoarthritis, left knee Category: Medical Plan: This is a 54 yo F with left knee OA. It has been managed with injection off and on for several years. Her last injection was performed in our office about 3 months ago and was helpful for ~6-8 weeks. She has been having progressively worsening left knee pain for over a month. She is active and has been, she admits, overdoing it. Her left knee pain is medial and is not allowing her to sleep of walk comfortably. We discussed treatment options and , while TKA has been mentioned to her in the past, I think , given her age, we should continue steroid injections. If these injection cease to be helpful we can proceed to viscosupplementation. In the meantime she is trying to lose weight which will be helpful for her. I also recommend she stop pushing through painful physical activity. Staying active and healthy is paramount for decreasing pain from knee OA but continuing to maintain activity whil in pain will only exacerbate her symptoms. She may follow up in 3 months or, if her pain does not kaye sufficiently, she will contact our office and we will consider viscosupplementation. Coding Level of Care Code Est Pt Level 3 (07808) Diagnoses Arthritis of left knee M17.12 CPT Codes Shoulders, Hips, Knees, - Knee Large Joint Injection : Left Knee ([id number])
--- OUTSIDE RECORDS SUMMARY | 2025-03-20 12:22 | XMS_ITS | Clinical Summary ---
Author Organization [facility] Address [address] [place] [id number] Phone Care Team Providers Care Iron Miner Name Role Phone Ofelai Jefferson SHELLAC POLISHER Primary Care Provider [phone] Social History Tobacco Use Types Packs/Day Years Used Date Smoking Tobacco: Never Assessed Education Answer Date Recorded Are you interested in more education? Not on maddy e 12/15/2023 Are you concerned about learning? Not on file 12/15/2023 No 12/15/2023 No 12/15/2023 Digital Access Answer Date Recorded No 12/15/2023 No 12/15/2023 Reliable internet access at home? Not on file 12/15/2023 Device with a working camera? Not on file Comments Unknown Sex and Gender Information Value Date Recorded Sex Assigned at Female 12/13/2024 2:06 PM EDT Legal Sex Female 5:31 PM EST Gender Identity Female 12/13/2024 2:06 PM EDT Sexual Orientation Not on file Plan of Treatment Health Maintenance Due Date Last Done Comments Adult Td,Tdap Booster 1972 LIPID PANEL 1972 DEPRESSION SCREENING 1984 SMOKING Hx and SMOKELESS TOB ACCO SCREENING 1985 HEPATITIS C SCREENING 1990 HIV ONE-TIME SCREENING (18-6 5 YEARS) 1990 PAP SMEAR 1993 MAMMOGRAM 2012 COLOGUARD 2017 COLONOSCOPY 2017 COLORECTAL CANCER SCREENING 2017 FIT TEST 2017 FOBT 2017 SIGMOIDOSCOPY 2017 VIRTUAL COLONOSCOPY 2017 PNEUMOCOCCAL VACCINES (50+ y ears) (1 of 1 - PCV) 2022 ZOSTER VACCINES (1 of 2) 2022 COVID-19 VACCINE (1 - 2023-2 5 season) 2024 HEPATITIS A VACCINES Aged Out No long er eligible based on patient's age to complete this topic HIB VACCINES Aged Out No longer eligi ble based on patient's age to complete this topic MENINGOCOCCAL VACCINES (ACWY) Aged Out No longer eligible based on patient's age to complete this topic MENINGOCOCCAL VACCINES (B) Aged Out N o longer eligible based on patient's age to complete this topic Medical Devices Not on file Insurance [employer]CO [employer] ACO ACO ACO ACO [facility] HE[employer] PARTNERSHIP ACO Care Teams Iron Miner Relationship Specialty Start Date End Date Ofelia Jefferson NP [address] [place] [address] PCP - General Nurse Practitioner 06/10/24 Additional Source Comments The information contained in this document represents components of the legal health record. It is not the complete legal health record.[facility]
--- OUTSIDE RECORDS SUMMARY | 2025-03-20 12:22 | XMS_ITS | Clinical Summary ---
Author Organization [facility] Address [address] [place] [address] Care Team Providers Care Industrial Rehabilitation Consultant Name Role Phone Faye Brown MD Primary Care Provider [phone] Social History Tobacco Use Types Packs/Day Years [...] (1 of 2) 2022 Influenza Vaccine (#1) 2025 Pneumococcal Vaccine Aged Out No long er eligible based on patient's age to complete this topic RSV Ped < 20 months Aged Out No longe r eligible based on patient's age to complete this topic Care Teams Industrial Rehabilitation Consultant Relationship Specialty Start Date End Date Faye Brown MD [address] [place] [address] PCP - General Internal Medicine 10/02/20
--- OUTSIDE RECORDS SUMMARY | 2025-03-20 12:22 | XMS_ITS | Clinical Summary ---
Author Organization [facility] Address [address] [place] [address] Care Team Providers Care Radiology Asst Name Role Phone Domingo Mcadams MD Primary Care Provider [phone] Surgical History Surgery Date Site/Laterality Comments PARTIAL HYSTERECTOMY PROCEDURE: GA SUPRACERVICAL ABDL HYSTER W/WO RMVL TUBE OVARY [...] Vaccine ( - 2023-2 5 season) 2024 Depression Screening 08/24/2024 Influenza Vaccine (#1) 2025 HIB Vaccines Aged Out No longer [...] age to complete this topic Care Teams Radiology Asst Relationship Specialty Start Date End Date Domingo Mcadams MD [address] [place] [id number] PCP - General Internal Medicine 08/26/12
--- OUTSIDE RECORDS SUMMARY | 2025-03-20 12:22 | XMS_ITS ---
Author Name [facility] Organization Unknown Encounters Encounter Type Encounter Reason Primary Diagnosis Location Date Ambulatory [facility] 01/20/2024
== END 2025-03-20 12:21 | disposition home or self-care (01) ==
LOC: HO.HOS 11:03
PROVIDERS: Visit Provider Orthopaedic Surgery
DX: M17.12 Unilateral primary osteoarthritis, left knee (principal)
CPT/HCPCS: 20610; 99213

== ENCOUNTER → 2025-03-20 11:02 | Outpatient (BNVA) | payer OTHER, SELFPAY | PROVIDERS: Visit Provider Orthopaedic Surgery | DX: M17.12 Unilateral primary osteoarthritis, left knee (principal) | CPT/HCPCS: 20610; 99212; J0665; J1100; J2003 ==

== ENCOUNTER 2025-05-15 14:24 | Outpatient (AMB) | payer OTHER, SELFPAY ==
--- NOTE | 2025-05-15 14:30 | A.SPINEOV_ITS ---
Intake Visit Reasons: discuss reasons for MRI Intake Note: Ms. Samuel is here today to Discuss reasons for MRI. Audiovisual Technician Required: No Allergies codeine Allergy (Verified 05/15/25 14:50) Hives amoxicillin Adverse Reaction (Verified 05/15/25 14:50) Nausea and Vomiting Penicillins Adverse Reaction (Verified 05/15/25 14:50) Nausea and Vomiting Assessment & Plan Assessment & Plan (1) Cervical radiculopathy: Code(s): M54.12 - Radiculopathy, cervical region Category: Medical (2) Lumbar degenerative disc disease: Code(s): M51.369 - Other intervertebral disc degeneration, lumbar region without mention of lumbar back pain or lower extremity pain Category: Medical Plan Mrs Samuel returns today to the office. Please see the last note for the specifics of her issues. She has a complicated spinal history and has continued has severe neck pain shooting right arm pain down into her hand. She also has severe back pain with feelings of clicking and pain with lateral bending. She has severe pain radiating down both legs with standing walking. 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 Her MRIs were denied by insurance because she did not complete physical therapy. The patient did ultimately undergo physical therapy for about a week, but the therapist discontinued the treatments because the pain was so bad it was aggravating things so much that it was almost incapacitating. Therefore she was discharged from PT after appropriately participating as requested. She is here today to see if we can reorder the MRIs because the symptoms are only continuing to get worse. As previously she has been taking Motrin, Tylenol, heat, ice and topical ointments etc. to try to deal with it. She has done activity modifications etc.. I will reorder the MRIs and I would like to see her back once they are completed. Total amount of time spent in this visit was 20 minutes in discussion of symptoms, ordering imaging and subsequent plan of care Pritesh Han MD,PhD [facility] Coding Level of Care Code Est Pt Level 3 (55296) Diagnoses Cervical radiculopathy M54.12 Lumbar degenerative disc disease M51.369
== END 2025-05-15 15:27 | disposition home or self-care (01) ==
LOC: HO.HNS 14:25
PROVIDERS: Visit Provider Physician Assistant
DX: M54.12 Radiculopathy, cervical region (principal); M51.369 Other intervertebral disc degeneration, lumbar region without mention of lumbar back pain or lower extremity pain
CPT/HCPCS: 99213

== ENCOUNTER → 2025-05-15 14:24 | Outpatient (BNVA) | payer OTHER, SELFPAY | PROVIDERS: Visit Provider Physician Assistant | DX: Z71.2 Person consulting for explanation of examination or test findings (principal); M54.12 Radiculopathy, cervical region; M51.369 Other intervertebral disc degeneration, lumbar region without mention of lumbar back pain or lower extremity pain | CPT/HCPCS: 99212 ==

== ENCOUNTER 2025-08-04 13:42 | Outpatient (AMB) | payer OTHER, SELFPAY ==
--- NOTE | 2025-08-04 14:21 | A.SPINEOV_ITS ---
Intake Visit Reasons: MRI f/u Intake Note: Ms. Samuel is here today to F/u on the results to her MRI. Tool Lapper Hand Required: No Allergies codeine Allergy (Verified 08/04/25 14:22) Hives amoxicillin Adverse Reaction (Verified 08/04/25 14:22) Nausea and Vomiting Penicillins Adverse Reaction (Verified 08/04/25 14:22) Nausea and Vomiting Assessment & Plan Assessment & Plan (1) Cervical radiculopathy: Code(s): M54.12 - Radiculopathy, cervical region Category: Medical (2) Lumbar degenerative disc disease: Code(s): M51.369 - Other intervertebral disc degeneration, lumbar region without mention of lumbar back pain or lower extremity pain Category: Medical Plan Mrs Samuel is here in follow up. She is following up with regard to her chronic pains. She has diffuse body aches and complaints starting from her head moving down to her neck, arm shoulder hands, low back legs. The finding on the MRI at C7-T1 that we were concerned about a few years ago, on her follow up MRI done at [place] shows that that disc herniation has retracted and there is only minimal foraminal narrowing at this level at this time. Therefore we do not have an obvious explanation for the right arm pain and can not offer her surgery. With regard to the low back, there are similar degenerative changes that we saw on her x-ray at L3-4 and L2-3. It would be an extensive undertaking to go in and remove her old screws and extend her fusion up 2 levels. The situation with her body being in pain from head to toe seems more consistent with fibromyalgia and we know that patients with fibromyalgia do not do well with surgery. Often the surgery just makes things more painful. Therefore out of concern for making her worse, we are not going to offer her surgery at this time but rather told her she should follow up with her PCP to discuss possible treatment for fibromyalgia. Case reviewed with Dr. Han. Total amount of time spent in this visit was 20 minutes in discussion of symptoms, lumbar MRI and cervical MRI imaging results and subsequent plan of care Pritesh Han MD,PhD [facility] Coding Level of Care Code Est Pt Level 3 (61726) Diagnoses Cervical radiculopathy M54.12 Lumbar degenerative disc disease M51.369
--- OUTSIDE RECORDS SUMMARY | 2025-08-04 19:12 | XMS_ITS | Clinical Summary ---
Author Organization [facility] Address [address] [place] [id number] Phone Care Team Providers Care Machine Filler Shredder Name Role Phone Ofelia Jefferson CAR WHACKER Primary Care Provider [phone] Social History Tobacco Use Types Packs/Day Years [...] 2022 ZOSTER VACCINES (1 of 2) 2022 INFLUENZA VACCINE (#1) 2025 COVID-19 VACCINE (1 - 2024-2 6 season) 2025 RSV VACCINE (1 - 1-dose 75+ series) 2047 HEPATITIS A VACCINES Aged Out No long [...] topic Medical Devices Not on file Insurance PARTNERSHIP ACO ACO ACO [facility] PARTNER[facility] ACO Care Teams Machine Filler Shredder Relationship Specialty Start Date End Date Ofelia Jefferson NP [address] [place] [address] PCP - General Nurse Practitioner 06/10/24 Additional Source Comments The information contained in this document represents components of the legal health record. It is not the complete legal health record.[facility]
--- OUTSIDE RECORDS SUMMARY | 2025-08-04 19:12 | XMS_ITS | Clinical Summary ---
Author Organization [facility] Prior to 01/21/25 Address [address] [place] [address] Care Team Providers Care Husker Operator Name Role Phone Faye Brown MD Primary Care Provider [phone] Social History Tobacco Use Types Packs/Day Years [...] age to complete this topic Care Teams Husker Operator Relationship Specialty Start Date End Date Faye Brown MD [address] [place] [address] PCP - General Internal Medicine 10/02/20
--- OUTSIDE RECORDS SUMMARY | 2025-08-04 19:12 | XMS_ITS | Clinical Summary ---
Author Organization [facility] it Address [address] [place] [address] Care Team Providers Care Wad Printing Machine Operator Name Role Phone Domingo Mcadams MD Primary Care Provider [phone] Surgical History Surgery Date Site/Laterality Comments PARTIAL [...] 2022 Zoster Vaccines (1 of 2) 2022 Depression Screening 08/24/2024 COVID-19 Vaccine ( - 2024-2 6 season) 2025 Influenza Vaccine (#1) 2025 RSV Immunization Adult Patie nts (1 - 1-dose 75+ series) 2047 HIB Vaccines Aged Out No longer eligi [...] age to complete this topic Care Teams Wad Printing Machine Operator Relationship Specialty Start Date End Date Domingo Mcadams MD [address] [place] [phone] PCP - General Internal Medicine 08/26/12
== END 2025-08-04 14:15 | disposition home or self-care (01) ==
LOC: HO.HNS 13:42
PROVIDERS: Visit Provider Physician Assistant
DX: M54.12 Radiculopathy, cervical region (principal); M51.369 Other intervertebral disc degeneration, lumbar region without mention of lumbar back pain or lower extremity pain
CPT/HCPCS: 99213

== ENCOUNTER → 2025-08-04 13:42 | Outpatient (BNVA) | payer OTHER, SELFPAY | PROVIDERS: Visit Provider Physician Assistant | DX: M54.12 Radiculopathy, cervical region (principal); M51.369 Other intervertebral disc degeneration, lumbar region without mention of lumbar back pain or lower extremity pain | CPT/HCPCS: 99212 ==

== ENCOUNTER 2025-08-14 13:34 | Outpatient (AMB) | payer OTHER, SELFPAY ==
--- NOTE | 2025-08-14 13:38 | MHC.OFFVIS ---
Intake Visit Reasons: INJ - Bilateral Knee Cortisone Intake Note: Johnna is a 54 year old female who presents today for a follow up of her Left Knee OA. She was last seen 03/20/25 where the left knee was injected. If this was unhelpful we would consider Gel injections. She would like to repeat cortisone injections as her knees are significantly painful. She was recently seen with [facility] who discussed fibromyalgia. Allergies codeine Allergy (Verified 08/04/25 14:22) Hives amoxicillin Adverse Reaction (Verified 08/04/25 14:22) Nausea and Vomiting Penicillins Adverse Reaction (Verified 08/04/25 14:22) Nausea and Vomiting HPI HPI INJ - Bilateral Knee Cortisone: Details: Johnna is a 54 year old female who presents today for a follow up of her Left Knee OA. She was last seen 03/20/25 where the left knee was injected. If this was unhelpful we would consider Gel injections. She would like to repeat cortisone injections as her knees are significantly painful. She was recently seen with [facility] who discussed fibromyalgia. [facility] Medical History (Updated 03/21/25 @ 07:11 by Elder Bee MD) Neck pain Bilateral knee pain Vitamin D deficiency PTSD (post-traumatic stress disorder) Postprandial epigastric pain BRIANNA (obstructive sleep apnea) Nipple discharge in female Myoclonic jerking Morbid obesity Mixed incontinence Hx of mastitis Intertrigo Incomplete defecation HTN (hypertension) Hepatic steatosis GERD (gastroesophageal reflux disease) RADHA (generalized anxiety disorder) Gastrointestinal stromal tumor (GIST) Foot pain Diabetes Constipation Chronic low back pain Bipolar disorder Background diabetic retinopathy ADD (attention deficit disorder) Surgical History (Updated 03/23/24 @ 14:10 by Charmaine Chen RN) Hx of colonoscopy Hx of section Hx of abdominal hysterectomy History of carpal tunnel release History of lumbar fusion Hx of ovarian cystectomy History of bunionectomy History of esophagogastroduodenoscopy (EGD) History of sleeve gastrectomy Social History Alcohol intake: former e-Cigarette/Vaping Use: Currently Using Substance Use Type: Marijuana Current occupational status: employed Current occupation: N Physical Exam Extrem Other: 5-130 deg of motion with sharp TTP over the medial tibial plateau and medial femoral cyndyle. Mild effusion. Stable to v/v stress Office Procedures Joint Inj/Aspir; Non-Pain Clin Joint Injection/Drain Details: Injected 1 mL of Decadron and 3 mL 1% lidocaine and 3 mL of 0.25% Marcaine. Site was prepped using aseptic technique. Patient tolerated the procedure well. Shoulders, Hips, Knees, Knee Large Joint Injection : Bilateral Knee Coding Procedure code (CPT) selection complete Assessment & Plan Assessment & Plan (1) Osteoarthritis of knees, bilateral: Code(s): M17.0 - Bilateral primary osteoarthritis of knee Category: Medical Plan: I injected bilateral knees today. She tolerated this well. She may follow up in 3-4 months or as needed. Coding Level of Care Code Est Pt Level 3 (86804) Diagnoses Osteoarthritis of knees, bilateral M17.0 CPT Codes Shoulders, Hips, Knees, - Knee Large Joint Injection : Bilateral Knee ([id number])
--- OUTSIDE RECORDS SUMMARY | 2025-08-14 17:01 | XMS_ITS | Clinical Summary ---
Author Organization [facility] Prior to 01/21/25 Address [address] [place] [address] Care Team Providers Care Nutrition Internship Name Role Phone Faye Brown MD Primary Care Provider [phone] Social History Tobacco Use Types Packs/Day Years [...] age to complete this topic Care Teams Nutrition Internship Relationship Specialty Start Date End Date Faye Brown MD [address] [place] [address] PCP - General Internal Medicine 10/02/20
--- OUTSIDE RECORDS SUMMARY | 2025-08-14 17:01 | XMS_ITS | Clinical Summary ---
Author Organization [facility] Address [address] [place] [phone] Phone Care Team Providers Care Neurocritical Care Physician Name Role Phone Ofelia Jefferson TRANSPORTATION DISPATCHER Primary Care Provider [phone] Social History Tobacco Use Types Packs/Day Years [...] on file Insurance PARTNERSHIP ACO ACO ACO [facility] PARTNERSHIP ACO Care Teams Neurocritical Care Physician Relationship Specialty Start Date End Date Ofelia Jefferson NP [address] [place] [address] PCP - General Nurse Practitioner 06/10/24 Additional Source Comments The information contained in this document represents components of the legal health record. It is not the complete legal health record.[facility]
--- OUTSIDE RECORDS SUMMARY | 2025-08-14 17:01 | XMS_ITS | Clinical Summary ---
Author Organization [facility] it Address [address] [place] [address] Care Team Providers Care Managed Services Sales Consultant Name Role Phone Domingo Mcadams MD Primary Care Provider [phone] Surgical History Surgery Date Site/Laterality Comments PARTIAL HYSTERECTOMY PROCEDURE: [place] SUPRACERVICAL ABDL HYSTER W/WO RMVL TUBE OVARY [...] age to complete this topic Care Teams Managed Services Sales Consultant Relationship Specialty Start Date End Date Domingo Mcadams MD [address] [place] [phone] PCP - General Internal Medicine 08/26/12
== END 2025-08-15 08:32 | disposition home or self-care (01) ==
LOC: HO.HOS 13:35
PROVIDERS: Visit Provider Orthopaedic Surgery
DX: M17.0 Bilateral primary osteoarthritis of knee (principal)
CPT/HCPCS: 20610; 99213

== ENCOUNTER → 2025-08-14 13:34 | Outpatient (BNVA) | payer OTHER, SELFPAY | PROVIDERS: Visit Provider Orthopaedic Surgery | DX: M17.0 Bilateral primary osteoarthritis of knee (principal) | CPT/HCPCS: 20610; 99212; J0665; J1100; J2003 ==